=== PATIENT | male | born 1950 | race Caucasian/White ===

== ENCOUNTER 2025-04-13 12:58 | Observation (INO) | payer OTHER, SELFPAY ==
[2025-04-13] VITALS (10 sets, daily range): BP systolic 118–129; BP diastolic 58–69; PULSE 79–99; RESP 16–30; TEMP 36.9–38.7; O2SAT 94–100; BMI 29.9
--- NOTE | ~2025-04-13 | XR_ITS ---
XR chest 1V Ordering provider: Rogers Dubon MD History: 74 years Male with . AMS/fe brile . Comparison: None. FINDINGS: MEDIASTINUM: The cardiac silhouette is mildly enlarged. LUNGS: No infiltrates, effusions or pneumothorax. OTHER: No free air under the diaphragm. Degenerative changes of the spine. IMPRESSION: No acute cardiopulmonary pathology. Reviewed, dictated and finalized at location A.
--- NOTE | ~2025-04-13 | CT_ITS ---
CT cervical spine wo con Ordering provider: Jessie Simmons PA-C History: . fall, hi . Comparison: None. Technique: CT of the cervical spine was performed without contrast. Sagittal and coronal reformatted images were also obtained and reviewed. Automated exposure control and iterative reconstruction flor hnique were employed. The dose-length product was 475.23 mGy-cm. FINDINGS: VERTEBRAE: No subluxation or acute fracture. The occipital condyles are intact. Degenerative changes of the spine. DISC SPACES: Narrowing of the disc C3 C5 C6. Multilevel facet joint disease. Multilevel uncovertebral joint osteoarthritic changes. Bilateral narrowing of the foramina at the lev el of C5-6. Moderate spinal canal stenosis at the same level. PARASPINOUS SOFT TISSUES: Normal. IMPRESSION: No acute osseous abnormality cervical spine. Degenerative disc disease at the level of C5-C6. Reviewed, dictated and finalized at location A.
--- NOTE | ~2025-04-13 | CT_ITS ---
EXAMINATION: CT chest abdomen pelvis w con DATE: 04/13/2025 14:33 INDICATION: Altered mental status TECHNIQUE: Computed tomography (CT) of the chest, abdomen, and pelvis was performed with 100 mL Omnip aque-350 intravenous contrast. Automated exposure control and iterative reconstruction technique were employed. The dose-length product was 1705.25 mGy-cm. COMPARISON: None FINDINGS: CHEST CT: Mild elevation the left hemidiaphragm. Mild dependent atelectasis in the bilateral lower lobes. No pn eumonia, pulmonary edema or pleural effusion. Cardiomegaly. Atherosclerotic coronary artery calcifica tion and aortic valve calcification. No pericardial effusion. Thoracic aorta is normal in caliber wit h no dissection. No pathologically enlarged thoracic lymphadenopathy. Mild thoracic spondylosis with bridging osteophytes at multiple levels consistent with diffuse idiopathic skeletal hyperostosis (DIS H). ABDOMEN/PELVIS CT: Adjustable gastric banding procedure with normal phi angle of 50 degrees and with reservoir in the kohli bcutaneous tissues overlying the right upper quadrant anterior abdominal wall. Cholecystectomy clips at the gallbladder fossa. Liver and pancreas are normal. Small bilateral adrenal nodules the largest on the right measuring 1.4 cm. Splenomegaly measuring 17.5 cm maximal transaxial length. Bilateral re nal cysts the largest on the left measuring 3.2 cm. There is a 2.1 x 1.9 cm lesion within a region of focal cortical scarring at the upper pole of the left kidney. There are couple small hypodense foci on the larger lesion which could represent nonobstructing renal stones, dystrophic parenchymal calcan eus cases or potentially suture material related to a prior partial nephrectomy. Correlate with clini nimo/surgical history. Moderate to large amount of colonic stool which can be seen with constipation. Small bowel and appendix are normal. Multiple small metallic densities at the small prostate which co uld represent therapy seeds, surgical clips related to prior prostatectomy or potentially fiducial ma rkers. Diffuse wall thickening of the bladder likely related to a decompressed state although differe ntial includes sequela of chronic outlet obstruction or cystitis either acute or chronic. No free int raperitoneal gas or fluid. No pathologically enlarged abdominal or pelvic lymphadenopathy. Severe lum bar spondylosis. IMPRESSION: 1. No acute cardiopulmonary disease or acute intra-abdominal/pelvic process. 2. 2.1 x 1.9 cm lesion with heterogeneous attenuation within a region of focal cortical scarring at t he upper pole of the right kidney. This could represent a complex or partially collapsed cyst, renal neoplasm or scarring related to prior surgery or partial nephrectomy. Correlate with clinical/surgica l history and with any prior outside imaging. Depending on clinical history and whether prior imaging is available would also consider further evaluation with pre and postcontrast MRI. 3. Cardiomegaly. 4. Nonspecific splenomegaly. 5. Couple small bilateral adrenal nodules which the absence of known prior malignancy most likely rep resent adenomas. This could be further evaluated at the same time as the renal lesion with MRI. 6. Diffuse bladder wall thickening due to at least in part to nearly decompressed state with differen tial including sequela chronic outlet obstruction or cystitis either acute or chronic. Correlate with urinalysis. Reviewed, dictated and finalized at location B. IMPRESSION: 1. No acute cardiopulmonary disease or acute intra-abdominal/pelvic process. 2. 2.1 x 1.9 cm lesion with heterogeneous attenuation within a region of focal cortical scarring at the upper pole of the right kidney. This could represent a complex or partially collapsed cyst, renal neoplasm or scarring related to penny or surgery or partial nephrectomy. Correlate with clinical/surgical history and with any prior outside imaging. Depending on clinical history and whether prio r imaging is available would also consider further evaluation with pre and post contrast MRI. 3. Cardiomegaly. 4. Nonspecific splenomegaly. 5. Couple small bilateral adrenal nodules which the absence of known prior yue gnancy most likely represent adenomas. This could be further evaluated at the s josh time as the renal lesion with MRI. 6. Diffuse bladder wall thickening due to at least in part to nearly decompress ed state with differential including sequela chronic outlet obstruction or cyst itis either acute or chronic. Correlate with urinalysis.
--- NOTE | ~2025-04-13 | XR_ITS ---
XR hip LT 2V w AP pelvis Ordering provider: Rogers Dubon MD History: . Fall, Left hip bruising . Comparison: None FINDINGS: BONES: No acute fracture or dislocation. HIP JOINT SPACES: Mild osteoarthritis bilaterally. SACROILIAC JOINT SPACES/LUMBAR SPINE: The sacroiliac joint spaces are normal. Mild degenerative fox es of the visualized lower lumbar spine. PUBIC SYMPHYSIS: Pubic symphysitis. SOFT TISSUES: Normal. Residual contrast is seen in the bladder. IMPRESSION: No acute osseous abnormality pelvis and left hip. Reviewed, dictated and finalized at location A.
--- NOTE | ~2025-04-13 | CT_ITS ---
CT brain wo con Ordering provider: Jessie Simmons PA-C History: 74 years Male with . fall, hi, ams . Comparison: None. Technique: CT of the head without contrast. Radiation reduction technique utilized The dose-length pr oduct was 605.33 mGy-cm. FINDINGS: BRAIN PARENCHYMA AND CSF SPACES: Mild leukoaraiosis and diffuse cortical atrophy. Mild atheromatous d isease. No midline shift, mass effect or hemorrhage. The brain parenchyma and CSF spaces are otherwi se normal. VISUALIZED PARANASAL SINUSES: Left maxillary sinus disease. Left ethmoid sinus disease. Left frontal sinus disease. MASTOIDS: Well aerated. BONES: The bones appear intact. SOFT TISSUES: Visualized nasopharynx is normal. Superficial soft tissues are normal. IMPRESSION: No acute intracranial findings. Reviewed, dictated and finalized at location A.
--- NOTE | 2025-04-13 13:01 | ECG_ITS ---
Test Date: 2025-04-13 13:18:18 Measurements Intervals [place] Rate: 89 P: 0 IL: 0 QRS: -20 QRSD: 95 T: 5 QT: 321 QTc: 392 Interpretive Statements ATRIAL FIBRILLATION INCOMPLETE RIGHT BUNDLE BRANCH BLOCK ANTEROSEPTAL INFARCT, AGE INDETERMINATE CONSIDER INFERIOR INFARCT, AGE INDETERMINATE BORDERLINE ST-T WAVE ABNORMALITY- LAT/HIGH LAT LEADS BASELINE ARTIFACT- I, II, III, AVR, AVL, AVF, V1-V3 ABNORMAL ECG No previous ECG available for comparison Electronically Signed On 04-13-2025 13:31:09 CDT by Jared Dupree D.O.
[2025-04-13 13:15] LABS: Glucose Point of Care 253 mg/dl (65-105)
[2025-04-13 13:16] LABS: Basophils Percent Auto 0.2 % (0.2-1.2); Eosinophils Percent Auto 0.1 % (0-4.4); Hematocrit 38.3 % (42.0-52.0); Hemoglobin 11.8 g/dL (14.0-18.0); Immature Granulocyte Absolute 0.07 K/mm3 (0.00-0.031); Immature Granulocyte Percent A 0.8 % (0-0.5); Lymphocytes Absolute Auto 0.26 K/mm3 (0.9-3.2); Lymphocytes Percent Auto 2.8 % (18.3-44.2); Mean Corpuscular HGB Conc 30.8 g/dl (32-36); Mean Corpuscular Hemoglobin 28.4 pg (26-34); Mean Corpuscular Volume 92.3 fl (80-100); Mean Platelet Volume 9.6 fl (7.4-10.4); Monocytes Absolute Auto 0.1 K/mm3 (0.1-0.6); Monocytes Percent Auto 1.4 % (2.6-8.5); Neutrophils Absolute Auto 8.8 K/mm3 (1.3-6.7); Neutrophils Percent Auto 94.7 % (45.5-73.1); Platelet Count Result 203 k/mm3 (150-375); Red Blood Count 4.15 M/mm3 (4.6-6.20); Red Cell Distribution Width 14.8 % (11.5-14.5); White Blood Count 9.3 K/mm3 (4.5-10.0)
[2025-04-13 13:25] LABS: Alanine Aminotransferase 14 U/L (6-50); Albumin Level 3.7 g/dL (3.5-5.1); Alkaline Phosphatase 82 U/L (38-126); Anion Gap 9 mmol/L (4-12); Aspartate Amino Transferase 19 U/L (17-59); Bilirubin,Total 1.1 mg/dL (0.2-1.3); Blood Urea Nitrogen 19 mg/dL (9-20); Calcium 9.4 mg/dL (8.4-10.2); Carbon Dioxide 26 mmol/L (22-30); Chloride 99 mmol/L (98-107); Estimated CRCL calculation 74 ml/min; Estimated Glomerular Filt Rate > 60; Glucose 253 mg/dL (65-110); Potassium 4.7 mmol/L (3.4-5.0); Sodium 134 mmol/L (137-145); Total Protein 6.7 g/dL (6.3-8.2)
[2025-04-13 13:29] LABS: INR 1.6
[2025-04-13 13:30] LABS: Partial Thromboplastin Time 30.1 Seconds (22.3-36.8)
[2025-04-13 14:15] LABS: Fractional Inspired Oxygen 21 %; HCO3 VBG 22.3 mEq/l (24.0-30.0)
[2025-04-13] MEDS: LACTATED RINGERS 1,000 ML 999 ML IV CONT ×3 (14:15→14:39)
[2025-04-13 14:16] LABS: Lipase 33 U/L (23-300); Magnesium 1.4 mg/dL (1.6-2.3); Phosphorus 2.9 mg/dL (2.5-4.5)
[2025-04-13 14:17] LABS: Device ROOM AIR; PCO2 VBG 29.1 mmHg (42.0-48.0); pH VBG 7.503 (7.300-7.400)
[2025-04-13 14:19] LABS: Add Urine Microscopic? YES; Appearance Urine Clear (Clear); Bacteria Urine 2+ /hpf; Bilirubin Urine Negative (Negative); Blood Urine Negative (Negative); Color Urine Dark Yellow (Yellow); Glucose Urine UA 2+ mg/dL (Negative); Ketones Urine Trace mg/dL (Negative); Leukocyte Esterase Ur Trace LEU/UL (Negative); Need Manual Microscopic Reviewed; Nitrate Urine Positive (Negative); Protein Urine 2+ mg/dL (Negative); RBC Urine 0-2 /hpf (0-2); Specific Grav Ur 1.022 (1.001-1.035); Squamous Epithelial Cell Urine None Seen /hpf (Few); WBC Urine 0-5 /hpf (0-3); pH Urine 5.5 (5.0-9.0)
[2025-04-13 14:28] LABS: NT Pro B Type Natriuretic Pept 2540 pg/mL (19.9-100); Troponin I < 0.012 ng/mL (0.000-0.034)
[2025-04-13 14:39] LABS: Lactic Acid Reflex 1.4 mmol/L (0.7-2.0)
[2025-04-13] MEDS: LACTATED RINGERS 100 ML 999 ML IV CONT (14:39)
--- OUTSIDE RECORDS SUMMARY | 2025-04-13 14:52 | XMS_ITS | Encounter Summary ---
Author Organization [facility] Address [address] [place] [address] Care Team Providers Care Health And Safety Inspector Name Role Phone Raymundo Mcmillan MD Primary Care Provider Carlota Benton DO Primary Care Provider [phone] Inés Hickey MD Unavailable Harpal Dave MD Unavailable [phone] Mike Jose MD Unavailable [phone] Encounter Details Date Type Department Care Team (Late st Contact Info) Description 05/11/2014 Orders Only [facility] Information Management [address] [place] [address] Scanning, Provider Social History Tobacco Use Types Packs/Day Years Used Date Smoking Tobacco: Never Assessed Sex and Gender Information Value Date Recorded Sex Assigned at Not on file 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 Gender Identity Male 01/30/2023 6:41 PM CDT Sexual Orientation Straight 01/30/2023 6: 41 PM CDT documented as of this encounter Plan of Treatment Not on file documented as of this encounter Procedures Procedure Name Priority Date/Time Associated Diagnosis Comments CARDIOLOGY DOCUMENT SCAN 05/11/2014 documented in this encounter Results * SCAN - CARDIOLOGY (05/11/2014) Anatomical Region Laterality Modality Other us Provider Scanning CV CARDIAC SERVICES PROCEDURES Final Result documented in this encounter Visit Diagnoses Not on filedocumented in this encounter Care Teams Health And Safety Inspector Relationship Specialty Start Date End Date Raymundo Mcmillan MD [address] [place] [address] PCP - General 02/02/17 03/16/17 Carlota Benton DO [address] [place] [address] PCP - General 03/17/17 Inés Hickey MD [address] [facility] [place] [address] Consulting Physician Neurosurgery 12/05/24 Harpal Dave MD [address] [place] [address] Consulting Physician Urology 12/26/24 Mike Jose MD [address] [address] Consulting Physician Orthopedic Surgery 01/10/25 documented as of this encounter
--- OUTSIDE RECORDS SUMMARY | 2025-04-13 14:53 | XMS_ITS | Encounter Summary ---
Author Organization [facility] Address [address] [place] [address] Care Team Providers Care Cro Name Role Phone Unavailable Primary Care Provider Unavailabl e Encounter Details Date Type Department Care Team (Late st Contact Info) Description 12/30/2019 Lab Requisition [facility] DermPath Lab [address] 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 Gender Identity Not on file Sexual Orientation Not on file documented as of this encounter Plan of Treatment Not on file documented as of this encounter Procedures Procedure Name Priority Date/Time Associated Diagnosis Comments DERMATOPATHOLOGY Routine 12/29/2019 12:0 0 AM PICKING MACHINE OPERATOR documented in this encounter Results * DERMATOPATHOLOGY (12/29/2019 12:00 AM PICKING MACHINE OPERATOR) Case Report Dermatopathology Report Case: [id number] Authorizing Provider: Hazel Day MD Collected: 12/29/2019 12:00 AM Ordering Location: [facility] DermPath Lab Received: 12/30/2019 08:37 AM Pathologist: Hnasa Huang MD Specimen: Skin, post neck 0 5:05 PM CDT DERMATOPATHOLOGY LABORATORY Final Diagnosis Specimen A. SKIN, post neck: EPIDERMOID CYST (L72.0) 0 5:05 PM CDT DERMATOPATHOLOGY LABORATORY at 1705 CDT Clinical History R/O cyst, growing, painful. 0 5:05 PM T DERMATOPATHOLOGY LABORATORY Gross Description Specimen A: Received is one formalin filled container labeled with the patient's name and designated post neck. The specimen consists of a [id number] excision, bisected. Jar 0+. 0 5:05 PM [facility] DERMATOPATHOLOGY LABORATORY Microscopic Description Specimen A. SKIN, post neck: Within the dermis, there is a space lined by epithelium that resembles normal epidermis and the infundibular portion of the hair follicle. 0 5:05 PM T DERMATOPATHOLOGY LABORATORY Disclaimer An external and internal positive and negative controls are appropriate for the histochemical, immunohistochemical and immunofluorescence stain(s) in this case (if any), except where stated explicitly. The performance characteristics of the stain(s) cited in this report were developed and its performance characteristic determined by the Dermatopathology Laboratory at [facility], directed by Dr. Malinda Nguyen. These tests need not be, and therefore are not, approved by the [place] Food and Drug Administration. The tests are used for clinical purposes. Billing Codes Specimen Charges Stain Charges 75043 1 0 5:05 PM CDT DERMATOPATHOLOGY LABORATORY Embedded Images 0 5:05 PM T DERMATOPATHOLOGY LABORATORY Pathology/Cytolog y TISSUE SPECIMEN FROM SKIN / Unknown 12/29/2019 12/30/2019 8:37 AM PICKING MACHINE OPERATOR us Hazel Day MD LAB - PATHOLOGY/CYTOLOGY OR DERABLES Final Result DERMATOPATHOLOGY LABORATORY [facility] - Department of Dermatology [address] [place] [address] [address] [place] [address], [facility] [phone] documented in this encounter Visit Diagnoses Not on filedocumented in this encounter
--- OUTSIDE RECORDS SUMMARY | 2025-04-13 14:53 | XMS_ITS | Encounter Summary ---
Author Organization [facility] Facility Care Team Providers Care Fill Plant Operator Name Role Phone Carlota Benton DO Primary Care Provider [phone] Inés Hickey MD Unavailable Harpal Dave MD Unavailable [phone] Mike Jose MD Unavailable [phone] Encounter Details Date Type Department Care Team (Latest Contact Info) Description 07/01/2017 Orders Only [facility] ProviderMayi MD [address] [place] [address] Social History Tobacco Use Types Packs/Day Years Used Date Smoking Tobacco: Never Assessed Sex and Gender Information Value Date Recorded Sex Assigned at Not on file 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 us Historical Provider Final Res ult documented in this encounter Visit Diagnoses Not on filedocumented in this encounter Care Teams Fill Plant Operator Relationship Specialty Start Date End Date Carlota Benton DO PCP - General 03/17/17 Inés Hickey MD [address] [facility] [place] [place] [address] Consulting Physician Neurosurgery 12/05/24 Harpal Dave MD [address] [place] [address] Consulting Physician Urology 12/26/24 Mike Jose MD [address] [facility] [address] [address] Consulting Physician Orthopedic Surgery 01/10/25 documented as of this encounter
--- OUTSIDE RECORDS SUMMARY | 2025-04-13 14:53 | XMS_ITS ---
Author Organization [facility] Address [address] [place], [place] [id number] Care Team Providers Care Elementary Librarian Name Role Phone RASHID KIM Unavailable [phone] Carlota Benton Unavailable Unavailable REASON FOR VISIT *General care Encounters Encounter Location Date Provider Diagnosis [facility] [address] [place], [place] [phone] 02/14/2025 RASHID KIM Plan Of Treatment No Information Progress Notes * ROSA TURNER DDOB: [birth year] (74 yo M)Acc No.[id number]:02/14/2025 Patient: Pramod SILVA ROSA Shea Provider: Jamal Kim DPM :1950 A ge:74 Y S ex:Male Date:02/14/2025 Address:[address] [place], [place] [id number] Subjective: * Chief Complaints: * 1 . *General care. * Medical History: Objective: * Vitals: Assessment: Plan: * Treatment: * Billing Information: * Visit Code: * Procedure Codes: * Electronic signature of RASHID KIM DPM on 04/13/2025 at 02:52 PM CDT Sign off status: Pending * Provider: Jamal Kim DPM Date: 02/14/2025 Generated for Josei abby/West/eTransmitting on: 04/13/2025 02:52 PM CDT
--- OUTSIDE RECORDS SUMMARY | 2025-04-13 14:53 | XMS_ITS | Encounter Summary ---
Author Organization [facility] Facility Care Team Providers Care Drop Tester Name Role Phone Raymundo Mcmillan MD Primary Care Provider [phone] Carlota Benton DO Primary Care Provider [phone] Inés Hickey MD Unavailable [phone] aHrpal Dave MD Unavailable [phone] Mike Jose MD Unavailable [phone] Encounter Details Date Type Department Care Team (Latest Contact Info) Description 02/26/2017 Orders Only [facility] ProviderMayi MD [address] [place] [address] Social History Tobacco Use Types Packs/Day Years Used Date Smoking Tobacco: Never Assessed Sex and Gender Information Value Date Recorded Sex Assigned at Not on file 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 us Historical Provider Final Res ult documented in this encounter Visit Diagnoses Not on filedocumented in this encounter Care Teams Drop Tester Relationship Specialty Start Date End Date Raymundo Mcmillan MD [address] [facility] [address] [place] [address] PCP - General 02/02/17 03/16/17 Carlota Benton DO [address] [place] [address] PCP - General 03/17/17 Inés Hickey MD [address] [facility] [place] [address] Consulting Physician Neurosurgery 12/05/24 Harpal Dave MD [address] [place] [address] Consulting Physician Urology 12/26/24 Mike Jose MD [address] [place] [address] [place] [address] Consulting Physician Orthopedic Surgery 01/10/25 documented as of this encounter
--- OUTSIDE RECORDS SUMMARY | 2025-04-13 14:53 | XMS_ITS | Patient Health Record ---
Author Organization [facility] Address [address] [place], [place] [phone] Care Team Providers Care Technical Inspector Name Role Phone RASHID NIXON Unavailable [phone] Carlota Benton Unavailable Unavailable Allergies No Known Allergies Results Component Value Reference Range Notes AMY Reviewed date:07/04/2024 12:41:14 PM Interpretation:SEE ARTERIAL DOPPLER REPORT Performing Lab: Notes/Report: SEE ARTERIAL DOPPLER REPORT Reason For Referral Reason Essence Referral ([id number]) Diagnosis 1 Tinea unguium (B35.1 ) Referred Organization [facility] Referred Provider RASHID NIXON Referred Address [address],[place], [phone], Referred Provider Specialty Podiatry Referral Priority Routine Reason ESSENCE REFERRAL REQ UEST ( APPOINTMENT: 02/14/2025 ) Diagnosis 1 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, bilateral legs (I70.203) Diagnosis 2 Pain in left toe(s) (M79.675) Diagnosis 3 Pain in right toe(s) (M79.674) Diagnosis 4 DM (diabetes mellitu s), 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) Diagnosis 5 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) Referral Organization [facility] Referring Provider First Name RASHID Referring Provider Last Name TIFFANI Referring Provider Speciality Podiatry Referred Provider Carlota Benton Referred Provider Specialty General phys ician Referral Priority Routine Medications Medication SIG (Take, Route, Frequency, Duration) Notes Start Date End Date Status Clotrimazole-Betamethasone 1-0.05 % APPLY TO FEET TWICE A DAY for 30 Active Immunizations Vaccine Route Administration Date Status Comme nts Influenza, high dose seasonal Unknown 07/26/2023 Admini stered Influenza, high dose seasonal Unknown 11/17/2023 Refuse d Pneumococcal conjugate PCV 13 Unknown 11/17/2023 Refuse d Vital Signs Height-cm 185.42 cm 11/15/2024 Weight-kg 124.74 kg 11/15/2024 Height 73.00 in 11/15/2024 Weight 275 lbs 11/15/2024 BMI 36.28 kg/m2 11/15/2024 Encounters Encounter Location Date Provider Diagnosis [facility] [address] [place], [place] [id number] 06/21/2024 RASHID NIXON Fungal infection of nail B35.1 ; DM (diabetes mellitus), type 2 with neurological complications E11.49 ; Pain in right toe(s) M79.674 ; Pain in left toe(s) M79.675 and Unspecified atherosclerosis of [place] arteries of extremities, bilateral legs I70.203 [facility] [address] [place], [place] [id number] 08/30/2024 RASHID NIXON Fungal infection of nail B35.1 ; DM (diabetes mellitus), type 2 with neurological complications E11.49 ; Pain in right toe(s) M79.674 ; Pain in left toe(s) M79.675 and Unspecified atherosclerosis of [place] arteries of extremities, bilateral legs I70.203 [facility] [address] [place], [place] [id number] 11/15/2024 RASHID NIXON Fungal infection of nail B35.1 ; DM (diabetes mellitus), type 2 with neurological complications E11.49 ; Pain in right toe(s) M79.674 ; Pain in left toe(s) M79.675 and Unspecified atherosclerosis of [place] arteries of extremities, bilateral legs I70.203 Assessments Encounter Date Diagnosis (ICD Code) Assessment Notes Treatment Notes Treatment Clinical Notes Section Notes 06/21/2024 Fungal infection of nail (ICD-10 - B35.1) 08/30/2024 Fungal infection of nail (ICD-10 - B35.1) 11/15/2024 Fungal infection of nail (ICD-10 - B35.1) 11/15/2024 DM (diabetes mellitus), type 2 with neurological complications (ICD-10 - E11.49) 08/30/2024 DM (diabetes mellitus), type 2 with neurological complications (ICD-10 - E11.49) 06/21/2024 DM (diabetes mellitus), type 2 with neurological complications (ICD-10 - E11.49) 06/21/2024 Pain in right toe(s) (ICD-10 - M79.674) 08/30/2024 Pain in right toe(s) (ICD-10 - M79.674) 11/15/2024 Pain in right toe(s) (ICD-10 - M79.674) 11/15/2024 Pain in left toe(s) (ICD-10 - M79.675) 08/30/2024 Pain in left toe(s) (ICD-10 - M79.675) 06/21/2024 Pain in left toe(s) (ICD-10 - M79.675) 06/21/2024 Unspecified atherosclerosis of [place] arteries of extremities, bilateral legs (ICD-10 - I70.203) Arterial doppler ordered 08/30/2024 Unspecified atherosclerosis of [place] arteries of extremities, bilateral legs (ICD-10 - I70.203) Arterial doppler ordered 11/15/2024 Unspecified atherosclerosis of [place] arteries of extremities, bilateral legs (ICD-10 - I70.203) Arterial doppler ordered 06/21/2024 Other Nails 1-5 Bilateral were debrided extensively with nail nippers and emery board, reducing length and girth to pink healthy tissue with any subungual debris and necrotic tissue removed 08/30/2024 Other Nails 1-5 Bilateral were debrided extensively with nail nippers and emery board, reducing length and girth to pink healthy tissue with any subungual debris and necrotic tissue removed 11/15/2024 Other Nails 1-5 Bilateral were debrided extensively with nail nippers and emery board, reducing length and girth to pink healthy tissue with any subungual debris and necrotic tissue removed Plan Of Treatment No Information Insurance Providers Payer Name Payer Address Payer Phone Subscriber Number Group Number Insured Name Patient Relationship to Insured Coverage Start Date Coverage End Date iClinical. [facility] [address] [place] [id number] ROSA TURNER Self - patient is the insured
--- OUTSIDE RECORDS SUMMARY | 2025-04-13 14:53 | XMS_ITS | Clinical Summary ---
Author Organization [facility] Address [address] [place] [address] Care Team Providers Care Wire Stockkeeper Name Role Phone Carlota Benton DO Primary Care Provider [phone] Inés Hickey MD Unavailable Harpal Dave MD Unavailable Mike Jose MD Unavailable [phone] Allergies No known active allergies Medications buPROPion XL (WELLBUTRIN XL) 300 mg 24 hr tabletIndications: major depressive disorder Take 1 tablet (300 mg total) by mouth nightly Active digoxin (LANOXIN) 125 mcg tablet Take 1 tablet (125 mcg total) by mouth as directed Take 1 tablet every morning Mon-Thu and then 2 tablets on thu and Thursday. Active atorvastatin (LIPITOR) 40 mg tabletIndications: hyperlipidemia Take 1 tablet (40 mg total) by mouth nightly 3 9 Active Myrbetriq 25 mg tablet extended release 24 hr Take 1 tablet (25 mg total) by mouth daily 3 Active solifenacin (VESIcare) 10 mg tablet Take 1 tablet (10 mg total) by mouth daily 5 Active venlafaxine XR (EFFEXOR-XR) 75 mg 24 hr capsule Take 1 capsule (75 mg total) by mouth daily 5 Active cholecalciferol 25 mcg (1,000 unit) tablet Take 1 tablet (1,000 Units total) by mouth daily Active polyethylene glycol (MIRALAX) 17 gram packetIndications: constipation Take 1 packet (17 g total) by mouth daily Active docusate sodium (DOK) 100 mg tabletIndications: constipation Take 1 tablet (100 mg total) by mouth daily Active rivaroxaban (Xarelto) 20 mg tabletIndications: atrial fibrillation MAY RESUME ON 01/15/25 5 Active metoprolol XL (TOPROL-XL) 25 mg extended release tablet Take 0.5 tablets (12.5 mg total) by mouth daily 15 tablet 5 01/15/20 26 Active ferrous sulfate 325 mg (65 mg of elemental iron) tabletIndications: Iron Deficiency Anemia Take 1 tablet (325 mg total) by mouth daily with breakfast 30 tablet 5 01/15/20 26 Active cyanocobalamin (Vitamin B-12) 1,000 mcg tabletIndications: Prevention of Vitamin B12 Deficiency Take 1 tablet (1,000 mcg total) by mouth daily 30 tablet 5 01/18/20 26 Active folic acid (FOLVITE) 1 mg tablet Take 1 tablet (1 mg total) by mouth daily 30 tablet 5 Active carbidopa-levodopa ODT (PARCOPA) 25-100 mg per disintegrating tablet Take 1 tablet by mouth 3 (three) times a day 90 tablet 5 Active acetaminophen (TYLENOL) 325 mg tabletIndications: Pain Take 2 tablets (650 mg total) by mouth 3 (three) times a day 5 Active metFORMIN (GLUCOPHAGE) 1,000 mg tabletIndications: Type 2 diabetes mellitus without complication, without long-term current use of insulin (HCC) Take 1 tablet (1,000 mg total) by mouth 2 (two) times a day with meals 60 tablet 5 Active midodrine (PROAMATINE) 2.5 mg tabletIndications: Symptomatic Orthostatic Hypotension Take 1 tablet (2.5 mg total) by mouth 3 (three) times a day 90 tablet Active senna-docusate (PERICOLACE) 8.6-50 mgIndications:Slow transit constipation Take 2 tablets by mouth 2 (two) times a day Active albuterol HFA (PROVENTIL HFA,VENTOLIN HFA,PROAIR HFA) 90 mcg/actuation inhaler Inhale 2 puffs every 4 hours Active diclofenac sodium (VOLTAREN) 1 % gel 99 Active Epogen 10,000 unit/mL injection Active tolterodine LA (DETROL LA) 4 mg 24 hr capsule 99 Active Active Problems Problem Noted Date Diagnosed Date Benign prostatic hyperplasia (BPH) with urinary urgency 02/08/2025 Deficiency of macronutrients 02/08/2025 Diabetic peripheral angiopathy 02/08/2025 Non-thrombocytopenic purpura 02/08/2025 Overactive bladder 02/08/2025 Pain due to internal prosthetic device Recurrent major depressive episodes, mild 2024 Lumbar radiculopathy 02/08/2025 Cerebral atrophy 02/08/2025 Orthostatic hypotension 01/27/2025 Assessment & Plan (02/01/2025 9:49 PM CDT): Dizziness has improved after initiating midodrine. Continue 2.5 mg t.i.d. Assessment & Plan (01/31/2025 2:19 PM CDT): Patient reports dizziness has significantly improved, continues to have documented orthostasis, however vital signs have not been documented since 01/28/2025.. Continue midodrine 2.5 mg t.i.d. Assessment & Plan (01/27/2025 4:23 PM CDT): Likely related to underlying Parkinson's disease. Symptoms improved with low- dose midodrine, blood pressure still dropping with standing. We will increase midodrine to 2.5 mg t.i.d. (to be even at 0600, 1000, 1400). We will monitor for supine hypertension Slow transit constipation 01/23/2025 Assessment & Plan (02/01/2025 9:52 PM CDT): Much better, continue b.i.d. Medina Colace, scheduled MiraLax Assessment & Plan (01/25/2025 12:45 PM CDT): Patient is still without bowel movement despite Medina Colace 2 tabs b.i.d., MiraLax daily, magnesium citrate x1, bisacodyl suppository. Given milk of magnesia this a.m., we will give fleets enema later this afternoon. Abdominal x-ray reviewed demonstrating moderate stool burden, no specific obstruction Assessment & Plan (01/23/2025 7:40 PM CDT): Half a bottle of magnesium citrate ordered x1, to repeat dose if no bowel movement. We will continue Medina Colace 2 tablets b.i.d., MiraLax daily. Encouraged patient to get up and move with therapy. Anemia due to acute blood loss 01/22/2025 Assessment & Plan (02/01/2025 9:53 PM CDT): Patient did have significant drop in H&H during rehab stay. Did not require transfusion but did receive several doses of Epogen. H&H is stabilized at 8.7. Xarelto will be restarted. Stool occult negative x1. Recommend follow up as an outpatient PCP Assessment & Plan (01/31/2025 2:20 PM CDT): H&H slowly improving after Xarelto on hold and multiple doses of Epogen. H&H 8.7/29.3. Will restart Xarelto, follow-up labs in a.m. Assessment & Plan (01/27/2025 4:25 PM CDT): Stable, H&H 7.8/26.2 which is unchanged from previous. Continue to hold Xarelto, monitor H&H with aspirin. Repeat labs 01/30 Assessment & Plan (01/25/2025 12:41 PM CDT): Hemoglobin lower but stable, H&H currently 7.8/25.5. We will order additional 63236 units of Epogen x1. Xarelto remain on hold. We will start aspirin 81 mg daily due to significant CVA risk. Continue iron supplementation Assessment & Plan (01/23/2025 7:39 PM CDT): Patient with baseline chronic anemia, with expected postoperative decline. Hemoglobin currently 7.5. We will place Xarelto on hold, 2000 units Epogen ordered. Remains on ferrous fumarate. Continue to monitor Leukocytosis 01/20/2025 Assessment & Plan (01/27/2025 4:25 PM CDT): Reactive, has now normalized, current WBC 7.8 Assessment & Plan (01/20/2025 8:28 PM CDT): Etiology unclear although suspect inflammatory/reactive process. Patient afebrile, no dysuria, no diarrhea no, no pulmonary symptoms. In session well approximated with no signs or symptoms of infection. Continue to monitor Aftercare following right knee joint replacement surgery 01/19/2025 Assessment & Plan (02/01/2025 9:54 PM CDT): Incision stable, no drainage. Swelling has significantly improved. Pain is controlled with scheduled Tylenol, p.r.n. Empire. Patient has made good progress in therapy, patient is felt stable for discharge on 02/02/2025 to return home with his and outpatient therapy Assessment & Plan (01/23/2025 7:39 PM CDT): Edema slowly improving, pain is relatively well controlled with p.r.n. Tylenol, p.r.n. Empire. [place] to be removed today. Encouraged ice and elevation. Xarelto be placed on hold due to anemia. Assessment & Plan (01/20/2025 8:15 PM CDT): Overall pain is adequately controlled with p.r.n. Tylenol, p.r.n. Empire. Encouraged patient to utilize ice and elevation especially after therapy. Incision is well approximated, no drainage. Continue Xarelto for DVT prophylaxis. Staple removal orders have been placed for 01/23/2025, can follow-up as planned later in January with Orthopedic surgery. History of right knee joint replacement 01/13/20 Assessment & Plan (01/20/2025 4:35 PM CDT): I endorse admission to longterm care. The patient is at risk of injury, illness and a requirement for a higher level of care without this service. The patient needs assistance from the nurses and care team for all activities of daily living including dressing, hygeine of person and toilet, safe transfer and mobility, dietary needs, medication administration, and grooming. The patient will need physical and occupational therapy to progress to a safer level of care. Continue Empire 5 mg every 8 hours p.r.n. pain. Syncope 01/12/2025 Assessment & Plan (01/25/2025 12:43 PM CDT): Daughter reports a longstanding history of TIAs, concern that patient may actually have been having orthostasis. We will monitor blood pressure with additional midodrine. Discontinue Flomax, patient does not take routinely at home and has been voiding well. Arthritis of right knee 01/09/2025 Primary osteoarthritis of right knee 12/01/2024 Dementia 11/03/2023 Anxiety and depression 09/24/2023 Assessment & Plan (02/01/2025 9:53 PM CDT): Mood stable, continue venlafaxine Assessment & Plan (01/25/2025 12:42 PM CDT): With underlying cognitive decline/probable vascular dementia/Parkinson's dementia - mood overall stable when family at bedside, due to polypharmacy will refrain from adding additional medications. Continue venlafaxine 75 mg daily Parkinson's disease 09/24/2023 Assessment & Plan (02/01/2025 9:55 PM CDT): Stable, continue Sinemet Assessment & Plan (01/20/2025 4:37 PM CDT): This is chronic, currently stable. Continue Sinemet 25-100 t.i.d. as scripted Depression 01/26/2023 Type 2 diabetes mellitus 01/26/2023 Assessment & Plan (02/01/2025 9:50 PM CDT): Blood sugar had been lower, A1c very well controlled at 6.6. Glimepiride has been discontinued. Continue only metformin 1000 mg b.i.d. Assessment & Plan (01/31/2025 2:20 PM CDT): A1c 6.6, Accu-Cheks well controlled ranging from 128-158. Continue metformin 1000 mg b.i.d.. Glimepiride will remain on hold, likely we will DC at discharge Assessment & Plan (01/27/2025 4:26 PM CDT): A1c 6.6, Accu-Cheks ranging from 137-223. Remains generally well controlled with metformin 1000 mg b.i.d.. Glimepiride will remain on hold Assessment & Plan (01/20/2025 8:13 PM CDT): A1c 6.6, patient with hypoglycemia this a.m.. We will place glimepiride on hold, we will continue metformin 1000 mg b.i.d. but add hold parameters for blood sugar less than 100. Continue to monitor t.i.d. a.c. and make adjustments as necessary. Assessment & Plan (01/20/2025 4:40 PM CDT): Monitor point of care glucose, continue glimepiride (this is since been suspended) and metformin. BPH with obstruction/lower urinary tract symptom s 06/10/2022 RBBB 08/22/2019 Atherosclerosis of aorta 08/15/2019 Lumbosacral plexopathy 05/20/2018 Peripheral neuropathy 05/20/2018 Nerve plexus disorder 11/24/2017 Abnormal gait 10/27/2017 Morbid obesity 10/27/2017 Paraparesis 10/27/2017 Osteoarthritis of lumbar spine 10/27/2017 Foraminal stenosis of lumbar region 08/14/2017 Overview (05/05/2019): Added automatically from request for surgery [id number] Renal cell carcinoma 04/14/2017 Overview (02/08/2025): Status post microwave ablation of renal cell carcinoma lesion on his right kidney Postural dizziness 11/26/2016 Overview (02/08/2025): Likely due to lower blood pressure, resolved now that blood pressure is now in the normal range now that he is off clonidine. Peripheral neuropathy 11/26/2016 Hyperlipidemia 11/11/2016 Dyslipidemia 07/16/2016 Overview (08/15/2019): With LDL at goal on atorvastatin 20 mg daily Assessment & Plan (02/01/2025 9:50 PM CDT): Stable, continue atorvastatin Assessment & Plan (01/20/2025 4:36 PM CDT): This is chronic and stable. Continue atorvastatin 40 mg daily HS Essential (primary) hypertension 07/16/2016 Overview (08/15/2019): Blood pressure now in the low normal range Assessment & Plan (01/25/2025 12:40 PM CDT): Patient with significant orthostasis and is symptomatic. We will add midodrine 2.5 mg b.i.d. (to take at 8:00 a.m., 12:00om). Encourage p.o. fluid intake. Patient needs to maintain on metoprolol 12.5mg daily and digoxin for HR control. Continue to monitor Assessment & Plan (01/23/2025 7:37 PM CDT): Blood pressure well controlled, continue metoprolol 12.5 mg daily Assessment & Plan (01/20/2025 4:37 PM CDT): This is chronic and stable. Continue metoprolol succinate 12.5 mg daily and follow serial vital signs for trending. His notes during his inpatient postop care he had syncopal episode that was thought secondary to a high metoprolol dosing. Permanent atrial fibrillation 07/16/2016 Overview (08/15/2019): On rate control and anticoagulation, currently rate is controlled on metoprolol and digoxin on Xarelto anticoagulation, asymptomatic Assessment & Plan (02/01/2025 9:49 PM CDT): Heart rate controlled, continue digoxin, metoprolol. Resume Xarelto for anticoagulation Assessment & Plan (01/31/2025 2:17 PM CDT): Heart rate stable, continue digoxin for rate control. Recent digoxin levels stable, continue metoprolol 12.5 mg daily. We will resume Xarelto as H&H has improved. Assessment & Plan (01/20/2025 8:18 PM CDT): Heart rate well controlled, continue digoxin. Current digoxin level stable at 0.7. Continue Xarelto for anticoagulation. Assessment & Plan (01/20/2025 4:38 PM CDT): Continue to monitor vital signs for trending. Continue digoxin as ordered from hospital. This is stated as 125 mcg daily Thursday through Thursday and 250 mcg daily on each of Thursday and Thursday. Mild concentric left ventricular hypertrophy (LV H) 07/16/2016 DM (diabetes mellitus) 07/16/2016 Overview (02/08/2025): Managed by Dr. Mcmillan False positive stress test 07/16/2016 Overview (02/08/2025): History of false positive stress test with normal cardiac catheterization on 08/09/2010 and a Lexiscan Myoview stress test on 11/27/2014 which was negative for ischemia Low back pain 07/16/2016 Overview (02/08/2025): Chronic, with sciatica ZANE (obstructive sleep apnea) 07/16/2016 Overview (02/08/2025): Noncompliant with CPAP Osteoarthritis 07/16/2016 Malignant neoplasm of prostate 07/16/2016 Overview (02/08/2025): Status post XRT Squamous cell carcinoma of skin of lower extremi ty 11/07/2013 Encounters Date Type Department Care Team Description 04/04/2025 Plan of Care Documentation [facility] OP Occup Therapy [address] [place] [id number] 03/29/2025 9:30 AM CDT Therapy [facility] OP Occup Therapy [address] [place] [address] Velasquez, Mamie, OT Parkinson's disease without dyskinesia, unspecified whether manifestations fluctuate (HCC) (Primary Dx); Dementia without behavioral disturbance, psychotic disturbance, mood disturbance, or anxiety, unspecified dementia severity, unspecified dementia type (HCC) 03/22/2025 10:15 AM CDT Office Visit [facility] Orthopedics and Sports Medicine [address] [place] [address] [address] [place] [address] Mike Jose MD Status post right knee replacement 03/14/2025 11:15 AM CDT Therapy [facility] OP Physical Therapy [address] [place] [phone] Dodie Terrell, PT Aftercare following right knee joint replacement surgery (Primary Dx) 03/10/2025 10:45 AM CDT Therapy [facility] OP Physical Therapy [address] [place] [phone] Pat Matias, NUCLEAR PHYSICS PROFESSOR Aftercare following right knee joint replacement surgery (Primary Dx) 03/06/2025 3:00 PM CDT Therapy [facility] OP Physical Therapy [address] [place] [phone] Pat Matias, NUCLEAR PHYSICS PROFESSOR Aftercare following right knee joint replacement surgery (Primary Dx) 03/03/2025 10:00 AM CDT Therapy [facility] OP Physical Therapy [address] [place] [phone] Pat Matias, NUCLEAR PHYSICS PROFESSOR Aftercare following right knee joint replacement surgery (Primary Dx) 02/28/2025 9:15 AM CDT Therapy [facility] OP Physical Therapy [address] [place] [address] Pat Matias, NUCLEAR PHYSICS PROFESSOR Aftercare following right knee joint replacement surgery (Primary Dx) 02/24/2025 8:30 AM CDT Therapy [facility] OP Physical Therapy [address] [place] [phone] Pat Matias, NUCLEAR PHYSICS PROFESSOR Aftercare following right knee joint replacement surgery (Primary Dx) 02/20/2025 9:15 AM CDT Therapy [facility] OP Physical Therapy [address] [place] [address] Pat Matias, NUCLEAR PHYSICS PROFESSOR Aftercare following right knee joint replacement surgery (Primary Dx) 02/17/2025 1:30 PM CDT Therapy [facility] OP Physical Therapy [address] [place] [address] Pat Matias, NUCLEAR PHYSICS PROFESSOR Aftercare following right knee joint replacement surgery (Primary Dx) 02/14/2025 8:30 AM CDT Therapy [facility] OP Physical Therapy [address] [place] [phone] Debra Mathis, NUCLEAR PHYSICS PROFESSOR Aftercare following right knee joint replacement surgery (Primary Dx) 02/10/2025 8:30 AM CDT Therapy [facility] OP Physical Therapy [address] [place] [phone] Elissa Perkins, NUCLEAR PHYSICS PROFESSOR Aftercare following right knee joint replacement surgery (Primary Dx) 02/08/2025 9:35 AM CDT - 02/08/2025 11:59 PM CDT Hospital Encounter [facility] Diag Imaging [address] [place] [phone] Status post total right knee replacement Discharge Disposition: Discharge to home or self care 02/08/2025 9:30 AM CDT Office Visit [facility] Medicine [address] [place] [address] [address] [place] [address] Mike Jose MD Status post total right knee replacement (Primary Dx) 02/07/2025 4:45 PM CDT Therapy [facility] OP Physical Therapy [address] [place] [address] Dodie Terrell, PT Aftercare following right knee joint replacement surgery; Presence of right artificial knee joint 02/07/2025 Plan of Care Documentation [facility] OP Physical Therapy [address] [place] [phone] 02/03/2025 Telephone [facility] Medical [facility] Post Acute Care [address] [facility] [address] [place] [phone] Sheila Rodriguez MA 02/01/2025 NH/SNF Visit [facility] Post [address] [phone] Shea Baltazar PA Aftercare following right knee joint replacement surgery (Primary Dx); Persistent atrial fibrillation (HCC); Orthostatic hypotension; Dyslipidemia; Type 2 diabetes mellitus without complication, without long-term current use of insulin (HCC); Slow transit constipation; Anemia due to acute blood loss; Anxiety and depression; Parkinson's disease without dyskinesia, unspecified whether manifestations fluctuate (HCC) 02/01/2025 Orders Only [facility] Medical [facility] Hospitalists [address] [place] [phone] Shea Baltazar PA 01/31/2025 NH/SNF Visit [facility] Post [facility] Care [address] [address] Shea Baltazar PA Anemia due to acute blood loss (Primary Dx); Type 2 diabetes mellitus without complication, without long-term current use of insulin (HCC); Persistent atrial fibrillation (HCC); Orthostatic hypotension 01/30/2025 Orders Only [facility] Medical [facility] Hospitalists [address] [place] [phone] Shea Baltazar PA 01/27/2025 NH/SNF Visit [facility] Medical Group Post Acute Care [address] [address] Shea Baltazar PA Orthostatic hypotension (Primary Dx); Anemia due to acute blood loss; Leukocytosis, unspecified type; Type 2 diabetes mellitus without complication, without long-term current use of insulin (HCC) 01/27/2025 Orders Only [facility] Medical Group [facility] Hospitalists [address] [place] [phone] Shea Baltazar PA 01/25/2025 Orders Only [facility] [address] [place] [phone] Shea Baltazar PA 01/25/2025 NH/SNF Visit [facility] Medical [facility] Post Acute Care [address] [phone] Shea Baltazar PA Essential (primary) hypertension (Primary Dx); Anemia due to acute blood loss; Vasovagal syncope; Anxiety and depression; Slow transit constipation 01/24/2025 11:48 AM CDT - 01/24/2025 11:59 PM CDT Hospital Encounter [facility] Diagnostic Imaging [address] [place] [address] Slow transit constipation Discharge Disposition: Discharge to home or self care 01/24/2025 Orders Only [facility] Medical [facility] Post Acute Care [address] [phone] Shea Baltazar PA Slow transit constipation (Primary Dx) 01/23/2025 NH/SNF Visit [facility] Medical [facility] Post Acute Care [address] [phone] Shea Baltazar PA Anemia due to acute blood loss (Primary Dx); Essential (primary) hypertension; Aftercare following right knee joint replacement surgery; Slow transit constipation 01/20/2025 NH/SNF Visit [facility] Medical [facility] Post Acute Care [address] [phone] Shea Baltazar PA Aftercare following right knee joint replacement surgery (Primary Dx); Type 2 diabetes mellitus without complication, without long-term current use of insulin (HCC); Persistent atrial fibrillation (HCC); Leukocytosis, unspecified type 01/18/2025 IN/SNF Visit [facility] Post [facility] [address] [place] [phone] Afshin Edmonds MD Status post total right knee replacement (Primary Dx); Arthralgia, unspecified joint; Dyslipidemia; Essential (primary) hypertension; Parkinson's disease without dyskinesia, unspecified whether manifestations fluctuate (HCC); Peripheral polyneuropathy; Spinal stenosis of lumbar region, unspecified whether neurogenic claudication present; Persistent atrial fibrillation (HCC); Type 2 diabetes mellitus without complication, without long-term current use of insulin (HCC) 01/09/2025 10:56 AM CDT - 01/17/2025 2:26 PM CDT Hospital Encounter [address] [phone] Mike Jose MD Primary osteoarthritis of right knee (Primary Dx) Discharge Disposition: Discharge to SNF from Last 3 Months Immunizations Immunization Administration Dates Next Due Influenza, Quadrivalent, Split, Intramuscular Influenza, Trivalent, High D ose, Split, Preservative Free, Intramuscular 08/03/2018 Influenza, Trivalent, Preservative Free, Intramu scular 07/26/2017 Influenza, Unspecified 11/26/2018 Pneumococcal Conjugate PCV 13 05/01/2017 Pneumococcal Polysaccharide PPV23 09/14/2018 ZOSTER LIVE 09/25/2016 Surgical History Surgery Date Site/Laterality Comments KNEE SURGERY 10/26/2006 - 10/25/2007 Left replacement ROTATOR CUFF REPAIR 05/16/2010 Left CATARACT EXTRACTION Bilateral CHOLECYSTECTOMY LAPAROSCOPIC ABLATION RENAL MASS 10/26/2016 - 10/25/2017 PROSTATECTOMY 10/26/2017 - 10/25/2018 BARIATRIC SURGERY 10/26/2013 - 10/25/2014 LAP BAN COLECTOMY 10/26/2015 - 10/25/2016 polypectomy HERNIA REPAIR 10/26/2009 - 10/25/2010 BLADDER SURGERY 06/10/2022 UROLIFT BACK SURGERY 10/26/2018 - 10/25/2019 L2/3, L3/4 posterior spinal decompression ABDOMINAL SURGERY 03/02/2007 for diverticulities KNEE ARTHROSCOPY 10/26/2005 - 10/25/2006 Left maniscus repair FRACTURE SURGERY 10/26/2007 - 10/25/2008 Left CYSTOSCOPY 10/26/2021 - 10/25/2022 CYSTOSCOPY WITH UROLIFT INSERTION Medical History Medical History Date Comments HTN (hypertension) Skin cancer SCC- left knee- removed Renal cancer (HCC) had surgery- killed tumor but did not remove- did not get chemo or radiation per patient Prostate cancer (HCC) had surger y and radiation Type 2 diabetes mellitus (HCC) TIA (transient ischemic attack) 2023 Atrial fibrillation (HCC) HLD (hyperlipidemia) Colon polyp pre-cancerous Diverticulitis 2007 History of radiation therapy 2017 Pro state cancer Depression Osteoporosis Allergic rhinitis with postnasal drip Anxiety Uses walker Dementia (HCC) mild- can sign f or self Parkinson disease (HCC) LVH (left ventricular hypertrophy) Wears glasses Dental root implant present Swallowing problem with big pill s- sometime has problem Osteoarthritis Foot drop left Neuropathy BLE Family History Medical History Relation Name Comments Stroke Father Cancer Mother Diabetes Other 1 Hypertension Other 3 Heart disease Other 4 Alzheimer's disease Neg Hx Anesthesia problems Neg Hx Dementia Neg Hx Relation Name Status Comments Father Mother Other 1 Other 2 Other 3 Other 4 Other 5 Social History Tobacco Use Types Packs/Day Years Used Date Smoking Tobacco: Former Cigarettes 1 14 1 968 - 1981 Smokeless Tobacco: Former Tobacco Cessation:Counseling Given: Not Answered Alcohol Use Standard Drinks/Week Comments Yes 0 (1 standard drink = 0.6 oz pur e alcohol) rare [place] [employer] Answer Date Recorded In the past 12 months has [employer], gas, oil, or water [employer] threatened to shut off services in your home? No 01/10/2025 Social Connection and Isolat ion Panel [NHANES] Answer Date Recorded In a typical week, how many times do you talk on the phone with family, friends, or neighbors? Once a week 01/10/2025 How often do you get togethe r with friends or relatives? Three times a week 01/10/2025 How often do you attend chur or orthodox services? 1 to 4 times per year 01/10/2025 Do you belong to any clubs o r organizations such as congregation groups, unions, fraternal or athletic groups, or school groups? Yes 01/10/2025 How often do you attend meet ings of the clubs or organizations you belong to? More than 4 times per year 01/10/2025 Are you , , di vorced, , never , or living with a partner? 01/10/2025 AUDIT-C Answer Date Recorded Q1: How often do you have a drink containing alcohol? Never 12/26/2024 Q2: How many drinks containi ng alcohol do you have on a typical day when you are drinking? Patient does not drink Frequency of Binge Drinking Not on file 12/2024 Overall Financial Resource Strain (CARDIA) Answe r Date Recorded How hard is it for you to pa y for the very basics like food, housing, medical care, and heating? Not hard at all 01/10/2025 Hunger Vital Sign Answer Date Recorded Within the past 12 months, y ou worried that your food would run out before you got the money to buy more. Never true 01/11/20 25 Within the past 12 months, t he food you bought just didn't last and you didn't have money to get more. Never true 01/10/2025 PRAPARE - Transportation Answer Date Re corded In the past 12 months, has l ack of transportation kept you from medical appointments or from getting medications? No 12/24 In the past 12 months, has l ack of transportation kept you from meetings, work, or from getting things needed for daily living? No 01/10/2025 Housing Stability Vital Sign Answer Jatin e Recorded In the last 12 months, was t here a time when you were not able to pay the mortgage or rent on time? No 01/10/2025 In the past 12 months, how m any times have you moved where you were living? 0 01/10/2025 At any time in the past 12 m [facility], were you homeless or living in a [facility] (including now)? No 01/10/2025 Personal Safety Answer Date Recorded Have you ever been in or are you currently in a harmful physical or emotional relationship or is someone making you feel afraid or unsafe? 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 Not on file Not on file Obstetrics History Last Filed Vital Signs Vital Sign Reading Time Taken Comments Blood Pressure 129/64 02/01/2025 9:11 PM CDT Pulse 99 02/01/2025 9:11 PM CDT Temperature 36.9 C (98.4 F) 02/01/2025 9:11 PM CDT Respiratory Rate 20 02/01/2025 9:11 PM CDT Oxygen Saturation 100% 02/01/2025 9:11 PM CDT Inhaled Oxygen Concentration - - Weight 101.6 kg (224 lb) 03/22/2025 11:48 AM CDT Height 185.4 cm (6' 1) 03/22/2025 11:48 AM CDT Body Mass Index 29.55 03/22/2025 11:48 AM CDT Plan of Treatment Health Maintenance Due Date Last Done Comments Colon Cancer Screening-Colonoscopy 1950 Depression Screening 1950 Hepatitis C Screening 1950 Dilated Eye Exam 1950 Foot Exam 1950 DTaP/Tdap/Td Vaccine (1 - Tdap) 1961 Hepatitis B Screening 1968 Well Visit 65+ 2015 Zoster Vaccine (2 of 3) 11/20/2016 09/25/2016 Albumin Creatinine Ratio, Urine 07/02/2017 6 Covid-19 Vaccine (3 - 2023-2 5 season) 2024 01/03/2021, 12/06/2020 Hemoglobin A1C 06/28/2025 12/26/2024, 04/26, 07/02/2016 Fall Risk Assessment 01/17/2026 01/17/2025 eGFR 02/01/2026 02/01/2025, 04/0 11/2024, 01/23/2025, Additional history exists Lipid Panel 02/06/2026 02/06/2025, 06/26, 11/03/2023, Additional history exists Abdominal Aortic Aneurysm (A AA) Screen Completed 08/30/2021, 04/11/2020, 03/30/2019, Additional history exists Influenza Vaccine Completed 07/06/2024, , 08/03/2018, Additional history exists Pneumococcal vaccine 65+ Completed 024, 09/14/2018, 05/01/2017 Medical Devices Implanted Type Area Curriculum Specialist Device Identifier Shelf Expiration Date Model / Serial / Lot Lt Total Knee Arthroplasty Left: Knee Lens Bilateral: Eye Lap Ban Abdomen Dental Implant Mouth Description:Upper and lower [employer] Simplex P Radiopaque Full Dose Cement Bone Sterile 6191-1-010 - [id number] Implanted:Qty: 1 on 01/09/2025 by Mike Jose MD at [facility] Right: Knee [employer] 07/25/2027 6191-1-010 / / [id number] [employer] Baylee Ii Legion Spc Posterior Stabilize Knee Right 7 Component [id number] - [id number] Implanted:Qty: 1 on 01/09/2025 by Mike Jose MD at [facility] Right: Knee [employer] [id number] 05/13/2034 [id number] / / [id number] [employer] Baylee Ii Cement Knee Right 7 Baseplate Tibial Titanium [id number] - [id number] Implanted:Qty: 1 on 01/09/2025 by Mike Jose MD at [facility] Right: Knee [employer] [id number] 07/18/2034 [id number] / / [id number] [employer] Legion 9mm Posterior Stabilized High Flexion Knee 7-8 Insert [id number] - [id number] Implanted:Qty: 1 on 01/09/2025 by Mike Jose MD at [facility] Right: Knee [employer] [id number] 05/08/2034 [id number] / / [id number] [employer] Baylee Ii [id number] Biconvex Component Patellar [id number] - [id number] Implanted:Qty: 1 on 01/09/2025 by Mike Jose MD at [facility] Right: Knee [employer] [id number] 01/08/2026 [id number] / [id number] Procedures Procedure Name Priority Date/Time Associated Diagnosis Comments XR KNEE RIGHT 1 OR 2 VIEWS Schedule Routine, Read Routine (OP Routine) 02/08/2025 9:53 AM CDT Status post total right knee replacement EGFR Routine 02/01/2025 6:20 AM CDT BASIC METABOLIC PANEL Routine 02/01/2025 6:20 AM CDT CBC WITHOUT DIFFERENTIAL Routine 02/01/2025 6:20 AM CDT HEMOGLOBIN AND HEMATOCRIT Routine 01/30/2025 6:44 AM CDT CBC WITHOUT DIFFERENTIAL Routine 01/27/2025 6:48 AM CDT EGFR Routine 01/25/2025 7:07 AM CDT BASIC METABOLIC PANEL Routine 01/25/2025 7:07 AM CDT CBC WITHOUT DIFFERENTIAL Routine 01/25/2025 7:07 AM CDT XR ABDOMEN AP 1 VIEW Schedule MAURICIO, Read Routine (Patient lives out of area) 01/24/2025 1:29 PM CDT Slow transit constipation EGFR Routine 01/23/2025 10:20 AM CDT COMPREHENSIVE METABOLIC PANEL Routine 01/23/2025 10:20 AM CDT DIFFERENTIAL AUTO Routine 01/23/2025 4:3 0 AM CDT CBC WITH AUTO DIFFERENTIAL Routine 01/23/2025 4:30 AM CDT CBC WITHOUT DIFFERENTIAL Routine 01/23/2025 4:30 AM CDT EGFR Routine 01/23/2025 4:30 AM CDT BASIC METABOLIC PANEL Routine 01/23/2025 4:30 AM CDT DIGOXIN LEVEL Routine 01/20/2025 7:17 AM CDT EGFR Routine 01/20/2025 7:17 AM CDT COMPREHENSIVE METABOLIC PANEL Routine 01/20/2025 7:17 AM CDT CBC WITHOUT DIFFERENTIAL Routine 01/20/2025 7:17 AM CDT POCT GLUCOSE DEVICE Routine 01/17/2025 12:06 PM CDT EGFR Routine 01/17/2025 8:31 AM CDT DIFFERENTIAL AUTO Routine 01/17/2025 8:3 1 AM CDT BASIC METABOLIC PANEL Routine 01/17/2025 8:31 AM CDT CBC WITH AUTO DIFFERENTIAL Routine 01/17/2025 8:31 AM CDT POCT GLUCOSE DEVICE Routine 01/17/2025 8 :18 AM CDT POCT GLUCOSE DEVICE Routine 01/16/2025 8 :17 PM CDT POCT GLUCOSE DEVICE Routine 01/16/2025 4 :31 PM CDT POCT GLUCOSE DEVICE Routine 01/16/2025 12:11 PM CDT EGFR STAT 01/16/2025 8:16 AM CDT CBC WITHOUT DIFFERENTIAL STAT 01/16/2025 8:16 AM CDT COMPREHENSIVE METABOLIC PANEL STAT 01/16/2025 8:16 AM CDT POCT GLUCOSE DEVICE Routine 01/16/2025 8 :09 AM CDT POCT GLUCOSE DEVICE Routine 01/15/2025 8 :57 PM CDT HEMOGLOBIN AND HEMATOCRIT Timed 01/15/2025 7:46 PM CDT POCT GLUCOSE DEVICE Routine 01/15/2025 4 :24 PM CDT FOLATE Routine 01/15/2025 2:51 PM CDT TSH Routine 01/15/2025 2:51 PM CDT LACTATE DEHYDROGENASE Routine 01/15/2025 2:51 PM CDT HAPTOGLOBIN Routine 01/15/2025 2:51 PM CDT POCT GLUCOSE DEVICE Routine 01/15/2025 12:23 PM CDT ALBUMIN Timed 01/15/2025 12:00 PM CDT HEMOGLOBIN AND HEMATOCRIT Timed 01/15/2025 12:00 PM CDT EGFR Routine 01/15/2025 8:32 AM CDT DIFFERENTIAL AUTO Routine 01/15/2025 8:3 2 AM CDT CBC WITH AUTO DIFFERENTIAL Routine 01/15/2025 8:32 AM CDT BASIC METABOLIC PANEL Routine 01/15/2025 8:32 AM CDT POCT GLUCOSE DEVICE Routine 01/15/2025 8 :11 AM CDT POCT GLUCOSE DEVICE Routine 01/15/2025 3 :48 AM CDT POCT GLUCOSE DEVICE Routine 01/15/2025 12:03 AM CDT POCT GLUCOSE DEVICE Routine 01/14/2025 8 :14 PM CDT POCT GLUCOSE DEVICE Routine 01/14/2025 4 :22 PM CDT TRANSFUSE RED BLOOD CELLS Timed 01/14/2025 3:23 PM CDT PREPARE RBC Timed 01/14/2025 1:16 PM CDT CROSSMATCH Timed 01/14/2025 12:30 PM CDT ANTIBODY SCREEN Timed 01/14/2025 12:30 PM CDT ABO/RH Timed 01/14/2025 12:30 PM CDT TYPE AND SCREEN Timed 01/14/2025 12:30 PM CDT POCT GLUCOSE DEVICE Routine 01/14/2025 12:24 PM CDT POCT GLUCOSE DEVICE Routine 01/14/2025 8 :21 AM CDT EGFR Routine 01/14/2025 6:40 AM CDT DIFFERENTIAL AUTO Routine 01/14/2025 6:4 0 AM CDT CBC WITH AUTO DIFFERENTIAL Routine 01/14/2025 6:40 AM CDT BASIC METABOLIC PANEL Routine 01/14/2025 6:40 AM CDT POCT GLUCOSE DEVICE Routine 01/13/2025 8 :37 PM CDT POCT GLUCOSE DEVICE Routine 01/13/2025 3 :49 PM CDT POCT GLUCOSE DEVICE Routine 01/13/2025 12:09 PM CDT TRANSTHORACIC ECHO (TTE) COMPLETE W DOPPLER/CF WO CONTRAST Routine 01/13/2025 11:03 AM CDT IRON PROFILE W/ IBC Routine 01/13/2025 8 :52 AM CDT FERRITIN Routine 01/13/2025 8:52 AM CDT RETICULOCYTES Routine 01/13/2025 8:52 AM CDT EGFR Routine 01/13/2025 8:52 AM CDT DIFFERENTIAL AUTO Routine 01/13/2025 8:5 2 AM CDT COMPREHENSIVE METABOLIC PANEL Routine 01/13/2025 8:52 AM CDT CBC WITH AUTO DIFFERENTIAL Routine 01/13/2025 8:52 AM CDT POCT GLUCOSE DEVICE Routine 01/13/2025 8 :23 AM CDT POCT GLUCOSE DEVICE Routine 01/12/2025 8 :[address] HEAD WO CONTRAST IP Routine 01/12/2025 6 :47 PM CDT POCT GLUCOSE DEVICE Routine 01/12/2025 4 :49 PM CDT POCT GLUCOSE DEVICE Routine 01/12/2025 11:49 AM CDT ECG 12-LEAD Routine 01/12/2025 10:56 AM CDT EGFR Routine 01/12/2025 9:54 AM CDT DIFFERENTIAL AUTO Routine 01/12/2025 9:5 4 AM CDT DIGOXIN LEVEL Timed 01/12/2025 9:54 AM CDT COMPREHENSIVE METABOLIC PANEL Routine 01/12/2025 9:54 AM CDT CBC WITH AUTO DIFFERENTIAL Routine 01/12/2025 9:54 AM CDT POCT GLUCOSE DEVICE Routine 01/12/2025 8 :13 AM CDT POCT GLUCOSE DEVICE Routine 01/11/2025 8 :09 PM CDT POCT GLUCOSE DEVICE Routine 01/11/2025 4 :30 PM CDT POCT GLUCOSE DEVICE Routine 01/11/2025 12:36 PM CDT POCT GLUCOSE DEVICE Routine 01/11/2025 8 :16 AM CDT DIFFERENTIAL AUTO Routine 01/11/2025 5:0 0 AM CDT CBC WITH AUTO DIFFERENTIAL Routine 01/11/2025 5:00 AM CDT HEMOGLOBIN A1C Routine 12/26/2024 10:31 AM [employer] Primary osteoarthritis of right knee Preop testing Elevated hemoglobin A1c CT ABDOMEN W WO CONTRAST Schedule Routine, Read Routine (OP Routine) 08/30/2021 9:50 AM CDT Renal mass, right LIPID PANEL STAT 07/21/2019 3:38 PM CDT ALBUMIN CREATININE RATIO, URINE Routine 07/02/2016 9:20 AM CDT from Last 3 Months or Most Recently Relevant to Health Maintenance Results * XR Knee Right 1 or 2 Views (02/08/2025 9:53 AM CDT) Anatomical Region Laterality Modality Lower Extremities, Knee Right Computed Radiography 02/08/2025 9:51 AM CDT Narrative 02/08/2025 9:52 AM CDT EXAM DESCRIPTION: XR KNEE RIGHT 1 OR 2 VIEWS REASON FOR STUDY: Postop knee replacement COMPARISON: Right knee x-ray from 01/09/2025 FINDINGS: Two views of the right knee are reviewed. These images reveal a recently done, cemented, 3 compartment total knee arthroplasty. There is no evidence of mechanical loosening or wear no fractures or dislocations are seen. There are scattered vascular calcifications present behind the knee joint. Compared to previous x-rays the skin botson have been removed and soft tissue air has absorbed. Soft tissue swelling is noted today. IMPRESSION: Recent right total knee arthroplasty without evidence of complication. THIS IS AN ELECTRONICALLY VERIFIED FINAL REPORT 02/08/2025 9:52 AM - Electronically signed by Mike Jose T: Report ID: [id number] Reading Location: [place] [address] Procedure Note Mike Jose MD - 02/08/2025 EXAM DESCRIPTION: XR KNEE RIGHT 1 OR 2 VIEWS REASON FOR STUDY: Postop knee replacement COMPARISON: Right knee x-ray from 01/09/2025 FINDINGS: Two views of the right knee are reviewed. These images reveal a recently done, cemented, 3 compartment total knee arthroplasty. There is noevidence of mechanical loosening or wear no fractures or dislocations are seen.There are scattered vascular calcifications present behind the knee joint.Compared to previous x-rays the skin [place] have been removed and soft tissue airhas absorbed. Soft tissue swelling is noted today. IMPRESSION: Recent right total knee arthroplasty without evidence of complication. THIS IS AN ELECTRONICALLY VERIFIED FINAL REPORT 02/08/2025 9:52 AM - Electronically signed by Mike Jose T: Report ID: [id number] Reading Location: [place] [address] us Mike Jose MD IMG XR PROCEDURES Final Resu lt * eGFR (02/01/2025 6:20 AM CDT) eGFR 74 >=60 mL/min/1. 73 m2 CARMENZA LEVINE Comment: Interpretive Data Reference Interval Normal >/= 90 mL/min/1.73m2 Mildly decreased* 60 - 89 mL/min/1.73m2 Mildly to moderately decreased 45 - 59 mL/min/1.73m2 Moderately to severely decreased 30 - 44 mL/min/1.73m2 Severely decreased 15 - 29 mL/min/1.73m2 Kidney Failure < 15 mL/min/1.73m2 *Relative to young adult level Estimated glomerular filtration rate is determined by the 2020 CKD-EPI equation recommended by the National Kidney Foundation (A Unifying Approach to GFR Estimation: Recommendations of the NKF-ASK Task Force on Reassessing the Inclusion of Race in Diagnosing Kidney Disease, JASN 2020). The CKD-EPI equation should not be used for patients with unstable renal function and has not been validated in children and those over 70. Current interpretive data was last reviewed 2021. [facility], [address] [place] [address]., [address] Blood 02/01/2025 6:20 AM CDT 02/01/2025 7:51 AM CDT us Shea COLLIER LAB BLOOD ORDERABLES Final Resu lt CARMENZA LEVINE [address] [place] [address] Department [place] [address] * (ABNORMAL) CBC without differential (02/01/2025 6:20 AM CDT) WBC 7.34 3.80 - 9.90 K/cumm CARMENZA LEVINE Comment:[address] [address] Hgb 8.7(L) 13.0 - 17.5 g/dL CARMENZA LEVINE Comment:[address] [address] Hct 28.5(L) 38.9 - 50.3 % CARMENZA LEVINE Comment:[address] [address] Plt 298 150 - 400 K/cumm CARMENZA LEVINE Comment:[address] [address] MPV 9.0(L) 9.1 - 12.3 fL CARMENZA LEVINE Comment:[address] [address] RBC 2.90(L) 4.30 - 5.80 M/cumm CARMENZA LEVINE Comment:[address] [address] MCV 98.3(H) 81.3 - 96.4 fL CARMENZA LEVINE Comment:[address] [address] MCH 30.0 27.1 - 33.3 pg CARMENZA LEVINE Comment:[address] [address] MCHC 30.5(L) 32.3 - 35.7 g/dL CARMENZA LEVINE Comment:[address] [address] RDW CV 18.9(H) 11.1 - 14.9 % CARMENZA LEVINE Comment:[address] [address] RDW SD 66.4(H) 35.7 - 48.1 fL CAREMNZA LEVINE Comment:[address], [address] NRBC abs 0.00 0.00 - 0.01 K/cumm CARMENZA LEVINE Comment:[address] [address] Blood 02/01/2025 6:20 AM CDT 02/01/2025 7:51 AM CDT us Shea COLLIER LAB BLOOD ORDERABLES Final Resu lt CARMENZA [address] [facility] Department [place] [address] * (ABNORMAL) Basic metabolic panel (02/01/2025 6:20 AM CDT) Sodium 138 135 - 145 mmol/L CARMENZA LEVINE Comment:[address] [address] Potassium, pl 4.3 3.3 - 4.9 mmol/L CARMENZA LEVINE Comment:[address] [address] Chloride 103 97 - 110 mmol/L CARMENZA LEVINE Comment:[address], [address] CO2 25 22 - 32 mmol/L CARMENZA LEVINE Comment:[address], [address] Anion gap 10 2 - 15 mmol/L CARMENZA LEVINE Comment:[address] [address] BUN 29(H) 6 - 25 mg/dL CARMENZA LEVINE Comment:[address] [address] Creatinine 1.05 0.80 - 1.30 mg/dL CARMENZA LEVINE Comment:[address] [address] Glucose 126 70 - 199 mg/dL CARMENZA LEVINE Comment: Interpretive Data Fasting glucose >/= 126 mg/dl is diagnostic for diabetes. Fasting is defined as no caloric intake for at least 8 hours. Fasting glucose between 100 mg/dl to 125 mg/dl is diagnostic of prediabetes. In a patient with classic symptoms of hyperglycemia or hyperglycemic crisis, a random glucose >/= 200 mg/dl is diagnostic for diabetes. In the absence of unequivocal hyperglycemia, results should be confirmed by repeat testing. The classification and Diagnosis of Diabetes Diabetes Care 202; 46: S19-S40. Current interpretive data was last revised 2022. [facility], [address] [place] [address]., [address] Calcium 8.7 8.5 - 10.3 mg/dL CARMENZA LEVINE Comment:[address] [address] Blood 02/01/2025 6:20 AM CDT 02/01/2025 7:51 AM CDT us Shea COLLIER LAB BLOOD ORDERABLES Final Resu lt CARMENZA [address] Department [place] [address] * (ABNORMAL) Hemoglobin and hematocrit (01/30/2025 6:44 AM CDT) Hgb 8.7(L) 13.0 - 17.5 g/dL CARMENZA LEVINE Comment:[address] [address] Hct 29.3(L) 38.9 - 50.3 % CARMENZA LEVINE Comment:[address] [address] Blood 01/30/2025 6:44 AM CDT 01/30/2025 8:44 AM CDT us Shea COLLIER LAB BLOOD ORDERABLES Final Resu lt CARMENZA [address] [facility] Department [place] [address] * (ABNORMAL) CBC without differential (01/27/2025 6:48 AM CDT) WBC 7.84 3.80 - 9.90 K/cumm CARMENZA Comment:[address] [address] Hgb 7.8(L) 13.0 - 17.5 g/dL CARMENZA Comment:[address] [address] Hct 26.2(L) 38.9 - 50.3 % CARMENZA Comment:[address] [address] Plt 306 150 - 400 K/cumm CARMENZA Comment:[address], [address] MPV 9.1 9.1 - 12.3 fL CERTORIN Comment:[address] [address] RBC 2.70(L) 4.30 - 5.80 M/cumm CERTORIN MH Comment:[address] [address] MCV 97.0(H) 81.3 - 96.4 fL CARMENZA Comment:[address] [address] MCH 28.9 27.1 - 33.3 pg CERTORIN MH Comment:[address] [address] MCHC 29.8(L) 32.3 - 35.7 g/dL CERTORIN Comment:[address], [address] RDW CV 18.6(H) 11.1 - 14.9 % CERTORIN Comment:[address], [address] RDW SD 63.6(H) 35.7 - 48.1 fL CERNER MH Comment:[address] [address] NRBC abs 0.00 0.00 - 0.01 K/cumm CARMENZA Comment:[address] [address] Blood 01/27/2025 6:48 AM CDT 01/27/2025 8:10 AM CDT Shea COLLIER LAB BLOOD ORDERABLES Final Resu lt MARYTORIN [address] Department [place] [place] [address] * eGFR (01/25/2025 7:07 AM CDT) eGFR 83 >=60 mL/min/1. 73 m2 CARMENZA LEVINE Comment: Interpretive Data Reference Interval Normal >/= 90 mL/min/1.73m2 Mildly decreased* 60 - 89 mL/min/1.73m2 Mildly to moderately decreased 45 - 59 mL/min/1.73m2 Moderately to severely decreased 30 - 44 mL/min/1.73m2 Severely decreased 15 - 29 mL/min/1.73m2 Kidney Failure < 15 mL/min/1.73m2 *Relative to young adult level Estimated glomerular filtration rate is determined by the 2020 CKD-EPI equation recommended by the National Kidney Foundation (A Unifying Approach to GFR Estimation: Recommendations of the NKF-ASK Task Force on Reassessing the Inclusion of Race in Diagnosing Kidney Disease, JASN 2020). The CKD-EPI equation should not be used for patients with unstable renal function and has not been validated in children and those over 70. Current interpretive data was last reviewed 2021. [facility], [address] [place] [address]., [address] Blood 01/25/2025 7:07 AM CDT 01/25/2025 7:43 AM CDT Shea COLLIER LAB BLOOD ORDERABLES Final Resu lt Performing Organization Address City/[facility]/ZIP Co de Phone Number MARYTORIN [address] Department [place] [address] * (ABNORMAL) CBC without differential (01/25/2025 7:07 AM CDT) WBC 8.65 3.80 - 9.90 K/cumm CERTORIN Comment:[address], [address] Hgb 7.8(L) 13.0 - 17.5 g/dL CERNER Comment:[address], [address] Hct 25.5(L) 38.9 - 50.3 % CERNER Comment:[address], [address] Plt 320 150 - 400 K/cumm CERTORIN MH Comment:[address], [address] MPV 9.0(L) 9.1 - 12.3 fL CERNER MH Comment:[address], [address] RBC 2.65(L) 4.30 - 5.80 M/cumm CERNER MH Comment:[address], [address] MCV 96.2 81.3 - 96.4 fL CERNER Comment:[address], [address] MCH 29.4 27.1 - 33.3 pg CERNER MH Comment:[address], [address] MCHC 30.6(L) 32.3 - 35.7 g/dL CERNER Comment:[address], [address] RDW CV 18.5(H) 11.1 - 14.9 % CERNER Comment:[address], [address] RDW SD 60.9(H) 35.7 - 48.1 fL CERTORIN Comment:[address], [address] NRBC abs 0.00 0.00 - 0.01 K/cumm CERTORIN Comment:[address], [address] Blood 01/25/2025 7:07 AM CDT 01/25/2025 7:43 AM CDT Shea COLLIER LAB BLOOD ORDERABLES Final Resu lt CARMENZA [address] Department [place] [address] * (ABNORMAL) Basic metabolic panel (01/25/2025 7:07 AM CDT) Sodium 136 135 - 145 mmol/L CARMENZA Comment:[address] [address] Potassium, pl 4.4 3.3 - 4.9 mmol/L CARMENZA Comment:[address] [address] Chloride 102 97 - 110 mmol/L CARMENZA Comment:[address] [address] CO2 25 22 - 32 mmol/L CARMENZA Comment:[address] [address] Anion gap 9 2 - 15 mmol/L CARMENZA Comment:[address] [address] BUN 28(H) 6 - 25 mg/dL CARMENZA Comment:[address] [address] Creatinine 0.96 0.80 - 1.30 mg/dL CARMENZA Comment:[address] [address] Glucose 126 70 - 199 mg/dL [facility] Comment: Interpretive Data Fasting glucose >/= 126 mg/dl is diagnostic for diabetes. Fasting is defined as no caloric intake for at least 8 hours. Fasting glucose between 100 mg/dl to 125 mg/dl is diagnostic of prediabetes. In a patient with classic symptoms of hyperglycemia or hyperglycemic crisis, a random glucose >/= 200 mg/dl is diagnostic for diabetes. In the absence of unequivocal hyperglycemia, results should be confirmed by repeat testing. The classification and Diagnosis of Diabetes Diabetes Care 2021; 46: S19-S40. Current interpretive data was last revised 2022. [facility], [address] [place] [address], [place]., [address] Calcium 8.7 8.5 - 10.3 mg/dL CARMENZA LEVINE Comment:[facility], [address] [place]., [address] Blood 01/25/2025 7:07 AM CDT 01/25/2025 7:43 AM CDT us Shea COLLIER LAB BLOOD ORDERABLES Final Resu lt CARMENZA LEVINE [address] [facility] Department [place] [address] * X-ray abdomen 1 view (01/24/2025 1:29 PM CDT) Anatomical Region Laterality Modality Body, Abdomen N/A Computed Radiogr aphy 01/24/2025 5:31 PM CDT Narrative 01/24/2025 5:31 PM CDT EXAM DESCRIPTION: XR ABDOMEN AP 1 VIEW REASON FOR STUDY: constipation Last bowl movement was last TECHNIQUE: Single frontal radiographic view of the abdomen. COMPARISON: 08/30/2021 FINDINGS: There is no definite evidence of a bowel obstruction. There is a [id number] amount of retained fecal debris in the colon, which is most significant proximally. Laparoscopic gastric band is again noted. There is no definite evidence of free air under the diaphragm within the limits of a supine projection. Postsurgical clips are noted in the right upper quadrant of the abdomen. Postsurgical clips are noted overlying the lower midline pelvis. There are degenerative changes of the spine, bilateral sacroiliac joints, and bilateral hips. IMPRESSION: No definite evidence of bowel obstruction. Doms-bc-[id number] amount of retained fecal debris in the colon, which is concerning for constipation. THIS IS AN ELECTRONICALLY VERIFIED FINAL REPORT 01/24/2025 5:31 PM - Electronically signed by Ashanti COX T: Report ID: [id number] Reading Location: [id number] Procedure Note Ashanti Richardson, - 01/24/2025 EXAM DESCRIPTION: XR ABDOMEN AP 1 VIEW REASON FOR STUDY: constipation Last bowl movement was last TECHNIQUE: Single frontal radiographic view of the abdomen. COMPARISON: 08/30/2021 FINDINGS: There is no definite evidence of a bowel obstruction. There dino dcdz-dd-bqoywilt amount of retained fecal debris in the colon, which ismost significant proximally. Laparoscopic gastric band is again noted. Thereis no definite evidence of free air under the diaphragm within the limits ofa supine projection. Postsurgical clips are noted in the right upperquadrant of the abdomen. Postsurgical clips are noted overlying the lower midline pelvis. There are degenerative changes of the spine, bilateral sacroiliac joints, and bilateral hips. IMPRESSION: No definite evidence of bowel obstruction. Zuys-og-veagigfa amount of retained fecal debris in the colon, which is concerning for constipation. THIS IS AN ELECTRONICALLY VERIFIED FINAL REPORT 01/24/2025 5:31 PM - Electronically signed by Ashanti Richardson D.O. PS T: Report ID: [id number] Reading Location: [place] [address] Shea COLLIER IMG XR PROCEDURES Final Result * eGFR (01/23/2025 10:20 AM CDT) eGFR 82 >=60 mL/min/1. 73 m2 [facility] Comment: Interpretive Data Reference Interval Normal >/= 90 mL/min/1.73m2 Mildly decreased* 60 - 89 mL/min/1.73m2 Mildly to moderately decreased 45 - 59 mL/min/1.73m2 Moderately to severely decreased 30 - 44 mL/min/1.73m2 Severely decreased 15 - 29 mL/min/1.73m2 Kidney Failure < 15 mL/min/1.73m2 *Relative to young adult level Estimated glomerular filtration rate is determined by the 2020 CKD-EPI equation recommended by the National Kidney Foundation (A Unifying Approach to GFR Estimation: Recommendations of the NKF-ASK Task Force on Reassessing the Inclusion of Race in Diagnosing Kidney Disease, JASN 2020). The CKD-EPI equation should not be used for patients with unstable renal function and has not been validated in children and those over 70. Current interpretive data was last reviewed 2021. [facility], [facility] [place]., [address] Blood 01/23/2025 10:2 0 AM CDT 01/23/2025 10:31 AM CDT us Afshin Edmonds MD LAB BLOOD ORDERABLES Final R esult [facility] [address] Department [place] [address] * (ABNORMAL) Comprehensive metabolic panel (01/23/2025 10:20 AM CDT) Sodium 134(L) 135 - 145 mmol/L [facility] Comment:[address] [address] Potassium, pl 4.7 3.3 - 4.9 mmol/L [facility] Comment:[address] [address] Chloride 102 97 - 110 mmol/L [facility] Comment:[address] [address] CO2 24 22 - 32 mmol/L [facility] Comment:[address] [address] Anion gap 8 2 - 15 mmol/L [facility] Comment:[address] [address] BUN 27(H) 6 - 25 mg/dL [facility] Comment:[address] [address] Creatinine 0.97 0.80 - 1.30 mg/dL [facility] Comment:[address] [address] Glucose 182 70 - 199 mg/dL [facility] Comment: Interpretive Data Fasting glucose >/= 126 mg/dl is diagnostic for diabetes. Fasting is defined as no caloric intake for at least 8 hours. Fasting glucose between 100 mg/dl to 125 mg/dl is diagnostic of prediabetes. In a patient with classic symptoms of hyperglycemia or hyperglycemic crisis, a random glucose >/= 200 mg/dl is diagnostic for diabetes. In the absence of unequivocal hyperglycemia, results should be confirmed by repeat testing. The classification and Diagnosis of Diabetes Diabetes Care 202; 46: S19-S40. Current interpretive data was last revised 2022. [facility], [address] [place]., [address] Calcium 8.3(L) 8.5 - 10.3 mg/dL [facility] Comment:[facility], [address] [place] [address]., [address] Bilirubin, total 1.1 0.1 - 1.2 mg/dL [facility] Comment:[address] [address] Protein, pl 5.5(L) 6.5 - 8.5 g/dL [facility] Comment:[address] [address] Albumin 3.0(L) 3.5 - 5.0 g/dL [facility] Comment:[address] [address] Alk phos 84 40 - 130 Units/L [facility] Comment:[address] [address] ALT 26 7 - 55 Units/L [facility] Comment:[address] [address] AST 27 10 - 50 Units/L [facility] Comment:[address] [address] Blood 01/23/2025 10:2 0 AM CDT 01/23/2025 10:31 AM CDT Afshin Edmonds MD LAB BLOOD ORDERABLES Final R esult [facility] [address] Department [place] [address] * eGFR (01/23/2025 4:30 AM CDT) eGFR 90 >=60 mL/min/1. 73 m2 [facility] Comment: Interpretive Data Reference Interval Normal >/= 90 mL/min/1.73m2 Mildly decreased* 60 - 89 mL/min/1.73m2 Mildly to moderately decreased 45 - 59 mL/min/1.73m2 Moderately to severely decreased 30 - 44 mL/min/1.73m2 Severely decreased 15 - 29 mL/min/1.73m2 Kidney Failure < 15 mL/min/1.73m2 *Relative to young adult level Estimated glomerular filtration rate is determined by the 2020 CKD-EPI equation recommended by the National Kidney Foundation (A Unifying Approach to GFR Estimation: Recommendations of the NKF-ASK Task Force on Reassessing the Inclusion of Race in Diagnosing Kidney Disease, JASN 2020). The CKD-EPI equation should not be used for patients with unstable renal function and has not been validated in children and those over 70. Current interpretive data was last reviewed 2021. [facility], [address] [place] [address]., [address] Blood 01/23/2025 4:30 AM CDT 01/23/2025 4:54 AM CDT us Shea COLLIER LAB BLOOD ORDERABLES Final Resu lt [facility] [address] Department [place] [address] * (ABNORMAL) Differential, auto (01/23/2025 4:30 AM CDT) Neutrophil abs 7.3(H) 1.5 - 6.5 K/cumm [facility] Comment:[address] [address] Imm gran abs 0.3(H) 0.0 - 0.1 K/cumm [facility] Comment:[address] [address] Lymphocyte abs 1.2 0.8 - 3.3 K/cumm [facility] Comment:[address] [address] Monocyte abs 0.6 0.2 - 0.8 K/cumm [facility] Comment:[address] [address] Eosinophil abs 0.2 0.0 - 0.5 K/cumm [facility] Comment:[address] [address] Basophil abs 0.0 0.0 - 0.1 K/cumm [facility] MH Comment:[facility], [address] [place]., [address] Neutrophil pct 76.6 % [facility] Comment: Interpretive Data Percent cell count reference ranges are not reported, since discordance with absolute values may lead to misinterpretation of CBC data. Current Interpretive Data was last revised on 2018. [facility], [address] [place] [address]., [address] Imm gran pct 3.4 % [facility] Comment: Interpretive Data Percent cell count reference ranges are not reported, since discordance with absolute values may lead to misinterpretation of CBC data. Current Interpretive Data was last revised on 2018. [address] [address] Lymphocyte pct 12.0 % [facility] Comment: Interpretive Data Percent cell count reference ranges are not reported, since discordance with absolute values may lead to misinterpretation of CBC data. Current Interpretive Data was last revised on 2018. [facility], [address] [place] [address]., [address] Monocyte pct 6.0 % [facility] Comment: Interpretive Data Percent cell count reference ranges are not reported, since discordance with absolute values may lead to misinterpretation of CBC data. Current Interpretive Data was last revised on 2018. [facility], [address] [place] [address]., [address] Eosinophil pct 1.7 % [facility] Comment: Interpretive Data Percent cell count reference ranges are not reported, since discordance with absolute values may lead to misinterpretation of CBC data. Current Interpretive Data was last revised on 2018. [address] [address] Basophil pct 0.3 % [facility] Comment: Interpretive Data Percent cell count reference ranges are not reported, since discordance with absolute values may lead to misinterpretation of CBC data. Current Interpretive Data was last revised on 2018. [address] [address] Blood 01/23/2025 4:30 AM CDT 01/23/2025 4:54 AM CDT us Afshin Edmonds MD LAB BLOOD ORDERABLES Final R esult [facility] [address] [facility] Department [place] [address] * (ABNORMAL) CBC with auto differential (01/23/2025 4:30 AM CDT) WBC 9.6 3.8 - 9.9 K/cumm [facility] Comment:[address], [address] Hgb 7.5(L) 13.0 - 17.5 g/dL [facility] Comment:[address], [address] Hct 26.3(L) 38.9 - 50.3 % [facility] Comment:[address], [address] Plt 223 150 - 400 K/cumm [facility] Comment:[address], [address] MPV 10.5 9.1 - 12.3 fL [facility] Comment:[address], [address] RBC 2.58(L) 4.30 - 5.80 M/cumm [facility] Comment:[address], [address] MCV 101.9(H) 81.3 - 96.4 fL [facility] Comment:[address], [address] MCH 29.1 27.1 - 33.3 pg [facility] Comment:[address], [address] MCHC 28.5(L) 32.3 - 35.7 g/dL [facility] Comment:[address], [address] RDW CV 18.0(H) 11.1 - 14.9 % [facility] Comment:[address], [address] RDW SD 61.6(H) 35.7 - 48.1 fL [facility] Comment:[address], [address] NRBC abs 0.00 0.00 - 0.01 K/cumm [facility] MH Comment:[address], [address] Blood 01/23/2025 4:30 AM CDT 01/23/2025 4:54 AM CDT us Afshin Edmonds MD LAB BLOOD ORDERABLES Final R esult [facility] [address] [facility] Department [place] [address] * (ABNORMAL) CBC without differential (01/23/2025 4:30 AM CDT) WBC 9.6 3.8 - 9.9 K/cumm [facility] Comment:[address] [address] Hgb 7.5(L) 13.0 - 17.5 g/dL [facility] Comment:[address], [address] Hct 26.3(L) 38.9 - 50.3 % [facility] Comment:[address], [address] Plt 223 150 - 400 K/cumm [facility] MH Comment:[address], [address] MPV 10.5 9.1 - 12.3 fL [facility] Comment:[address] [address] RBC 2.58(L) 4.30 - 5.80 M/cumm [facility] MH Comment:[address], [address] MCV 101.9(H) 81.3 - 96.4 fL [facility] Comment:[address], [address] MCH 29.1 27.1 - 33.3 pg [facility] MH Comment:[address], [address] MCHC 28.5(L) 32.3 - 35.7 g/dL [facility] Comment:[address], [address] RDW CV 18.0(H) 11.1 - 14.9 % [facility]INE Comment:[address] [address] RDW SD 61.6(H) 35.7 - 48.1 fL [facility]INE Comment:[address] [address] NRBC abs 0.00 0.00 - 0.01 K/cumm [facility]INE Comment:[address] [address] Blood 01/23/2025 4:30 AM CDT 01/23/2025 4:54 AM CDT us Shea COLLIER LAB BLOOD ORDERABLES Final Resu lt [facility] [address] [facility] Department [place] [address] * (ABNORMAL) Basic metabolic panel (01/23/2025 4:30 AM CDT) Sodium 133(L) 135 - 145 mmol/L [facility] Comment:[address] [address] Potassium, pl 4.7 3.3 - 4.9 mmol/L [facility] Comment:[address], [address] Chloride 102 97 - 110 mmol/L [facility] Comment:[address] [address] CO2 20(L) 22 - 32 mmol/L [facility] Comment:[address] [address] Anion gap 11 2 - 15 mmol/L [facility] Comment:[address] [address] BUN 27(H) 6 - 25 mg/dL [facility] Comment:[address] [address] Creatinine 0.89 0.80 - 1.30 mg/dL [facility] Comment:[address] [address] Glucose 117 70 - 199 mg/dL [facility] Comment: Interpretive Data Fasting glucose >/= 126 mg/dl is diagnostic for diabetes. Fasting is defined as no caloric intake for at least 8 hours. Fasting glucose between 100 mg/dl to 125 mg/dl is diagnostic of prediabetes. In a patient with classic symptoms of hyperglycemia or hyperglycemic crisis, a random glucose >/= 200 mg/dl is diagnostic for diabetes. In the absence of unequivocal hyperglycemia, results should be confirmed by repeat testing. The classification and Diagnosis of Diabetes Diabetes Care 202; 46: S19-S40. Current interpretive data was last revised 2022. [facility], [address] [place]., [address] Calcium 8.5 8.5 - 10.3 mg/dL [facility] LEVINE Comment:[facility], [address] [place]., [address] Blood 01/23/2025 4:30 AM CDT 01/23/2025 4:54 AM CDT Shea COLLIER LAB BLOOD ORDERABLES Final Resu lt [facility] [address] Department [place] [address] * eGFR (01/20/2025 7:17 AM CDT) eGFR 80 >=60 mL/min/1. 73 m2 [facility] Comment: Interpretive Data Reference Interval Normal >/= 90 mL/min/1.73m2 Mildly decreased* 60 - 89 mL/min/1.73m2 Mildly to moderately decreased 45 - 59 mL/min/1.73m2 Moderately to severely decreased 30 - 44 mL/min/1.73m2 Severely decreased 15 - 29 mL/min/1.73m2 Kidney Failure < 15 mL/min/1.73m2 *Relative to young adult level Estimated glomerular filtration rate is determined by the 2020 CKD-EPI equation recommended by the National Kidney Foundation (A Unifying Approach to GFR Estimation: Recommendations of the NKF-ASK Task Force on Reassessing the Inclusion of Race in Diagnosing Kidney Disease, JASN 2020). The CKD-EPI equation should not be used for patients with unstable renal function and has not been validated in children and those over 70. Current interpretive data was last reviewed 2021. [facility], [address] [place]., [address] Blood 01/20/2025 7:17 AM CDT 01/20/2025 7:45 AM CDT us Afshin Edmonds MD LAB BLOOD ORDERABLES Final R esult [facility] [address] [facility] Department [place] [address] * (ABNORMAL) CBC without differential (01/20/2025 7:17 AM CDT) WBC 12.1(H) 3.8 - 9.9 K/cumm [facility] Comment:[address] [address] Hgb 7.9(L) 13.0 - 17.5 g/dL [facility] MH Comment:[address], [address] Hct 25.6(L) 38.9 - 50.3 % [facility] MH Comment:[address] [address] Plt 310 150 - 400 K/cumm [facility] MH Comment:[address] [address] MPV 9.1 9.1 - 12.3 fL [facility] MH Comment:[address] [address] RBC 2.73(L) 4.30 - 5.80 M/cumm [facility] MH Comment:[address] [address] MCV 93.8 81.3 - 96.4 fL [facility] MH Comment:[address] [address] MCH 28.9 27.1 - 33.3 pg [facility] MH Comment:[address] [address] MCHC 30.9(L) 32.3 - 35.7 g/dL [facility] MH Comment:[address] [address] RDW CV 16.6(H) 11.1 - 14.9 % [facility]EVINE Comment:[address] [address] RDW SD 53.8(H) 35.7 - 48.1 fL [facility] Comment:[address] [address] NRBC abs 0.00 0.00 - 0.01 K/cumm [facility] Comment:[address] [address] Blood 01/20/2025 7:17 AM CDT 01/20/2025 7:45 AM CDT Afshin Edmonds MD LAB BLOOD ORDERABLES Final R esult Performing Organization Address [facility] Co de Phone Number [address] [place] [place] [address] * Digoxin level (01/20/2025 7:17 AM CDT) Digoxin 0.7 0.5 - 1.2 ng/mL [facility] Comment: Interpretive data The therapeutic range for digoxin varies by indication: Heart failure: 0.5 to 0.8 ng/mL Atrial fibrillation: less than 1.2 ng/mL Toxicity: >2.4. Normal or low digoxin does not rule out toxicity. Current interpretive data was last revised on 2024. [facility], [address] [place] [address]., [address] Blood 01/20/2025 7:17 AM CDT 01/20/2025 7:45 AM CDT Afshin Edmonds MD LAB BLOOD ORDERABLES Final R esult Performing Organization Address City/[facility] Co de Phone Number [address] Department [employer] [place] [address] * (ABNORMAL) Comprehensive metabolic panel (01/20/2025 7:17 AM CDT) Sodium 137 135 - 145 mmol/L [facility] Comment:[address] [address] Potassium, pl 4.1 3.3 - 4.9 mmol/L [facility] Comment:[address] [address] Chloride 103 97 - 110 mmol/L [facility] Comment:[facility], [address] [place] [address]., [address] CO2 25 22 - 32 mmol/L [facility] Comment:[address] [address] Anion gap 9 2 - 15 mmol/L [facility] Comment:[address] [address] BUN 33(H) 6 - 25 mg/dL [facility] Comment:[address] [address] Creatinine 0.99 0.80 - 1.30 mg/dL [facility] Comment:[address] [address] Glucose 44(C) 70 - 199 mg/dL [facility] Comment: Critical Result called to and read back by landen suh, DATE: 2025-01-20 08:17:14 BY: [email or web address] Interpretive Data Fasting glucose >/= 126 mg/dl is diagnostic for diabetes. Fasting is defined as no caloric intake for at least 8 hours. Fasting glucose between 100 mg/dl to 125 mg/dl is diagnostic of prediabetes. In a patient with classic symptoms of hyperglycemia or hyperglycemic crisis, a random glucose >/= 200 mg/dl is diagnostic for diabetes. In the absence of unequivocal hyperglycemia, results should be confirmed by repeat testing. The classification and Diagnosis of Diabetes Diabetes Care 2021; 46: S19-S40. Current interpretive data was last revised 2022. [facility], [address] [place]., [address] Calcium 8.7 8.5 - 10.3 mg/dL [facility] Comment:[address] [address] Bilirubin, total 1.6(H) 0.1 - 1.2 mg/dL [facility] Comment:[address] [address] Protein, pl 6.0(L) 6.5 - 8.5 g/dL [facility] Comment:[address] [address] Albumin 3.1(L) 3.5 - 5.0 g/dL [facility] Comment:[address] [address] Alk phos 80 40 - 130 Units/L [facility] Comment:[address] [address] ALT 17 7 - 55 Units/L [facility] Comment:[address] [address] AST 41 10 - 50 Units/L [facility] Comment:[address] [address] Blood 01/20/2025 7:17 AM CDT 01/20/2025 7:45 AM CDT Afshin Edmonds MD LAB BLOOD ORDERABLES Final R esult Performing Organization Address [facility]/ZIP Co de Phone Number [address] [place] [address] * (ABNORMAL) POCT glucose (01/17/2025 12:06 PM CDT) [facility] Glucose, POC 254(H) 70 - 199 mg/dL Glucose comment 1 RN/MD Notified [facility] Blood 01/17/2025 12:0 6 PM CDT 01/17/2025 12:06 PM CDT us Mike Jose MD LAB POCT ORDERABLES - DEVICE Final Result Performing Organization Address City/[facility]/ZIP Co de Phone Number [address] [place] [place] [address] * eGFR (01/17/2025 8:31 AM CDT) [facility] eGFR 90 >=60 mL/min/1. 73 m2 Comment: Interpretive Data Reference Interval Normal >/= 90 mL/min/1.73m2 Mildly decreased* 60 - 89 mL/min/1.73m2 Mildly to moderately decreased 45 - 59 mL/min/1.73m2 Moderately to severely decreased 30 - 44 mL/min/1.73m2 Severely decreased 15 - 29 mL/min/1.73m2 Kidney Failure < 15 mL/min/1.73m2 *Relative to young adult level Estimated glomerular filtration rate is determined by the 2020 CKD-EPI equation recommended by the National Kidney Foundation (A Unifying Approach to GFR Estimation: Recommendations of the NKF-ASK Task Force on Reassessing the Inclusion of Race in Diagnosing Kidney Disease, JASN 202). The CKD-EPI equation should not be used for patients with unstable renal function and has not been validated in children and those over 70. Current interpretive data was last reviewed 2021. Blood 01/17/2025 8:31 AM CDT 01/17/2025 8:57 AM CDT us Mike Jose MD LAB BLOOD ORDERABLES Final R esult [place] [address] [facility] Department [place] [address] * (ABNORMAL) Differential, auto (01/17/2025 8:31 AM CDT) Neutrophil abs 6.7(H) 1.5 - 6.5 K/cumm Imm gran abs 0.3(H) 0.0 - 0.1 K/cumm [facility] Lymphocyte abs 1.1 0.8 - 3.3 K/cumm [facility] Monocyte abs 0.8 0.2 - 0.8 K/cumm [facility] Eosinophil abs 0.1 0.0 - 0.5 K/cumm [facility] Basophil abs 0.0 0.0 - 0.1 K/cumm [facility] Neutrophil pct 74.0 % [facility] Comment: Interpretive Data Percent cell count reference ranges are not reported, since discordance with absolute values may lead to misinterpretation of CBC data. Current Interpretive Data was last revised on 2018. Imm gran pct 3.5 % [facility] Comment: Interpretive Data Percent cell count reference ranges are not reported, since discordance with absolute values may lead to misinterpretation of CBC data. Current Interpretive Data was last revised on 2018. Lymphocyte pct 11.9 % [facility] Comment: Interpretive Data Percent cell count reference ranges are not reported, since discordance with absolute values may lead to misinterpretation of CBC data. Current Interpretive Data was last revised on 2018. Monocyte pct 9.0 % [facility] Comment: Interpretive Data Percent cell count reference ranges are not reported, since discordance with absolute values may lead to misinterpretation of CBC data. Current Interpretive Data was last revised on 2018. Eosinophil pct 1.3 % [facility] Comment: Interpretive Data Percent cell count reference ranges are not reported, since discordance with absolute values may lead to misinterpretation of CBC data. Current Interpretive Data was last revised on 2018. Basophil pct 0.3 % [facility] Comment: Interpretive Data Percent cell count reference ranges are not reported, since discordance with absolute values may lead to misinterpretation of CBC data. Current Interpretive Data was last revised on 2018. Blood 01/17/2025 8:31 AM CDT 01/17/2025 8:57 AM CDT us Mike Jose MD LAB BLOOD ORDERABLES Final R esult [facility] [address] [facility] Department [place] [address] * (ABNORMAL) CBC with auto differential (01/17/2025 8:31 AM CDT) WBC 9.1 3.8 - 9.9 K/cumm Hgb 8.1(L) 13.0 - 17.5 g/dL [facility] Hct 25.9(L) 38.9 - 50.3 % [facility] Plt 216 150 - 400 K/cumm [facility] MPV 9.3 9.1 - 12.3 fL [facility] RBC 2.81(L) 4.30 - 5.80 M/cumm [facility] MCV 92.2 81.3 - 96.4 fL [facility] MCH 28.8 27.1 - 33.3 pg [facility] MCHC 31.3(L) 32.3 - 35.7 g/dL [facility] RDW CV 15.4(H) 11.1 - 14.9 % [facility] RDW SD 50.4(H) 35.7 - 48.1 fL [facility] NRBC abs 0.00 0.00 - 0.01 K/cumm [facility] Blood 01/17/2025 8:31 AM CDT 01/17/2025 8:57 AM CDT Mike Jose MD LAB BLOOD ORDERABLES Final R esult Performing Organization Address City/[facility] Co de Phone Number [facility] [address] [facility] Department [place] [address] * (ABNORMAL) Basic metabolic panel (01/17/2025 8:31 AM CDT) Sodium 134(L) 135 - 145 mmol/L Potassium, pl 4.7 3.3 - 4.9 mmol/L [facility] Chloride 101 97 - 110 mmol/L [facility] CO2 24 22 - 32 mmol/L [facility] Anion gap 9 2 - 15 mmol/L [facility] BUN 22 6 - 25 mg/dL [facility] Creatinine 0.88 0.80 - 1.30 mg/dL [facility] Glucose 160 70 - 199 mg/dL [facility] Comment: Interpretive Data Fasting glucose >/= 126 mg/dl is diagnostic for diabetes. Fasting is defined as no caloric intake for at least 8 hours. Fasting glucose between 100 mg/dl to 125 mg/dl is diagnostic of prediabetes. In a patient with classic symptoms of hyperglycemia or hyperglycemic crisis, a random glucose >/= 200 mg/dl is diagnostic for diabetes. In the absence of unequivocal hyperglycemia, results should be confirmed by repeat testing. The classification and Diagnosis of Diabetes Diabetes Care 202; 46: S19-S40. Current interpretive data was last revised 2022. Calcium 8.4(L) 8.5 - 10.3 mg/dL [facility] Blood 01/17/2025 8:31 AM CDT 01/17/2025 8:57 AM CDT Mike Jose MD LAB BLOOD ORDERABLES Final R esult Performing Organization Address City/[facility]/ZIP Co de Phone Number M[address] [employer] [place] [place] [address] * POCT glucose (01/17/2025 8:18 AM CDT) Glucose, POC 171 70 - 199 mg/dL Glucose comment 1 RN/MD Notified [facility] Blood 01/17/2025 8:18 AM CDT 01/17/2025 8:18 AM CDT us Mike Jose MD LAB POCT ORDERABLES - DEVICE Final Result Performing Organization Address [facility] Co de Phone Number MARY[address] [place] [address] * POCT glucose (01/16/2025 8:17 PM CDT) Glucose, POC 173 70 - 199 mg/dL Blood 01/16/2025 8:17 PM CDT 01/16/2025 8:17 PM CDT Mike Jose MD LAB POCT ORDERABLES - DEVICE Final Result Performing Organization Address [facility] Co de Phone Number [address] [place] [address] * (ABNORMAL) POCT glucose (01/16/2025 4:31 PM CDT) Glucose, POC 213(H) 70 - 199 mg/dL Blood 01/16/2025 4:31 PM CDT 01/16/2025 4:31 PM CDT Mike Jose MD LAB POCT ORDERABLES - DEVICE Final Result Performing Organization Address [facility] Co de Phone Number [address] [place] [address] * (ABNORMAL) POCT glucose (01/16/2025 12:11 PM CDT) [facility] Glucose, POC 238(H) 70 - 199 mg/dL Blood 01/16/2025 12:1 1 PM CDT 01/16/2025 12:11 PM CDT us Mike Jose MD LAB POCT ORDERABLES - DEVICE Final Result Performing Organization Address [facility] Co de Phone Number CARMEN[facility] [address] [employer] [place] [address] * eGFR (01/16/2025 8:16 AM CDT) [facility] eGFR >90 >=60 mL/min/1. 73 m2 Comment: Interpretive Data Reference Interval Normal >/= 90 mL/min/1.73m2 Mildly decreased* 60 - 89 mL/min/1.73m2 Mildly to moderately decreased 45 - 59 mL/min/1.73m2 Moderately to severely decreased 30 - 44 mL/min/1.73m2 Severely decreased 15 - 29 mL/min/1.73m2 Kidney Failure < 15 mL/min/1.73m2 *Relative to young adult level Estimated glomerular filtration rate is determined by the 2020 CKD-EPI equation recommended by the National Kidney Foundation (A Unifying Approach to GFR Estimation: Recommendations of the NKF-ASK Task Force on Reassessing the Inclusion of Race in Diagnosing Kidney Disease, JASN 2020). The CKD-EPI equation should not be used for patients with unstable renal function and has not been validated in children and those over 70. Current interpretive data was last reviewed 2021. Blood 01/16/2025 8:16 AM CDT 01/16/2025 8:36 AM CDT us Pradeep Blum MD LAB BLOOD ORDERABLES F inal Result Performing Organization Address City/[facility]/ZIP Co de Phone Number MARY[address] [employer] [place] [address] * (ABNORMAL) CBC without differential (01/16/2025 8:16 AM CDT) [facility] WBC 8.8 3.8 - 9.9 K/cumm Hgb 8.7(L) 13.0 - 17.5 g/dL [facility] Hct 27.0(L) 38.9 - 50.3 % [facility] Plt 211 150 - 400 K/cumm [facility] MPV 9.4 9.1 - 12.3 fL [facility] RBC 2.96(L) 4.30 - 5.80 M/cumm [facility] MCV 91.2 81.3 - 96.4 fL [facility] MCH 29.4 27.1 - 33.3 pg [facility] MCHC 32.2(L) 32.3 - 35.7 g/dL [facility] RDW CV 15.3(H) 11.1 - 14.9 % [facility] RDW SD 50.1(H) 35.7 - 48.1 fL [facility] NRBC abs 0.00 0.00 - 0.01 K/cumm [facility] Blood 01/16/2025 8:16 AM CDT 01/16/2025 8:36 AM CDT us Pradeep Blum MD LAB BLOOD ORDERABLES F inal Result [facility] [address] [facility] Department [place] [address] * (ABNORMAL) Comprehensive metabolic panel (01/16/2025 8:16 AM CDT) [facility] Sodium 135 135 - 145 mmol/L Potassium, pl 4.7 3.3 - 4.9 mmol/L [facility] Chloride 102 97 - 110 mmol/L [facility] CO2 23 22 - 32 mmol/L [facility] Anion gap 10 2 - 15 mmol/L [facility] BUN 22 6 - 25 mg/dL [facility] Creatinine 0.82 0.80 - 1.30 mg/dL [facility] Glucose 180 70 - 199 mg/dL [facility] Comment: Interpretive Data Fasting glucose >/= 126 mg/dl is diagnostic for diabetes. Fasting is defined as no caloric intake for at least 8 hours. Fasting glucose between 100 mg/dl to 125 mg/dl is diagnostic of prediabetes. In a patient with classic symptoms of hyperglycemia or hyperglycemic crisis, a random glucose >/= 200 mg/dl is diagnostic for diabetes. In the absence of unequivocal hyperglycemia, results should be confirmed by repeat testing. The classification and Diagnosis of Diabetes Diabetes Care 202; 46: S19-S40. Current interpretive data was last revised 2022. Calcium 8.7 8.5 - 10.3 mg/dL [facility] Bilirubin, total 1.4(H) 0.1 - 1.2 mg/dL [facility] Protein, pl 5.6(L) 6.5 - 8.5 g/dL [facility] Albumin 3.1(L) 3.5 - 5.0 g/dL [facility] Alk phos 70 40 - 130 Units/L [facility] ALT 23 7 - 55 Units/L [facility] AST 30 10 - 50 Units/L [facility] Blood 01/16/2025 8:16 AM CDT 01/16/2025 8:36 AM CDT us Pradeep Blum MD LAB BLOOD ORDERABLES F inal Result Performing Organization Address City/[facility]/ZIP Co de Phone Number [address] [address] * POCT glucose (01/16/2025 8:09 AM CDT) Glucose, POC 195 70 - 199 mg/dL Blood 01/16/2025 8:09 AM CDT 01/16/2025 8:09 AM CDT us Mike Jose MD LAB POCT ORDERABLES - DEVICE Final Result Performing Organization Address City/[facility]/ZIP Co de Phone Number [address] [place] [address] * POCT glucose (01/15/2025 8:57 PM CDT) Glucose, POC 167 70 - 199 mg/dL Glucose comment 1 RN/MD Notified [facility] Blood 01/15/2025 8:57 PM CDT 01/15/2025 8:57 PM CDT Mike Jose MD LAB POCT ORDERABLES - DEVICE Final Result Performing Organization Address [facility] Co de Phone Number [address] [address] * (ABNORMAL) Hemoglobin and hematocrit (01/15/2025 7:46 PM CDT) [facility] Hgb 8.9(L) 13.0 - 17.5 g/dL Hct 28.0(L) 38.9 - 50.3 % [facility] Blood 01/15/2025 7:46 PM CDT 01/15/2025 7:53 PM CDT Pradeep Blum MD LAB BLOOD ORDERABLES F inal Result Performing Organization Address [facility] Co de Phone Number [address] [address] * (ABNORMAL) POCT glucose (01/15/2025 4:24 PM CDT) [facility] Glucose, POC 252(H) 70 - 199 mg/dL Glucose comment 1 RN/MD Notified [facility] Blood 01/15/2025 4:24 PM CDT 01/15/2025 4:24 PM CDT Mike Jose MD LAB POCT ORDERABLES - DEVICE Final Result Performing Organization Address City/[facility] Co de Phone Number [address] [address] * TSH (01/15/2025 2:51 PM CDT) [facility] Thyroid Stimulating Hormone 1.66 0.30 - 4.20 mcIUnit/mL Blood 01/15/2025 2:51 PM CDT 01/15/2025 3:11 PM CDT Pradeep Blum MD LAB BLOOD ORDERABLES F inal Result Performing Organization Address [facility] Co de Phone Number [address] [place] [address] * Lactate dehydrogenase (LD) (01/15/2025 2:51 PM CDT) Lactate dehydrogenase (LDH) 180 100 - 250 Units/L Blood 01/15/2025 2:51 PM CDT 01/15/2025 3:11 PM CDT Pradeep Blum MD LAB BLOOD ORDERABLES F inal Result Performing Organization Address [facility] Phone Number [address] [place] [address] * (ABNORMAL) Haptoglobin (01/15/2025 2:51 PM CDT) Haptoglobin 274(H) 30 - 200 mg/dL Blood 01/15/2025 2:51 PM CDT 01/15/2025 3:11 PM CDT Pradeep Blum MD LAB BLOOD ORDERABLES F inal Result Performing Organization Address [facility] de Phone Number [address] [place] [place] [address] * (ABNORMAL) Folate (01/15/2025 2:51 PM CDT) Folic acid 3.8(L) >=5.0 ng/mL Blood 01/15/2025 2:51 PM CDT 01/15/2025 3:11 PM CDT Pradeep Blum MD LAB BLOOD ORDERABLES F inal Result Performing Organization Address [facility] Co de Phone Number [address] [place] [address] * (ABNORMAL) POCT glucose (01/15/2025 12:23 PM CDT) Glucose, POC 266(H) 70 - 199 mg/dL Glucose comment 1 RN/MD Notified [facility] Blood 01/15/2025 12:2 3 PM CDT 01/15/2025 12:23 PM CDT Mike Jose MD LAB POCT ORDERABLES - DEVICE Final Result Performing Organization Address [facility] Co de Phone Number [address] [address] * (ABNORMAL) Hemoglobin and hematocrit (01/15/2025 12:00 PM CDT) [facility] Hgb 8.6(L) 13.0 - 17.5 g/dL Hct 27.4(L) 38.9 - 50.3 % [facility] Blood 01/15/2025 12:0 0 PM CDT 01/15/2025 12:24 PM CDT Pradeep Blum MD LAB BLOOD ORDERABLES F inal Result Performing Organization Address [facility] Co de Phone Number [address] [address] * (ABNORMAL) Albumin (01/15/2025 12:00 PM CDT) [facility] Albumin 3.0(L) 3.5 - 5.0 g/dL Blood 01/15/2025 12:0 0 PM CDT 01/15/2025 12:24 PM CDT Pradeep Blum MD LAB BLOOD ORDERABLES F inal Result Performing Organization Address [facility] Co de Phone Number [address] [place] [address] * eGFR (01/15/2025 8:32 AM CDT) [facility] eGFR 90 >=60 mL/min/1. 73 m2 Comment: Interpretive Data Reference Interval Normal >/= 90 mL/min/1.73m2 Mildly decreased* 60 - 89 mL/min/1.73m2 Mildly to moderately decreased 45 - 59 mL/min/1.73m2 Moderately to severely decreased 30 - 44 mL/min/1.73m2 Severely decreased 15 - 29 mL/min/1.73m2 Kidney Failure < 15 mL/min/1.73m2 *Relative to young adult level Estimated glomerular filtration rate is determined by the 2020 CKD-EPI equation recommended by the National Kidney Foundation (A Unifying Approach to GFR Estimation: Recommendations of the NKF-ASK Task Force on Reassessing the Inclusion of Race in Diagnosing Kidney Disease, JASN 2020). The CKD-EPI equation should not be used for patients with unstable renal function and has not been validated in children and those over 70. Current interpretive data was last reviewed 2021. Blood 01/15/2025 8:32 AM CDT 01/15/2025 8:46 AM CDT us Pradeep Blum MD LAB BLOOD ORDERABLES F inal Result [facility] [address] [facility] Department [place] [address] * (ABNORMAL) Differential, auto (01/15/2025 8:32 AM CDT) [facility] Neutrophil abs 6.2 1.5 - 6.5 K/cumm Imm gran abs 0.1 0.0 - 0.1 K/cumm [facility] Lymphocyte abs 0.7(L) 0.8 - 3.3 K/cumm [facility] Monocyte abs 0.8 0.2 - 0.8 K/cumm [facility] Eosinophil abs 0.1 0.0 - 0.5 K/cumm [facility] Basophil abs 0.0 0.0 - 0.1 K/cumm [facility] Neutrophil pct 77.3 % [facility] Comment: Interpretive Data Percent cell count reference ranges are not reported, since discordance with absolute values may lead to misinterpretation of CBC data. Current Interpretive Data was last revised on 2018. Imm gran pct 1.6 % [facility] Comment: Interpretive Data Percent cell count reference ranges are not reported, since discordance with absolute values may lead to misinterpretation of CBC data. Current Interpretive Data was last revised on 2018. Lymphocyte pct 8.9 % [facility] Comment: Interpretive Data Percent cell count reference ranges are not reported, since discordance with absolute values may lead to misinterpretation of CBC data. Current Interpretive Data was last revised on 2018. Monocyte pct 10.2 % [facility] Comment: Interpretive Data Percent cell count reference ranges are not reported, since discordance with absolute values may lead to misinterpretation of CBC data. Current Interpretive Data was last revised on 2018. Eosinophil pct 1.6 % [facility] Comment: Interpretive Data Percent cell count reference ranges are not reported, since discordance with absolute values may lead to misinterpretation of CBC data. Current Interpretive Data was last revised on 2018. Basophil pct 0.4 % [facility] Comment: Interpretive Data Percent cell count reference ranges are not reported, since discordance with absolute values may lead to misinterpretation of CBC data. Current Interpretive Data was last revised on 2018. Blood 01/15/2025 8:32 AM CDT 01/15/2025 8:46 AM CDT us Pradeep Blum MD LAB BLOOD ORDERABLES F inal Result [facility] [address] [facility] Department [place] [address] * (ABNORMAL) CBC with auto differential (01/15/2025 8:32 AM CDT) WBC 8.1 3.8 - 9.9 K/cumm Hgb 8.7(L) 13.0 - 17.5 g/dL [facility] Hct 27.6(L) 38.9 - 50.3 % [facility] Plt 184 150 - 400 K/cumm [facility] MPV 9.5 9.1 - 12.3 fL [facility] RBC 3.02(L) 4.30 - 5.80 M/cumm [facility] MCV 91.4 81.3 - 96.4 fL [facility] MCH 28.8 27.1 - 33.3 pg [facility] MCHC 31.5(L) 32.3 - 35.7 g/dL [facility] RDW CV 15.5(H) 11.1 - 14.9 % [facility] RDW SD 50.7(H) 35.7 - 48.1 fL [facility] NRBC abs 0.00 0.00 - 0.01 K/cumm [facility] Blood 01/15/2025 8:32 AM CDT 01/15/2025 8:46 AM CDT us Pradeep Blum MD LAB BLOOD ORDERABLES F inal Result [facility] [address] [facility] Department [place] [address] * (ABNORMAL) Basic metabolic panel (01/15/2025 8:32 AM CDT) Sodium 136 135 - 145 mmol/L Potassium, pl 5.2(H) 3.3 - 4.9 mmol/L [facility] Chloride 102 97 - 110 mmol/L [facility] CO2 26 22 - 32 mmol/L [facility] Anion gap 8 2 - 15 mmol/L [facility] BUN 25 6 - 25 mg/dL [facility] Creatinine 0.89 0.80 - 1.30 mg/dL [facility] Glucose 183 70 - 199 mg/dL [facility] Comment: Interpretive Data Fasting glucose >/= 126 mg/dl is diagnostic for diabetes. Fasting is defined as no caloric intake for at least 8 hours. Fasting glucose between 100 mg/dl to 125 mg/dl is diagnostic of prediabetes. In a patient with classic symptoms of hyperglycemia or hyperglycemic crisis, a random glucose >/= 200 mg/dl is diagnostic for diabetes. In the absence of unequivocal hyperglycemia, results should be confirmed by repeat testing. The classification and Diagnosis of Diabetes Diabetes Care 202; 46: S19-S40. Current interpretive data was last revised 2022. Calcium 8.7 8.5 - 10.3 mg/dL [facility] Blood 01/15/2025 8:32 AM CDT 01/15/2025 8:46 AM CDT Pradeep Blum MD LAB BLOOD ORDERABLES F inal Result Performing Organization Address City/[facility]/ZIP Co de Phone Number [address] [place] [address] * POCT glucose (01/15/2025 8:11 AM CDT) Glucose, POC 197 70 - 199 mg/dL Glucose comment 1 RN/MD Notified [facility] Blood 01/15/2025 8:11 AM CDT 01/15/2025 8:11 AM CDT Mike Jose MD LAB POCT ORDERABLES - DEVICE Final Result Performing Organization Address [facility] Co de Phone Number [address] [place] [place] [address] * POCT glucose (01/15/2025 3:48 AM CDT) Glucose, POC 174 70 - 199 mg/dL Glucose comment 1 RN/MD Notified [facility] Blood 01/15/2025 3:48 AM CDT 01/15/2025 3:48 AM CDT Mike Jose MD LAB POCT ORDERABLES - DEVICE Final Result Performing Organization Address City/[facility] Co de Phone Number [address] [place] [address] * POCT glucose (01/15/2025 12:03 AM CDT) Glucose, POC 173 70 - 199 mg/dL Glucose comment 1 RN/MD Notified [facility] Blood 01/15/2025 12:0 3 AM CDT 01/15/2025 12:03 AM CDT Mike Jose MD LAB POCT ORDERABLES - DEVICE Final Result Performing Organization Address City/[facility] Co de Phone Number [address] [place] [address] * (ABNORMAL) POCT glucose (01/14/2025 8:14 PM CDT) Glucose, POC 215(H) 70 - 199 mg/dL Glucose comment 1 RN/MD Notified [facility] Blood 01/14/2025 8:14 PM CDT 01/14/2025 8:14 PM CDT Mike Jose MD LAB POCT ORDERABLES - DEVICE Final Result Performing Organization Address [facility] Co de Phone Number [address] [place] [address] * Transfuse RBC (01/14/2025 7:32 PM CDT) Blood us Pradeep Blum MD BLOOD [facility] Final Result Performing Organization Address [facility] Co de Phone Number [address] [place] [address] * (ABNORMAL) POCT glucose (01/14/2025 4:22 PM CDT) Glucose, POC 237(H) 70 - 199 mg/dL Glucose comment 1 RN/MD Notified [facility] Blood 01/14/2025 4:22 PM CDT 01/14/2025 4:22 PM CDT Mike Jose MD LAB POCT ORDERABLES - DEVICE Final Result Performing Organization Address City/[facility] Co de Phone Number [address] [place] [address] * Prepare RBC: 1 Units (01/14/2025 1:16 PM CDT) Units requested 1 Units requested Ready [facility] Unit Number [id number] Product code [id number] [facility] Blood Expiration Date [id number] [facility] Product Blood Type (for scanning) 7300 [facility] Product Blood Type BPOS [facility] Dispense Status DISPENSED [facility] Blood 01/14/2025 1:16 PM CDT 01/14/2025 1:16 PM CDT us Pradeep Blum MD BLOOD BANK PRODUCT ORD ERABLES Final Result Performing Organization Address [facility] de Phone Number [address] [place] [place] [address] * ABO/Rh (01/14/2025 12:30 PM CDT) Pathologist [facility] ABO/Rh B Positive Blood 01/14/2025 12:3 0 PM CDT 01/14/2025 12:38 PM CDT Narrative [facility] - 01/14/2025 1:16 PM CDT Has the patient had Daratumumab or Isatuximab in the past 6 months?->Unknown Pradeep Blum MD LAB BLOOD BANK TEST OR DERABLES Final Result Performing Organization Address [facility] de Phone Number [address] [place] [place] [address] * Crossmatch (01/14/2025 12:30 PM CDT) Crossmatch Compatible [facility] Unit number for crossmatch [id number] [facility] Blood 01/14/2025 12:3 0 PM CDT 01/14/2025 12:38 PM CDT Mike Jose MD LAB BLOOD BANK TEST ORDERABL ES Final Result Performing Organization Address [facility] Co de Phone Number [address] [address] * Antibody screen (01/14/2025 12:30 PM CDT) Sarai, indirect, Gel Interpretation Negative ABSC Blood 01/14/2025 12:3 0 PM CDT 01/14/2025 12:38 PM CDT [facility]ative [facility] - 01/14/2025 1:16 PM CDT Has the patient had Daratumumab or Isatuximab in the past 6 months?->Unknown us Pradeep Blum MD LAB BLOOD BANK TEST OR DERABLES Final Result Performing Organization Address [facility] Co de Phone Number [address] [address] * (ABNORMAL) POCT glucose (01/14/2025 12:24 PM CDT) Pathologist [facility] Glucose, POC 323(H) 70 - 199 mg/dL Glucose comment 1 RN/MD Notified [facility] Blood 01/14/2025 12:2 4 PM CDT 01/14/2025 12:24 PM CDT Mike Jose MD LAB POCT ORDERABLES - DEVICE Final Result Performing Organization Address [facility] Co de Phone Number [address] [place] [place] [address] * POCT glucose (01/14/2025 8:21 AM CDT) Pathologist [facility] Glucose, POC 148 70 - 199 mg/dL Glucose comment 1 RN/MD Notified [facility] Blood 01/14/2025 8:21 AM CDT 01/14/2025 8:21 AM CDT Mike Jose MD LAB POCT ORDERABLES - DEVICE Final Result Performing Organization Address [facility] Co de Phone Number [address] [place] [place] [address] * eGFR (01/14/2025 6:40 AM CDT) [facility] eGFR 80 >=60 mL/min/1. 73 m2 Comment: Interpretive Data Reference Interval Normal >/= 90 mL/min/1.73m2 Mildly decreased* 60 - 89 mL/min/1.73m2 Mildly to moderately decreased 45 - 59 mL/min/1.73m2 Moderately to severely decreased 30 - 44 mL/min/1.73m2 Severely decreased 15 - 29 mL/min/1.73m2 Kidney Failure < 15 mL/min/1.73m2 *Relative to young adult level Estimated glomerular filtration rate is determined by the 2020 CKD-EPI equation recommended by the National Kidney Foundation (A Unifying Approach to GFR Estimation: Recommendations of the NKF-ASK Task Force on Reassessing the Inclusion of Race in Diagnosing Kidney Disease, JASN 2020). The CKD-EPI equation should not be used for patients with unstable renal function and has not been validated in children and those over 70. Current interpretive data was last reviewed 2021. Blood 01/14/2025 6:40 AM CDT 01/14/2025 6:54 AM CDT us Pradeep Blum MD LAB BLOOD ORDERABLES F inal Result [facility] [address] Department [place] [address] * (ABNORMAL) Differential, auto (01/14/2025 6:40 AM CDT) [facility] Neutrophil abs 4.9 1.5 - 6.5 K/cumm Imm gran abs 0.1 0.0 - 0.1 K/cumm [facility] Lymphocyte abs 0.6(L) 0.8 - 3.3 K/cumm [facility] Monocyte abs 0.7 0.2 - 0.8 K/cumm [facility] Eosinophil abs 0.1 0.0 - 0.5 K/cumm [facility] Basophil abs 0.0 0.0 - 0.1 K/cumm [facility] Neutrophil pct 75.7 % [facility] Comment: Interpretive Data Percent cell count reference ranges are not reported, since discordance with absolute values may lead to misinterpretation of CBC data. Current Interpretive Data was last revised on 2018. Imm gran pct 1.1 % [facility] Comment: Interpretive Data Percent cell count reference ranges are not reported, since discordance with absolute values may lead to misinterpretation of CBC data. Current Interpretive Data was last revised on 2018. Lymphocyte pct 9.8 % [facility] Comment: Interpretive Data Percent cell count reference ranges are not reported, since discordance with absolute values may lead to misinterpretation of CBC data. Current Interpretive Data was last revised on 2018. Monocyte pct 10.9 % [facility] Comment: Interpretive Data Percent cell count reference ranges are not reported, since discordance with absolute values may lead to misinterpretation of CBC data. Current Interpretive Data was last revised on 2018. Eosinophil pct 2.0 % [facility] Comment: Interpretive Data Percent cell count reference ranges are not reported, since discordance with absolute values may lead to misinterpretation of CBC data. Current Interpretive Data was last revised on 2018. Basophil pct 0.5 % [facility] Comment: Interpretive Data Percent cell count reference ranges are not reported, since discordance with absolute values may lead to misinterpretation of CBC data. Current Interpretive Data was last revised on 2018. Blood 01/14/2025 6:40 AM CDT 01/14/2025 6:54 AM CDT us Pradeep Blum MD LAB BLOOD ORDERABLES F inal Result [facility] [address] [facility] Department [place] [address] * (ABNORMAL) CBC with auto differential (01/14/2025 6:40 AM CDT) Pathologist [facility] WBC 6.4 3.8 - 9.9 K/cumm Hgb 8.5(L) 13.0 - 17.5 g/dL [facility] Hct 27.4(L) 38.9 - 50.3 % [facility] Plt 176 150 - 400 K/cumm [facility] MPV 9.7 9.1 - 12.3 fL [facility] RBC 2.95(L) 4.30 - 5.80 M/cumm [facility] MCV 92.9 81.3 - 96.4 fL [facility] MCH 28.8 27.1 - 33.3 pg [facility] MCHC 31.0(L) 32.3 - 35.7 g/dL [facility] RDW CV 14.9 11.1 - 14.9 % [facility] RDW SD 50.8(H) 35.7 - 48.1 fL [facility] NRBC abs 0.00 0.00 - 0.01 K/cumm [facility] Blood 01/14/2025 6:40 AM CDT 01/14/2025 6:54 AM CDT us Pradeep Blum MD LAB BLOOD ORDERABLES F inal Result [facility] [address] [facility] Department [place] [address] * (ABNORMAL) Basic metabolic panel (01/14/2025 6:40 AM CDT) Sodium 137 135 - 145 mmol/L Potassium, pl 5.2(H) 3.3 - 4.9 mmol/L [facility] Chloride 103 97 - 110 mmol/L [facility] CO2 27 22 - 32 mmol/L [facility] Anion gap 7 2 - 15 mmol/L [facility] BUN 27(H) 6 - 25 mg/dL [facility] Creatinine 0.99 0.80 - 1.30 mg/dL [facility] Glucose 125 70 - 199 mg/dL [facility] Comment: Interpretive Data Fasting glucose >/= 126 mg/dl is diagnostic for diabetes. Fasting is defined as no caloric intake for at least 8 hours. Fasting glucose between 100 mg/dl to 125 mg/dl is diagnostic of prediabetes. In a patient with classic symptoms of hyperglycemia or hyperglycemic crisis, a random glucose >/= 200 mg/dl is diagnostic for diabetes. In the absence of unequivocal hyperglycemia, results should be confirmed by repeat testing. The classification and Diagnosis of Diabetes Diabetes Care 2021; 46: S19-S40. Current interpretive data was last revised 2022. Calcium 8.7 8.5 - 10.3 mg/dL [facility] Blood 01/14/2025 6:40 AM CDT 01/14/2025 6:54 AM CDT us Pradeep Blum MD LAB BLOOD ORDERABLES F inal Result Performing Organization Address City/[facility] Co de Phone Number [address] [place] [address] * POCT glucose (01/13/2025 8:37 PM CDT) Glucose, POC 167 70 - 199 mg/dL Glucose comment 1 RN/MD Notified [facility] Blood 01/13/2025 8:37 PM CDT 01/13/2025 8:37 PM CDT us Mike Jose MD LAB POCT ORDERABLES - DEVICE Final Result Performing Organization Address [facility] Co de Phone Number [address] [place] [place] [address] * POCT glucose (01/13/2025 3:49 PM CDT) Glucose, POC 157 70 - 199 mg/dL Glucose comment 1 RN/MD Notified [facility] Blood 01/13/2025 3:49 PM CDT 01/13/2025 3:49 PM CDT us Mike Jose MD LAB POCT ORDERABLES - DEVICE Final Result Performing Organization Address [facility] Co de Phone Number [address] [place] [address] * POCT glucose (01/13/2025 12:09 PM CDT) Glucose, POC 178 70 - 199 mg/dL Glucose comment 1 RN/ Notified [facility] Blood 01/13/2025 12:0 9 PM CDT 01/13/2025 12:09 PM CDT us Mike Jose MD LAB POCT ORDERABLES - DEVICE Final Result [facility] [address] [facility] Department [place] [address] * TRANSTHORACIC ECHO (TTE) COMPLETE W DOPPLER/CF WO CONTRAST (01/13/2025 11:03 AM CDT) LV EF 65-70 % CONS SCIMAGE Anatomical Region Laterality Modality Ultrasound 01/13/2025 10:3 0 AM CDT Narrative 01/13/2025 6:29 PM CDT Transthoracic Echocardiographic Report Patient Name: FITZ TURNERMonse : 1950 (74y 7m) Gender: M Study Date: 01/13/2025 10:30:33 AM Ht(Inch): 73 Wt(Lb): 242 BSA: 2.38 Glove Examiner: Nikki Rodrigues RDCS Location: [place] [address] Order Provider: PRITI BONILLA Heart Rate: 84 BMI: 31.92 BP: 140/60 Ref Provider: PRITI BONILLA PROCEDURES: Echocardiographic Report: ([id number]) Transthoracic complete echo, 2D, spectral and tissue Doppler, color flow Doppler, M-mode. INDICATIONS: Hypotension. FINDINGS: Left Ventricle: Normal left ventricular cavity size. Moderate concentric left ventricular hypertrophy. Normal left ventricular systolic function. The Ejection Fraction is visually estimated to be 65-70 %. Diastolic Function E to E' ratio is >15 suggesting a high pulminary wedge pressure and LV diastolic dysfunction. Right Ventricle: Normal right ventricular size. Normal right ventricular systolic function. Left Atrium: Mildly dilated left atrium. Right Atrium: The right atrium is normal in size. Atrial Septum: No shunt by color Doppler. Mitral Valve: Normal mitral valve leaflet structure. Moderate mitral annular calcification. There is mild mitral valve regurgitation. No mitral valve stenosis. NO mitral valve prolapse seen. Aortic Valve: Trileaflet aortic valve. The aortic cusps are moderately sclerosed in appearance. Trace aortic valve regurgitation. Mild aortic valve stenosis. The mean transaortic gradient is 11 mmHg. Tricuspid Valve: The tricuspid valve demonstrates normal leaflet structure. There is mild tricuspid regurgitation. The estimated right ventricular systolic pressure is 30 mmHg. Normal estimated pulmonary artery systolic pressure. No tricuspid valve stenosis. Pulmonic Valve: The Pulmonic Valve is grossly normal. There is trace pulmonic regurgitation. Pericardium: No pericardial effusion noted. Aorta: Normal aortic root. The aortic Sinus is normal in size. IVC: IVC is normal in size. The estimated RA pressure is 3 mmHg. CONCLUSIONS: 1. Moderate concentric left ventricular hypertrophy. Normal left ventricular systolic function. The Ejection Fraction is visually estimated to be 65-70 %. Diastolic Function E to E' ratio is >15 suggesting a high pulminary wedge pressure and LV diastolic dysfunction. 2. Moderate mitral annular calcification. There is mild mitral valve regurgitation. 3. The aortic cusps are moderately sclerosed in appearance. Trace aortic valve regurgitation. Mild aortic valve stenosis. 4. There is trace pulmonic regurgitation. 5. There is mild tricuspid regurgitation. Normal estimated pulmonary artery systolic pressure. MEASUREMENTS: 2D/MM Value Range Doppler Value LVIDd 2D 3.14 cm [ 3.50 - 5.70 ] AV Peak Tyrone 2.27 m/s LVIDs 2D 1.85 cm [ 3.10 - 4.60 ] AV Peak PG 20.61 mmHg IVSd 2D 1.55 cm [ 0.60 - 1.20 ] AV Mean PG 11.00 mmHg LVPWd 2D 1.94 cm [ 0.60 - 1.10 ] AV VTI 37.20 cm LV Thickness Ratio 0.80 LVOT Peak Tyrone 1.17 m/s LV Mass 2D 218.31 g LVOT Peak PG 5.48 mmHg LV Mass Index 2D 91.73 g/m2 LVOT Mean PG 3.00 mmHg RWT 1.24 LVOT VTI 20.80 cm Visually Estimated EF 65-70 % LVOT Diam 2.43 cm LA Dimension 2D 4.40 cm [ 1.90 - 4.00 ] ZAK VTI 2.59 cm2 LA Length 2C 5.86 cm ZAK Vmax 2.39 cm2 LA Length 4C 5.28 cm LVOT/AV VTI 0.56 - Dimensionless index (DVI) LA Volume BP 88.20 ml MV E Peak Tyrone 1.37 m/s LA Volume Index 37.06 ml/m2 [ 16.00 - 34.00 ] MV Decel Time 154.00 msec TAPSE 1.98 cm [ 1.71 - 5.00 ] Med E` Tyrone 9.61 cm/sec RA Volume 49.80 ml Lat E` Tyrone 10.60 cm/sec RA Volume Index 20.92 ml/m2 Average E/E` 13.56 ZAK Planim 1.42 cm2 RV S` 10.20 cm/sec AoR Diam 2D 3.50 cm [ 2.00 - 3.70 ] TR Peak Tyrone 2.58 m/s Ao Root Index 1.47 cm/m2 [ 1.00 - 2.00 ] TR Peak PG 26.6 mmHg Asc Ao Diam 2D 3.40 cm RA Pressure 3.00 mmHg Asc Ao Index 1.43 cm/m2 RVSP 29.60 mmHg PV Peak Tyrone 1.20 m/s PV Peak PG 5.76 mmHg PV Mean PG 3.00 mmHg PI ED Tyrone 141.00 cm/sec RVOT VTI 15.70 - ATTESTATION: I have reviewed and interpreted the pertinent images and measurements of this study. I attest to the conclusions in the final report that is provided above. DISCLAIMER: The study images and the final report will be retained in the patient chart by the Echo Laboratory for the legally required time period. This chart constitutes the legal record of any testing performed. Electronically Signed By: Tobias Fabian MD 01/13/2025 6:28:59 PM CDT Procedure Note Tobias Fabian MD - 01/13/2025 Transthoracic Echocardiographic Report Patient Name: FITZ TURNER D : 1950 (74y 7m) Gender: M Study Date: 01/13/2025 10:30:33 AM Ht(Inch): 73 Wt(Lb): 242 BSA: 2.38 Glove Examiner: Nikki Rodrigues [facility] Location: [place] [address] Order Provider:PRITI BONILLA Heart Rate: 84 BMI: 31.92 BP: 140/60 Ref Provider: PRITI BONILLA PROCEDURES: Echocardiographic Report: ([id number]) Transthoracic complete echo, 2D,spectral and tissue Doppler, color flow Doppler, M-mode. INDICATIONS: Hypotension. FINDINGS: Left Ventricle: Normal left ventricular cavity size. Moderate concentricleft ventricular hypertrophy. Normal left ventricular systolic function. The EjectionFraction is visually estimated to be 65-70 %. Diastolic Function E to E' ratio is >15suggesting a high pulminary wedge pressure and LV diastolic dysfunction. Right Ventricle: Normal right ventricular size. Normal right ventricularsystolic function. Left Atrium: Mildly dilated left atrium. Right Atrium: The right atrium is normal in size. Atrial Septum: No shunt by color Doppler. Mitral Valve: Normal mitral valve leaflet structure. Moderate mitralannular calcification. There is mild mitral valve regurgitation. No mitral valvestenosis. NO mitral valve prolapse seen. Aortic Valve: Trileaflet aortic valve. The aortic cusps are moderatelysclerosed in appearance. Trace aortic valve regurgitation. Mild aortic valve stenosis.The mean transaortic gradient is 11 mmHg. Tricuspid Valve: The tricuspid valve demonstrates normal leafletstructure. There is mild tricuspid regurgitation. The estimated right ventricular systolic pressureis 30 mmHg. Normal estimated pulmonary artery systolic pressure. No tricuspid valvestenosis. Pulmonic Valve: The Pulmonic Valve is grossly normal. There is tracepulmonic regurgitation. Pericardium: No pericardial effusion noted. Aorta: Normal aortic root. The aortic Sinus is normal in size. IVC: IVC is normal in size. The estimated RA pressure is 3 mmHg. CONCLUSIONS: 1. Moderate concentric left ventricular hypertrophy. Normal leftventricular systolic function. The Ejection Fraction is visually estimated to be 65-70 %.Diastolic Function E to E' ratio is >15 suggesting a high pulminary wedge pressure and LVdiastolic dysfunction. 2. Moderate mitral annular calcification. There is mild mitral valveregurgitation. 3. The aortic cusps are moderately sclerosed in appearance. Trace aorticvalve regurgitation. Mild aortic valve stenosis. 4. There is trace pulmonic regurgitation. 5. There is mild tricuspid regurgitation. Normal estimated pulmonaryartery systolic pressure. MEASUREMENTS: 2D/MM Value Range DopplerValue LVIDd 2D 3.14 cm [ 3.50 - 5.70 ] AV Peak Vel2.27 m/s LVIDs 2D 1.85 cm [ 3.10 - 4.60 ] AV Peak PG20.61 mmHg IVSd 2D 1.55 cm [ 0.60 - 1.20 ] AV Mean PG11.00 mmHg LVPWd 2D 1.94 cm [ 0.60 - 1.10 ] AV VTI37.20 cm LV Thickness Ratio 0.80 LVOT Peak Vel1.17 m/s LV Mass 2D 218.31 g LVOT Peak PG5.48 mmHg LV Mass Index 2D 91.73 g/m2 LVOT Mean PG3.00 mmHg RWT 1.24 LVOT VTI20.80 cm Visually Estimated EF 65-70 % LVOT Diam2.43 cm LA Dimension 2D 4.40 cm [ 1.90 - 4.00 ] ZAK VTI2.59 cm2 LA Length 2C 5.86 cm ZAK Vmax2.39 cm2 LA Length 4C 5.28 cm LVOT/AV VTI0.56 - Dimensionless index (DVI) LA Volume BP 88.20 ml MV E Peak Vel1.37 m/s LA Volume Index 37.06 ml/m2 [ 16.00 - 34.00 ] MV Decel Qbis989.00 msec TAPSE 1.98 cm [ 1.71 - 5.00 ] Med E` Vel9.61 cm/sec RA Volume 49.80 ml Lat E` Vel10.60 cm/sec RA Volume Index 20.92 ml/m2 Average E/E`13.56 ZAK Planim 1.42 cm2 RV S`10.20 cm/sec AoR Diam 2D 3.50 cm [ 2.00 - 3.70 ] TR Peak Vel2.58 m/s Ao Root Index 1.47 cm/m2 [ 1.00 - 2.00 ] TR Peak PG26.6 mmHg Asc Ao Diam 2D 3.40 cm RA Pressure3.00 mmHg Asc Ao Index 1.43 cm/m2 RVSP29.60 mmHg PV Peak Tyrone 1.20 m/s PV Peak PG 5.76 mmHg PV Mean PG 3.00 mmHg PI ED Tyrone 141.00 cm/sec RVOT VTI 15.70 - ATTESTATION: I have reviewed and interpreted the pertinent images and measurements ofthis study. I attest to the conclusions in the final report that is provided above. DISCLAIMER: The study images and the final report will be retained in the patientchart by the Echo Laboratory for the legally required time period. This chart constitutesthe legal record of any testing performed. Electronically Signed By: Tobias Fabian MD 01/13/2025 6:28:59 PM CDT Priti Bonilla NP CV ECHO PROCEDURES Final Res ult * eGFR (01/13/2025 8:52 AM CDT) eGFR 81 >=60 mL/min/1. 73 m2 Comment: Interpretive Data Reference Interval Normal >/= 90 mL/min/1.73m2 Mildly decreased* 60 - 89 mL/min/1.73m2 Mildly to moderately decreased 45 - 59 mL/min/1.73m2 Moderately to severely decreased 30 - 44 mL/min/1.73m2 Severely decreased 15 - 29 mL/min/1.73m2 Kidney Failure < 15 mL/min/1.73m2 *Relative to young adult level Estimated glomerular filtration rate is determined by the 2020 CKD-EPI equation recommended by the [employer] (A Unifying Approach to GFR Estimation: Recommendations of the NKF-ASK Task Force on Reassessing the Inclusion of Race in Diagnosing Kidney Disease, JASN 2020). The CKD-EPI equation should not be used for patients with unstable renal function and has not been validated in children and those over 70. Current interpretive data was last reviewed 2021. Blood 01/13/2025 8:52 AM CDT 01/13/2025 9:21 AM CDT us Pradeep Blum MD LAB BLOOD ORDERABLES F inal Result [place] [address] [facility] Department [place] [address] * (ABNORMAL) Differential, auto (01/13/2025 8:52 AM CDT) Pathologist [facility] Neutrophil abs 5.6 1.5 - 6.5 K/cumm Imm gran abs 0.1 0.0 - 0.1 K/cumm [facility] Lymphocyte abs 0.5(L) 0.8 - 3.3 K/cumm [facility] Monocyte abs 0.6 0.2 - 0.8 K/cumm [facility] Eosinophil abs 0.1 0.0 - 0.5 K/cumm [facility] Basophil abs 0.0 0.0 - 0.1 K/cumm [facility] Neutrophil pct 81.2 % [facility] Comment: Interpretive Data Percent cell count reference ranges are not reported, since discordance with absolute values may lead to misinterpretation of CBC data. Current Interpretive Data was last revised on 2018. Imm gran pct 0.9 % [facility] Comment: Interpretive Data Percent cell count reference ranges are not reported, since discordance with absolute values may lead to misinterpretation of CBC data. Current Interpretive Data was last revised on 2018. Lymphocyte pct 6.9 % [facility] Comment: Interpretive Data Percent cell count reference ranges are not reported, since discordance with absolute values may lead to misinterpretation of CBC data. Current Interpretive Data was last revised on 2018. Monocyte pct 9.4 % [facility] Comment: Interpretive Data Percent cell count reference ranges are not reported, since discordance with absolute values may lead to misinterpretation of CBC data. Current Interpretive Data was last revised on 2018. Eosinophil pct 1.3 % [facility] Comment: Interpretive Data Percent cell count reference ranges are not reported, since discordance with absolute values may lead to misinterpretation of CBC data. Current Interpretive Data was last revised on 2018. Basophil pct 0.3 % [facility] Comment: Interpretive Data Percent cell count reference ranges are not reported, since discordance with absolute values may lead to misinterpretation of CBC data. Current Interpretive Data was last revised on 2018. Blood 01/13/2025 8:52 AM CDT 01/13/2025 9:21 AM CDT us Pradeep Blum MD LAB BLOOD ORDERABLES F inal Result Performing Organization Address [facility]/ZIP Co de Phone Number [address] [employer] [place], [place] [id number] * (ABNORMAL) Iron profile w/ IBC (01/13/2025 8:52 AM CDT) [facility] Iron 21(L) 50 - 150 mcg/dL TIBC 174(L) 250 - 400 mcg/dL [facility] Transferrin saturation 12(L) 20 - 50 % [facility] Blood 01/13/2025 8:52 AM CDT 01/13/2025 9:21 AM CDT Mike Jose MD LAB BLOOD ORDERABLES Final R esult [address] [place] [place] [address] * (ABNORMAL) CBC with auto differential (01/13/2025 8:52 AM CDT) WBC 6.8 3.8 - 9.9 K/cumm Hgb 8.5(L) 13.0 - 17.5 g/dL [facility] Hct 27.2(L) 38.9 - 50.3 % [facility] Plt 159 150 - 400 K/cumm [facility] MPV 10.2 9.1 - 12.3 fL [facility] RBC 2.96(L) 4.30 - 5.80 M/cumm [facility] MCV 91.9 81.3 - 96.4 fL [facility] MCH 28.7 27.1 - 33.3 pg [facility] MCHC 31.3(L) 32.3 - 35.7 g/dL [facility] RDW CV 15.1(H) 11.1 - 14.9 % [facility] RDW SD 50.2(H) 35.7 - 48.1 fL [facility] NRBC abs 0.00 0.00 - 0.01 K/cumm [facility] Blood 01/13/2025 8:52 AM CDT 01/13/2025 9:21 AM CDT us Pradeep Blum MD LAB BLOOD ORDERABLES F inal Result Performing Organization Address [facility] Co de Phone Number [address] [employer] [place], [place] [id number] * (ABNORMAL) Reticulocyte Count (01/13/2025 8:52 AM CDT) Pathologist [facility] Retics, absolute 0.074 0.020 - 0.087 M/cumm Retics 2.5 0.4 - 2.9 % [facility] Reticulocyte Hgb 28.5(L) 30.5 - 38.0 pg [facility] Blood 01/13/2025 8:52 AM CDT 01/13/2025 9:21 AM CDT us Mike Jose MD LAB BLOOD ORDERABLES Final R esult Performing Organization Address City/[facility] Co de Phone Number [address] [employer] [place], [place] [id number] * Ferritin (01/13/2025 8:52 AM CDT) Pathologist [facility] Ferritin 297 30 - 400 ng/mL Blood 01/13/2025 8:52 AM CDT 01/13/2025 9:21 AM CDT us Mike Jose MD LAB BLOOD ORDERABLES Final R esult [facility] [address] [facility] Department [place] [address] * (ABNORMAL) Comprehensive metabolic panel (01/13/2025 8:52 AM CDT) [facility] Sodium 137 135 - 145 mmol/L Potassium, pl 4.6 3.3 - 4.9 mmol/L [facility] Chloride 104 97 - 110 mmol/L [facility] CO2 24 22 - 32 mmol/L [facility] Anion gap 9 2 - 15 mmol/L [facility] BUN 31(H) 6 - 25 mg/dL [facility] Creatinine 0.98 0.80 - 1.30 mg/dL [facility] Glucose 124 70 - 199 mg/dL [facility] Comment: Interpretive Data Fasting glucose >/= 126 mg/dl is diagnostic for diabetes. Fasting is defined as no caloric intake for at least 8 hours. Fasting glucose between 100 mg/dl to 125 mg/dl is diagnostic of prediabetes. In a patient with classic symptoms of hyperglycemia or hyperglycemic crisis, a random glucose >/= 200 mg/dl is diagnostic for diabetes. In the absence of unequivocal hyperglycemia, results should be confirmed by repeat testing. The classification and Diagnosis of Diabetes Diabetes Care 202; 46: S19-S40. Current interpretive data was last revised 2022. Calcium 8.4(L) 8.5 - 10.3 mg/dL [facility] Bilirubin, total 0.7 0.1 - 1.2 mg/dL [facility] Protein, pl 5.7(L) 6.5 - 8.5 g/dL [facility] Albumin 3.0(L) 3.5 - 5.0 g/dL [facility] Alk phos 65 40 - 130 Units/L [facility] ALT 10 7 - 55 Units/L [facility] AST 21 10 - 50 Units/L [facility] Blood 01/13/2025 8:52 AM CDT 01/13/2025 9:21 AM CDT us Pradeep Blum MD LAB BLOOD ORDERABLES F inal Result Performing Organization Address City/[facility]/ZIP Co de Phone Number [address] [employer] [place] [address] * POCT glucose (01/13/2025 8:23 AM CDT) Glucose, POC 119 70 - 199 mg/dL Glucose comment 1 RN/MD Notified [facility] Blood 01/13/2025 8:23 AM CDT 01/13/2025 8:23 AM CDT us Mike Jose MD LAB POCT ORDERABLES - DEVICE Final Result Performing Organization Address City/[facility] Co de Phone Number [address] [employer] [place] [address] * POCT glucose (01/12/2025 8:06 PM CDT) Glucose, POC 166 70 - 199 mg/dL Glucose comment 1 Will Repeat Test [facility] Glucose comment 2 Follow Protocol [facility] Blood 01/12/2025 8:06 PM CDT 01/12/2025 8:06 PM CDT us Mike Jose MD LAB POCT ORDERABLES - DEVICE Final Result Performing Organization Address City/[facility]/ZIP Co de Phone Number [address] [employer] [place] [address] * CT Head WO Contrast (01/12/2025 6:47 PM CDT) Anatomical Region Laterality Modality Head and Neck N/A Computed Tomogra phy 01/12/2025 7:23 PM CDT Narrative 01/12/2025 7:25 PM CDT EXAM DESCRIPTION: CT HEAD WO CONTRAST REASON FOR STUDY: Mental status change, unknown cause Pt had a syncopal episode yesterday, but is having increased mental status change today. TECHNIQUE: Axial images acquired through the brain without intravenous contrast. Images stored on PACS. Automated exposure control was used as a dose optimization technique for this examination. COMPARISON: 05/22/2022 FINDINGS: BRAIN: No hemorrhage, edema or mass effect. No recent infarct. Mild generalized atrophy and periventricular microvascular white matter ischemic change. EXTRA-AXIAL SPACES: No fluid collections. No masses. CALVARIUM: No fracture. SINUSES/MASTOIDS: There is fluid and/or mucosal thickening in the bilateral ethmoid air cells and the right sphenoid sinus. ORBITS: No significant abnormality. OTHER: No other significant abnormality. IMPRESSION: No acute intracranial findings. THIS IS AN ELECTRONICALLY VERIFIED FINAL REPORT 01/12/2025 7:25 PM - Electronically signed by Aldo Palencia M.D., KT T: Report ID: [id number] Reading Location: [id number] Procedure Note Aldo Palencia MD - 01/12/2025 EXAM DESCRIPTION: CT HEAD WO CONTRAST REASON FOR STUDY: Mental status change, unknown cause Pt had a syncopal episode yesterday, but is having increased mental status change today. TECHNIQUE: Axial images acquired through the brain without intravenous contrast. Images stored on PACS. Automated exposure control was used asa dose optimization technique for this examination. COMPARISON: 05/22/2022 FINDINGS: BRAIN: No hemorrhage, edema or mass effect. No recent infarct. Mild generalized atrophy and periventricular microvascular white matter ischemic change. EXTRA-AXIAL SPACES: No fluid collections. No masses. CALVARIUM: No fracture. SINUSES/MASTOIDS: There is fluid and/or mucosal thickening in thebilateral ethmoid air cells and the right sphenoid sinus. ORBITS: No significant abnormality. OTHER: No other significant abnormality. IMPRESSION: No acute intracranial findings. THIS IS AN ELECTRONICALLY VERIFIED FINAL REPORT 01/12/2025 7:25 PM - Electronically signed by Aldo Palencia M.D. MATILDE T: Report ID: [id number] Reading Location: [id number] Priti Bonilla DIRECTOR OF PROGRAMMING IMG CT PROCEDURES Final Resu lt * POCT glucose (01/12/2025 4:49 PM CDT) Glucose, POC 176 70 - 199 mg/dL Glucose comment 1 RN/MD Notified [facility] Blood 01/12/2025 4:49 PM CDT 01/12/2025 4:49 PM CDT Mike Jose MD LAB POCT ORDERABLES - DEVICE Final Result Performing Organization Address [facility] Co de Phone Number [address] [place] [place] [address] * (ABNORMAL) POCT glucose (01/12/2025 11:49 AM CDT) [facility] Glucose, POC 238(H) 70 - 199 mg/dL Blood 01/12/2025 11:4 9 AM CDT 01/12/2025 11:49 AM CDT Mike Jose MD LAB POCT ORDERABLES - DEVICE Final Result Performing Organization Address City/[facility] Co de Phone Number [address] [employer] [place] [address] * ECG 12 lead (01/12/2025 10:56 AM CDT) [facility] Ventricular Rate EKG/Min 91 BPM [facility] QRS-Interval (MSEC) 100 ms [facility] QT-Interval (MSEC) 334 ms [facility] QTc 410 ms [facility] R [place] -4 degrees [facility] T [place] -52 degrees [facility] Diagnosis Atrial fibrillation with premature ventricular or aberrantly conducted complexes Incomplete right bundle branch block 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 rate has increased BY 41 BPM Nonspecific T wave abnormality now evident in Inferior leads QT has lengthened Confirmed by TOBIAS FABIAN M.D. ([id number]) on 01/12/2025 11:57:22 AM [facility] 01/12/2025 10:5 6 AM CDT 01/12/2025 11:57 AM CDT us Priti Bonilla NP ECG ORDERABLES Final Result [facility] * (ABNORMAL) eGFR (01/12/2025 9:54 AM CDT) eGFR 58(L) >=60 mL/min/1. 73 m2 Comment: Interpretive Data Reference Interval Normal >/= 90 mL/min/1.73m2 Mildly decreased* 60 - 89 mL/min/1.73m2 Mildly to moderately decreased 45 - 59 mL/min/1.73m2 Moderately to severely decreased 30 - 44 mL/min/1.73m2 Severely decreased 15 - 29 mL/min/1.73m2 Kidney Failure < 15 mL/min/1.73m2 *Relative to young adult level Estimated glomerular filtration rate is determined by the 2020 CKD-EPI equation recommended by the National Kidney Foundation (A Unifying Approach to GFR Estimation: Recommendations of the NKF-ASK Task Force on Reassessing the Inclusion of Race in Diagnosing Kidney Disease, JASN 2020). The CKD-EPI equation should not be used for patients with unstable renal function and has not been validated in children and those over 70. Current interpretive data was last reviewed 2021. Blood 01/12/2025 9:54 AM CDT 01/12/2025 10:45 AM CDT us Kait Goel MD LAB BLOOD ORDERABLES Mary l Result [facility] [address] [facility] Department [place] [address] * (ABNORMAL) Differential, auto (01/12/2025 9:54 AM CDT) Neutrophil abs 8.1(H) 1.5 - 6.5 K/cumm Imm gran abs 0.1 0.0 - 0.1 K/cumm [facility] Lymphocyte abs 0.4(L) 0.8 - 3.3 K/cumm [facility] Monocyte abs 0.8 0.2 - 0.8 K/cumm [facility] Eosinophil abs 0.1 0.0 - 0.5 K/cumm [facility] Basophil abs 0.0 0.0 - 0.1 K/cumm [facility] Neutrophil pct 85.7 % [facility] Comment: Interpretive Data Percent cell count reference ranges are not reported, since discordance with absolute values may lead to misinterpretation of CBC data. Current Interpretive Data was last revised on 2018. Imm gran pct 0.6 % [facility] Comment: Interpretive Data Percent cell count reference ranges are not reported, since discordance with absolute values may lead to misinterpretation of CBC data. Current Interpretive Data was last revised on 2018. Lymphocyte pct 4.5 % [facility] Comment: Interpretive Data Percent cell count reference ranges are not reported, since discordance with absolute values may lead to misinterpretation of CBC data. Current Interpretive Data was last revised on 2018. Monocyte pct 8.5 % [facility] Comment: Interpretive Data Percent cell count reference ranges are not reported, since discordance with absolute values may lead to misinterpretation of CBC data. Current Interpretive Data was last revised on 2018. Eosinophil pct 0.5 % [facility] Comment: Interpretive Data Percent cell count reference ranges are not reported, since discordance with absolute values may lead to misinterpretation of CBC data. Current Interpretive Data was last revised on 2018. Basophil pct 0.2 % [facility] Comment: Interpretive Data Percent cell count reference ranges are not reported, since discordance with absolute values may lead to misinterpretation of CBC data. Current Interpretive Data was last revised on 2018. Blood 01/12/2025 9:54 AM CDT 01/12/2025 10:44 AM CDT us Kait Annika Goel MD LAB BLOOD ORDERABLES Mary l Result [address] [address] * (ABNORMAL) CBC with auto differential (01/12/2025 9:54 AM CDT) [facility] WBC 9.4 3.8 - 9.9 K/cumm Hgb 9.1(L) 13.0 - 17.5 g/dL [facility] Hct 28.7(L) 38.9 - 50.3 % [facility] Plt 181 150 - 400 K/cumm [facility] MPV 10.3 9.1 - 12.3 fL [facility] RBC 3.10(L) 4.30 - 5.80 M/cumm [facility] MCV 92.6 81.3 - 96.4 fL [facility] MCH 29.4 27.1 - 33.3 pg [facility] MCHC 31.7(L) 32.3 - 35.7 g/dL [facility] RDW CV 15.1(H) 11.1 - 14.9 % [facility] RDW SD 50.4(H) 35.7 - 48.1 fL [facility] NRBC abs 0.00 0.00 - 0.01 K/cumm [facility] Blood 01/12/2025 9:54 AM CDT 01/12/2025 10:44 AM CDT us Kait Annika Goel MD LAB BLOOD ORDERABLES Mary l Result Performing Organization Address [facility] Co de Phone Number [address] [place] [address] * Digoxin level (01/12/2025 9:54 AM CDT) [facility] Digoxin 0.8 0.5 - 1.2 ng/mL Comment: Interpretive data The therapeutic range for digoxin varies by indication: Heart failure: 0.5 to 0.8 ng/mL Atrial fibrillation: less than 1.2 ng/mL Toxicity: >2.4. Normal or low digoxin does not rule out toxicity. Current interpretive data was last revised on 2024. Blood 01/12/2025 9:54 AM CDT 01/12/2025 10:45 AM CDT us Priti Bonilla DIRECTOR OF PROGRAMMING LAB BLOOD ORDERABLES Final R esult [facility] [address] [facility] Department [place] [address] * (ABNORMAL) Comprehensive metabolic panel (01/12/2025 9:54 AM CDT) Sodium 135 135 - 145 mmol/L Potassium, pl 4.6 3.3 - 4.9 mmol/L [facility] Chloride 101 97 - 110 mmol/L [facility] CO2 22 22 - 32 mmol/L [facility] Anion gap 12 2 - 15 mmol/L [facility] BUN 42(H) 6 - 25 mg/dL [facility] Creatinine 1.30 0.80 - 1.30 mg/dL [facility] Glucose 162 70 - 199 mg/dL [facility] Comment: Interpretive Data Fasting glucose >/= 126 mg/dl is diagnostic for diabetes. Fasting is defined as no caloric intake for at least 8 hours. Fasting glucose between 100 mg/dl to 125 mg/dl is diagnostic of prediabetes. In a patient with classic symptoms of hyperglycemia or hyperglycemic crisis, a random glucose >/= 200 mg/dl is diagnostic for diabetes. In the absence of unequivocal hyperglycemia, results should be confirmed by repeat testing. The classification and Diagnosis of Diabetes Diabetes Care 2021; 46: S19-S40. Current interpretive data was last revised 2022. Calcium 8.4(L) 8.5 - 10.3 mg/dL [facility] Bilirubin, total 0.7 0.1 - 1.2 mg/dL [facility] Protein, pl 5.8(L) 6.5 - 8.5 g/dL [facility] Albumin 3.3(L) 3.5 - 5.0 g/dL [facility] Alk phos 72 40 - 130 Units/L [facility] ALT 12 7 - 55 Units/L [facility] AST 28 10 - 50 Units/L [facility] Blood 01/12/2025 9:54 AM CDT 01/12/2025 10:45 AM CDT Kait Goel MD LAB BLOOD ORDERABLES Mary l Result [address] [place] [address] * POCT glucose (01/12/2025 8:13 AM CDT) Glucose, POC 104 70 - 199 mg/dL Blood 01/12/2025 8:13 AM CDT 01/12/2025 8:13 AM CDT Mike Jose MD LAB POCT ORDERABLES - DEVICE Final Result Performing Organization Address [facility] Co de Phone Number MARY[address] [place] [place] [address] * POCT glucose (01/11/2025 8:09 PM CDT) Glucose, POC 158 70 - 199 mg/dL Blood 01/11/2025 8:09 PM CDT 01/11/2025 8:09 PM CDT Mike Jose MD LAB POCT ORDERABLES - DEVICE Final Result Performing Organization Address [facility] Co de Phone Number MARY[address] [place] [address] * (ABNORMAL) POCT glucose (01/11/2025 4:30 PM CDT) Glucose, POC 201(H) 70 - 199 mg/dL Glucose comment 1 RN/MD Notified [facility] Blood 01/11/2025 4:30 PM CDT 01/11/2025 4:30 PM CDT Mike Jose MD LAB POCT ORDERABLES - DEVICE Final Result [facility] [address] [place] [place] [address] * POCT glucose (01/11/2025 12:36 PM CDT) Glucose, POC 166 70 - 199 mg/dL Glucose comment 1 RN/ Notified [facility] Blood 01/11/2025 12:3 6 PM CDT 01/11/2025 12:36 PM CDT Mike Jose MD LAB POCT ORDERABLES - DEVICE Final Result Performing Organization Address City/State/[facility] Co de Phone Number [facility] [address] [address] * POCT glucose (01/11/2025 8:16 AM CDT) [facility] Glucose, POC 112 70 - 199 mg/dL Glucose comment 1 Will Repeat Test [facility] Glucose comment 2 RN/ Notified [facility] Blood 01/11/2025 8:16 AM CDT 01/11/2025 8:16 AM CDT Mike Jose MD LAB POCT ORDERABLES - DEVICE Final Result Performing Organization Address City/State/[facility] Co de Phone Number [facility] [address] [address] * (ABNORMAL) Differential, auto (01/11/2025 5:00 AM CDT) [facility] Neutrophil abs 7.6(H) 1.5 - 6.5 K/cumm Imm gran abs 0.1 0.0 - 0.1 K/cumm [facility] Lymphocyte abs 1.0 0.8 - 3.3 K/cumm [facility] Monocyte abs 0.9(H) 0.2 - 0.8 K/cumm [facility] Eosinophil abs 0.0 0.0 - 0.5 K/cumm [facility] Basophil abs 0.0 0.0 - 0.1 K/cumm [facility] Neutrophil pct 79.0 % [facility] Comment: Interpretive Data Percent cell count reference ranges are not reported, since discordance with absolute values may lead to misinterpretation of CBC data. Current Interpretive Data was last revised on 2018. Imm gran pct 0.6 % [facility] Comment: Interpretive Data Percent cell count reference ranges are not reported, since discordance with absolute values may lead to misinterpretation of CBC data. Current Interpretive Data was last revised on 2018. Lymphocyte pct 10.4 % [facility] Comment: Interpretive Data Percent cell count reference ranges are not reported, since discordance with absolute values may lead to misinterpretation of CBC data. Current Interpretive Data was last revised on 2018. Monocyte pct 9.4 % [facility] Comment: Interpretive Data Percent cell count reference ranges are not reported, since discordance with absolute values may lead to misinterpretation of CBC data. Current Interpretive Data was last revised on 2018. Eosinophil pct 0.3 % [facility] Comment: Interpretive Data Percent cell count reference ranges are not reported, since discordance with absolute values may lead to misinterpretation of CBC data. Current Interpretive Data was last revised on 2018. Basophil pct 0.3 % [facility] Comment: Interpretive Data Percent cell count reference ranges are not reported, since discordance with absolute values may lead to misinterpretation of CBC data. Current Interpretive Data was last revised on 2018. Blood 01/11/2025 5:00 AM CDT 01/11/2025 5:14 AM CDT Karlos COLLIER LAB BLOOD ORDERABLES Mary collier Result [facility] [address] [facility] Department of Laboratories [place], [place] [id number] * (ABNORMAL) CBC with auto differential (01/11/2025 5:00 AM CDT) Pathologist [facility] WBC 9.6 3.8 - 9.9 K/cumm Hgb 8.8(L) 13.0 - 17.5 g/dL [facility] Hct 27.6(L) 38.9 - 50.3 % [facility] Plt 145(L) 150 - 400 K/cumm [facility] MPV 10.2 9.1 - 12.3 fL [facility] RBC 2.97(L) 4.30 - 5.80 M/cumm [facility] MCV 92.9 81.3 - 96.4 fL [facility] MCH 29.6 27.1 - 33.3 pg [facility] MCHC 31.9(L) 32.3 - 35.7 g/dL [facility] RDW CV 15.1(H) 11.1 - 14.9 % [facility] RDW SD 50.4(H) 35.7 - 48.1 fL [facility] NRBC abs 0.00 0.00 - 0.01 K/cumm [facility] Blood 01/11/2025 5:00 AM CDT 01/11/2025 5:14 AM CDT us Karlos COLLIER LAB BLOOD ORDERABLES Mary l Result Performing Organization Address [facility] de Phone Number [address] [place] [address] * (ABNORMAL) Hemoglobin A1c (12/26/2024 10:31 AM PULLMAN CAR CLERK) Hgb A1C 6.6(H) 4.0 - 5.6 % Estimated Average Glucose 143 mg/dL [facility] Comment: The ADA recommends reporting an estimated Average Glucose (eAG) with all Hemoglobin A1c results using the equation derived from a study of 507 normal and diabetic adults. Minority populations were underrepresented and children were not included. (Diabetes Care 31:1368-3940, 2008). The eAG is not equivalent to a fasting glucose. Blood 12/26/2024 10:3 1 AM PULLMAN CAR CLERK 12/26/2024 10:40 AM PULLMAN CAR CLERK us Mike Jose MD LAB BLOOD ORDERABLES Final R esult Performing Organization Address [facility] Co de Phone Number [address] [place] [address] * CT Abdomen W WO Contrast (08/30/2021 9:50 AM CDT) Anatomical Region Laterality Modality Body N/A Computed Tomogra phy 08/30/2021 10:5 7 PM CDT Narrative 08/30/2021 11:20 PM CDT EXAM DESCRIPTION: CT ABDOMEN W WO CONTRAST REASON FOR STUDY: renal mass Right renal mass status post ablation in 2017. Follow-up. PMHx: renal cancer, prostate cancer, skin cancer, diabetes, HTN, yeyo, kidney surg, bariatric surg 100mL [id number] via 20g RAC TECHNIQUE: CT scan of the abdomen performed without and with intravenous and without oral contrast using helical scanning technique with dynamic intravenous contrast injection. Precontrast, nephro graphic phase and excretory phases were acquired. Reconstructed coronal and sagittal MPR images reviewed. All images stored on PACS. Automated exposure control was used as a dose optimization technique for this examination. CONTRAST TYPE/DOSE: 100mL of IOVERSOL 350 MG IODINE/ML INTRAVENOUS SYRINGE injected via intravenous COMPARISON: 04/11/2020 FINDINGS: Kidneys: Changes of prior percutaneous ablation of a right upper pole renal mass with interval decreased nodular enhancement measuring 2.5 x 1.3 cm, previously 3.0 x 1.8 cm. Unchanged, 1.4 cm exophytic anterior interpolar right kidney is hyperdense on noncontrast images, likely proteinaceous or hemorrhagic cyst. Redemonstrated are bilateral renal cyst. Multiple bilateral renal lesions are too small to characterize by CT likely a simple cyst statistically speaking. No new suspicious renal mass. Kidneys enhance symmetrically. Mild persistent stranding the left renal pelvis. Excretory phase contrast demonstrates no abnormality of the collecting system or visualized portions of the proximal to mid ureters. LOWER CHEST: No significant pulmonary abnormalities. No effusion. LIVER: Normal size. No identified cystic or solid masses. GALLBLADDER: Surgically absent BILE DUCTS: No intrahepatic or extrahepatic ductal dilatation. SPLEEN: Normal size. No focal lesions. PANCREAS: No identified cystic or solid masses. No significant calcifications. No adjacent inflammation or peripancreatic fluid collections. Pancreatic duct not dilated. ADRENALS: Unchanged, 1.6 cm right adrenal nodule. There is thickening of the left adrenal gland. These findings are unchanged compared to prior examination. GI: Visualized portions of the abdomen demonstrate changes of prior lap band surgery. Is colonic diverticulosis without evidence of acute diverticulitis. No small bowel dilation or wall thickening. The appendix is normal. Redemonstrated is a small fat containing periumbilical hernia. Small fat containing ventral hernias are unchanged. Diastasis recti is seen. PERITONEUM: No ascites or free air. RETROPERITONEUM: No adenopathy. VASCULATURE: No abdominal aortic aneurysm. Calcified atherosclerosis of the abdominal aorta. MUSCULOSKELETAL: Multilevel degenerative disc disease, moderate to severe the lower lumbar spine, worse at L4-L5. Is bilateral facet arthropathy. OTHER: No other significant abnormality. IMPRESSION: 1. Post percutaneous renal ablation changes in the upper pole right kidney with interval decreased nodular soft tissue within the ablation zone as described above. 2. Unchanged 1.4 cm exophytic lesion within the anterior mid pole right kidney without enhancement. These findings favor proteinaceous versus hemorrhagic cyst. THIS IS AN ELECTRONICALLY VERIFIED FINAL REPORT 08/30/2021 11:20 PM - Electronically signed by José Luis Barraza M.D. BB T: Report ID: [id number] Reading Location: [id number] Procedure Note José Luis Barraza MD PhD - 08/30/2021 EXAM DESCRIPTION: CT ABDOMEN W WO CONTRAST REASON FOR STUDY: renal mass Right renal mass status post ablation [id number]. Follow-up. PMHx: renal cancer, prostate cancer, skin cancer, diabetes, HTN, yeyo, kidney surg, bariatric surg 100mL [id number] via 20g RAC TECHNIQUE: CT scan of the abdomen performed without and with intravenousand without oral contrast using helical scanning technique with dynamic intravenous contrast injection. Precontrast, nephro graphic phase and excretory phases were acquired. Reconstructed coronal and sagittal MPRimages reviewed. All images stored on PACS. Automated exposure control was usedas a dose optimization technique for this examination. CONTRAST TYPE/DOSE: 100mL of IOVERSOL 350 MG IODINE/ML INTRAVENOUSSYRINGE injected via intravenous COMPARISON: 04/11/2020 FINDINGS: Kidneys: Changes of prior percutaneous ablation of a right upper polerenal mass with interval decreased nodular enhancement measuring 2.5 x 1.3 cm, previously 3.0 x 1.8 cm. Unchanged, 1.4 cm exophytic anterior interpolar right kidney is hyperdense on noncontrast images, likely proteinaceous or hemorrhagic cyst. Redemonstrated are bilateral renal cyst. Multiple bilateral renal lesions are too small to characterize by CT likely asimple cyst statistically speaking. No new suspicious renal mass. Kidneys enhance symmetrically. Mild persistent stranding the left renal pelvis. Excretory phase contrast demonstrates no abnormality of the collecting system or visualized portions of the proximal to mid ureters. LOWER CHEST: No significant pulmonary abnormalities. No effusion. LIVER: Normal size. No identified cystic or solid masses. GALLBLADDER: Surgically absent BILE DUCTS: No intrahepatic or extrahepatic ductal dilatation. SPLEEN: Normal size. No focal lesions. PANCREAS: No identified cystic or solid masses. No significant calcifications. No adjacent inflammation or peripancreatic fluidcollections. Pancreatic duct not dilated. ADRENALS: Unchanged, 1.6 cm right adrenal nodule. There is thickening ofthe left adrenal gland. These findings are unchanged compared to prior examination. GI: Visualized portions of the abdomen demonstrate changes of prior lapband surgery. Is colonic diverticulosis without evidence of acutediverticulitis. No small bowel dilation or wall thickening. The appendix is normal. Redemonstrated is a small fat containing periumbilical hernia. Small fat containing ventral hernias are unchanged. Diastasis recti is seen. PERITONEUM: No ascites or free air. RETROPERITONEUM: No adenopathy. VASCULATURE: No abdominal aortic aneurysm. Calcified atherosclerosis ofthe abdominal aorta. MUSCULOSKELETAL: Multilevel degenerative disc disease, moderate to severethe lower lumbar spine, worse at L4-L5. Is bilateral facet arthropathy. OTHER: No other significant abnormality. IMPRESSION: 1. Post percutaneous renal ablation changes in the upper pole rightkidney with interval decreased nodular soft tissue within the ablation zone as described above. 2. Unchanged 1.4 cm exophytic lesion within the anterior mid pole right kidney without enhancement. These findings favor proteinaceous versus hemorrhagic cyst. THIS IS AN ELECTRONICALLY VERIFIED FINAL REPORT 08/30/2021 11:20 PM - Electronically signed by José Luis Barraaz M.D. BB T: Report ID: [id number] Reading Location: [id number] Harpal Dave MD IMG CT PROCEDURES Final R esult * (ABNORMAL) Lipid panel (07/21/2019 3:38 PM CDT) Cholesterol 99 30 - 199 mg/dL [facility] Comment: Interpretive Data Ages < or = 19 years Acceptable: <170 mg/dL Borderline high: 170-199 mg/dL High: >or= 200 mg/dL Ages > or = 20 years Desirable: <200 mg/dL Borderline high: 200-239 mg/dL High: >or= 240 mg/dL Literature References: 1. Expert Panel on Integrated Guidelines for Cardiovascular Health and Risk Reduction in Children and Adolescents. Pediatrics 2011;128:S213 2. NCEP Expert Panel. Circulation 2004;110:227 Current Interpretive Data was last revised on 2018. Triglycerides 82 <=149 mg/dL [facility] Comment: Interpretive Data Ages < or = 9 years Acceptable: <75 mg/dL Borderline high: 75-99 mg/dL High: >or= 100 mg/dL Ages 10 to 20 years Acceptable: <90 mg/dL Borderline high: 90-129 mg/dL High: >or= 130 mg/dL Ages > or = 20 years Desirable: <150 mg/dL Borderline high: 150-199 mg/dL High: 200-499 mg/dL Very high: >or= 499 mg/dL Literature References: 1. Expert Panel on Integrated Guidelines for Cardiovascular Health and Risk Reduction in Children and Adolescents. Pediatrics 2011;128:S213 2. NCEP Expert Panel. Circulation 2004;110:227 Current Interpretive Data was last revised on 2018. HDL 34(L) >=40 mg/dL [facility] Comment: Interpretive Data Ages < or = 19 years Acceptable: >45 mg/dL Borderline low: 40-45 mg/dL Low: <40 mg/dL Ages > or = 20 years Desirable: >or= 60 mg/dL Low: <40 mg/dL Literature References: 1. Expert Panel on Integrated Guidelines for Cardiovascular Health and Risk Reduction in Children and Adolescents. Pediatrics 2011;128:S213 2. NCEP Expert Panel. Circulation 2004;110:227 Current Interpretive Data was last revised on 2018. LDL, calculated 49 <=129 mg/dL [facility] Comment: Interpretive Data Ages < or = 19 years Acceptable: <110 mg/dL Borderline high: 110-129 mg/dL High: >or= 130 mg/dL Ages > or = 20 years Optimal: <100 mg/dL Near optimal: 100-129 mg/dL Borderline high: 130-159 mg/dL High: >160 mg/dL Literature References: 1. Expert Panel on Integrated Guidelines for Cardiovascular Health and Risk Reduction in Children and Adolescents. Pediatrics 2011;128:S213 2. NCEP Expert Panel. Circulation 2004;110:227 Current Interpretive Data was last revised on 2018. Non-HDL Cholesterol 65 mg/dL [facility] Comment: Interpretive Data Ages < or = 19 years Acceptable: <120 mg/dL Borderline high: 120-144 mg/dL High: >145 mg/dL Ages > or = 20 years When triglycerides are >200 mg/dL, Non-HDL cholesterol is a secondary target of therapy with treatment goals that are 30 mg/dL greater than the LDL cholesterol target. Literature References: 1. Expert Panel on Integrated Guidelines for Cardiovascular Health and Risk Reduction in Children and Adolescents. Pediatrics 2011;128:S213 2. NCEP Expert Panel. Circulation 2004;110:227 Current Interpretive Data was last revised on 2018. Chol/HDL ratio 3 [facility] Blood specimen (specimen) 07/21/2019 3:38 PM CDT 07/21/2019 3:58 PM CDT us Oc Mijares MD LAB BLOOD ORDERABLES Final Resu lt [facility] [address] [place] [address] * (ABNORMAL) Microalbumin / creatinine ratio, urine, random (07/02/2016 9:20 AM CDT) CREATININE, RANDOM URINE 158 20 - 370 mg/dL [facility] HISTORICAL RESULTS MICROALBUMIN 19.9 See Note: mg/dL [facility]OR[facility] RESULTS Comment: Reference Range: Reference Range Not established MICROALBUMIN/CREAT ININE RATIO, RANDOM URINE 126(H) <30 mcg/mg creat [facility]OR[facility] RES[facility] Comment: The ADA defines abnormalities in albumin excretion as follows: Category Result (mcg/mg creatinine) Normal < 30 Microalbuminuria 30-299 Clinical albuminuria > OR = 300 The ADA recommends that at least two of three specimens collected within a 3-6 month period be abnormal before considering a patient to be within a diagnostic category. 07/02/2016 9:20 AM CDT 07/07/2016 8:31 AM CDT Narrative [facility] HISTORICAL RESULTS - 07/05/2016 2:04 AM CDT FASTING:YES PERFORMING LAB: [place], [facility] [id number] [address] [place] [id number] Antonio Myers D.O., MPH Raymundo Mcmillan MD LAB URINE ORDERABLES Final Resul t [facility] HISTORICAL RESULTS from Last 3 Months or Most Recently Relevant to Health Maintenance Insurance [facility] Advance Directives For more information, please contact: [phone] Documents on File Type Date Recorded Patient [place] Expl anation ADVANCE DIRECTIVE 12/26/2024 12:03 PM aneesh valentin * Full Code (Latest Code Status on File) Date Activated Date Inactivated Comments 01/09/2025 3:58 PM 01/17/2025 6:32 PM * Full Code Date Activated Date Inactivated Comments 07/21/2019 2:50 PM 07/23/2019 4:48 PM Care Teams Wire Stockkeeper Relationship Specialty Start Date End Date Carlota Benton DO PCP - General 03/17/17 Inés Hickey MD 1 [facility] [place] [address] Consulting Physician Neurosurgery 12/05/24 Harpal Dave MD [address] [place] [address] Consulting Physician Urology 12/26/24 Mike Jose MD [facility] [address] [address] Consulting Physician Orthopedic Surgery 01/10/25
--- OUTSIDE RECORDS SUMMARY | 2025-04-13 14:53 | XMS_ITS | Encounter Summary ---
Author Organization [facility] Facility Care Team Providers Care Learning Support Aide Name Role Phone Raymundo Mcmillan MD Primary Care Provider [phone] Carlota Benton DO Primary Care Provider [phone] Inés Hickey MD Unavailable [phone] Harpal Dave MD Unavailable [phone] Mike Jose MD Unavailable [phone] Encounter Details Date Type Department Care Team (Latest Contact Info) Description 11/21/2016 Orders Only [facility] CLINCONV ProviderMayi MD [address] [place] [address] Social History Tobacco Use Types Packs/Day Years Used Date Smoking Tobacco: Never Assessed Sex and Gender Information Value Date Recorded Sex Assigned at Not on file Legal Sex Male 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 us Historical Provider Final Res ult documented in this encounter Visit Diagnoses Not on filedocumented in this encounter Care Teams Learning Support Aide Relationship Specialty Start Date End Date Raymundo Mcmillan MD [address] [facility] [address] [place] [address] PCP - General 02/02/17 03/16/17 Carlota Benton DO [address] [facility] [address] [place] [address] PCP - General 03/17/17 Inés Hickey MD 1 [facility] DEPT [place] [address] Consulting Physician Neurosurgery 12/05/24 Harpal Dave MD [address] [place] [address] Consulting Physician Urology 12/26/24 Mike Jose MD [address] [facility] [address] [place] [address] [place] [address] Consulting Physician Orthopedic Surgery 01/10/25 documented as of this encounter
--- OUTSIDE RECORDS SUMMARY | 2025-04-13 14:53 | XMS_ITS | Clinical Summary ---
Author Organization [facility] Address [address] [facility] [place] [address] Care Team Providers Care Macerator Operator Name Role Phone Unavailable Primary Care Provider Unavailabl e Source Comments [facility],non-owned Affiliates and Associated Physician Practices is amultiple site organization consisting of ambulatory clinics and hospital sitesin [place], [place], [place] and [place]. This disclosure is being madepursuant to the Care Everywhere program and may not contain all information available regarding this patient. 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 Gender Identity Not on file Sexual Orientation Not on file Plan of Treatment Health Maintenance Due Date Last Done Comments COLOGUARD (AGES 45-75) - COLON CA SCREENING 1950 COLON MONITORING 1950 COLONOSCOPY - COLON CA SCREENING 1950 CT COLONOGRAPHY - COLON CA SCREENING 1950 Colorectal Cancer Screening 1950 FIT - COLON CA SCREENING 1950 FLEX SIG - COLON CA SCREENING 1950 HEPATITIS C SCREENING 05/26/1968 DTAP/TDAP/TD VACCINES (1 - Tdap) 1969 PNEUMOCOCCAL VACCINE 50+ (1 of 1 - PCV) 2000 ZOSTER VACCINE (1 of 2) 2000 COVID-19 VACCINE (3 - season) 2024 01/03/2021, 12/06/2020 DEPRESSION SCREENING 10/26/2024 Respiratory Syncytial Virus (RSV) Vaccine Pt: or over 60 yrs (1 - 1-dose 75+ series) 2025 INFLUENZA VACCINE (Season Ended) 2025 08/03/2020, 09/02/2019, 08/03/2018, Additional history exists LIPID TESTING 05/27/2026 05/27/2021 HEPATITIS B VACCINE Aged Out No longe r eligible based on patient's age to complete this topic HIB VACCINE Aged Out No longer eligi ble based on patient's age to complete this topic HPV VACCINE Aged Out No longer eligi ble based on patient's age to complete this topic MENINGOCOCCAL (Group B) VACCINE SHARED DECISION-MAKING Aged Out No longer eligible based on patient's age to complete this topic MENINGOCOCCAL GROUPS A/C/Y/W VACCINE Aged Out No longer eligible based on patient's age to complete this topic Insurance [facility] [place] Address: [address] [place] [address] [employer]
--- OUTSIDE RECORDS SUMMARY | 2025-04-13 14:53 | XMS_ITS | Encounter Summary ---
Author Organization [facility] Facility Care Team Providers Care Agricultural Service Technician Name Role Phone Raymundo Mcmillan MD Primary Care Provider [phone] Carlota Benton DO Primary Care Provider [phone]- [phone] Inés Hickey MD Unavailable [phone] Harpal Dave MD Unavailable [phone] Mike Jose MD Unavailable [phone] Encounter Details Date Type Department Care Team (Latest Contact Info) Description 07/02/2016 Orders Only [facility] CLINCONV ProviderMayi MD [address] [place] [address] Social History Tobacco Use Types Packs/Day Years Used Date Smoking Tobacco: Never Assessed Sex and Gender Information Value Date Recorded Sex Assigned at Not on file 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 us Historical Provider Final Res ult documented in this encounter Visit Diagnoses Not on filedocumented in this encounter Care Teams Agricultural Service Technician Relationship Specialty Start Date End Date Raymundo Mcmillan MD [address] [facility] [address] [place] [address] PCP - General 02/02/17 03/16/17 Carlota Benton DO [address] [facility] [address] [place] [address] PCP - General 03/17/17 Inés Hickey MD 1 [facility] DEPT [place] [address] Consulting Physician Neurosurgery 12/05/24 Harpal Dave MD [address] [place] [address] Consulting Physician Urology 12/26/24 Mike Jose MD [address] [facility] [address] [place] [address] [place] [address] Consulting Physician Orthopedic Surgery 01/10/25 documented as of this encounter
--- OUTSIDE RECORDS SUMMARY | 2025-04-13 14:54 | XMS_ITS | Encounter Summary ---
Author Organization [facility] Facility Care Team Providers Care Conditioning Room Worker Name Role Phone Carlota Benton DO Primary Care Provider [phone] Inés Hickey MD Unavailable Harpal Dave MD Unavailable [phone] Mike Jose MD Unavailable [phone] Encounter Details Date Type Department Care Team (Latest Contact Info) Description 09/04/2017 Orders Only [facility] CLINCONV ProviderMayi MD [address] [place] [address] Social History Tobacco Use Types Packs/Day Years Used Date Smoking Tobacco: Never Assessed Sex and Gender Information Value Date Recorded Sex Assigned at Not on file 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 us Historical Provider Final Res ult documented in this encounter Visit Diagnoses Not on filedocumented in this encounter Care Teams Conditioning Room Worker Relationship Specialty Start Date End Date Carlota Benton DO PCP - General 03/17/17 Inés Hickey MD 1 [facility] [place] [address] Consulting Physician Neurosurgery 12/05/24 Harpal Dave MD [address] [place] [address] Consulting Physician Urology 12/26/24 Mike Jose MD [address] [facility] [address] [address] Consulting Physician Orthopedic Surgery 01/10/25 documented as of this encounter
--- OUTSIDE RECORDS SUMMARY | 2025-04-13 14:54 | XMS_ITS | Referral Summary ---
Author Organization [facility] Address [address] [place] [address] Care Team Providers Care Wood Router Name Role Phone Carlota Benton DO Primary Care Provider Inés Hickey MD Unavailable Harpal Dave MD Unavailable [phone] Mike Jose MD Unavailable [phone] Encounters Date Type Department Care Team Description 04/04/2025 Plan of Care Documentation [facility] OP Occup Therapy [address] [place] [phone] 03/29/2025 9:30 AM CDT Therapy [facility] OP Occup Therapy [address] [place] [phone] Ron, Mamie, OT Parkinson's disease without dyskinesia, unspecified whether manifestations fluctuate (HCC) (Primary Dx); Dementia without behavioral disturbance, psychotic disturbance, mood disturbance, or anxiety, unspecified dementia severity, unspecified dementia type (HCC) 03/22/2025 10:15 AM CDT Office Visit [facility] Orthopedics and Sports Medicine [address] [place] [address] [address] [place] [phone] Mike Jose MD Status post right knee replacement 03/14/2025 11:15 AM CDT Therapy [facility] OP Physical Therapy [address] [place] [phone] Dodie Terrell, PT Aftercare following right knee joint replacement surgery (Primary Dx) 03/10/2025 10:45 AM CDT Therapy [facility] OP Physical Therapy [address] [place] [address] [phone] Pat Matias, SALES PLANNING MANAGER Aftercare following right knee joint replacement surgery (Primary Dx) 03/06/2025 3:00 PM CDT Therapy [facility] OP Physical Therapy [address] [place] [address] [phone] Pat Matias, SALES PLANNING MANAGER Aftercare following right knee joint replacement surgery (Primary Dx) 03/03/2025 10:00 AM CDT Therapy [facility] OP Physical Therapy [address] [place] [phone] Pat Matias, SALES PLANNING MANAGER Aftercare following right knee joint replacement surgery (Primary Dx) 02/28/2025 9:15 AM CDT Therapy [facility] OP Physical Therapy [address] [place] [address] [phone] Pat Matias, SALES PLANNING MANAGER Aftercare following right knee joint replacement surgery (Primary Dx) 02/24/2025 8:30 AM CDT Therapy [facility] OP Physical Therapy [address] [place] [phone] Pat Matias, SALES PLANNING MANAGER Aftercare following right knee joint replacement surgery (Primary Dx) 02/20/2025 9:15 AM CDT Therapy [facility] OP Physical Therapy [address] [place] [phone] Pat Matias, SALES PLANNING MANAGER Aftercare following right knee joint replacement surgery (Primary Dx) 02/17/2025 1:30 PM CDT Therapy [facility] OP Physical Therapy [address] [place] [address] [phone] Pat Matias, SALES PLANNING MANAGER Aftercare following right knee joint replacement surgery (Primary Dx) 02/14/2025 8:30 AM CDT Therapy [facility] OP Physical Therapy [address] [place] [phone] Debra Mathis, SALES PLANNING MANAGER Aftercare following right knee joint replacement surgery (Primary Dx) 02/10/2025 8:30 AM CDT Therapy [facility] OP Physical Therapy [address] [place] [phone] Elissa Perkins, SALES PLANNING MANAGER Aftercare following right knee joint replacement surgery (Primary Dx) 02/08/2025 9:35 AM CDT - 02/08/2025 11:59 PM CDT Hospital Encounter [facility] Diag Imaging [address] [place] [phone] Status post total right knee replacement Discharge Disposition: Discharge to home or self care 02/08/2025 9:30 AM CDT Office Visit [facility] Orthopedics and Sports Medicine [address] [place] [phone] Mike Jose MD Status post total right knee replacement (Primary Dx) 02/07/2025 Plan of Care Documentation [facility] OP Physical Therapy [address] [place] [phone] 02/07/2025 4:45 PM CDT Therapy [facility] OP Physical Therapy [address] [place] [phone] Dodie Terrell, PT Aftercare following right knee joint replacement surgery; Presence of right artificial knee joint 02/03/[address] [facility] Post Acute Care [address] [facility] [address] [place] [phone] Sheila Rodriguez MA 02/01/2025 NH/SNF Visit [facility] Post Acute Care [address] [phone] Shea Baltazar PA Aftercare following right knee joint replacement surgery (Primary Dx); Persistent atrial fibrillation (HCC); Orthostatic hypotension; Dyslipidemia; Type 2 diabetes mellitus without complication, without long-term current use of insulin (HCC); Slow transit constipation; Anemia due to acute blood loss; Anxiety and depression; Parkinson's disease without dyskinesia, unspecified whether manifestations fluctuate (HCC) 02/01/2025 Orders Only [facility] Hospitalists [address] [place] [phone] Shea Baltazar PA 01/31/2025 NH/SNF Visit [address] [phone] Shea Baltazar PA Anemia due to acute blood loss (Primary Dx); Type 2 diabetes mellitus without complication, without long-term current use of insulin (HCC); Persistent atrial fibrillation (HCC); Orthostatic hypotension 01/30/2025 Orders Only [facility] Hospitalists [address] [place] [phone] Shea Baltazar PA 01/27/2025 NH/SNF Visit [address] [phone] Shea Baltazar PA Orthostatic hypotension (Primary Dx); Anemia due to acute blood loss; Leukocytosis, unspecified type; Type 2 diabetes mellitus without complication, without long-term current use of insulin (HCC) 01/27/2025 Orders Only [facility] Hospitalists [address] [place] [phone] Shea Baltazar PA 01/25/2025 Orders Only [facility] Hospitalists [address] [place] [phone] Shea Baltazar PA 01/25/2025 NH/SNF Visit [address] [phone] Shea Baltazar PA Essential (primary) hypertension (Primary Dx); Anemia due to acute blood loss; Vasovagal syncope; Anxiety and depression; Slow transit constipation 01/24/2025 11:48 AM CDT - 01/24/2025 11:59 PM CDT Hospital Encounter [facility] Diagnostic Imaging [address] [place] [phone] Slow transit constipation Discharge Disposition: Discharge to home or self care 01/24/[address] [facility] Post [address] [phone] Shea Baltazar PA Slow transit constipation (Primary Dx) 01/23/2025 NH/SNF Visit [facility] Post [address] [phone] Shea Baltazar PA Anemia due to acute blood loss (Primary Dx); Essential (primary) hypertension; Aftercare following right knee joint replacement surgery; Slow transit constipation 01/20/2025 NH/SNF Visit [facility] Post [address] [phone] Shea Baltazar PA Aftercare following right knee joint replacement surgery (Primary Dx); Type 2 diabetes mellitus without complication, without long-term current use of insulin (HCC); Persistent atrial fibrillation (HCC); Leukocytosis, unspecified type 01/18/2025 NH/SNF Visit [facility] Post [address] [phone] Afshin Edmonds MD Status post total right [...] - 01/17/2025 2:26 PM CDT Hospital Encounter [facility] [address] [place] [phone] Mike Jose MD Primary osteoarthritis of right knee (Primary Dx) Discharge Disposition: Discharge to SNF from Last 3 Months Allergies No known active allergies Medications buPROPion XL (WELLBUTRIN XL) 300 mg 24 hr tabletIndications: major depressive disorder Take 1 tablet (300 mg total) by mouth nightly Active digoxin (LANOXIN) 125 mcg tablet Take 1 tablet (125 mcg total) by mouth as directed Take 1 tablet every morning Thu-Thu and then 2 tablets on thu and [...] times a day 90 tablet 5 Active senna-docusate (PERICOLACE) 8.6-50 mgIndications:Slow transit constipation Take 2 tablets by mouth 2 (two) times a day 5 Active albuterol HFA (PROVENTIL HFA,VENTOLIN HFA,PROAIR HFA) 90 mcg/actuation inhaler Inhale 2 puffs every 4 hours Active diclofenac sodium (VOLTAREN) 1 % gel 99 5 Active Epogen 10,000 unit/mL injection 5 Active tolterodine LA (DETROL LA) 4 mg 24 hr capsule 99 5 Active Active Problems Problem Noted Date Diagnosed [...] H&H currently 7.8/25.5. We will order additional 56677 units of Epogen x1. Xarelto remain on [...] Pain is controlled with scheduled Tylenol, p.r.n. [place]. Patient has made good progress in therapy, patient is felt stable for discharge on 02/02/2025 to return home with his and outpatient therapy Assessment & Plan (01/23/2025 7:39 PM CDT): Edema slowly improving, pain is relatively well controlled with p.r.n. Tylenol, p.r.n. [place]. [place] to be removed today. Encouraged ice and elevation. Xarelto be placed on hold due to anemia. Assessment & Plan (01/20/2025 8:15 PM CDT): Overall pain is adequately controlled with p.r.n. Tylenol, p.r.n. [place]. Encouraged patient to utilize ice and elevation especially after therapy. Incision is well approximated, no drainage. Continue Xarelto for DVT prophylaxis. Staple removal orders have been placed for 01/23/2025, can follow-up as planned later in January with Orthopedic surgery. History of right knee joint replacement 01/13/20 Assessment & Plan (01/20/2025 4:35 PM CDT): I endorse admission to [facility] care. The patient is at risk of [...] to a safer level of care. Continue [place] 5 mg every 8 hours p.r.n. pain. [...] (05/05/2019): Added automatically from request for surgery [id number] Renal cell carcinoma 04/14/2017 Overview (02/08/2025): Status [...] of skin of lower extremi ty 11/07/2013 Immunizations Immunization Administration Dates Next Due Influenza, Quadrivalent, Split, Intramuscular Influenza, Trivalent, High D ose, Split, Preservative Free, Intramuscular 08/03/2018 Influenza, Trivalent, Preservative Free, Intramu scular 07/26/2017 Influenza, Unspecified 11/26/2018 Pneumococcal Conjugate PCV 13 05/01/2017 Pneumococcal Polysaccharide PPV23 09/14/2018 ZOSTER LIVE 09/25/2016 Social History Tobacco Use Types Packs/Day Years Used Date Smoking Tobacco: Former Cigarettes 1 14 1 968 - 1982 Smokeless Tobacco: Former Tobacco Cessation:Counseling Given: Not Answered Alcohol Use Standard Drinks/Week Comments Yes 0 (1 standard drink = 0.6 oz pur e alcohol) rare [facility] Utilities Answer Date Recorded In the past 12 months has e [employer] gas, oil, or water [employer] threatened to shut off services in your [...] 01/10/2025 How often do you attend chur ch or catholic services? 1 to 4 times per year 01/10/2025 Do you belong to any clubs o r organizations such as pentecostalism groups, unions, fraternal or athletic groups, or [...] any time in the past 12 m [facility], were you homeless or living in a nursing home (including now)? No 01/10/2025 Personal Safety Answer Date Recorded Have you ever been in or are you currently in a harmful physical or emotional relationship or is someone making you feel afraid or unsafe? 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 Right: Knee [employer] 07/25/2027 6191-1-010 / / [id number] [employer]o Baylee Ii Legion Spc Posterior Stabilize Knee Right 7 Component [id number] - [id number] Implanted:Qty: 1 on 01/09/2025 by Mike Jose MD at [facility] Right: Knee [employer] [id number] 05/13/2034 [id number] / / [id number] [employer] Baylee Ii Cement Knee Right 7 Baseplate Tibial Titanium [id number] - [id number] Implanted:Qty: 1 on 01/09/2025 by Mike Jose MD at [facility] Right: Knee [employer] [id number] 07/18/2034 [id number] / / [id number] [employer] Legion 9mm Posterior Stabilized High Flexion Knee 7-8 Insert [id number] - [id number] Implanted:Qty: 1 on 01/09/2025 by Mike Jose MD at [facility] Right: Knee [employer] [id number] 05/08/2034 [id number] / / [id number] [employer] Baylee Ii [id number] Biconvex Component Patellar [id number] - [id number] Implanted:Qty: 1 on 01/09/2025 by Mike Jose MD at [facility] Right: Knee [employer] [id number] 01/08/2026 [id number] / / [id number] Procedures Procedure Name Priority Date/Time Associated Diagnosis [...] CDT HEMOGLOBIN A1C Routine 12/26/2024 10:31 AM DOCUMENTATION WRITER Primary osteoarthritis of right knee Preop testing [...] joint. Compared to previous x-rays the skin [place] have been removed and soft tissue air has absorbed. Soft tissue swelling is noted today. IMPRESSION: Recent right total knee arthroplasty without evidence of complication. THIS IS AN ELECTRONICALLY VERIFIED FINAL REPORT 02/08/2025 9:52 AM - Electronically signed by Mike Jose T: Report ID: [id number] Reading Location: [place] [address] Procedure Note Mike Jose MD - 02/08/2025 [...] 9:52 AM - Electronically signed by Mike CEE T: Report ID: [id number] Reading Location: [place] [address] us Mike Jose MD IMG XR PROCEDURES [...] Current interpretive data was last reviewed 2021. [facility], [address] [place] [address], [place]., [address] Blood 02/01/2025 6:20 AM CDT 02/01/2025 7:51 AM CDT us Shea COLLIER LAB BLOOD ORDERABLES Final Resu lt CARMENZA LEVINE [address] [place] [address] [place] [address] * (ABNORMAL) CBC without differential (02/01/2025 6:20 AM CDT) WBC 7.34 3.80 - 9.90 K/cumm CARMENZA Comment:[address], [address] Hgb 8.7(L) 13.0 - 17.5 g/dL CARMENZA Comment:[address], [address] Hct 28.5(L) 38.9 - 50.3 % CARMENZA Comment:[address], [address] Plt 298 150 - 400 K/cumm CARMENZA Comment:[address], [address] MPV 9.0(L) 9.1 - 12.3 fL CARMENZA Comment:[address], [address] RBC 2.90(L) 4.30 - 5.80 M/cumm CARMENZA Comment:[address], [address] MCV 98.3(H) 81.3 - 96.4 fL CARMENZA Comment:[address], [address] MCH 30.0 27.1 - 33.3 pg CARMENZA Comment:[address], [address] MCHC 30.5(L) 32.3 - 35.7 g/dL CARMENZA Comment:[address], [address] RDW CV 18.9(H) 11.1 - 14.9 % CARMENZA Comment:[address], [address] RDW SD 66.4(H) 35.7 - 48.1 fL CARMENZA Comment:[address], [address] NRBC abs 0.00 0.00 - 0.01 K/cumm CARMENZA Comment:[address], [address] Blood 02/01/2025 6:20 AM CDT 02/01/2025 7:51 AM CDT us Shea COLLIER LAB BLOOD ORDERABLES Final Resu lt CARMENZA [address] Department [place] [address] * (ABNORMAL) Basic metabolic panel (02/01/2025 6:20 AM CDT) Sodium 138 135 - 145 mmol/L CARMENZA Comment:[address] [address] Potassium, pl 4.3 3.3 - 4.9 mmol/L CARMENZA Comment:[address] [address] Chloride 103 97 - 110 mmol/L CARMENZA Comment:[address] [address] CO2 25 22 - 32 mmol/L CARMENZA Comment:[address] [address] Anion gap 10 2 - 15 mmol/L CARMENZA Comment:[address] [address] BUN 29(H) 6 - 25 mg/dL CARMENZA Comment:[address] [address] Creatinine 1.05 0.80 - 1.30 mg/dL CARMENZA Comment:[address] [address] Glucose 126 70 - 199 mg/dL CARMENZA Comment: Interpretive [...] Current interpretive data was last revised 2022. [facility], [address] [place] [address]., [address] Calcium 8.7 8.5 - 10.3 mg/dL CARMENZA LEVINE Comment:[address] [address] Blood 02/01/2025 6:20 AM CDT 02/01/2025 7:51 AM CDT Shea COLLIER LAB BLOOD ORDERABLES Final Resu lt Performing Organization Address City/[facility] Co de Phone Number CARMENZA [address] [place] [address] * (ABNORMAL) Hemoglobin and hematocrit (01/30/2025 6:44 AM CDT) Hgb 8.7(L) 13.0 - 17.5 g/dL CARMENZA LEVINE Comment:[address] [address] Hct 29.3(L) 38.9 - 50.3 % CARMENZA LEVINE Comment:[address] [address] Blood 01/30/2025 6:44 AM CDT 01/30/2025 8:44 AM CDT Shea COLLIER LAB BLOOD ORDERABLES Final Resu lt Performing Organization Address [facility] Co de Phone Number CARMENZA [address] [place] [address] * (ABNORMAL) CBC without differential (01/27/2025 6:48 AM CDT) WBC 7.84 3.80 - 9.90 K/cumm CARMENZA LEVINE Comment:[address] [address] Hgb 7.8(L) 13.0 - 17.5 g/dL CARMENZA LEVINE Comment:[address] [address] Hct 26.2(L) 38.9 - 50.3 % CARMENZA LEVINE Comment:[address] [address] Plt 306 150 - 400 K/cumm CARMENZA LEVINE Comment:[address], [address] MPV 9.1 9.1 - 12.3 fL [facility] Comment:[address] [address] RBC 2.70(L) 4.30 - 5.80 M/cumm CARMENZA Comment:[address], [address] MCV 97.0(H) 81.3 - 96.4 fL [facility] Comment:[address] [address] MCH 28.9 27.1 - 33.3 pg CERTORIN Comment:[address], [address] MCHC 29.8(L) 32.3 - 35.7 g/dL CARMENZA Comment:[address], [address] RDW CV 18.6(H) 11.1 - 14.9 % CARMENZA Comment:[address], [address] RDW SD 63.6(H) 35.7 - 48.1 fL [facility] Comment:[address], [address] NRBC abs 0.00 0.00 - 0.01 K/cumm [facility] Comment:[address] [address] Blood 01/27/2025 6:48 AM CDT 01/27/2025 8:10 AM CDT Shea COLLIER LAB BLOOD ORDERABLES Final Resu lt CARMENZA [address] [facility] Department [place] [address] * eGFR (01/25/2025 7:07 AM CDT) eGFR 83 >=60 mL/min/1. 73 m2 CARMENZA Comment: Interpretive [...] Current interpretive data was last reviewed 2021. [address] [address] Blood 01/25/2025 7:07 AM CDT 01/25/2025 7:43 AM CDT Shea COLLIER LAB BLOOD ORDERABLES Final Resu lt CARMENZA [address] Department [place] [address] * (ABNORMAL) CBC without differential (01/25/2025 7:07 AM CDT) WBC 8.65 3.80 - 9.90 K/cumm CARMENZA LEVINE Comment:[address] [address] Hgb 7.8(L) 13.0 - 17.5 g/dL CARMENZA LEVINE Comment:[address] [address] Hct 25.5(L) 38.9 - 50.3 % CARMENZA LEVINE Comment:[address] [address] Plt 320 150 - 400 K/cumm CARMENZA LEVINE Comment:[address] [address] MPV 9.0(L) 9.1 - 12.3 fL CARMENZA LEVINE Comment:[address] [address] RBC 2.65(L) 4.30 - 5.80 M/cumm CARMENZA LEVINE Comment:[address], [address] MCV 96.2 81.3 - 96.4 fL CARMENZA Comment:[address], [address] MCH 29.4 27.1 - 33.3 pg CARMENZA LEVINE Comment:[address], [address] MCHC 30.6(L) 32.3 - 35.7 g/dL CARMENZA Comment:[address], [address] RDW CV 18.5(H) 11.1 - 14.9 % CARMENZA Comment:[address], [address] RDW SD 60.9(H) 35.7 - 48.1 fL CARMENZA Comment:[address], [address] NRBC abs 0.00 0.00 - 0.01 K/cumm CARMENZA Comment:[address], [address] Blood 01/25/2025 7:07 AM CDT 01/25/2025 7:43 AM CDT Shea COLLIER LAB BLOOD ORDERABLES Final Resu lt [facility] [address] [facility] Department [place] [address] * (ABNORMAL) Basic metabolic panel (01/25/2025 7:07 AM CDT) Sodium 136 135 - 145 mmol/L CARMENZA Comment:[address], [address] Potassium, pl 4.4 3.3 - 4.9 mmol/L CARMENZA Comment:[address], [address] Chloride 102 97 - 110 mmol/L CARMENZA Comment:[address], [address] CO2 25 22 - 32 mmol/L CARMENZA LEVINE Comment:[address] [place] [address] Anion gap 9 2 - 15 mmol/L CARMENZA Comment:[address] [address] BUN 28(H) 6 - 25 mg/dL CARMENZA Comment:[address] [address] Creatinine 0.96 0.80 - 1.30 mg/dL CARMENZA Comment:[address] [address] Glucose 126 70 - 199 mg/dL CARMENZA Comment: Interpretive [...] Current interpretive data was last revised 2022. [facility], [address] [place] [address]., [address] Calcium 8.7 8.5 - 10.3 mg/dL CARMENZA Comment:[address] [address] Blood 01/25/2025 7:07 AM CDT 01/25/2025 7:43 AM CDT Shea COLLIER LAB BLOOD ORDERABLES Final Resu lt CARMENZA [address] Department [place] [address] * X-ray abdomen 1 view (01/24/2025 1:29 [...] of a bowel obstruction. There is a rbgh-la-yfjxgxte amount of retained fecal debris in the [...] IMPRESSION: No definite evidence of bowel obstruction. Znjh-la-yceacusg amount of retained fecal debris in the colon, which is concerning for constipation. THIS IS AN ELECTRONICALLY VERIFIED FINAL REPORT 01/24/2025 5:31 PM - Electronically signed by Ashanti Richardson D.O. PS T: Report ID: [id number] Reading Location: [id number] Procedure Note Ashanti Richardson, DO - 01/24/2025 EXAM DESCRIPTION: XR ABDOMEN AP 1 VIEW REASON FOR STUDY: constipation Last bowl movement was TECHNIQUE: Single frontal radiographic view of the abdomen. COMPARISON: 08/30/2021 FINDINGS: There is no definite evidence of a bowel obstruction. There dino orpu-dn-wtgeijdb amount of retained fecal debris in the [...] IMPRESSION: No definite evidence of bowel obstruction. Gdco-un-qkdmbzgh amount of retained fecal debris in the colon, which is concerning for constipation. THIS IS AN ELECTRONICALLY VERIFIED FINAL REPORT 01/24/2025 5:31 PM - Electronically signed by Ashanti Richardson D.O. PS T: Report ID: [id number] Reading Location: [id number] us Shea COLLIER IMG XR PROCEDURES Final Result [...] Current interpretive data was last reviewed 2021. [facility], [address] [place] [address]., [address] Blood 01/23/2025 10:2 0 AM CDT 01/23/2025 10:31 AM CDT Afshin Edmonds MD LAB BLOOD ORDERABLES Final R esult CAR[facility] [address] Department [place] [address] * (ABNORMAL) Comprehensive metabolic panel (01/23/2025 10:20 AM CDT) Sodium 134(L) 135 - 145 mmol/L CARMENZA LEVINE Comment:[address] [address] Potassium, pl 4.7 3.3 - 4.9 mmol/L CARMENZA LEVINE Comment:[address] [address] Chloride 102 97 - 110 mmol/L CARMENZA LEVINE Comment:[address] [place] [address] CO2 24 22 - 32 mmol/L [facility] [place] Comment:[address] [address] Anion gap 8 2 - 15 mmol/L [facility] Comment:[address] [address] BUN 27(H) 6 - 25 mg/dL [facility] [facility] [place] Comment:[address] [address] Creatinine 0.97 0.80 - 1.30 mg/dL [facility] [place] Comment:[address] [address] Glucose 182 70 - 199 mg/dL [facility] Comment: Interpretive Data Fasting glucose [...] Current interpretive data was last revised 2022. [facility], [address] [place]., [address] Calcium 8.3(L) 8.5 - 10.3 mg/dL [facility] Comment:[address] [address] Bilirubin, total 1.1 0.1 - 1.2 mg/dL [facility] Comment:[address] [address] Protein, pl 5.5(L) 6.5 - 8.5 g/dL [facility] [place] Comment:[address] [address] Albumin 3.0(L) 3.5 - 5.0 g/dL [facility] Comment:[address] [address] Alk phos 84 40 - 130 Units/L [facility] Comment:[address] [address] ALT 26 7 - 55 Units/L [facility] [place] Comment:[facility], [address] [place] [address]., [address] AST 27 10 - 50 Units/L [facility] Comment:[facility], [address] [place] [address]., [address] Blood 01/23/2025 10:2 0 AM CDT 01/23/2025 10:31 AM CDT Afshin Edmonds MD LAB BLOOD ORDERABLES Final R esult Performing Organization Address [facility] Co de Phone Number CARMENZA [address] Department [place] [employer] [place] [address] * eGFR (01/23/2025 4:30 AM CDT) eGFR [...] Current interpretive data was last reviewed 2021. [facility], [address] [place] [address]., [address] Blood 01/23/2025 4:30 AM CDT 01/23/2025 4:54 AM CDT Shea COLLIER LAB BLOOD ORDERABLES Final Resu lt Performing Organization Address [facility]/ZIP Co de Phone Number MARY[address] Department [place] [address] * (ABNORMAL) Differential, auto (01/23/2025 4:30 AM CDT) Neutrophil abs 7.3(H) 1.5 - 6.5 K/cumm [facility] Comment:[address] [address] Imm gran abs 0.3(H) 0.0 - 0.1 K/cumm [facility] Comment:[address] [address] Lymphocyte abs 1.2 0.8 - 3.3 K/cumm [facility] [place] Comment:[address] [address] Monocyte abs 0.6 0.2 - 0.8 K/cumm [facility] [place] Comment:[address] [address] Eosinophil abs 0.2 0.0 - 0.5 K/cumm [facility] [place] Comment:[address] [address] Basophil abs 0.0 0.0 - 0.1 K/cumm [facility] Comment:[address] [address] Neutrophil pct 76.6 % [facility] Comment: Interpretive Data Percent cell count reference ranges are not reported, since discordance with absolute values may lead to misinterpretation of CBC data. Current Interpretive Data was last revised on 2018. [address] [address] Imm gran pct 3.4 % [facility] Comment: Interpretive Data Percent cell count reference ranges are not reported, since discordance with absolute values may lead to misinterpretation of CBC data. Current Interpretive Data was last revised on 2018. [address] [address] Lymphocyte pct 12.0 % [facility] Comment: Interpretive Data Percent cell count reference ranges are not reported, since discordance with absolute values may lead to misinterpretation of CBC data. Current Interpretive Data was last revised on 2018. [address] [address] Monocyte pct 6.0 % [facility] Comment: Interpretive Data Percent cell count reference ranges are not reported, since discordance with absolute values may lead to misinterpretation of CBC data. Current Interpretive Data was last revised on 2018. [address] [address] Eosinophil pct 1.7 % [facility]INE Comment: Interpretive Data Percent cell count reference ranges are not reported, since discordance with absolute values may lead to misinterpretation of CBC data. Current Interpretive Data was last revised on 2018. [address] [address] Basophil pct 0.3 % [facility]EVINE Comment: Interpretive Data Percent cell count reference ranges are not reported, since discordance with absolute values may lead to misinterpretation of CBC data. Current Interpretive Data was last revised on 2018. [address] [address] Blood 01/23/2025 4:30 AM CDT 01/23/2025 4:54 AM CDT us Afshin Edmonds MD LAB BLOOD ORDERABLES Final R esult [facility] [address] Department [place] [address] * (ABNORMAL) CBC with auto differential (01/23/2025 4:30 AM CDT) WBC 9.6 3.8 - 9.9 K/cumm [facility] Comment:[address] [address] Hgb 7.5(L) 13.0 - 17.5 g/dL [facility]EVINE Comment:[address] [address] Hct 26.3(L) 38.9 - 50.3 % [facility]INE Comment:[address] [address] Plt 223 150 - 400 K/cumm [facility]INE Comment:[address] [address] MPV 10.5 9.1 - 12.3 fL [facility] Comment:[address] [address] RBC 2.58(L) 4.30 - 5.80 M/cumm [facility] Comment:[address] [address] MCV 101.9(H) 81.3 - 96.4 fL [facility] Comment:[address] [address] MCH 29.1 27.1 - 33.3 pg [facility] Comment:[address], [address] MCHC 28.5(L) 32.3 - 35.7 g/dL [facility] Comment:[address], [address] RDW CV 18.0(H) 11.1 - 14.9 % [facility] Comment:[address], [address] RDW SD 61.6(H) 35.7 - 48.1 fL [facility] Comment:[address], [address] NRBC abs 0.00 0.00 - 0.01 K/cumm [facility] Comment:[address], [address] Blood 01/23/2025 4:30 AM CDT 01/23/2025 4:54 AM CDT us Afshin Edmonds MD LAB BLOOD ORDERABLES Final R esult [facility] [address] [facility] Department [place] [address] * (ABNORMAL) CBC without differential (01/23/2025 4:30 AM CDT) WBC 9.6 3.8 - 9.9 K/cumm [facility] LEVINE Comment:[address] [address] Hgb 7.5(L) 13.0 - 17.5 g/dL [facility] Comment:[address], [address] Hct 26.3(L) 38.9 - 50.3 % [facility] LEVINE Comment:[address] [address] Plt 223 150 - 400 K/cumm [facility] Comment:[address], [address] MPV 10.5 9.1 - 12.3 fL [facility] Comment:[address], [address] RBC 2.58(L) 4.30 - 5.80 M/cumm [facility] Comment:[address] [address] MCV 101.9(H) 81.3 - 96.4 fL [facility] Comment:[address], [address] MCH 29.1 27.1 - 33.3 pg [facility] Comment:[address], [address] MCHC 28.5(L) 32.3 - 35.7 g/dL [facility] Comment:[address], [address] RDW CV 18.0(H) 11.1 - 14.9 % [facility] Comment:[address] [address] RDW SD 61.6(H) 35.7 - 48.1 fL [facility] Comment:[address] [address] NRBC abs 0.00 0.00 - 0.01 K/cumm [facility] Comment:[address] [address] Blood 01/23/2025 4:30 AM CDT 01/23/2025 4:54 AM CDT us Shea COLLIER LAB BLOOD ORDERABLES Final Resu lt [facility] LEVINE [address] [facility] Department [place] [address] * (ABNORMAL) Basic metabolic panel (01/23/2025 4:30 AM CDT) Sodium 133(L) 135 - 145 mmol/L [facility] Comment:[facility], [address] [place] [address]., [address] Potassium, pl 4.7 3.3 - 4.9 mmol/L [facility] Comment:[facility], [address] [place] [address]., [address] Chloride 102 97 - 110 mmol/L [facility] Comment:[address] [address] CO2 20(L) 22 - 32 mmol/L [facility] Comment:[address] [address] Anion gap 11 2 - 15 mmol/L [facility] Comment:[address] [address] BUN 27(H) 6 - 25 mg/dL [facility] Comment:[address] [address] Creatinine 0.89 0.80 - 1.30 mg/dL [facility] Comment:[address], [address] Glucose 117 70 - 199 mg/dL CAR[facility] [...] Current interpretive data was last revised 2022. [facility], [address] [place]., [address] Calcium 8.5 8.5 - 10.3 mg/dL [facility] Comment:[address] [address] Blood 01/23/2025 4:30 AM CDT 01/23/2025 4:54 AM CDT us Shea COLLIER LAB BLOOD ORDERABLES Final Resu lt [facility] [address] Department [place] [address] * eGFR (01/20/2025 7:17 AM CDT) eGFR 80 >=60 mL/min/1. 73 m2 [facility] Comment: Interpretive [...] Current interpretive data was last reviewed 2021. [facility], [address] [place] [address]., [address] Blood 01/20/2025 7:17 AM CDT 01/20/2025 7:45 AM CDT us Afshin Edmonds MD LAB BLOOD ORDERABLES Final R esult MARY[address] Department [place] [address] * (ABNORMAL) CBC without differential (01/20/2025 7:17 AM CDT) WBC 12.1(H) 3.8 - 9.9 K/cumm [facility] Comment:[address] [address] Hgb 7.9(L) 13.0 - 17.5 g/dL [facility] Comment:[address] [address] Hct 25.6(L) 38.9 - 50.3 % [facility] Comment:[address], [address] Plt 310 150 - 400 K/cumm [facility] Comment:[address], [address] MPV 9.1 9.1 - 12.3 fL [facility] Comment:[address], [address] RBC 2.73(L) 4.30 - 5.80 M/cumm [facility] Comment:[address], [address] MCV 93.8 81.3 - 96.4 fL [facility] Comment:[address], [address] MCH 28.9 27.1 - 33.3 pg [facility] Comment:[address], [address] MCHC 30.9(L) 32.3 - 35.7 g/dL [facility] Comment:[address], [address] RDW CV 16.6(H) 11.1 - 14.9 % [facility] Comment:[address], [address] RDW SD 53.8(H) 35.7 - 48.1 fL [facility] Comment:[address], [address] NRBC abs 0.00 0.00 - 0.01 K/cumm [facility] Comment:[address] [address] Blood 01/20/2025 7:17 AM CDT 01/20/2025 7:45 AM CDT us Afshin Edmonds MD LAB BLOOD ORDERABLES Final R esult [facility] LEVINE [address] [facility] Department [place] [address] * Digoxin level (01/20/2025 7:17 AM CDT) Digoxin 0.7 0.5 - 1.2 ng/mL [facility] Comment: Interpretive data The therapeutic range for digoxin varies by indication: Heart failure: 0.5 to 0.8 ng/mL Atrial fibrillation: less than 1.2 ng/mL Toxicity: >2.4. Normal or low digoxin does not rule out toxicity. Current interpretive data was last revised on 2024. [facility], [facility] [place]., [address] Blood 01/20/2025 7:17 AM CDT 01/20/2025 7:45 AM CDT us Afshin Edmonds MD LAB BLOOD ORDERABLES Final R esult [facility] [address] Department [place] [address] * (ABNORMAL) Comprehensive metabolic panel (01/20/2025 7:17 AM CDT) Sodium 137 135 - 145 mmol/L [facility] Comment:[address] [address] Potassium, pl 4.1 3.3 - 4.9 mmol/L [facility] Comment:[address] [address] Chloride 103 97 - 110 mmol/L [facility] Comment:[address] [address] CO2 25 22 - 32 mmol/L [facility] Comment:[address] [address] Anion gap 9 2 - 15 mmol/L [facility] Comment:[address] [address] BUN 33(H) 6 - 25 mg/dL [facility] Comment:[address] [address] Creatinine 0.99 0.80 - 1.30 mg/dL [facility] Comment:[address] [address] Glucose 44(C) 70 - 199 mg/dL [facility] Comment: Critical Result called to and read back by landen suh, DATE: 2025-01-20 08:17:14 BY: [email or web address] Interpretive Data Fasting glucose >/= 126 mg/dl [...] Current interpretive data was last revised 2022. [facility], [address] [place]., [address] Calcium 8.7 8.5 - 10.3 mg/dL [facility] Comment:[address] [address] Bilirubin, total 1.6(H) 0.1 - 1.2 mg/dL [facility] Comment:[address] [address] Protein, pl 6.0(L) 6.5 - 8.5 g/dL [facility] Comment:[address] [address] Albumin 3.1(L) 3.5 - 5.0 g/dL [facility] Comment:[address] [address] Alk phos 80 40 - 130 Units/L [facility] Comment:[address] [address] ALT 17 7 - 55 Units/L [facility] Comment:[address] [address] AST 41 10 - 50 Units/L [facility] Comment:[address] [address] Blood 01/20/2025 7:17 AM CDT 01/20/2025 7:45 AM CDT us Afshin Edmonds MD LAB BLOOD ORDERABLES Final R esult [facility] [address] Department [place] [address] * (ABNORMAL) POCT glucose (01/17/2025 12:06 PM CDT) Glucose, POC 254(H) 70 - 199 mg/dL Glucose comment 1 RN/MD Notified [facility] Blood 01/17/2025 12:0 6 PM CDT 01/17/2025 12:06 PM CDT Mike Jose MD LAB POCT ORDERABLES - DEVICE Final Result Performing Organization Address [facility] Co de Phone Number MARY[address] [place] [employer] [place] [address] * eGFR (01/17/2025 8:31 AM CDT) eGFR 90 >=60 mL/min/1. 73 m2 Comment: [...] ORDERABLES Final R esult Performing Organization Address City/[facility]/ZIP Co de Phone Number [address] [place] [address] * (ABNORMAL) Differential, auto (01/17/2025 8:31 AM CDT) Pathologist [facility] Neutrophil abs 6.7(H) 1.5 - 6.5 K/cumm Imm gran abs 0.3(H) 0.0 - 0.1 K/cumm [facility] Lymphocyte abs 1.1 0.8 - 3.3 K/cumm [facility] Monocyte abs 0.8 0.2 - 0.8 K/cumm [facility] Eosinophil abs 0.1 0.0 - 0.5 K/cumm [facility] Basophil abs 0.0 0.0 - 0.1 K/cumm [facility] Neutrophil pct 74.0 % [facility] Comment: Interpretive Data Percent cell count reference ranges are not reported, since discordance with absolute values may lead to misinterpretation of CBC data. Current Interpretive Data was last revised on 2018. Imm gran pct 3.5 % [facility] Comment: Interpretive Data Percent cell count reference ranges are not reported, since discordance with absolute values may lead to misinterpretation of CBC data. Current Interpretive Data was last revised on 2018. Lymphocyte pct 11.9 % [facility] Comment: Interpretive Data Percent cell count reference ranges are not reported, since discordance with absolute values may lead to misinterpretation of CBC data. Current Interpretive Data was last revised on 2018. Monocyte pct 9.0 % [facility] Comment: Interpretive Data Percent cell count reference ranges are not reported, since discordance with absolute values may lead to misinterpretation of CBC data. Current Interpretive Data was last revised on 2018. Eosinophil pct 1.3 % [facility] Comment: Interpretive Data Percent cell count reference ranges are not reported, since discordance with absolute values may lead to misinterpretation of CBC data. Current Interpretive Data was last revised on 2018. Basophil pct 0.3 % [facility] Comment: Interpretive Data Percent cell count reference ranges are not reported, since discordance with absolute values may lead to misinterpretation of CBC data. Current Interpretive Data was last revised on 2018. Blood 01/17/2025 8:31 AM CDT 01/17/2025 8:57 AM CDT Mike Jose MD LAB BLOOD ORDERABLES Final R esult Performing Organization Address City/[facility] Co de Phone Number [facility] [address] [employer] [place] [address] * (ABNORMAL) CBC with auto differential (01/17/2025 8:31 AM CDT) [facility] WBC 9.1 3.8 - 9.9 K/cumm Hgb 8.1(L) 13.0 - 17.5 g/dL [facility] Hct 25.9(L) 38.9 - 50.3 % [facility] Plt 216 150 - 400 K/cumm [facility] MPV 9.3 9.1 - 12.3 fL [facility] RBC 2.81(L) 4.30 - 5.80 M/cumm [facility] MCV 92.2 81.3 - 96.4 fL [facility] MCH 28.8 27.1 - 33.3 pg [facility] MCHC 31.3(L) 32.3 - 35.7 g/dL [facility] RDW CV 15.4(H) 11.1 - 14.9 % [facility] RDW SD 50.4(H) 35.7 - 48.1 fL [facility] NRBC abs 0.00 0.00 - 0.01 K/cumm [facility] Blood 01/17/2025 8:31 AM CDT 01/17/2025 8:57 AM CDT Mike Jose MD LAB BLOOD ORDERABLES Final R esult Performing Organization Address City/[facility]/ZIP Co de Phone Number CARMENZA [address] [place] [address] * (ABNORMAL) Basic metabolic panel (01/17/2025 8:31 AM CDT) [facility] Sodium 134(L) 135 - 145 mmol/L Potassium, pl 4.7 3.3 - 4.9 mmol/L [facility] Chloride 101 97 - 110 mmol/L [facility] CO2 24 22 - 32 mmol/L [facility] Anion gap 9 2 - 15 mmol/L [facility] BUN 22 6 - 25 mg/dL [facility] Creatinine 0.88 0.80 - 1.30 mg/dL [facility] Glucose 160 70 - 199 mg/dL [facility] Comment: Interpretive Data Fasting glucose [...] 2022. Calcium 8.4(L) 8.5 - 10.3 mg/dL [facility] Blood 01/17/2025 8:31 AM CDT 01/17/2025 8:57 AM CDT Mike Jose MD LAB BLOOD ORDERABLES Final R esult [address] [place] [employer] [place] [address] * POCT glucose (01/17/2025 8:18 AM CDT) Glucose, POC 171 70 - 199 mg/dL Glucose comment 1 RN/MD Notified [facility] Blood 01/17/2025 8:18 AM CDT 01/17/2025 8:18 AM CDT Mike Jose MD LAB POCT ORDERABLES - DEVICE Final Result [address] [place] [address] * POCT glucose (01/16/2025 8:17 PM CDT) Glucose, POC 173 70 - 199 mg/dL Blood 01/16/2025 8:17 PM CDT 01/16/2025 8:17 PM CDT Mike Jose MD LAB POCT ORDERABLES - DEVICE Final Result Performing Organization Address [facility] Co de Phone Number CARMENZA [address] [employer] [place] [address] * (ABNORMAL) POCT glucose (01/16/2025 4:31 PM CDT) Glucose, POC 213(H) 70 - 199 mg/dL Blood 01/16/2025 4:31 PM CDT 01/16/2025 4:31 PM CDT Mike Jose MD LAB POCT ORDERABLES - DEVICE Final Result Performing Organization Address [facility] de Phone Number MARY[address] [employer] [place] [address] * (ABNORMAL) POCT glucose (01/16/2025 12:11 PM CDT) [facility] Glucose, POC 238(H) 70 - 199 mg/dL Blood 01/16/2025 12:1 1 PM CDT 01/16/2025 12:11 PM CDT Mike Jose MD LAB POCT ORDERABLES - DEVICE Final Result Performing Organization Address [facility] de Phone Number MARY[address] [employer] [place] [address] * eGFR (01/16/2025 8:16 AM CDT) [facility] eGFR >90 >=60 mL/min/1. 73 m2 Comment: [...] MD LAB BLOOD ORDERABLES F inal Result [facility] [address] [facility] Department of Laboratories [place], [place] [id number] * (ABNORMAL) CBC without differential (01/16/2025 8:16 AM CDT) [facility] WBC 8.8 3.8 - 9.9 K/cumm Hgb 8.7(L) 13.0 - 17.5 g/dL [facility] Hct 27.0(L) 38.9 - 50.3 % [facility] Plt 211 150 - 400 K/cumm [facility] MPV 9.4 9.1 - 12.3 fL [facility] RBC 2.96(L) 4.30 - 5.80 M/cumm [facility] MCV 91.2 81.3 - 96.4 fL [facility] MCH 29.4 27.1 - 33.3 pg [facility] MCHC 32.2(L) 32.3 - 35.7 g/dL [facility] RDW CV 15.3(H) 11.1 - 14.9 % [facility] RDW SD 50.1(H) 35.7 - 48.1 fL [facility] NRBC abs 0.00 0.00 - 0.01 K/cumm [facility] Blood 01/16/2025 8:16 AM CDT 01/16/2025 8:36 AM CDT us Pradeep Blum MD LAB BLOOD ORDERABLES F inal Result [facility] [address] [facility] Department [place] [address] * (ABNORMAL) Comprehensive metabolic panel (01/16/2025 8:16 AM CDT) Sodium 135 135 - 145 mmol/L Potassium, pl 4.7 3.3 - 4.9 mmol/L [facility] Chloride 102 97 - 110 mmol/L [facility] CO2 23 22 - 32 mmol/L [facility] Anion gap 10 2 - 15 mmol/L [facility] BUN 22 6 - 25 mg/dL [facility] Creatinine 0.82 0.80 - 1.30 mg/dL [facility] Glucose 180 70 - 199 mg/dL [facility] Comment: Interpretive Data Fasting glucose [...] 2022. Calcium 8.7 8.5 - 10.3 mg/dL [facility] Bilirubin, total 1.4(H) 0.1 - 1.2 mg/dL [facility] Protein, pl 5.6(L) 6.5 - 8.5 g/dL [facility] Albumin 3.1(L) 3.5 - 5.0 g/dL [facility] Alk phos 70 40 - 130 Units/L [facility] ALT 23 7 - 55 Units/L [facility] AST 30 10 - 50 Units/L [facility] Blood 01/16/2025 8:16 AM CDT 01/16/2025 8:36 AM CDT us Pradeep Blum MD LAB BLOOD ORDERABLES F inal Result Performing Organization Address [facility] Co de Phone Number [address] [employer] [place] [address] * POCT glucose (01/16/2025 8:09 AM CDT) Glucose, POC 195 70 - 199 mg/dL Blood 01/16/2025 8:09 AM CDT 01/16/2025 8:09 AM CDT Mike Jose MD LAB POCT ORDERABLES - DEVICE Final Result Performing Organization Address [facility] de Phone Number [address] [employer] [place] [address] * POCT glucose (01/15/2025 8:57 PM CDT) Glucose, POC 167 70 - 199 mg/dL Glucose comment 1 RN/MD Notified [facility] Blood 01/15/2025 8:57 PM CDT 01/15/2025 8:57 PM CDT Mike Jose MD LAB POCT ORDERABLES - DEVICE Final Result Performing Organization Address [facility] de Phone Number [address] [employer] [place] [address] * (ABNORMAL) Hemoglobin and hematocrit (01/15/2025 7:46 PM CDT) [facility] Hgb 8.9(L) 13.0 - 17.5 g/dL Hct 28.0(L) 38.9 - 50.3 % [facility] [place] Blood 01/15/2025 7:46 PM CDT 01/15/2025 7:53 PM CDT Pradeep Blum MD LAB BLOOD ORDERABLES F inal Result Performing Organization Address [facility]/ZIP Co de Phone Number [facility] [address] [place] [address] * (ABNORMAL) POCT glucose (01/15/2025 4:24 PM CDT) [facility] Glucose, POC 252(H) 70 - 199 mg/dL Glucose comment 1 RN/MD Notified [facility] Blood 01/15/2025 4:24 PM CDT 01/15/2025 4:24 PM CDT Mike Jose MD LAB POCT ORDERABLES - DEVICE Final Result Performing Organization Address [facility] Co de Phone Number [address] [address] * TSH (01/15/2025 2:51 PM CDT) [facility] Thyroid Stimulating Hormone 1.66 0.30 - 4.20 mcIUnit/mL Blood 01/15/2025 2:51 PM CDT 01/15/2025 3:11 PM CDT Pradeep Blum MD LAB BLOOD ORDERABLES F inal Result Performing Organization Address City/[facility] Co de Phone Number [address] [address] * Lactate dehydrogenase (LD) (01/15/2025 2:51 PM CDT) [facility] Lactate dehydrogenase (LDH) 180 100 - 250 Units/L Blood 01/15/2025 2:51 PM CDT 01/15/2025 3:11 PM CDT Pradeep Blum MD LAB BLOOD ORDERABLES F inal Result Performing Organization Address [facility] Co de Phone Number [address] [address] * (ABNORMAL) Haptoglobin (01/15/2025 2:51 PM CDT) [facility] Haptoglobin 274(H) 30 - 200 mg/dL Blood 01/15/2025 2:51 PM CDT 01/15/2025 3:11 PM CDT Pradeep Blum MD LAB BLOOD ORDERABLES F inal Result Performing Organization Address [facility] Co de Phone Number [address] [employer] [place] [address] * (ABNORMAL) Folate (01/15/2025 2:51 PM CDT) [facility] Folic acid 3.8(L) >=5.0 ng/mL Blood 01/15/2025 2:51 PM CDT 01/15/2025 3:11 PM CDT Pradeep Blum MD LAB BLOOD ORDERABLES F inal Result Performing Organization Address [facility] Co de Phone Number [address] [employer] [address] * (ABNORMAL) POCT glucose (01/15/2025 12:23 PM CDT) [facility] Glucose, POC 266(H) 70 - 199 mg/dL Glucose comment 1 RN/MD Notified [facility] Blood 01/15/2025 12:2 3 PM CDT 01/15/2025 12:23 PM CDT Mike Jose MD LAB POCT ORDERABLES - DEVICE Final Result Performing Organization Address City/[facility] Co de Phone Number [address] [employer] [place] [address] * (ABNORMAL) Hemoglobin and hematocrit (01/15/2025 12:00 PM CDT) [facility] Hgb 8.6(L) 13.0 - 17.5 g/dL Hct 27.4(L) 38.9 - 50.3 % [facility] Blood 01/15/2025 12:0 0 PM CDT 01/15/2025 12:24 PM CDT Pradeep Blum MD LAB BLOOD ORDERABLES F inal Result [facility] [address] [employer] [place] [address] * (ABNORMAL) Albumin (01/15/2025 12:00 PM CDT) Albumin 3.0(L) 3.5 - 5.0 g/dL Blood 01/15/2025 12:0 0 PM CDT 01/15/2025 12:24 PM CDT Pradeep Blum MD LAB BLOOD ORDERABLES F inal Result Performing Organization Address [facility] Co de Phone Number [facility] [address] [employer] [place] [address] * eGFR (01/15/2025 8:32 AM CDT) eGFR 90 >=60 mL/min/1. 73 m2 Comment: [...] LAB BLOOD ORDERABLES F inal Result [facility] [address] [facility] Department [place] [address] * (ABNORMAL) Differential, auto (01/15/2025 8:32 AM CDT) Pathologist [facility] Neutrophil abs 6.2 1.5 - 6.5 K/cumm Imm gran abs 0.1 0.0 - 0.1 K/cumm [facility] Lymphocyte abs 0.7(L) 0.8 - 3.3 K/cumm [facility] Monocyte abs 0.8 0.2 - 0.8 K/cumm [facility] Eosinophil abs 0.1 0.0 - 0.5 K/cumm [facility] Basophil abs 0.0 0.0 - 0.1 K/cumm [facility] Neutrophil pct 77.3 % [facility] Comment: Interpretive Data Percent cell count reference ranges are not reported, since discordance with absolute values may lead to misinterpretation of CBC data. Current Interpretive Data was last revised on 2018. Imm gran pct 1.6 % [facility] Comment: Interpretive Data Percent cell count reference ranges are not reported, since discordance with absolute values may lead to misinterpretation of CBC data. Current Interpretive Data was last revised on 2018. Lymphocyte pct 8.9 % [facility] Comment: Interpretive Data Percent cell count reference ranges are not reported, since discordance with absolute values may lead to misinterpretation of CBC data. Current Interpretive Data was last revised on 2018. Monocyte pct 10.2 % [facility] Comment: Interpretive Data Percent cell count reference ranges are not reported, since discordance with absolute values may lead to misinterpretation of CBC data. Current Interpretive Data was last revised on 2018. Eosinophil pct 1.6 % [facility] Comment: Interpretive Data Percent cell count reference ranges are not reported, since discordance with absolute values may lead to misinterpretation of CBC data. Current Interpretive Data was last revised on 2018. Basophil pct 0.4 % [facility] Comment: Interpretive Data Percent cell count reference ranges are not reported, since discordance with absolute values may lead to misinterpretation of CBC data. Current Interpretive Data was last revised on 2018. Blood 01/15/2025 8:32 AM CDT 01/15/2025 8:46 AM CDT Pradeep Blum MD LAB BLOOD ORDERABLES F inal Result Performing Organization Address [facility] Co de Phone Number [address] [place] [employer] [place] [address] * (ABNORMAL) CBC with auto differential (01/15/2025 8:32 AM CDT) [facility] WBC 8.1 3.8 - 9.9 K/cumm Hgb 8.7(L) 13.0 - 17.5 g/dL [facility] Hct 27.6(L) 38.9 - 50.3 % [facility] Plt 184 150 - 400 K/cumm [facility] MPV 9.5 9.1 - 12.3 fL [facility] RBC 3.02(L) 4.30 - 5.80 M/cumm [facility] MCV 91.4 81.3 - 96.4 fL [facility] MCH 28.8 27.1 - 33.3 pg [facility] MCHC 31.5(L) 32.3 - 35.7 g/dL [facility] RDW CV 15.5(H) 11.1 - 14.9 % [facility] RDW SD 50.7(H) 35.7 - 48.1 fL [facility] NRBC abs 0.00 0.00 - 0.01 K/cumm [facility] Blood 01/15/2025 8:32 AM CDT 01/15/2025 8:46 AM CDT Pradeep Blum MD LAB BLOOD ORDERABLES F inal Result Performing Organization Address [facility] Co de Phone Number [address] [place] [place] [employer] [place] [address] * (ABNORMAL) Basic metabolic panel (01/15/2025 8:32 AM CDT) Sodium 136 135 - 145 mmol/L Potassium, pl 5.2(H) 3.3 - 4.9 mmol/L [facility] Chloride 102 97 - 110 mmol/L [facility] CO2 26 22 - 32 mmol/L [facility] Anion gap 8 2 - 15 mmol/L [facility] BUN 25 6 - 25 mg/dL [facility] Creatinine 0.89 0.80 - 1.30 mg/dL [facility] Glucose 183 70 - 199 mg/dL [facility] Comment: Interpretive Data Fasting glucose [...] 2022. Calcium 8.7 8.5 - 10.3 mg/dL [facility] Blood 01/15/2025 8:32 AM CDT 01/15/2025 8:46 AM CDT us Pradeep Blum MD LAB BLOOD ORDERABLES F inal Result Performing Organization Address City/[facility] Co de Phone Number [facility] [address] [facility] Department [place] [address] * POCT glucose (01/15/2025 8:11 AM CDT) Glucose, POC 197 70 - 199 mg/dL Glucose comment 1 RN/MD Notified [facility] Blood 01/15/2025 8:11 AM CDT 01/15/2025 8:11 AM CDT us Mike Jose MD LAB POCT ORDERABLES - DEVICE Final Result Performing Organization Address City/[facility]/ZIP Co de Phone Number [facility] [address] [employer] [place] [address] * POCT glucose (01/15/2025 3:48 AM CDT) Glucose, POC 174 70 - 199 mg/dL Glucose comment 1 RN/MD Notified [facility] Blood 01/15/2025 3:48 AM CDT 01/15/2025 3:48 AM CDT Mike Jose MD LAB POCT ORDERABLES - DEVICE Final Result Performing Organization Address [facility] Co de Phone Number [address]ARY[address] [employer] [place] [address] * POCT glucose (01/15/2025 12:03 AM CDT) Glucose, POC 173 70 - 199 mg/dL Glucose comment 1 RN/MD Notified [facility] Blood 01/15/2025 12:0 3 AM CDT 01/15/2025 12:03 AM CDT Mike Jose MD LAB POCT ORDERABLES - DEVICE Final Result Performing Organization Address [facility] Co de Phone Number [address]ARY[address] [employer] [place] [address] * (ABNORMAL) POCT glucose (01/14/2025 8:14 PM CDT) Glucose, POC 215(H) 70 - 199 mg/dL Glucose comment 1 RN/ Notified [facility] Blood 01/14/2025 8:14 PM CDT 01/14/2025 8:14 PM CDT Mike Jose MD LAB POCT ORDERABLES - DEVICE Final Result Performing Organization Address City/[facility] Co de Phone Number [address] [employer] [place] [address] * Transfuse RBC (01/14/2025 7:32 PM CDT) Blood us Pradeep Blum MD BLOOD TRANSFUSION ORDE RABLES Final Result Performing Organization Address [facility] Co de Phone Number [facility] [address] [address] * (ABNORMAL) POCT glucose (01/14/2025 4:22 PM CDT) Glucose, POC 237(H) 70 - 199 mg/dL Glucose comment 1 RN/MD Notified [facility] Blood 01/14/2025 4:22 PM CDT 01/14/2025 4:22 PM CDT Mike Jose MD LAB POCT ORDERABLES - DEVICE Final Result Performing Organization Address [facility] Co de Phone Number [address] [employer] [place] [address] * Prepare RBC: 1 Units (01/14/2025 1:16 PM CDT) Pathologist [facility] Units requested 1 Units requested Ready [facility] Unit Number [id number] Product code [id number] [facility] Blood Expiration Date [id number] [facility] Product Blood Type (for scanning) 7300 [facility] Product Blood Type BPOS [facility] Dispense Status DISPENSED [facility] Blood 01/14/2025 1:16 PM CDT 01/14/2025 1:16 PM CDT us Pradeep Blum MD BLOOD BANK PRODUCT ORD ERABLES Final Result Performing Organization Address [facility] Co de Phone Number [address] [address] * ABO/Rh (01/14/2025 12:30 PM CDT) ABO/Rh B Positive Blood 01/14/2025 12:3 0 PM CDT 01/14/2025 12:38 PM CDT Narrative [facility] - 01/14/2025 1:16 PM CDT Has the patient had Daratumumab or Isatuximab in the past 6 months?->Unknown Pradeep Blum MD LAB BLOOD BANK TEST OR DERABLES Final Result Performing Organization Address [facility] Co de Phone Number [address] [employer] [place] [address] * Crossmatch (01/14/2025 12:30 PM CDT) Pathologist [facility] Crossmatch Compatible [facility] Unit number for crossmatch [id number] [facility] Blood 01/14/2025 12:3 0 PM CDT 01/14/2025 12:38 PM CDT Mike Jose MD LAB BLOOD BANK TEST ORDERABL ES Final Result Performing Organization Address [facility] de Phone Number [address] [place] [employer] [place] [address] * Antibody screen (01/14/2025 12:30 PM CDT) Pathologist [facility] Sarai, indirect, Gel Interpretation Negative ABSC Blood 01/14/2025 12:3 0 PM CDT 01/14/2025 12:38 PM CDT Narrative [facility] - 01/14/2025 1:16 PM CDT Has the patient had Daratumumab or Isatuximab in the past 6 months?->Unknown Pradeep Blum MD LAB BLOOD BANK TEST OR DERABLES Final Result Performing Organization Address [facility] Co de Phone Number [address] [employer] [place] [address] * (ABNORMAL) POCT glucose (01/14/2025 12:24 PM CDT) Pathologist [facility] Glucose, POC 323(H) 70 - 199 mg/dL Glucose comment 1 RN/ Notified [facility] Blood 01/14/2025 12:2 4 PM CDT 01/14/2025 12:24 PM CDT Mike Jose MD LAB POCT ORDERABLES - DEVICE Final Result Performing Organization Address City/[facility] Co de Phone Number [address] [employer] [place] [address] * POCT glucose (01/14/2025 8:21 AM CDT) Glucose, POC 148 70 - 199 mg/dL Glucose comment 1 RN/ Notified [facility] Blood 01/14/2025 8:21 AM CDT 01/14/2025 8:21 AM CDT Mike Jose MD LAB POCT ORDERABLES - DEVICE Final Result Performing Organization Address [facility] Co de Phone Number [address] [employer] [place] [address] * eGFR (01/14/2025 6:40 AM CDT) eGFR 80 >=60 mL/min/1. 73 m2 Comment: [...] 6:40 AM CDT 01/14/2025 6:54 AM CDT Pradeep Blum MD LAB BLOOD ORDERABLES F inal Result [facility] [address] [facility] Department [place] [address] * (ABNORMAL) Differential, auto (01/14/2025 6:40 AM CDT) Pathologist [facility] Neutrophil abs 4.9 1.5 - 6.5 K/cumm Imm gran abs 0.1 0.0 - 0.1 K/cumm [facility] Lymphocyte abs 0.6(L) 0.8 - 3.3 K/cumm [facility] Monocyte abs 0.7 0.2 - 0.8 K/cumm [facility] Eosinophil abs 0.1 0.0 - 0.5 K/cumm [facility] Basophil abs 0.0 0.0 - 0.1 K/cumm [facility] Neutrophil pct 75.7 % [facility] Comment: Interpretive Data Percent cell count reference ranges are not reported, since discordance with absolute values may lead to misinterpretation of CBC data. Current Interpretive Data was last revised on 2018. Imm gran pct 1.1 % [facility] Comment: Interpretive Data Percent cell count reference ranges are not reported, since discordance with absolute values may lead to misinterpretation of CBC data. Current Interpretive Data was last revised on 2018. Lymphocyte pct 9.8 % [facility] Comment: Interpretive Data Percent cell count reference ranges are not reported, since discordance with absolute values may lead to misinterpretation of CBC data. Current Interpretive Data was last revised on 2018. Monocyte pct 10.9 % [facility] Comment: Interpretive Data Percent cell count reference ranges are not reported, since discordance with absolute values may lead to misinterpretation of CBC data. Current Interpretive Data was last revised on 2018. Eosinophil pct 2.0 % [facility] Comment: Interpretive Data Percent cell count reference ranges are not reported, since discordance with absolute values may lead to misinterpretation of CBC data. Current Interpretive Data was last revised on 2018. Basophil pct 0.5 % [facility] Comment: Interpretive Data Percent cell count reference ranges are not reported, since discordance with absolute values may lead to misinterpretation of CBC data. Current Interpretive Data was last revised on 2018. Blood 01/14/2025 6:40 AM CDT 01/14/2025 6:54 AM CDT Pradeep Blum MD LAB BLOOD ORDERABLES F inal Result Performing Organization Address [facility] Co de Phone Number [address] [place] [address] * (ABNORMAL) CBC with auto differential (01/14/2025 6:40 AM CDT) WBC 6.4 3.8 - 9.9 K/cumm Hgb 8.5(L) 13.0 - 17.5 g/dL [facility] Hct 27.4(L) 38.9 - 50.3 % [facility] Plt 176 150 - 400 K/cumm [facility] MPV 9.7 9.1 - 12.3 fL [facility] RBC 2.95(L) 4.30 - 5.80 M/cumm [facility] MCV 92.9 81.3 - 96.4 fL [facility] MCH 28.8 27.1 - 33.3 pg [facility] MCHC 31.0(L) 32.3 - 35.7 g/dL [facility] RDW CV 14.9 11.1 - 14.9 % [facility] RDW SD 50.8(H) 35.7 - 48.1 fL [facility] NRBC abs 0.00 0.00 - 0.01 K/cumm [facility] Blood 01/14/2025 6:40 AM CDT 01/14/2025 6:54 AM CDT Pradeep Blum MD LAB BLOOD ORDERABLES F inal Result Performing Organization Address [facility] Co de Phone Number [facility] [address] [facility] [place] [address] * (ABNORMAL) Basic metabolic panel (01/14/2025 6:40 AM CDT) Pathologist [facility] Sodium 137 135 - 145 mmol/L Potassium, pl 5.2(H) 3.3 - 4.9 mmol/L [facility] Chloride 103 97 - 110 mmol/L [facility] CO2 27 22 - 32 mmol/L [facility] Anion gap 7 2 - 15 mmol/L [facility] BUN 27(H) 6 - 25 mg/dL [facility] Creatinine 0.99 0.80 - 1.30 mg/dL [facility] Glucose 125 70 - 199 mg/dL [facility] Comment: Interpretive Data Fasting glucose [...] 2022. Calcium 8.7 8.5 - 10.3 mg/dL [facility] Blood 01/14/2025 6:40 AM CDT 01/14/2025 6:54 AM CDT Pradeep Blum MD LAB BLOOD ORDERABLES F inal Result [facility] [address] [facility] Department [place] [address] * POCT glucose (01/13/2025 8:37 PM CDT) [facility] Glucose, POC 167 70 - 199 mg/dL Glucose comment 1 RN/ Notified [facility] Blood 01/13/2025 8:37 PM CDT 01/13/2025 8:37 PM CDT Mike Jose MD LAB POCT ORDERABLES - DEVICE Final Result Performing Organization Address [facility] Co de Phone Number [address] [employer] [place] [address] * POCT glucose (01/13/2025 3:49 PM CDT) Glucose, POC 157 70 - 199 mg/dL Glucose comment 1 RN/MD Notified [facility] Blood 01/13/2025 3:49 PM CDT 01/13/2025 3:49 PM CDT iMke Jose MD LAB POCT ORDERABLES - DEVICE Final Result Performing Organization Address [facility] Co de Phone Number [address] [employer] [place] [address] * POCT glucose (01/13/2025 12:09 PM CDT) Glucose, POC 178 70 - 199 mg/dL Glucose comment 1 RN/MD Notified [facility] Blood 01/13/2025 12:0 9 PM CDT 01/13/2025 12:09 PM CDT Mike Jose MD LAB POCT ORDERABLES - DEVICE Final Result Performing Organization Address City/[facility] Co de Phone Number [address] [employer] [place] [address] * TRANSTHORACIC ECHO (TTE) COMPLETE W DOPPLER/CF WO CONTRAST (01/13/2025 11:03 AM CDT) LV EF 65-70 % CONS SCIMAGE Anatomical Region Laterality Modality Ultrasound 01/13/2025 10:3 0 AM CDT Narrative 01/13/2025 6:29 PM CDT Transthoracic Echocardiographic Report Patient Name: FITZ TURNER D : 1950 (74y 7m) Gender: M Study Date: 01/13/2025 10:30:33 AM Ht(Inch): 73 Wt(Lb): 242 BSA: 2.38 Package Dye Stand Loader: Nikki Rodrigues RDCS Location: [place] [address] Order Provider: PRITI BONILLA Heart Rate: 84 BMI: 31.92 BP: 140/60 Ref Provider: PRITI BONILLA PROCEDURES: Echocardiographic Report: ([id number]) Transthoracic complete echo, 2D, spectral and tissue [...] AM Ht(Inch): 73 Wt(Lb): 242 BSA: 2.38 Package Dye Stand Loader: Nikki Rodrigues RDCS Location: [place] [address] Order Provider:PRITI BONILLA Heart Rate: 84 BMI: 31.92 BP: 140/60 Ref Provider: PRITI BONILLA PROCEDURES: Echocardiographic Report: ([id number]) Transthoracic complete echo, 2D,spectral and tissue Doppler, [...] [ 16.00 - 34.00 ] MV Decel Fsff655.00 msec TAPSE 1.98 cm [ 1.71 - [...] Tobias Fabian MD 01/13/2025 6:28:59 PM CDT us Priti Bonilla NP CV ECHO PROCEDURES Final [...] MD LAB BLOOD ORDERABLES F inal Result [id number] [address] [facility] Department [place] [address] * (ABNORMAL) Differential, auto (01/13/2025 8:52 AM CDT) Pathologist [facility] Neutrophil abs 5.6 1.5 - 6.5 K/cumm Imm gran abs 0.1 0.0 - 0.1 K/cumm [facility] Lymphocyte abs 0.5(L) 0.8 - 3.3 K/cumm [facility] Monocyte abs 0.6 0.2 - 0.8 K/cumm [facility] Eosinophil abs 0.1 0.0 - 0.5 K/cumm [facility] Basophil abs 0.0 0.0 - 0.1 K/cumm [facility] Neutrophil pct 81.2 % [facility] Comment: Interpretive Data Percent cell count reference ranges are not reported, since discordance with absolute values may lead to misinterpretation of CBC data. Current Interpretive Data was last revised on 2018. Imm gran pct 0.9 % [facility] Comment: Interpretive Data Percent cell count reference ranges are not reported, since discordance with absolute values may lead to misinterpretation of CBC data. Current Interpretive Data was last revised on 2018. Lymphocyte pct 6.9 % [facility] Comment: Interpretive Data Percent cell count reference ranges are not reported, since discordance with absolute values may lead to misinterpretation of CBC data. Current Interpretive Data was last revised on 2018. Monocyte pct 9.4 % [facility] Comment: Interpretive Data Percent cell count reference ranges are not reported, since discordance with absolute values may lead to misinterpretation of CBC data. Current Interpretive Data was last revised on 2018. Eosinophil pct 1.3 % [facility] Comment: Interpretive Data Percent cell count reference ranges are not reported, since discordance with absolute values may lead to misinterpretation of CBC data. Current Interpretive Data was last revised on 2018. Basophil pct 0.3 % [facility] Comment: Interpretive Data Percent cell count reference ranges are not reported, since discordance with absolute values may lead to misinterpretation of CBC data. Current Interpretive Data was last revised on 2018. Blood 01/13/2025 8:52 AM CDT 01/13/2025 9:21 AM CDT us Pradeep Blum MD LAB BLOOD ORDERABLES F inal Result Performing Organization Address [facility] Co de Phone Number [address] [employer] [place] [address] * (ABNORMAL) Iron profile w/ IBC (01/13/2025 8:52 AM CDT) [facility] Iron 21(L) 50 - 150 mcg/dL TIBC 174(L) 250 - 400 mcg/dL [facility] Transferrin saturation 12(L) 20 - 50 % [facility] Blood 01/13/2025 8:52 AM CDT 01/13/2025 9:21 AM CDT Mike Jose MD LAB BLOOD ORDERABLES Final R esult Performing Organization Address [facility] Co de Phone Number [address] [place] [employer] [place] [address] * (ABNORMAL) CBC with auto differential (01/13/2025 8:52 AM CDT) [facility] WBC 6.8 3.8 - 9.9 K/cumm Hgb 8.5(L) 13.0 - 17.5 g/dL [facility] Hct 27.2(L) 38.9 - 50.3 % [facility] Plt 159 150 - 400 K/cumm [facility] MPV 10.2 9.1 - 12.3 fL [facility] RBC 2.96(L) 4.30 - 5.80 M/cumm [facility] MCV 91.9 81.3 - 96.4 fL [facility] MCH 28.7 27.1 - 33.3 pg [facility] MCHC 31.3(L) 32.3 - 35.7 g/dL [facility] RDW CV 15.1(H) 11.1 - 14.9 % [facility] RDW SD 50.2(H) 35.7 - 48.1 fL [facility] NRBC abs 0.00 0.00 - 0.01 K/cumm [facility] Blood 01/13/2025 8:52 AM CDT 01/13/2025 9:21 AM CDT Pradeep Blum MD LAB BLOOD ORDERABLES F inal Result Performing Organization Address [facility] de Phone Number [address] [address] * (ABNORMAL) Reticulocyte Count (01/13/2025 8:52 AM CDT) [facility] Retics, absolute 0.074 0.020 - 0.087 M/cumm Retics 2.5 0.4 - 2.9 % [facility] Reticulocyte Hgb 28.5(L) 30.5 - 38.0 pg [facility] Blood 01/13/2025 8:52 AM CDT 01/13/2025 9:21 AM CDT Mike Jose MD LAB BLOOD ORDERABLES Final R esult Performing Organization Address [facility] de Phone Number [address] [address] * Ferritin (01/13/2025 8:52 AM CDT) [facility] Ferritin 297 30 - 400 ng/mL Blood 01/13/2025 8:52 AM CDT 01/13/2025 9:21 AM CDT Mike Jose MD LAB BLOOD ORDERABLES Final R esult Performing Organization Address [facility] de Phone Number [address] [address] * (ABNORMAL) Comprehensive metabolic panel (01/13/2025 8:52 AM CDT) [facility] Sodium 137 135 - 145 mmol/L Potassium, pl 4.6 3.3 - 4.9 mmol/L [facility] Chloride 104 97 - 110 mmol/L [facility] CO2 24 22 - 32 mmol/L [facility] Anion gap 9 2 - 15 mmol/L [facility] BUN 31(H) 6 - 25 mg/dL [facility] Creatinine 0.98 0.80 - 1.30 mg/dL [facility] Glucose 124 70 - 199 mg/dL [facility] Comment: Interpretive Data Fasting glucose [...] 2022. Calcium 8.4(L) 8.5 - 10.3 mg/dL [facility] Bilirubin, total 0.7 0.1 - 1.2 mg/dL [facility] Protein, pl 5.7(L) 6.5 - 8.5 g/dL [facility] Albumin 3.0(L) 3.5 - 5.0 g/dL [facility] Alk phos 65 40 - 130 Units/L [facility] ALT 10 7 - 55 Units/L [facility] AST 21 10 - 50 Units/L [facility] Blood 01/13/2025 8:52 AM CDT 01/13/2025 9:21 AM CDT us Pradeep Blum MD LAB BLOOD ORDERABLES F inal Result Performing Organization Address [facility] de Phone Number [facility] [address] [facility] Department [place] [address] * POCT glucose (01/13/2025 8:23 AM CDT) [facility] Glucose, POC 119 70 - 199 mg/dL Glucose comment 1 RN/MD Notified [facility] Blood 01/13/2025 8:23 AM CDT 01/13/2025 8:23 AM CDT us Mike Jose MD LAB POCT ORDERABLES - DEVICE Final Result Performing Organization Address [facility] Co de Phone Number [facility] [address] [facility] [employer] [address] * POCT glucose (01/12/2025 8:06 PM CDT) Glucose, POC 166 70 - 199 mg/dL Glucose comment 1 [facility] Repeat [facility] Glucose comment 2 Follow Protocol [facility] Blood 01/12/2025 8:06 PM CDT 01/12/2025 8:06 PM CDT us Mike Jose MD LAB POCT ORDERABLES - DEVICE Final Result Performing Organization Address [facility] de Phone Number [facility] [employer] [address] * CT Head WO Contrast (01/12/2025 6:47 [...] - Electronically signed by Aldo Palencia M.D. KT T: Report ID: [id number] Reading Location: [id number] Procedure Note Aldo Palencia MD - 01/12/2025 [...] - Electronically signed by Aldo Palencia M.D. KT T: Report ID: [id number] Reading Location: [id number] Priti Bonilla ELECTRO [employer]ICS ENGINEER IMG CT PROCEDURES Final Resu lt * POCT glucose (01/12/2025 4:49 PM CDT) Glucose, POC 176 70 - 199 mg/dL Glucose comment 1 RN/MD Notified [facility] Blood 01/12/2025 4:49 PM CDT 01/12/2025 4:49 PM CDT Mike Jose MD LAB POCT ORDERABLES - DEVICE Final Result [facility] [address] [facility] Department [place] [address] * (ABNORMAL) POCT glucose (01/12/2025 11:49 AM CDT) Glucose, POC 238(H) 70 - 199 mg/dL Blood 01/12/2025 11:4 9 AM CDT 01/12/2025 11:49 AM CDT Mike Jose MD LAB POCT ORDERABLES - DEVICE Final Result Performing Organization Address [facility] Co de Phone Number [facility] Department [place] [address] * ECG 12 lead (01/12/2025 10:56 AM CDT) Ventricular Rate EKG/Min 91 BPM [facility] QRS-Interval (MSEC) 100 ms [facility] QT-Interval (MSEC) 334 ms [facility] QTc 410 ms [facility] R [place] -4 degrees [facility] T [place] -52 degrees [facility] Diagnosis Atrial fibrillation with premature ventricular or aberrantly conducted complexes Incomplete right bundle branch block 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 rate has increased BY 41 BPM Nonspecific T wave abnormality now evident in Inferior leads QT has lengthened Confirmed by TOBIAS FAIBAN M.D. ([id number]) on 01/12/2025 11:57:22 AM [facility] 01/12/2025 10:5 6 AM CDT 01/12/2025 11:57 AM CDT Priti Bonilla NP ECG ORDERABLES Final Result Performing Organization Address [facility] Co de Phone Number [facility] * (ABNORMAL) eGFR (01/12/2025 9:54 AM CDT) Pathologist [facility] eGFR 58(L) >=60 mL/min/1. 73 m2 Comment: [...] CDT 01/12/2025 10:45 AM CDT us Kait Annika Goel MD LAB BLOOD ORDERABLES Mary collier Result [place] [id number] [facility] Department [place] [address] * (ABNORMAL) Differential, auto (01/12/2025 9:54 AM CDT) Neutrophil abs 8.1(H) 1.5 - 6.5 K/cumm Imm gran abs 0.1 0.0 - 0.1 K/cumm [facility] Lymphocyte abs 0.4(L) 0.8 - 3.3 K/cumm [facility] Monocyte abs 0.8 0.2 - 0.8 K/cumm [facility] Eosinophil abs 0.1 0.0 - 0.5 K/cumm [facility] Basophil abs 0.0 0.0 - 0.1 K/cumm [facility] Neutrophil pct 85.7 % [facility] Comment: Interpretive Data Percent cell count reference ranges are not reported, since discordance with absolute values may lead to misinterpretation of CBC data. Current Interpretive Data was last revised on 2018. Imm gran pct 0.6 % [facility] Comment: Interpretive Data Percent cell count reference ranges are not reported, since discordance with absolute values may lead to misinterpretation of CBC data. Current Interpretive Data was last revised on 2018. Lymphocyte pct 4.5 % [facility] Comment: Interpretive Data Percent cell count reference ranges are not reported, since discordance with absolute values may lead to misinterpretation of CBC data. Current Interpretive Data was last revised on 2018. Monocyte pct 8.5 % [facility] Comment: Interpretive Data Percent cell count reference ranges are not reported, since discordance with absolute values may lead to misinterpretation of CBC data. Current Interpretive Data was last revised on 2018. Eosinophil pct 0.5 % [facility] Comment: Interpretive Data Percent cell count reference ranges are not reported, since discordance with absolute values may lead to misinterpretation of CBC data. Current Interpretive Data was last revised on 2018. Basophil pct 0.2 % [facility] Comment: Interpretive Data Percent cell count reference ranges are not reported, since discordance with absolute values may lead to misinterpretation of CBC data. Current Interpretive Data was last revised on 2018. Blood 01/12/2025 9:54 AM CDT 01/12/2025 10:44 AM CDT [facility] Annika Goel MD LAB BLOOD ORDERABLES Mary l Result [place] [id number] [facility] Department [place] [address] * (ABNORMAL) CBC with auto differential (01/12/2025 9:54 AM CDT) WBC 9.4 3.8 - 9.9 K/cumm Hgb 9.1(L) 13.0 - 17.5 g/dL [facility] Hct 28.7(L) 38.9 - 50.3 % [facility] Plt 181 150 - 400 K/cumm [facility] MPV 10.3 9.1 - 12.3 fL [facility] RBC 3.10(L) 4.30 - 5.80 M/cumm [facility] MCV 92.6 81.3 - 96.4 fL [facility] MCH 29.4 27.1 - 33.3 pg [facility] MCHC 31.7(L) 32.3 - 35.7 g/dL [facility] RDW CV 15.1(H) 11.1 - 14.9 % [facility] RDW SD 50.4(H) 35.7 - 48.1 fL [facility] NRBC abs 0.00 0.00 - 0.01 K/cumm [facility] Blood 01/12/2025 9:54 AM CDT 01/12/2025 10:44 AM CDT Kait Goel MD LAB BLOOD ORDERABLES Mary l Result Performing Organization Address [facility] de Phone Number [address] [address] * Digoxin level (01/12/2025 9:54 AM CDT) Pathologist [facility] Digoxin 0.8 0.5 - 1.2 ng/mL Comment: Interpretive data The therapeutic range for digoxin varies by indication: Heart failure: 0.5 to 0.8 ng/mL Atrial fibrillation: less than 1.2 ng/mL Toxicity: >2.4. Normal or low digoxin does not rule out toxicity. Current interpretive data was last revised on 2024. Blood 01/12/2025 9:54 AM CDT 01/12/2025 10:45 AM CDT Priti Bonilla NP LAB BLOOD ORDERABLES Final R esult Performing Organization Address [facility] de Phone Number [address] [address] * (ABNORMAL) Comprehensive metabolic panel (01/12/2025 9:54 AM CDT) Pathologist [facility] Sodium 135 135 - 145 mmol/L Potassium, pl 4.6 3.3 - 4.9 mmol/L [facility] Chloride 101 97 - 110 mmol/L [facility] CO2 22 22 - 32 mmol/L [facility] Anion gap 12 2 - 15 mmol/L [facility] BUN 42(H) 6 - 25 mg/dL [facility] Creatinine 1.30 0.80 - 1.30 mg/dL [facility] Glucose 162 70 - 199 mg/dL [facility] Comment: Interpretive Data Fasting glucose [...] 2022. Calcium 8.4(L) 8.5 - 10.3 mg/dL [facility] Bilirubin, total 0.7 0.1 - 1.2 mg/dL [facility] Protein, pl 5.8(L) 6.5 - 8.5 g/dL [facility] Albumin 3.3(L) 3.5 - 5.0 g/dL [facility] Alk phos 72 40 - 130 Units/L [facility] ALT 12 7 - 55 Units/L [facility] AST 28 10 - 50 Units/L [facility] Blood 01/12/2025 9:54 AM CDT 01/12/2025 10:45 AM CDT Kait Goel MD LAB BLOOD ORDERABLES Mary l Result Performing Organization Address City/[facility] Co de Phone Number [address] [employer] [place] [address] * POCT glucose (01/12/2025 8:13 AM CDT) [facility] Glucose, POC 104 70 - 199 mg/dL Blood 01/12/2025 8:13 AM CDT 01/12/2025 8:13 AM CDT us Mike Jose MD LAB POCT ORDERABLES - DEVICE Final Result Performing Organization Address [facility] Co de Phone Number [address] [place] [employer] [place] [address] * POCT glucose (01/11/2025 8:09 PM CDT) Glucose, POC 158 70 - 199 mg/dL Blood 01/11/2025 8:09 PM CDT 01/11/2025 8:09 PM CDT Mike Jose MD LAB POCT ORDERABLES - DEVICE Final Result Performing Organization Address City/[facility]/ZIP Co de Phone Number [address] [employer] [place] [address] * (ABNORMAL) POCT glucose (01/11/2025 4:30 PM CDT) Glucose, POC 201(H) 70 - 199 mg/dL Glucose comment 1 RN/MD Notified [facility] Blood 01/11/2025 4:30 PM CDT 01/11/2025 4:30 PM CDT Mike Jose MD LAB POCT ORDERABLES - DEVICE Final Result Performing Organization Address City/[facility]/ZIP Co de Phone Number [address] [employer] [place] [address] * POCT glucose (01/11/2025 12:36 PM CDT) Glucose, POC 166 70 - 199 mg/dL Glucose comment 1 RN/MD Notified [facility] Blood 01/11/2025 12:3 6 PM CDT 01/11/2025 12:36 PM CDT Mike Jose MD LAB POCT ORDERABLES - DEVICE Final Result Performing Organization Address City/[facility]/ZIP Co de Phone Number [address] [employer] [place] [address] * POCT glucose (01/11/2025 8:16 AM CDT) Glucose, POC 112 70 - 199 mg/dL Glucose comment 1 Will Repeat Test [facility] Glucose comment 2 RN/MD Notified [facility] Blood 01/11/2025 8:16 AM CDT 01/11/2025 8:16 AM CDT us Mike Jose MD LAB POCT ORDERABLES - DEVICE Final Result [facility] [address] [facility] Department [place] [address] * (ABNORMAL) Differential, auto (01/11/2025 5:00 AM CDT) Neutrophil abs 7.6(H) 1.5 - 6.5 K/cumm Imm gran abs 0.1 0.0 - 0.1 K/cumm [facility] Lymphocyte abs 1.0 0.8 - 3.3 K/cumm [facility] Monocyte abs 0.9(H) 0.2 - 0.8 K/cumm [facility] Eosinophil abs 0.0 0.0 - 0.5 K/cumm [facility] Basophil abs 0.0 0.0 - 0.1 K/cumm [facility] Neutrophil pct 79.0 % [facility] Comment: Interpretive Data Percent cell count reference ranges are not reported, since discordance with absolute values may lead to misinterpretation of CBC data. Current Interpretive Data was last revised on 2018. Imm gran pct 0.6 % [facility] Comment: Interpretive Data Percent cell count reference ranges are not reported, since discordance with absolute values may lead to misinterpretation of CBC data. Current Interpretive Data was last revised on 2018. Lymphocyte pct 10.4 % [facility] Comment: Interpretive Data Percent cell count reference ranges are not reported, since discordance with absolute values may lead to misinterpretation of CBC data. Current Interpretive Data was last revised on 2018. Monocyte pct 9.4 % [facility] Comment: Interpretive Data Percent cell count reference ranges are not reported, since discordance with absolute values may lead to misinterpretation of CBC data. Current Interpretive Data was last revised on 2018. Eosinophil pct 0.3 % [facility] Comment: Interpretive Data Percent cell count reference ranges are not reported, since discordance with absolute values may lead to misinterpretation of CBC data. Current Interpretive Data was last revised on 2018. Basophil pct 0.3 % [facility] Comment: Interpretive Data Percent cell count reference ranges are not reported, since discordance with absolute values may lead to misinterpretation of CBC data. Current Interpretive Data was last revised on 2018. Blood 01/11/2025 5:00 AM CDT 01/11/2025 5:14 AM CDT Karlos COLLIER LAB BLOOD ORDERABLES Mary l Result Performing Organization Address [facility] Co de Phone Number [facility] [address] [place] [employer] [place] [address] * (ABNORMAL) CBC with auto differential (01/11/2025 5:00 AM CDT) WBC 9.6 3.8 - 9.9 K/cumm Hgb 8.8(L) 13.0 - 17.5 g/dL [facility] Hct 27.6(L) 38.9 - 50.3 % [facility] Plt 145(L) 150 - 400 K/cumm [facility] MPV 10.2 9.1 - 12.3 fL [facility] RBC 2.97(L) 4.30 - 5.80 M/cumm [facility] MCV 92.9 81.3 - 96.4 fL [facility] MCH 29.6 27.1 - 33.3 pg [facility] MCHC 31.9(L) 32.3 - 35.7 g/dL [facility] RDW CV 15.1(H) 11.1 - 14.9 % [facility] RDW SD 50.4(H) 35.7 - 48.1 fL [facility] NRBC abs 0.00 0.00 - 0.01 K/cumm [facility] Blood 01/11/2025 5:00 AM CDT 01/11/2025 5:14 AM CDT Karlos COLLIER LAB BLOOD ORDERABLES Mary l Result Performing Organization Address [facility] Co de Phone Number [address] [place] [employer] [place] [address] * (ABNORMAL) Hemoglobin A1c (12/26/2024 10:31 AM DOCUMENTATION WRITER) Hgb A1C 6.6(H) 4.0 - 5.6 % Estimated Average Glucose 143 mg/dL [facility] Comment: The ADA recommends reporting an estimated Average Glucose (eAG) with all Hemoglobin A1c results using the equation derived from a study of 507 normal and diabetic adults. Minority populations were underrepresented and children were not included. (Diabetes Care 31:3066-8296, 2008). The eAG is not equivalent to a fasting glucose. Blood 12/26/2024 10:3 1 AM DOCUMENTATION WRITER 12/26/2024 10:40 AM DOCUMENTATION WRITER us Mike Jose MD LAB BLOOD ORDERABLES Final R esult [facility] [address] [facility] [place] [address] * CT Abdomen W WO Contrast (08/30/2021 [...] HTN, yeyo, kidney surg, bariatric surg 100mL [id number] via 20g RAC TECHNIQUE: CT scan of [...] Luis Barraza M.D. BB T: Report ID: [id number] Reading Location: [id number] Procedure Note José Luis Barraza MD PhD - 08/30/2021 EXAM DESCRIPTION: CT ABDOMEN W WO CONTRAST REASON FOR STUDY: renal mass Right renal mass status post ablation [id number]. Follow-up. PMHx: renal cancer, prostate cancer, skin cancer, diabetes, HTN, yeyo, kidney surg, bariatric surg 100mL [id number] via 20g RAC TECHNIQUE: CT scan of [...] Luis Barraza M.D. BB T: Report ID: [id number] Reading Location: [place] [address] Harpal Dave MD IMG CT PROCEDURES Final R esult * (ABNORMAL) Lipid panel (07/21/2019 3:38 PM CDT) Cholesterol 99 30 - 199 mg/dL [facility] Comment: Interpretive Data Ages < or = [...] revised on 2018. Triglycerides 82 <=149 mg/dL [facility] Comment: Interpretive Data Ages < or = [...] revised on 2018. HDL 34(L) >=40 mg/dL [facility] Comment: Interpretive Data Ages < or [...] on 2018. LDL, calculated 49 <=129 mg/dL [facility] Comment: Interpretive Data Ages < or [...] revised on 2018. Non-HDL Cholesterol 65 mg/dL [facility] Comment: Interpretive Data Ages < or [...] last revised on 2018. Chol/HDL ratio 3 [facility] Blood specimen (specimen) 07/21/2019 3:38 PM CDT 07/21/2019 3:58 PM CDT Oc Mijares MD LAB BLOOD ORDERABLES Final Resu lt Performing Organization Address [facility] Co de Phone Number [facility] [address] [place] [address] * (ABNORMAL) Microalbumin / creatinine ratio, urine, random (07/02/2016 9:20 AM CDT) Pathologist [facility] CREATININE, RANDOM URINE 158 20 - 370 mg/dL [facility] MICROALBUMIN 19.9 See Note: mg/dL [facility] Comment: Reference Range: Reference Range Not established MICROALBUMIN/CREAT ININE RATIO, RANDOM URINE 126(H) <30 mcg/mg creat [facility] Comment: The ADA defines abnormalities [...] AM CDT 07/07/2016 8:31 AM CDT Narrative [facility] - 07/05/2016 2:04 AM CDT FASTING:YES PERFORMING LAB: [place], [facility] [address] [facility], [place] [address] Antonio Myers D.O., MPH Raymundo Mcmillan MD LAB URINE ORDERABLES Final Resul t Performing Organization Address [facility] Co de Phone Number [facility] RES[facility] from Last 3 Months or Most Recently Relevant to Health Maintenance Insurance [facility] Advance Directives For more information, please contact: [phone] Documents on File Type Date Recorded Patient Growth Media Mixer Mushroom Expl anation ADVANCE DIRECTIVE 12/26/2024 12:03 PM aneesh putnam will * Full Code (Latest Code Status on File) Date Activated Date Inactivated Comments 01/09/2025 3:58 PM 01/17/2025 6:32 PM * Full Code Date Activated Date Inactivated Comments 07/21/2019 2:50 PM 07/23/2019 4:48 PM Care Teams Wood Router Relationship Specialty Start Date End Date Carlota Benton DO PCP - General 03/17/17 Inés Hiceky MD [address] [facility] [place] [address] Consulting Physician Neurosurgery 12/05/24 Harpal Dave MD [address] [address] Consulting Physician Urology 12/26/24 Mike Jose MD [address] [facility] [address] [address] Consulting Physician Orthopedic Surgery 01/10/25
--- OUTSIDE RECORDS SUMMARY | 2025-04-13 14:54 | XMS_ITS ---
Author Organization [facility] Address [address] [place] [address] Care Team Providers Care Foreign Service Teacher Name Role Phone Carlota Benton DO Primary Care Provider Inés Hickey MD Unavailable Harpal Dave MD Unavailable Mike Jose MD Unavailable [phone] Active Problems Problem Noted Date Diagnosed Date [...] H&H currently 7.8/25.5. We will order additional 32358 units of Epogen x1. Xarelto remain on [...] Pain is controlled with scheduled Tylenol, p.r.n. [place]. Patient has made good progress in therapy, patient is felt stable for discharge on 02/02/2025 to return home with his and outpatient therapy Assessment & Plan (01/23/2025 7:39 PM CDT): Edema slowly improving, pain is relatively well controlled with p.r.n. Tylenol, p.r.n. [place]. [place] to be removed today. Encouraged ice and elevation. Xarelto be placed on hold due to anemia. Assessment & Plan (01/20/2025 8:15 PM CDT): Overall pain is adequately controlled with p.r.n. Tylenol, p.r.n. [place]. Encouraged patient to utilize ice and elevation especially after therapy. Incision is well approximated, no drainage. Continue Xarelto for DVT prophylaxis. Staple removal orders have been placed for 01/23/2025, can follow-up as planned later in January with Orthopedic surgery. History of right knee joint replacement 01/13/20 25 Assessment & Plan (01/20/2025 4:35 PM CDT): I endorse admission to intermediate care. The patient is at risk of [...] to a safer level of care. Continue [place] 5 mg every 8 hours p.r.n. pain. [...] (05/05/2019): Added automatically from request for surgery [id number] Renal cell carcinoma 04/14/2017 Overview (02/08/2025): Status [...] of skin of lower extremi ty 11/07/2013 Current Treatment and Therapy Plans No current plan information found. Past Treatment and Therapy Plans No past plan information found. Lifetime Dose Tracking * Chemical Lifetime Dose Automatic Entry Manual Entr y Fluoro Time 0.333 minutes 0.333 minutes 0 minutes DLP 841 mGycm 841 mGycm 0 mGycm
[2025-04-13 15:06] LABS: Influenza A QL RT-PCR Negative (Negative); Influenza B QL RT-PCR Negative (Negative); RSV RNA, RT-PCR Negative (Negative); SARS-CoV-2 RNA PCR Negative (Negative)
[2025-04-13] MEDS: CEFEPIME 2 GM/NS 50 ML 2 GM/50 ML BAG IVPB ×2 (15:15→21:28)
[2025-04-13] MEDS: MAGNESIUM SULF 2 GM/WATER 50ML 2 GM/50 ML BAG IVPB (15:15)
[2025-04-13] MEDS: ACETAMINOPHEN 500 MG TABLET 1000 MG PO (15:15)
--- NOTE | 2025-04-13 15:25 | ED.GENADULT ---
HPI - General Adult General Chief complaint: Altered Mental Status Stated complaint: AMS Time Seen by Provider: 04/13/25 13:21 History of Present Illness HPI narrative: This is a 74-year-old male with history of Parkinson's, dementia, AFib on Xarelto and frequent falls presenting for altered mental status. Patient's daughter is a nurse in our emergency department and provided most of the history. The patient was supposed to go to his daugher's house to watch her children while she went to work. When he arrived he was confused and was A&O x1 where his baseline is typically A&O times 3-4. Patient himself when asked why he is here says he is here for surgery. The patient denies any complaints this time. Per the patient's daughter he has been having frequent UTI since she switched depends. He has also been having a fall almost once a week but always refuses to come to the ED to be evaluated. Last fall was over the weekend. Related Data Allergies Allergy/AdvReac Type Severity Reaction Status Date / Time oxycodone AdvReac Severe Hallucinati Verified 04/13/25 13:52 ng tamsulosin (From Flomax) AdvReac Hypotension Verified 04/13/25 13:52 Exam Narrative: APPEARANCE: A&O x1, Head: atraumatic. EYES: EOMI, NOSE: Atraumatic NECK: Trachea midline RESPIRATORY: No increased rate of breathing clear to auscultation CARDIOVASCULAR: Irregular, no peripheral edema ABDOMINAL: Mild suprapubic tenderness, no guarding or rebound MUSCULOSKELETAl: No obvious deformities NEURO: Alert to self, confused, moving for 4 extremities to command SKIN:: Warm to touch PSYCHIATRIC: Normal affect Course Vital Signs Vital signs: Vital Signs Temperature 101.7 F H 04/13/25 13:05 Pulse Rate 92 04/13/25 13:05 Respiratory Rate 20 04/13/25 13:05 Blood Pressure 128/58 L 04/13/25 13:05 Pulse Oximetry 94 04/13/25 13:05 Temperature 100.4 F H 04/13/25 15:08 Pulse Rate 91 04/13/25 15:08 Respiratory Rate 28 H 04/13/25 15:08 Blood Pressure 129/65 04/13/25 15:08 Pulse Oximetry 95 04/13/25 15:08 Oxygen Delivery Room Air 04/13/25 14:00 Medical Decision Making MDM Narrative Medical decision making narrative: -Course: 74-year-old male presenting with altered mental status. He is febrile to 101.7 on exam. Vital signs otherwise stable. Sepsis workup obtained. Patient given 30 cc/kilogram bolus. Started on cefepime and vancomycin while workup was being completed. CT head unremarkable. CT chest abdomen pelvis did not reveal a cause of his infection. He does have some scarring on his kidney which the family said due to a previous renal cancer that was removed at [facility]. Laboratory studies showed a white count 9.3. Lactic was normal. Magnesium was 1.4 which is repleted. BNP elevated 2500 but no signs of fluid overload on exam. No history of congestive heart failure per family. No echocardiogram in our system system. Urine showed positive nitrites, trace leuk esterase and 2+ bacteria but no white blood cells. Viral swabs are negative. Urine culture and blood cultures are Patient will be admitted to the hospital for further management of his altered mental status and fever. Patient's family has requested a care coordination consult for hospice information although based on his current clinical status he will not need hospice on this admission. -DDX includes but is not limited to: Sepsis, intracranial hemorrhage, UTI pneumonia viral syndrome Independent EKG interpretation: Rhythm atrial fibrillation, Rate [89], [place] -[normal], NV -none], QRS [narrow], QTC [normal], T waves -[negative for concerning inversions], ST Segments - [Negative for concerning elevations] Final interpretations: Atrial fibrillation Vital Signs Vital Signs: Vital Signs Temperature 101.7 F H 04/13/25 13:05 Pulse Rate 92 04/13/25 13:05 Respiratory Rate 20 04/13/25 13:05 Blood Pressure 128/58 L 04/13/25 13:05 Pulse Oximetry 94 04/13/25 13:05 Temperature 100.4 F H 04/13/25 15:08 Pulse Rate 91 04/13/25 15:08 Respiratory Rate 28 H 04/13/25 15:08 Blood Pressure 129/65 04/13/25 15:08 Pulse Oximetry 95 04/13/25 15:08 Oxygen Delivery Room Air 04/13/25 14:00 Lab Data 04/13/25 13:11 04/13/25 13:11 Labs: Lab Results 06/19/25 06/19/25 06/19/25 Range/Units 13:06 13:11 13:58 WBC 9.3 (4.5-10.0) K/mm3 RBC 4.15 L (4.6-6.20) M/mm3 Hgb 11.8 L (14.0-18.0) g/dL Hct 38.3 L (42.0-52.0) % MCV 92.3 (80-100) fl MCH 28.4 (26-34) pg MCHC 30.8 L (32-36) g/dl RDW 14.8 H (11.5-14.5) % Plt Count 203 (150-375) k/mm3 MPV 9.6 (7.4-10.4) fl Immature Gran % (Auto) 0.8 H (0-0.5) % Neut % (Auto) 94.7 H (45.5-73.1) % Lymph % (Auto) 2.8 L (18.3-44.2) % [place] % (Auto) 1.4 L (2.6-8.5) % Eos % (Auto) 0.1 (0-4.4) % Baso % (Auto) 0.2 (0.2-1.2) % Lymph # (Auto) 0.26 L (0.9-3.2) K/mm3 [place] # (Auto) 0.1 (0.1-0.6) K/mm3 Eos # (Auto) 0.0 (0-0.3) K/mm3 Baso # (Auto) 0.0 (0.0-0.1) K/mm3 Abs Immat Gran (auto) 0.07 H (0.00-0.031) K/mm3 Absolute Neuts (auto) 8.8 H (1.3-6.7) K/mm3 Absolute Nucleated RBC 0.000 (0.0-0.012) K/mm3 Nucleated RBC % 0.0 (0.0-0.2) % PT 19.0 H (11.1-14.7) Seconds INR 1.6 APTT 30.1 (22.3-36.8) Seconds Sodium 134 L (137-145) mmol/L Potassium 4.7 (3.4-5.0) mmol/L Chloride 99 (98-107) mmol/L Carbon Dioxide 26 (22-30) mmol/L Anion Gap 9 (4-12) mmol/L BUN 19 (9-20) mg/dL Creatinine 0.87 (0.7-1.3) mg/dL Estim Creat Clear Calc 74 ml/min Estimated GFR > 60 (59 - ) Glucose 253 H (65-110) mg/dL POC Capillary Glucose 253 H (65-105) mg/dl Lactic Acid (0.7-2.0) mmol/L Calcium 9.4 (8.4-10.2) mg/dL Phosphorus 2.9 (2.5-4.5) mg/dL Magnesium 1.4 L (1.6-2.3) mg/dL Total Bilirubin 1.1 (0.2-1.3) mg/dL AST 19 (17-59) U/L ALT 14 (6-50) U/L Alkaline Phosphatase 82 (38-126) U/L Troponin I < 0.012 (0.000-0.034) ng/mL NT-Pro-B Natriuret Pep 2540 H (19.9-100) pg/mL Total Protein 6.7 (6.3-8.2) g/dL Albumin 3.7 (3.5-5.1) g/dL Lipase 33 (23-300) U/L Urine Color Dark yellow (Yellow) Urine Appearance Clear (Clear) Urine pH 5.5 (5.0-9.0) Ur Specific [place] 1.022 (1.001-1.035) Urine Protein 2+ H (Negative) mg/dL Urine Glucose (UA) 2+ H (Negative) mg/dL Urine Ketones Trace H (Negative) mg/dL Ur Blood (Man) Negative (Negative) Urine Nitrate Positive H (Negative) Urine Bilirubin Negative (Negative) Urine Urobilinogen 1.0 (<2.0) mg/dL Add Ur Microanalysis Reviewed Leukocyte Esterase Rfl Trace H (Negative) HERMAN/UL Urine RBC 0-2 (0-2) /hpf Urine WBC 0-5 (0-3) /hpf Ur Squamous Epith Cells None seen (Few) /hpf Urine Bacteria 2+ H /hpf Urine Casts 3-5 Influenza A (RT-PCR) (Negative) Influenza B (RT-PCR) (Negative) RSV (RT-PCR) (Negative) SARS-CoV-2 RNA (RT-PCR) (Negative) 04/13/25 Range/Units 14:17 WBC (4.5-10.0) K/mm3 RBC (4.6-6.20) M/mm3 Hgb (14.0-18.0) g/dL Hct (42.0-52.0) % MCV (80-100) fl MCH (26-34) pg MCHC (32-36) g/dl RDW (11.5-14.5) % Plt Count (150-375) k/mm3 MPV (7.4-10.4) fl Immature Gran % (Auto) (0-0.5) % Neut % (Auto) (45.5-73.1) % Lymph % (Auto) (18.3-44.2) % [place] % (Auto) (2.6-8.5) % Eos % (Auto) (0-4.4) % Baso % (Auto) (0.2-1.2) % Lymph # (Auto) (0.9-3.2) K/mm3 [place] # (Auto) (0.1-0.6) K/mm3 Eos # (Auto) (0-0.3) K/mm3 Baso # (Auto) (0.0-0.1) K/mm3 Abs Immat Gran (auto) (0.00-0.031) K/mm3 Absolute Neuts (auto) (1.3-6.7) K/mm3 Absolute Nucleated RBC (0.0-0.012) K/mm3 Nucleated RBC % (0.0-0.2) % PT (11.1-14.7) Seconds INR APTT (22.3-36.8) Seconds Sodium (137-145) mmol/L Potassium (3.4-5.0) mmol/L Chloride (98-107) mmol/L Carbon Dioxide (22-30) mmol/L Anion Gap (4-12) mmol/L BUN (9-20) mg/dL Creatinine (0.7-1.3) mg/dL Estim Creat Clear Calc ml/min Estimated GFR (59 - ) Glucose (65-110) mg/dL POC Capillary Glucose (65-105) mg/dl Lactic Acid 1.4 (0.7-2.0) mmol/L Calcium (8.4-10.2) mg/dL Phosphorus (2.5-4.5) mg/dL Magnesium (1.6-2.3) mg/dL Total Bilirubin (0.2-1.3) mg/dL AST (17-59) U/L ALT (6-50) U/L Alkaline Phosphatase (38-126) U/L Troponin I (0.000-0.034) ng/mL NT-Pro-B Natriuret Pep (19.9-100) pg/mL Total Protein (6.3-8.2) g/dL Albumin (3.5-5.1) g/dL Lipase (23-300) U/L Urine Color (Yellow) Urine Appearance (Clear) Urine pH (5.0-9.0) Ur Specific [place] (1.001-1.035) Urine Protein (Negative) mg/dL Urine Glucose (UA) (Negative) mg/dL Urine Ketones (Negative) mg/dL Ur Blood (Man) (Negative) Urine Nitrate (Negative) Urine Bilirubin (Negative) Urine Urobilinogen (<2.0) mg/dL Add Ur Microanalysis Leukocyte Esterase Rfl (Negative) HERMAN/UL Urine RBC (0-2) /hpf Urine WBC (0-3) /hpf Ur Squamous Epith Cells (Few) /hpf Urine Bacteria /hpf Urine Casts Influenza A (RT-PCR) Negative (Negative) Influenza B (RT-PCR) Negative (Negative) RSV (RT-PCR) Negative (Negative) SARS-CoV-2 RNA (RT-PCR) Negative (Negative) ABG Data ABG results: 04/13/25 14:12 VBG pH 7.503 H* VBG pCO2 29.1 L* VBG pO2 51.0 H VBG HCO3 22.3 L O2 Delivery Device Room air O2 Liters/Min Not Reportable FiO2 21 Critical Care Time Critical Care Time Critical Care Time: Yes Total Critical Care Time: 35 Discharge Plan Discharge Clinical Impression: Altered mental status, Acute delirium, Fever of unknown origin, Frequent falls Patient Disposition: Still a Patient Condition: Stable Patient Language: Romansh Follow-up/Referrals: PHYSICIAN,AGRICULTURE SALES ACCOUNT MANAGER [Primary Care Provider] -
--- NOTE | 2025-04-13 15:59 | PCCCNOTE ---
Called to the pt's room for a Care Coordination Consult. Spoke with pt, and daughter at bedside. Stated the pt has had a slow decline with his Parkinson and they are needing extra help and wanted to now about Hospice. Did educate the family on hospice benefit and what it would require. Stated a consult can be made for a company to meet the pt to see if he qualifies for outpt hospice. It is their goal to stay at home after this acute issue is addressed. The also wanted to know if acute rehab or assisted living would be an option. Stated he had been attending outpt PT previously. Stated financially private pay is not a viable option for a long period. Called [facility] [employer] [facility] which was agreeable to meet the family after orders received. Verified with the [facility] would come to [place] on 04/14/25 at 1000 to meet the family. Requested forms faxed to [facility] for the Hospice Referral-hanh
[2025-04-13] MEDS: VANCOMYCIN 1,500 MG/NS 500 ML 1,500 MG/500 ML BAG 250 MG IVPB (16:19)
--- NOTE | 2025-04-13 16:45 | ECG_ITS ---
Test Date: 2025-04-13 16:51:23 Measurements Intervals [place] Rate: 99 P: 0 MS: 0 QRS: -11 QRSD: 105 T: 2 QT: 320 QTc: 412 Interpretive Statements ATRIAL FIBRILLATION INCOMPLETE RIGHT BUNDLE BRANCH BLOCK CONSIDER INFERIOR INFARCT, AGE INDETERMINATE ANTEROSEPTAL MYOCARDIAL INFARCTION , OF INDETERMINATE AGE BASELINE ARTIFACT- AVR, AVL, AVF, V1-V3 ABNORMAL ECG Compared to ECG 04/13/2025 13:18:18 No significant changes Electronically Signed On 04-13-2025 20:15:56 CDT by Jared Dupree D.O.
--- NOTE | 2025-04-13 17:01 | P.HP_ITS ---
H&P: HPI History of Present Illness Date/Time: 04/13/25 17:01 Chief Complaint: Altered mental status Narrative: 74-year-old male past medical history of prostate cancer with retention orthostatic hypotension Parkinson's, dementia baseline 3-4, AFib on Xarelto in frequent falls presents the hospital with altered mental status. His daughter is a nurse here in the emergency room. He was going to baby-sit her child while she was at work however she noticed that he had altered mental status and brought him with her the hospital. History is gathered from the daughter. Patient denies all complaints. Patient is a DNR DNI, family is mostly focused on comfort for the patient however there care with antibiotics. They have no desire to send him to rehab or to a alf. She is interested of services of palliative/hospice care. She wants to make most of the life that he has left at home. Lab work in the ED shows white count of 9.3, anemia of 11.8, VBG pH 7.530, CO2 of 29, PO2 of 51, bicarb of 22, sodium 134, glucose 153, magnesium 1.4, 1st troponin negative, proBNP 2540, UA with positive nitrates and trace leukocyte esterase 2+ bacteria, influenza A/B RSV and COVID negative. Head CT pending patient placed on sepsis protocol with unknown source Review of Systems Review of Systems: ROS unobtainable: Yes unobtainable due to mental status [facility] Past Medical History Medical History (Updated 04/13/25 @ 22:44 by Giuliana Land, CANTEEN ATTENDANT) Parkinsons disease Alzheimer's dementia Prostate cancer Status post resection Orthostatic hypotension Renal cyst Social History Social History Smoking packs per day: 1.5 Smoking cigarettes per day: 30.0 Smoking status: Former smoker Tobacco type: cigarettes Alcohol intake: never Substance use: never Do You Feel Safe in your Home?: Yes Lack of Transportation: No Lack of Food: Never True Current Housing: I Have Housing Concerned About Future Housing: No Difficulty Paying Gas/Electric Bills: No Difficulty Paying for Meds: No Currently Unemployed: No Education: Associate Degree Difficulty w/ Childcare or Family Care: No Spiritual care concerns: No Meds Home Medications and Allergies Home Medications ?Medication ?Instructions ?Recorded ?Confirmed ?Type atorvastatin 40 mg tablet 40 mg PO QPM 04/13/25 04/13/25 History bupropion HCl 300 mg 24 hr tablet, 300 mg PO QHS 04/13/25 04/13/25 History extended release carbidopa 25 mg-levodopa 100 mg 1 tablet PO TID 04/13/25 04/13/25 History tablet cholecalciferol (vitamin D3) 25 1,000 unit PO DAILY 04/13/25 04/13/25 History mcg (1,000 unit) capsule cyanocobalamin (vitamin B-12) 1,000 mcg PO DAILY 04/13/25 04/13/25 History 1,000 mcg tablet digoxin 125 mcg (0.125 mg) tablet 0.125 mg PO DAILY 04/13/25 04/13/25 History docusate sodium 100 mg capsule 100 mg PO HS 04/13/25 04/13/25 History (Colace) ferrous sulfate 325 mg (65 mg 325 mg PO DAILY 04/13/25 04/13/25 History iron) tablet folic acid 1 mg tablet 1 mg PO DAILY 04/13/25 04/13/25 History hydrocodone 5 mg-acetaminophen 325 1 tablet PO Q8H PRN pain 04/13/25 04/13/25 History mg tablet melatonin 10 mg capsule 10 mg PO HS 04/13/25 04/13/25 History metformin 1,000 mg tablet 1,000 mg PO BIDAC 04/13/25 04/13/25 History metoprolol succinate 25 mg 12.5 mg PO DAILY 04/13/25 04/13/25 History tablet,extended release 24 hr mirabegron 25 mg tablet,extended 25 mg PO DAILY 04/13/25 04/13/25 History release 24 hr polyethylene glycol 3350 17 17 g PO DAILY PRN constipation 04/13/25 04/13/25 History gram/dose oral powder (ClearLax) rivaroxaban 20 mg tablet (Xarelto) 20 mg PO DAILY 04/13/25 04/13/25 History solifenacin 10 mg tablet 10 mg PO DAILY 04/13/25 04/13/25 History venlafaxine 75 mg capsule,extended 75 mg PO DAILY 04/13/25 04/13/25 History release 24 hr Allergies Allergy/AdvReac Type Severity Reaction Status Date / Time oxycodone AdvReac Severe Hallucinati Verified 04/13/25 13:52 ng tamsulosin (From Flomax) AdvReac Hypotension Verified 04/13/25 13:52 Vital Signs Vital Signs - 24 hr 04/13/25 13:05 04/13/25 13:06 04/13/25 13:53 Temperature 101.7 F H 101.7 F H Pulse Rate 92 95 82 Respiratory Rate 20 18 Blood Pressure 128/58 L 128/58 L Pulse Oximetry 94 97 Oxygen Delivery Room Air 04/13/25 14:00 04/13/25 14:01 04/13/25 15:08 Temperature 100.4 F H Pulse Rate 84 91 Respiratory Rate 30 H 28 H Blood Pressure 122/60 129/65 Pulse Oximetry 100 96 95 Oxygen Delivery Room Air 04/13/25 15:37 04/13/25 15:45 Temperature 99.6 F 99.6 F Pulse Rate 90 Respiratory Rate 21 H Blood Pressure 118/69 Pulse Oximetry 97 Oxygen Delivery Exam Narrative: General: well appearing, appears stated age. HEENT: normocephalic, atraumatic. Mucous membranes moist. EOMI, PERRLA, bilateral sclera anicteric, no conjunctival injection. Neck supple without JVD, lymphadenopathy, or bruit. Respiratory: clear to ascultation bilaterally. No rales/rhonic/wheezes. Cardiovascular: Regular rate and rhythm, normal S1-S2 upon ascultation. No murmurs, rubs, or clicks. PMI is nondisplaced, capillary refill less than 3 second. Abdomen: Soft, round, no pulsatile masses, nondistended and nontender. No rebound, no guarding. No CVA tenderness, no hepatosplenomegaly. Bowel sounds present to all four quadrants. No high pitch or tinkling sounds, resonant to percussion. Extremities: No cyanosis, clubbing, or edema present. Pulses are palpable 2/2. Active ROM to all four extremities. Neuro: Alert and orientated x 2. PERRLA. Cranial nerves 2-12 intact without focal deficit. Skin: Warm, dry, and intact, without rash, erythema, or lesion. Psych: pleasant, cooperative, normal speech, normal affect, no hallucinations, no dysarthia H&P: Results Labs Labs: Short CBC 04/13/25 Range/Units 13:11 WBC 9.3 (4.5-10.0) K/mm3 Hgb 11.8 L (14.0-18.0) g/dL Hct 38.3 L (42.0-52.0) % Plt Count 203 (150-375) k/mm3 BMP 04/13/25 13:11 Sodium 134 L Potassium 4.7 Chloride 99 Carbon Dioxide 26 BUN 19 Creatinine 0.87 Glucose 253 H Calcium 9.4 Cardiac Enzymes 04/13/25 Range/Units 13:11 Troponin I < 0.012 (0.000-0.034) ng/mL Liver Function 04/13/25 Range/Units 13:11 Total Bilirubin 1.1 (0.2-1.3) mg/dL AST 19 (17-59) U/L ALT 14 (6-50) U/L Alkaline Phosphatase 82 (38-126) U/L Albumin 3.7 (3.5-5.1) g/dL Urine 04/13/25 Range/Units 13:58 Urine Color Dark yellow (Yellow) Urine Appearance Clear (Clear) Urine pH 5.5 (5.0-9.0) Ur Specific [place] 1.022 (1.001-1.035) Urine Protein 2+ H (Negative) mg/dL Urine Glucose (UA) 2+ H (Negative) mg/dL Assessment and Plan Assessment and plan (1) UTI (urinary tract infection): Code(s): N39.0 - Urinary tract infection, site not specified Status: Acute Assessment and Plan: IV Rocephin Cultures and sensitivities pending No need for IVF, patient received 3 L fluid bolus in ED (2) Altered mental status: Code(s): R41.82 - Altered mental status, unspecified Status: Acute Assessment and Plan: Likely due to urosepsis, on top of dementia Continue home Alzheimer's meds Sitter if needed (3) Constipation: Code(s): K59.00 - Constipation, unspecified Status: Acute Assessment and Plan: Patient is severely constipated Stool softeners and senna This could be contributing to his altered mental status (4) Frequent falls: Code(s): R29.6 - Repeated falls Status: Acute Assessment and Plan: PT OT evaluation for recommendations for equipment at home Fall precautions (5) Parkinsons disease: Code(s): G20.A1 - Parkinson's disease without dyskinesia, without mention of fluctuations Status: Acute Assessment and Plan: Continue Parkinson's medications (6) Alzheimer's dementia: Code(s): G30.9 - Alzheimer's disease, unspecified; F02.80 - Dementia in other diseases classified elsewhere, unspecified severity, without behavioral disturbance, psychotic disturbance, mood disturbance, and anxiety Status: Acute Assessment and Plan: Continue Alzheimer's medication (7) Orthostatic hypotension: Code(s): I95.1 - Orthostatic hypotension Status: Acute Assessment and Plan: Patient is unable to Flomax because of orthostatic hypotension Fall precautions (8) Renal cyst: Code(s): N28.1 - Cyst of kidney, acquired Status: Inactive Assessment and Plan: Seen on CT here, family is aware of this they have already had taking care of Quality VTE Prophylaxis VTE prophylaxis: mechanical ordered Hospitalist MIPS Advance Care Plan I have confirmed that the patient's Advanced Care Plan is present, code status is documented, or surrogate decision maker is listed in patient medical record.: Yes Medication Reconciliation I have utilized all available resources to obtain, update and review the patients current medications (includes all prescriptions, OTC, herbals, cannabis, and nutritional supplements).: Yes
[2025-04-13 17:16] LABS: Troponin I < 0.012 ng/mL (0.000-0.034)
--- OUTSIDE RECORDS SUMMARY | 2025-04-13 17:28 | XMS_ITS | Encounter Summary ---
Author Organization [facility] Facility Care Team Providers Care Nursing Home Aide Name Role Phone Raymundo Mcmillan MD Primary Care Provider [phone] Carlota Benton DO Primary Care Provider [phone] Inés Hickey MD Unavailable [phone] Harpal Dave MD Unavailable [phone] Mike Jose MD Unavailable [phone] Encounter Details Date Type Department Care Team (Latest Contact Info) Description 11/21/2016 Orders Only [facility] CLINCONV ProviderMayi MD [address] [place] [id number] Social History Tobacco Use Types Packs/Day Years Used Date Smoking Tobacco: Never Assessed Sex and Gender Information Value Date Recorded Sex Assigned at Not on file Legal Sex Male 8:58 PM PYROTECHNICS PRESS TENDER Gender Identity Male 01/30/2023 6:41 PM CDT Sexual Orientation Straight 01/30/2023 6: 41 PM CDT documented as of this encounter Plan of Treatment Not on file documented as of this encounter Procedures Procedure Name Priority Date/Time Associated Diagnosis Comments SCAN - LABS 11/12/2016 12:00 AM PYROTECHNICS PRESS TENDER documented in this encounter Results * SCAN - LABS (11/12/2016 12:00 AM PYROTECHNICS PRESS TENDER) Narrative 11/12/2016 12:00 AM PYROTECHNICS PRESS TENDER Ordered by an unspecified provider. us Historical Provider Final Res ult documented in this encounter Visit Diagnoses Not on filedocumented in this encounter Care Teams Nursing Home Aide Relationship Specialty Start Date End Date Raymundo Mcmillan MD [address] [facility] [address] [place] [address] PCP - General 02/02/17 03/16/17 Carlota Benton DO [address] [facility] [address] [place] [address] PCP - General 03/17/17 Inés Hickey MD [address] [facility] [place] [address] Consulting Physician Neurosurgery 12/05/24 Harpal Dave MD [address] [place] [address] Consulting Physician Urology 12/26/24 Mike Jose MD [address] [facility] [address] [place] [address] [place] [id number] Consulting Physician Orthopedic Surgery 01/10/25 documented as of this encounter
--- OUTSIDE RECORDS SUMMARY | 2025-04-13 17:28 | XMS_ITS | Encounter Summary ---
Author Organization [facility] Facility Care Team Providers Care Seismometer Operator Name Role Phone Raymundo Mcmillan MD Primary Care Provider [phone] Carlota Benton DO Primary Care Provider [phone]- [phone] Inés Hickey MD Unavailable [phone] Harpal Dave MD Unavailable [phone] Mike Jose MD Unavailable [phone] Encounter Details Date Type Department Care Team (Latest Contact Info) Description 02/26/2017 Orders Only [facility] CLINCONV ProviderMayi MD [address] [place] [address] Social History Tobacco Use Types Packs/Day Years Used Date Smoking Tobacco: Never Assessed Sex and Gender Information Value Date Recorded Sex Assigned at Not on file Legal Sex Male 8:58 PM PETROLEUM REFINING EQUIPMENT OPERATOR Gender Identity Male 01/30/2023 6:41 PM [...] on filedocumented in this encounter Care Teams Seismometer Operator Relationship Specialty Start Date End Date Raymundo Mcmillan MD [address] [facility] [address] [place] [address] PCP - General 02/02/17 03/16/17 Carlota Benton DO [address] [place] [address] PCP - General 03/17/17 Inés Hickey MD [address] [facility] [place] [address] Consulting Physician Neurosurgery 12/05/24 Harpal Dave MD [address] [place] [address] Consulting Physician Urology 12/26/24 Mike Jose MD [address] [facility] [address] [place] [address] [place] [id number] Consulting Physician Orthopedic Surgery 01/10/25 documented as of this encounter
--- OUTSIDE RECORDS SUMMARY | 2025-04-13 17:28 | XMS_ITS | Clinical Summary ---
Author Organization [facility] Address [address] [place] [address] Care Team Providers Care Requisition Approver Name Role Phone Unavailable Primary Care Provider Unavailabl e Source Comments [facility],non-owned Affiliates and Associated Physician Practices is amultiple site organization consisting of ambulatory clinics and hospital sitesin [place], [place], [place] and [place]. This disclosure is being madepursuant to the Care Everywhere program and may not contain all information available regarding this patient. Last updated 18.[facility] Social History Tobacco Use Types Packs/Day Years Used Date Smoking Tobacco: Never Assessed Sex and Gender Information Value Date Recorded Sex Assigned at Not on file Legal Sex Male 5:01 AM CITY SOLICITOR Gender Identity Not on file Sexual Orientation [...] patient's age to complete this topic Insurance [facility] [employer] MEDICARE
--- OUTSIDE RECORDS SUMMARY | 2025-04-13 17:28 | XMS_ITS | Encounter Summary ---
Author Organization [facility] Address [address] [place] [address] Care Team Providers Care Cctv Technician Name Role Phone Raymundo Mcmillan MD Primary Care Provider Carlota Benton DO Primary Care Provider [phone] Inés Hickey MD Unavailable Harpal Dave MD Unavailable [phone] Mike Jose MD Unavailable [phone] Encounter Details Date Type Department Care Team (Late st Contact Info) Description 05/11/2014 Orders Only [facility] Health Information Management [address] [place] [address] Scanning, Provider Social History Tobacco Use Types Packs/Day Years Used Date Smoking Tobacco: Never Assessed Sex and Gender Information Value Date Recorded Sex Assigned at Not on file Legal Sex Male 8:58 PM 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 LINGUIST Gender Identity Male 01/30/2023 6:41 PM CDT [...] on filedocumented in this encounter Care Teams Cctv Technician Relationship Specialty Start Date End Date Raymundo Mcmillan MD [address] [place] [address] PCP - General 02/02/17 03/16/17 Carlota Benton DO [address] [place] [address] PCP - General 03/17/17 Inés Hickey MD [address] [facility] [place] [address] Consulting Physician Neurosurgery 12/05/24 Harpal Dave MD [address] [place] [address] Consulting Physician Urology 12/26/24 Mike Jose MD [address] [address] Consulting Physician Orthopedic Surgery 01/10/25 documented as of this encounter
--- OUTSIDE RECORDS SUMMARY | 2025-04-13 17:28 | XMS_ITS | Encounter Summary ---
Author Organization [facility] Address [address] [facility] [place] [address] Care Team Providers Care Building Serviceman Name Role Phone Unavailable Primary Care Provider Unavailabl e Encounter Details Date Type Department Care Team (Late st Contact Info) Description 12/30/2019 Lab Requisition [facility] [address] [facility] [facility] [place] [phone] Hazel Day MD [address] [facility] [address] [place] [address] Social History Tobacco Use Types Packs/Day Years Used Date Smoking Tobacco: Never Assessed Sex and Gender Information Value Date Recorded Sex Assigned at Not on file Legal Sex Male 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 Gender Identity Not on file Sexual Orientation Not on file documented as of this encounter Plan of Treatment Not on file documented as of this encounter Procedures Procedure Name Priority Date/Time Associated Diagnosis Comments DERMATOPATHOLOGY Routine 12/29/2019 12:0 0 AM FINANCIAL INVESTMENT MANAGER documented in this encounter Results * DERMATOPATHOLOGY (12/29/2019 12:00 AM FINANCIAL INVESTMENT MANAGER) Case Report Dermatopathology Report Case: [id number] Authorizing Provider: Hazel Day MD Collected: 12/29/2019 12:00 AM Ordering Location: [facility] Received: 12/30/2019 08:37 AM Pathologist: Hansa Huang MD Specimen: Skin, post neck 0 [...] post neck. The specimen consists of a [id number] excision, bisected. Jar 0+. 0 5:05 PM [facility] DERMAT[facility] Microscopic Description Specimen A. SKIN, [...] characteristic determined by the Dermatopathology Laboratory at [facility], directed by Dr. Malinda Nguyen. These tests need not be, and therefore are not, approved by the [place] Food and Drug Administration. The tests are used for clinical purposes. Billing Codes Specimen Charges Stain Charges 92248 1 0 5:05 PM CDT DERMATOPATHOLOGY LABORATORY Embedded Images 0 5:05 PM T DERMATOPATHOLOGY LABORATORY Pathology/Cytolog y TISSUE SPECIMEN FROM SKIN / Unknown 12/29/2019 12/30/2019 8:37 AM FINANCIAL INVESTMENT MANAGER us Hazel Day MD LAB - PATHOLOGY/CYTOLOGY OR DERABLES Final Result DERMATOPATHOLOGY LABORATORY [facility] - Department of Dermatology [address] [place] [address] 5th [place] [address], [facility] [phone] documented in this encounter Visit Diagnoses Not on filedocumented in this encounter
--- OUTSIDE RECORDS SUMMARY | 2025-04-13 17:28 | XMS_ITS | Clinical Summary ---
Author Organization [facility] Address [facility] [place] [address] Care Team Providers Care Gluing Machine Offbearer Name Role Phone Carlota Benton DO Primary Care Provider [phone] Gemma Trevino MD Unavailable [phone] Allergies No known active allergies Medications hydrocodone-corky taminophen 5-325 MG tablet TAKE 1 TABLET EVERY 4 TO 6 HOURS NEEDED, pain 7 Active buPROPion XL 300 MG 24 hr tablet Take 300 mg by mouth daily. Active digoxin 0.125 MG tablet Take 125 mcg by mouth daily. Active metoprolol tartrate 50 MG tablet Take 50 mg by mouth 2 (two) times daily. Active duloxetine 60 MG capsule Take 60 mg by mouth daily. Takes 30 mg capsule with 60 mg capsule to equal 90 mg daily in the am 3 9 Active glimepiride 4 MG tablet Take 4 mg by mouth 2 (two) times daily. 4 Active rivaroxaban 20 MG Tab tablet Take 20 mg by mouth daily. XARELTO Active multivitamin tablet Take 1 tablet by mouth daily. Active tamsulosin 0.4 MG Cap Take 0.4 mg by mouth 2 (two) times daily. 4 Active docusate sodium 100 MG capsule Take 100 mg by mouth as needed. Active fluticasone propionate 50 MCG/ACT nasal spray SPRAY 1 SPRAY BY INTRANASAL ROUTE EVERY DAY IN EACH NOSTRIL NEEDED 9 Active Glucosamine-Cho ndroitin 250-200 MG Cap 9 Active atorvastatin (LIPITOR) 40 MG tablet Take 40 mg by mouth nightly. 9 Active DULoxetine (CYMBALTA) 30 MG capsule Take 30 mg by mouth daily. Takes 30 mg capsule with 60 mg capsule to equal 90 mg daily in the am Active metFORMIN (GLUCOPHAGE) 1000 MG tablet Take 1,000 mg by mouth 2 (two) times daily with meals. Active linaCLOtide (LINZESS) 72 MCG Cap Take 1 tablet by mouth daily. Active polyethylene glycol (GLYCOLAX) packet Take 17 g by mouth daily. Dissolve powder in 240 mL water Active Inulin (FIBER CHOICE FRUITY BITES OR) Take 1 Dose by mouth as needed. 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 Immunizations Immunization Administration Dates Next Due MODERNA COVID-19 (12+) MRNA, LNP-S, PF, 100 MCG/ 0.5 ML DOSE 01/03/2021,12/06/2020 Family History Medical History Relation Comments Stroke Father Diabetes Maternal Aunt Cancer Mother Pancreatic cancer Mother Diabetes Paternal Aunt Cancer Paternal Grandmother Diabetes Paternal Grandmother Hypertension Paternal Grandmother Stroke Paternal Grandmother Arthritis Paternal Uncle Relation Status Comments Daughter Alive Father (Age 36) aneurysm in br ain, stroke Maternal Aunt Mother (Age 56) of pancre atic cancer Paternal Aunt Paternal Grandmother Paternal Uncle Son Alive Social History Tobacco Use Types Packs/Day Years Used Date Smoking Tobacco: Former Cigarettes 1 10 1 975 - 1984 Smokeless Tobacco: Former Tobacco Cessation:Counseling Given: No Comments:chewed tobacco for 2 years, years ago Alcohol Use Standard Drinks/Week Comments No 0 (1 standard drink = 0.6 oz pur e alcohol) stopped alcohol about 2010 AUDIT-C Answer Date Recorded Frequency of Alcohol Consumption Never 07/08/2019 Average Number of Drinks Not on file 019 Frequency of Binge Drinking Not on file 06/26 Sex and Gender Information Value Date Recorded Sex Assigned at Not on file Legal Sex Male 7:37 PM CDT Gender Identity Not on file Sexual Orientation Not on file Last Filed Vital Signs Vital Sign Reading Time Taken Comments Blood Pressure 138/88 06/10/2022 9:20 AM CDT Pulse 84 06/10/2022 9:20 AM CDT Temperature 36.8 C (98.2 F) 06/10/2022 9:20 AM CDT Respiratory Rate 18 06/10/2022 9:20 AM CDT Oxygen Saturation 94% 06/10/2022 9:20 AM CDT Inhaled Oxygen Concentration - - Weight 119.9 kg (264 lb 5.3 oz) 06/10/2022 6:24 AM CDT Height 185.4 cm (6' 1) 06/10/2022 6:24 AM CDT Body Mass Index 34.87 06/10/2022 6:24 AM CDT Plan of Treatment Health Maintenance Due Date Last Done Comments Colorectal Cancer Screening Colonoscopy (10 Years) 1950 Hepatitis C 1968 RSV Immunization or 60+ Years (1 - Risk 60-74 years 1-dose series) 2010 Annual Medicare Wellness Visit 2015 Zoster Vaccines (2 of 3) 11/20/2016 09/25/2016 COVID-19 Vaccine (4 - 2023-2 5 season) 2024 08/23/2021, 01/03/2021, 12/06/2020 DTaP, Tdap and Td Vaccines ( 2 - Td or Tdap) 09/20/2029 09/20/2019 Pneumococcal Vaccine: 50+ Years Completed 09/14/2018, 05/01/2017 Meningococcal B Vaccine Aged Out No l onger eligible based on patient's age to complete this topic Meningococcal Vaccine Aged Out No michael sadia eligible based on patient's age to complete this topic RSV Immunizations Under 20 Months Aged Out No longer eligible b ased on patient's age to complete this topic Medical Devices Implanted Type Area Fish Checker Device Identifier Shelf Expiration Date Model / Serial / Lot Urolift - [id number] Implanted:Qty : 2 on 06/10/2022 by Harpal Dave MD at [facility] Urology N/A: Prostate TELEFLEX MEDICAL 03/25/2024 [id number] / / [id number] Insurance [employer] Care Teams Gluing Machine Offbearer Relationship Specialty Start Date End Date Carlota Benton DO [address] [place] [phone] PCP - General INTERNAL MEDICINE 06/01/19 Gemma Trevino MD [address] [place] [address] [id number] [place] [address] Referring Physician CARDIOVASCULAR DISEASE 05/30/22
--- OUTSIDE RECORDS SUMMARY | 2025-04-13 17:28 | XMS_ITS | Encounter Summary ---
Author Organization [facility] Facility Care Team Providers Care Airline Customer Service Agent Name Role Phone Carlota Benton DO Primary Care Provider [phone] Inés Hickey MD Unavailable Harpal Dave MD Unavailable [phone] Mike Jose MD Unavailable [phone] Encounter Details Date Type Department Care Team (Latest Contact Info) Description 07/01/2017 Orders Only [facility] ProviderMayi MD [address] [place] [address] Social History Tobacco Use Types Packs/Day Years Used Date Smoking Tobacco: Never Assessed Sex and Gender Information Value Date Recorded Sex Assigned at Not on file Legal Sex Male 8:58 PM VISCOSITY WORKER Gender Identity Male 01/30/2023 6:41 PM CDT [...] on filedocumented in this encounter Care Teams Airline Customer Service Agent Relationship Specialty Start Date End Date Carlota Benton DO PCP - General 03/17/17 Inés Hickey MD 1 [facility] [place] [address] Consulting Physician Neurosurgery 12/05/24 Harpal Dave MD [address] [place] [address] Consulting Physician Urology 12/26/24 Mike Jose MD [address] [facility] [address] [address] Consulting Physician Orthopedic Surgery 01/10/25 documented as of this encounter
--- OUTSIDE RECORDS SUMMARY | 2025-04-13 17:28 | XMS_ITS | Encounter Summary ---
Author Organization [facility] Care Team Providers Care Under Cutting Machine Operator Name Role Phone Raymundo Mcmillan MD Primary Care Provider [phone] Carlota Benton DO Primary Care Provider [phone] Inés Hickey MD Unavailable [phone] Harpal Dave MD Unavailable [phone] Mike Jose MD Unavailable [phone] Encounter Details Date Type Department Care Team (Latest Contact Info) Description 07/02/2016 Orders Only [facility]INCON[facility] ProviderMayi MD [address] [place] [address] Social History Tobacco Use Types Packs/Day Years Used Date Smoking Tobacco: Never Assessed Sex and Gender Information Value Date Recorded Sex Assigned at Not on file Legal Sex Male 8:58 PM DATABASE OPERATOR Gender Identity Male 01/30/2023 6:41 PM [...] on filedocumented in this encounter Care Teams Under Cutting Machine Operator Relationship Specialty Start Date End Date Raymundo Mcmillan MD [address] [facility] [address] [place] [address] PCP - General 02/02/17 03/16/17 Carlota Benton DO [address] [facility] [address] [place] [address] PCP - General 03/17/17 Inés Hickey MD 1 [facility] [place] [address] Consulting Physician Neurosurgery 12/05/24 Harpal Dave MD [address] [place] [address] Consulting Physician Urology 12/26/24 Mike Jose MD [address] [facility] [address] [facility] [address] [place] [address] Consulting Physician Orthopedic Surgery 01/10/25 documented as of this encounter
--- OUTSIDE RECORDS SUMMARY | 2025-04-13 17:28 | XMS_ITS | Encounter Summary ---
Author Organization [facility] Address [address] [place] [address] Care Team Providers Care Cam Maker Name Role Phone Carlota Benton DO Primary Care Provider [phone] Gemma Trevino MD Unavailable [phone] Encounter Details Date Type Department Care Team (Late st Contact Info) Description 07/15/2019 Abstract [facility] at [facility], [address] [address] Nikhil Morales MA Social History Tobacco Use Types Packs/Day Years Used Date Smoking Tobacco: Former Cigarettes Smokeless Tobacco: Never Alcohol Use Standard Drinks/Week Comments No 0 (1 standard drink = 0.6 oz pur e alcohol) AUDIT-C Answer Date Recorded Frequency of Alcohol [...] Procedure Name Priority Date/Time Associated Diagnosis Comments ESR (OUTSIDE LAB) Routine 02/11/2019 CBC (OUTSIDE LAB) Routine 02/11/2019 COMPREHENSIVE METABOLIC PANEL Routine 02/11/2019 LIPID PANEL Routine 02/11/2019 HEMOGLOBIN, GLYCOSYLATED Routine 02/11/2019 THYROID STIM HORMONE TSH Routine 02/11/2019 CK (CPK) Routine 02/11/2019 documented in this encounter Results * CBC (OUTSIDE LAB) (02/11/2019) WBC 9.4 HGB 14.1 HCT 46.5 PLT 197 02/11/2019 us Doc [facility] Abstract LAB-OUTSIDE/ABSTRACTED Final Result * COMPREHENSIVE METABOLIC PANEL (02/11/2019) Pathologist [facility] SODIUM S/P/B 138 POTASSIUM S/P/B 5.2 CO2 25 CHLORIDE S/P/B 106 GLUCOSE 102 mg/dL CALCIUM S/P/B 9.5 BUN 16 CREATININE S/P/B 0.88 0.7 - 1.3 EGFR AFR. AMER. >60 EGFR NON-AFR. AMER. >60 <=90 ALKALINE PHOSPHATASE S/P/B 77 ALT 28 AST 26 BILIRUBIN TOTAL S/P/B 0.7 ALBUMIN S/P/B 3.6 3.5 - 5.0 TOTAL PROTEIN S/P/B 6.5 GLOBULIN 2.9 02/11/2019 us Doc [facility] LABORATORY Final Result * CK (CPK) (02/11/2019) CPK 80 02/11/2019 us Doc [facility] LABORATORY Final Result * HEMOGLOBIN, GLYCOSYLATED (02/11/2019) HGB A1C 6.0 02/11/2019 us Doc [facility] LABORATORY Final Result * LIPID PANEL (02/11/2019) CHOLESTEROL 108 HDL 33 TRIGLYCERIDES 82 LDL (CALCULATED) 59 02/11/2019 us Doc [facility] Final Result * ESR (OUTSIDE LAB) (02/11/2019) SED RATE 3 0 - 20 mm/hr 02/11/2019 us Doc [facility] Abstract LAB-OUTSIDE/ABSTRACTED Final Result * THYROID STIM HORMONE, TSH (02/11/2019) TSH 2.22 0.47 - 4.68 02/11/2019 us Doc [facility] LABORATORY Final Result documented in this encounter Visit Diagnoses Not on filedocumented in this encounter Care Teams Cam Maker Relationship Specialty Start Date End Date Carlota Benton DO [address] [place] [address] PCP - General INTERNAL MEDICINE 06/01/19 Gemma Trevino MD [address] [place] [address] [id number] [place] [address] Referring Physician CARDIOVASCULAR DISEASE 05/30/22 documented as of this encounter
--- OUTSIDE RECORDS SUMMARY | 2025-04-13 17:29 | XMS_ITS ---
Author Organization [facility] Address [address] [place] [address] Care Team Providers Care Public Works Supervisor Name Role Phone Carlota Benton DO Primary Care Provider Inés Hickey MD Unavailable Harpal Dave MD Unavailable Mike Jose MD Unavailable [phone] Active Problems Problem Noted Date Diagnosed Date [...] H&H currently 7.8/25.5. We will order additional 39654 units of Epogen x1. Xarelto remain on [...] Pain is controlled with scheduled Tylenol, p.r.n. [place]. Patient has made good progress in therapy, patient is felt stable for discharge on 02/02/2025 to return home with his and outpatient therapy Assessment & Plan (01/23/2025 7:39 PM CDT): Edema slowly improving, pain is relatively well controlled with p.r.n. Tylenol, p.r.n. [place]. [place] to be removed today. Encouraged ice and elevation. Xarelto be placed on hold due to anemia. Assessment & Plan (01/20/2025 8:15 PM CDT): Overall pain is adequately controlled with p.r.n. Tylenol, p.r.n. [place]. Encouraged patient to utilize ice and elevation [...] to a safer level of care. Continue [place] 5 mg every 8 hours p.r.n. pain. [...] (05/05/2019): Added automatically from request for surgery [id number] Renal cell carcinoma 04/14/2017 Overview (02/08/2025): Status [...]
--- OUTSIDE RECORDS SUMMARY | 2025-04-13 17:29 | XMS_ITS | Encounter Summary ---
Author Organization [facility] Facility Care Team Providers Care Linux Security Administrator Name Role Phone Carlota Benton DO Primary Care Provider [phone] Inés Hickey MD Unavailable Harpal Dave MD Unavailable [phone] Mike Jose MD Unavailable [phone] Encounter Details Date Type Department Care Team (Latest Contact Info) Description 09/04/2017 Orders Only [facility]INCON[facility] ProviderMayi MD [address] [place] [address] Social History Tobacco Use Types Packs/Day Years Used Date Smoking Tobacco: Never Assessed Sex and Gender Information Value Date Recorded Sex Assigned at Not on file Legal Sex Male 8:58 PM HYDROPULPER OPERATOR Gender Identity Male 01/30/2023 6:41 PM [...] on filedocumented in this encounter Care Teams Linux Security Administrator Relationship Specialty Start Date End Date Carlota Benton DO PCP - General 03/17/17 Inés Hickey MD [address] [facility] [place] [address] Consulting Physician Neurosurgery 12/05/24 Harpal Dave MD [address] [place] [address] Consulting Physician Urology 12/26/24 Mike Jose MD [address] [facility] [address] [address] Consulting Physician Orthopedic Surgery 01/10/25 documented as of this encounter
--- OUTSIDE RECORDS SUMMARY | 2025-04-13 17:29 | XMS_ITS | Referral Summary ---
Author Organization [facility] Address [address] [place] [address] Care Team Providers Care Test Developer Name Role Phone Carlota Benton DO Primary Care Provider Inés Hickey MD Unavailable Harpal Dave MD Unavailable [phone] Mike Jose MD Unavailable [phone] Encounters Date Type Department Care Team Description 04/04/2025 Plan of Care Documentation [facility] OP Occup Therapy [address] [place] [phone] 03/29/2025 9:30 AM CDT Therapy [facility] OP Occup Therapy [address] [place] [address] Ron, Mamie, OT Parkinson's disease without dyskinesia, unspecified whether manifestations fluctuate (HCC) (Primary Dx); Dementia without behavioral disturbance, psychotic disturbance, mood disturbance, or anxiety, unspecified dementia severity, unspecified dementia type (HCC) 03/22/2025 10:15 AM CDT Office Visit [facility] Orthopedics and Sports Medicine [address] [place] [address] [address] [place] [phone] Mike Jose MD Status post right knee replacement 03/14/2025 11:15 AM CDT Therapy [facility] OP Physical Therapy [address] [place] [address] Dodie Terrell, PT Aftercare following right knee joint replacement surgery (Primary Dx) 03/10/2025 10:45 AM CDT Therapy [facility] OP Physical Therapy [address] [place] [address]47 Pat Matias, CUSTOMS AND BORDER PROTECTION INSPECTOR Aftercare following right knee joint replacement surgery (Primary Dx) 03/06/2025 3:00 PM CDT Therapy [facility] OP Physical Therapy [address] [place] [address] Pat Matias, CUSTOMS AND BORDER PROTECTION INSPECTOR Aftercare following right knee joint replacement surgery (Primary Dx) 03/03/2025 10:00 AM CDT Therapy [facility] OP Physical Therapy [address] [place] [address] Pat Matias, CUSTOMS AND BORDER PROTECTION INSPECTOR Aftercare following right knee joint replacement surgery (Primary Dx) 02/28/2025 9:15 AM CDT Therapy [facility] OP Physical Therapy [address] [place] [address] Pat Matias, CUSTOMS AND BORDER PROTECTION INSPECTOR Aftercare following right knee joint replacement surgery (Primary Dx) 02/24/2025 8:30 AM CDT Therapy [facility] OP Physical Therapy [address] [place] [address] Pat Matias, CUSTOMS AND BORDER PROTECTION INSPECTOR Aftercare following right knee joint replacement surgery (Primary Dx) 02/20/2025 9:15 AM CDT Therapy [facility] OP Physical Therapy [address] [place] [phone] Pat Matias, CUSTOMS AND BORDER PROTECTION INSPECTOR Aftercare following right knee joint replacement surgery (Primary Dx) 02/17/2025 1:30 PM CDT Therapy [facility] OP Physical Therapy [address] [place] [address] Pat Matias, CUSTOMS AND BORDER PROTECTION INSPECTOR Aftercare following right knee joint replacement surgery (Primary Dx) 02/14/2025 8:30 AM CDT Therapy [facility] OP Physical Therapy [address] [place] [address] Debra Mathis, CUSTOMS AND BORDER PROTECTION INSPECTOR Aftercare following right knee joint replacement surgery (Primary Dx) 02/10/2025 8:30 AM CDT Therapy [facility] OP Physical Therapy [address] [place] [address] Elissa Perkins, CUSTOMS AND BORDER PROTECTION INSPECTOR Aftercare following right knee joint replacement surgery (Primary Dx) 02/08/2025 9:35 AM CDT - 02/08/2025 11:59 PM CDT Hospital Encounter [facility] Di[facility] Imaging [address] [place] [phone] Status post total right knee replacement Discharge Disposition: Discharge to home or self care 02/08/2025 9:30 AM CDT Office Visit [facility] Medicine [address] [place] [phone] Mike Jose MD Status post total right knee replacement (Primary Dx) 02/07/2025 Plan of Care Documentation [facility] OP Physical Therapy [address] [place] [address] 02/07/2025 4:45 PM CDT Therapy [facility] OP Physical Therapy [address] [place] [address] Dodie Terrell, PT Aftercare following right knee joint replacement surgery; Presence of right artificial knee joint 02/03/2025 Telephone [facility] Post Acute Care [address] [facility] [address] [place] [phone] Sheila Rodriguez MA 02/01/2025 NH/SNF Visit [facility] Post Acute Care [address] [phone] Shea Baltazar PA Aftercare following right knee joint replacement surgery (Primary Dx); Persistent atrial fibrillation (HCC); Orthostatic hypotension; Dyslipidemia; Type 2 diabetes mellitus without complication, without long-term current use of insulin (HCC); Slow transit constipation; Anemia due to acute blood loss; Anxiety and depression; Parkinson's disease without dyskinesia, unspecified whether manifestations fluctuate (HCC) 02/01/2025 Orders Only [facility] [address] [place] [phone] Shea Baltazar PA 01/31/2025 NH/SNF Visit [address] [phone] Shea Baltazar PA Anemia due to acute blood loss (Primary Dx); Type 2 diabetes mellitus without complication, without long-term current use of insulin (HCC); Persistent atrial fibrillation (HCC); Orthostatic hypotension 01/30/2025 Orders Only [facility] [address] [place] [phone] Shea Baltazar PA 01/27/2025 NH/SNF Visit [address] [phone] Shea Baltazar PA Orthostatic hypotension (Primary Dx); Anemia due to acute blood loss; Leukocytosis, unspecified type; Type 2 diabetes mellitus without complication, without long-term current use of insulin (HCC) 01/27/2025 Orders Only [facility] [address] [place] [phone] Shea Baltazar PA 01/25/2025 Orders Only [facility] [address] [place] [phone] Shea Baltzaar PA 01/25/2025 NH/SNF Visit [address] [phone] Shea Baltazar PA Essential (primary) hypertension (Primary Dx); Anemia due to acute blood loss; Vasovagal syncope; Anxiety and depression; Slow transit constipation 01/24/2025 11:48 AM CDT - 01/24/2025 11:59 PM CDT Hospital Encounter [facility] [address] [place] [address] Slow transit constipation Discharge Disposition: Discharge to home or self care 01/24/2025 Orders Only [facility] Post [address] [phone] Shea Baltazar PA Slow transit constipation (Primary Dx) 01/23/2025 NH/SNF Visit [facility] Post [address] [phone] Shea Baltazar PA Anemia due to acute blood loss (Primary Dx); Essential (primary) hypertension; Aftercare following right knee joint replacement surgery; Slow transit constipation 01/20/2025 NH/SNF Visit [facility] Post [address] [phone] Shea Baltazar PA Aftercare following right knee joint replacement surgery (Primary Dx); Type 2 diabetes mellitus without complication, without long-term current use of insulin (HCC); Persistent atrial fibrillation (HCC); Leukocytosis, unspecified type 01/18/2025 NH/SNF Visit [facility] Post [address] [phone] Afshin Edmonds MD Status post total right [...] - 01/17/2025 2:26 PM CDT Hospital Encounter [facility] [address] [place] [phone] Mike Jose MD Primary osteoarthritis of right [...] H&H currently 7.8/25.5. We will order additional [id number] units of Epogen x1. Xarelto remain on [...] Pain is controlled with scheduled Tylenol, p.r.n. Mchenry. Patient has made good progress in therapy, patient is felt stable for discharge on 02/02/2025 to return home with his and outpatient therapy Assessment & Plan (01/23/2025 7:39 PM CDT): Edema slowly improving, pain is relatively well controlled with p.r.n. Tylenol, p.r.n. Mchenry. [place] to be removed today. Encouraged ice and elevation. Xarelto be placed on hold due to anemia. Assessment & Plan (01/20/2025 8:15 PM CDT): Overall pain is adequately controlled with p.r.n. Tylenol, p.r.n. Mchenry. Encouraged patient to utilize ice and elevation especially after therapy. Incision is well approximated, no drainage. Continue Xarelto for DVT prophylaxis. Staple removal orders have been placed for 01/23/2025, can follow-up as planned later in January with Orthopedic surgery. History of right knee joint replacement 01/13/20 Assessment & Plan (01/20/2025 4:35 PM CDT): I endorse admission to [facility] care. The patient is at risk of [...] to a safer level of care. Continue Mchenry 5 mg every 8 hours p.r.n. pain. [...] (05/05/2019): Added automatically from request for surgery [id number] Renal cell carcinoma 04/14/2017 Overview (02/08/2025): Status [...] = 0.6 oz pur e alcohol) rare [facility] Utilities Answer Date Recorded In the past 12 months has e [employer], gas, oil, or water [employer] threatened to shut off services in your [...] often do you attend chur ch or quaker services? 1 to 4 times per year 01/10/2025 Do you belong to any clubs o r organizations such as islam groups, unions, fraternal or athletic groups, or [...] any time in the past 12 m [facility], were you homeless or living in a retirement (including now)? No 01/10/2025 Personal Safety Answer Date Recorded Have you ever been in or are you currently in a harmful physical or emotional relationship or is someone making you feel afraid or unsafe? 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 Not on file Not on file Not [...] on file Medical Devices Implanted Type Area Ophthalmologist Device Identifier Shelf Expiration Date Model / Serial / Lot Lt Total Knee Arthroplasty Left: Knee Lens Bilateral: Eye Lap Ban Abdomen Dental Implant Mouth Description:Upper and lower [employer] Simplex P Radiopaque Full Dose Cement Bone Sterile 6191-1-010 - [id number] Implanted:Qty: 1 on 01/09/2025 by Mike Jose MD at [facility] Right: Knee [employer] 07/25/2027 6191-1-010 / / [id number] [employer] Baylee Ii Legion Spc Posterior Stabilize Knee Right 7 Component [id number] - [id number] Implanted:Qty: 1 on 01/09/2025 by Mike Jose MD at [facility] Right: Knee [employer] [id number] 05/13/2034 [id number] / / [id number] [employer] Baylee Ii Cement Knee Right 7 Baseplate Tibial Titanium [id number] - [id number] Implanted:Qty: 1 on 01/09/2025 by Mike Jose MD at [facility] Right: Knee [employer] [id number] 07/18/2034 [id number] / / [id number] [employer] Legion 9mm Posterior Stabilized High Flexion Knee 7-8 Insert [id number] - [id number] Implanted:Qty: 1 on 01/09/2025 by Mike Jose MD at [facility] Right: Knee [employer] [id number] 05/08/2034 [id number] / / [id number] [employer] Baylee Ii [id number] Biconvex Component Patellar [id number] - [id number] Implanted:Qty: 1 on 01/09/2025 by Mike Jose MD at [facility] Right: Knee [employer] [id number] 01/08/2026 [id number] / / [id number] Procedures Procedure Name Priority Date/Time Associated Diagnosis [...] CDT HEMOGLOBIN A1C Routine 12/26/2024 10:31 AM PARACHUTE REPAIRER Primary osteoarthritis of right knee Preop testing [...] signed by Mike Jose T: Report ID: [id number] Reading Location: [place] [address] Procedure Note Mike Jose MD - 02/08/2025 [...] signed by Mike CEE T: Report ID: [id number] Reading Location: [place] [address] us Mike Jose MD IMG XR PROCEDURES [...] Current interpretive data was last reviewed 2021. [facility], [address] [place] [address], [place]., [address] Blood 02/01/2025 6:20 AM CDT 02/01/2025 7:51 AM CDT us Shea COLLIER LAB BLOOD ORDERABLES Final Resu lt CARMENZA LEVINE [address] [place] [address] Department [place] [address] * (ABNORMAL) CBC without differential (02/01/2025 6:20 AM CDT) WBC 7.34 3.80 - 9.90 K/cumm CARMENZA Comment:[address], [address] Hgb 8.7(L) 13.0 - 17.5 g/dL CAR[facility] Comment:[address], [address] Hct 28.5(L) 38.9 - 50.3 % CARMENZA Comment:[address], [address] Plt 298 150 - 400 K/cumm CAR[facility] Comment:[address], [address] MPV 9.0(L) 9.1 - 12.3 fL CAR[facility] Comment:[address], [address] RBC 2.90(L) 4.30 - 5.80 M/cumm CAR[facility] Comment:[address], [address] MCV 98.3(H) 81.3 - 96.4 fL CAR[facility] Comment:[address], [address] MCH 30.0 27.1 - 33.3 pg CAR[facility] Comment:[address], [address] MCHC 30.5(L) 32.3 - 35.7 g/dL CAR[facility] Comment:[address], [address] RDW CV 18.9(H) 11.1 - 14.9 % CAR[facility] Comment:[address], [address] RDW SD 66.4(H) 35.7 - 48.1 fL CAR[facility] Comment:[address], [address] NRBC abs 0.00 0.00 - 0.01 K/cumm CARMENZA Comment:[address], [address] Blood 02/01/2025 6:20 AM CDT 02/01/2025 7:51 AM CDT us Shea COLLIER LAB BLOOD ORDERABLES Final Resu lt CARMENZA [address] Department [place] [address] * (ABNORMAL) Basic metabolic panel (02/01/2025 6:20 AM CDT) Sodium 138 135 - 145 mmol/L CAR[facility] Comment:[address] [address] Potassium, pl 4.3 3.3 - 4.9 mmol/L CAR[facility] Comment:[address] [address] Chloride 103 97 - 110 mmol/L CAR[facility] Comment:[address] [address] CO2 25 22 - 32 mmol/L CAR[facility] Comment:[address] [address] Anion gap 10 2 - 15 mmol/L CAR[facility] Comment:[address] [address] BUN 29(H) 6 - 25 mg/dL [facility] Comment:[address] [address] Creatinine 1.05 0.80 - 1.30 mg/dL [facility] Comment:[address] [address] Glucose 126 70 - 199 mg/dL CARMENZA [...] Current interpretive data was last revised 2022. [facility], [address] [place] [address]., [address] Calcium 8.7 8.5 - 10.3 mg/dL CAR[facility]ZA LEVINE Comment:[address] [address] Blood 02/01/2025 6:20 AM CDT 02/01/2025 7:51 AM CDT Shea COLLIER LAB BLOOD ORDERABLES Final Resu lt Performing Organization Address City/[facility] Co de Phone Number CARMENZA [address] [place] [address] * (ABNORMAL) Hemoglobin and hematocrit (01/30/2025 6:44 AM CDT) Hgb 8.7(L) 13.0 - 17.5 g/dL CAR[facility]ZA LEVINE Comment:[address] [address] Hct 29.3(L) 38.9 - 50.3 % CARMENZA LEVINE Comment:[address] [address] Blood 01/30/2025 6:44 AM CDT 01/30/2025 8:44 AM CDT Shea COLLIER LAB BLOOD ORDERABLES Final Resu lt Performing Organization Address [facility] Co de Phone Number CARMENZA [address] [place] [address] * (ABNORMAL) CBC without differential (01/27/2025 6:48 AM CDT) WBC 7.84 3.80 - 9.90 K/cumm CARMENZA LEVINE Comment:[address] [address] Hgb 7.8(L) 13.0 - 17.5 g/dL CAR[facility]ZA LEVINE Comment:[address] [address] Hct 26.2(L) 38.9 - 50.3 % CARMENZA LEVINE Comment:[address] [address] Plt 306 150 - 400 K/cumm CARMENZA LEVINE Comment:[address], [address] MPV 9.1 9.1 - 12.3 fL [facility] Comment:[address] [address] RBC 2.70(L) 4.30 - 5.80 M/cumm CARMENZA Comment:[address], [address] MCV 97.0(H) 81.3 - 96.4 fL [facility] Comment:[address] [address] MCH 28.9 27.1 - 33.3 pg CERTORIN Comment:[address], [address] MCHC 29.8(L) 32.3 - 35.7 g/dL CARMENZA Comment:[address], [address] RDW CV 18.6(H) 11.1 - 14.9 % CARMENZA Comment:[address], [address] RDW SD 63.6(H) 35.7 - 48.1 fL [facility] Comment:[address], [address] NRBC abs 0.00 0.00 - 0.01 K/cumm [facility] Comment:[address] [address] Blood 01/27/2025 6:48 AM CDT 01/27/2025 8:10 AM CDT Shea COLLIER LAB BLOOD ORDERABLES Final Resu lt CARMENZA [address] [facility] Department [place] [address] * eGFR (01/25/2025 7:07 AM CDT) eGFR [...] Current interpretive data was last reviewed 2021. [address] [address] Blood 01/25/2025 7:07 AM CDT 01/25/2025 7:43 AM CDT Shea COLLIER LAB BLOOD ORDERABLES Final Resu lt CARMEN[facility] [address] Department [place] [address] * (ABNORMAL) CBC without differential (01/25/2025 7:07 AM CDT) WBC 8.65 3.80 - 9.90 K/cumm CARMENZA LEVINE Comment:[address] [address] Hgb 7.8(L) 13.0 - 17.5 g/dL CARMENZA LEVINE Comment:[address] [address] Hct 25.5(L) 38.9 - 50.3 % CARMENZA LEVINE Comment:[address] [address] Plt 320 150 - 400 K/cumm CARMENZA LEVINE Comment:[address] [address] MPV 9.0(L) 9.1 - 12.3 fL CARMENZA LEVINE Comment:[address] [address] RBC 2.65(L) 4.30 - 5.80 M/cumm CARMENZA LEVINE Comment:[address], [address] MCV 96.2 81.3 - 96.4 fL CAMRENZA Comment:[address], [address] MCH 29.4 27.1 - 33.3 pg CARMENZA LEVINE Comment:[address], [address] MCHC 30.6(L) 32.3 - 35.7 g/dL CARMENZA Comment:[address], [address] RDW CV 18.5(H) 11.1 - 14.9 % CAR[facility] Comment:[address], [address] RDW SD 60.9(H) 35.7 - 48.1 fL CAR[facility] Comment:[address], [address] NRBC abs 0.00 0.00 - 0.01 K/cumm CARMENZA Comment:[address], [address] Blood 01/25/2025 7:07 AM CDT 01/25/2025 7:43 AM CDT Shea COLLIER LAB BLOOD ORDERABLES Final Resu lt [facility] [address] [facility] Department [place] [address] * (ABNORMAL) Basic metabolic panel (01/25/2025 7:07 AM CDT) Sodium 136 135 - 145 mmol/L CARMENZA Comment:[address], [address] Potassium, pl 4.4 3.3 - 4.9 mmol/L CAR[facility] Comment:[address], [address] Chloride 102 97 - 110 mmol/L CAR[facility] Comment:[address], [address] CO2 25 22 - 32 mmol/L CARMEN[facility] LEVINE Comment:[address] [place]., [address] Anion gap 9 2 - 15 mmol/L CAR[facility] Comment:[address] [address] BUN 28(H) 6 - 25 mg/dL [facility] Comment:[address] [address] Creatinine 0.96 0.80 - 1.30 mg/dL CAR[facility] Comment:[address] [address] Glucose 126 70 - 199 mg/dL CARMENZA [...] Current interpretive data was last revised 2022. [facility], [address] [place] [address]., [address] Calcium 8.7 8.5 - 10.3 mg/dL CAR[facility] Comment:[address] [address] Blood 01/25/2025 7:07 AM CDT 01/25/2025 7:43 AM CDT Shea COLLIER LAB BLOOD ORDERABLES Final Resu lt CARMEN[facility] [address] Department [place] [address] * X-ray abdomen 1 view (01/24/2025 1:29 [...] of a bowel obstruction. There is a kfqo-df-dxbcktqx amount of retained fecal debris in the [...] IMPRESSION: No definite evidence of bowel obstruction. Ipof-tq-mhedaxff amount of retained fecal debris in the colon, which is concerning for constipation. THIS IS AN ELECTRONICALLY VERIFIED FINAL REPORT 01/24/2025 5:31 PM - Electronically signed by Ashanti Richardson D.O. PS T: Report ID: [id number] Reading Location: [id number] Procedure Note Ashanti Richardson, DO - 01/24/2025 EXAM DESCRIPTION: XR ABDOMEN AP 1 VIEW REASON FOR STUDY: constipation Last bowl movement was TECHNIQUE: Single frontal radiographic view of the abdomen. COMPARISON: 08/30/2021 FINDINGS: There is no definite evidence of a bowel obstruction. There dino cown-qk-bmhwuyum amount of retained fecal debris in the [...] IMPRESSION: No definite evidence of bowel obstruction. Kwav-ny-cqhhgilj amount of retained fecal debris in the colon, which is concerning for constipation. THIS IS AN ELECTRONICALLY VERIFIED FINAL REPORT 01/24/2025 5:31 PM - Electronically signed by Ashanti Richardson D.O. PS T: Report ID: [id number] Reading Location: [id number] us Shea COLLIER IMG XR PROCEDURES Final [...] Current interpretive data was last reviewed 2021. [facility], [address] [place] [address]., [address] Blood 01/23/2025 10:2 0 AM CDT 01/23/2025 10:31 AM CDT Afshin Edmonds MD LAB BLOOD ORDERABLES Final R esult [facility] [address] Department [place] [address] * (ABNORMAL) Comprehensive metabolic panel (01/23/2025 10:20 AM CDT) Sodium 134(L) 135 - 145 mmol/L CARMENZA LEVINE Comment:[address] [address] Potassium, pl 4.7 3.3 - 4.9 mmol/L CARMENZA LEVINE Comment:[address] [address] Chloride 102 97 - 110 mmol/L ACRMENZA LEVINE Comment:[address] [place]., [address] CO2 24 22 - 32 mmol/L [facility] Comment:[address] [address] Anion gap 8 2 - 15 mmol/L [facility] Comment:[address] [address] BUN 27(H) 6 - 25 mg/dL [facility] Comment:[address] [address] Creatinine 0.97 0.80 - 1.30 mg/dL [facility] Comment:[address] [address] Glucose 182 70 - 199 mg/dL [facility] Comment: Interpretive Data Fasting glucose >/= [...] Current interpretive data was last revised 2022. [facility], [address] [place]., [address] Calcium 8.3(L) 8.5 - 10.3 mg/dL [facility] Comment:[address] [address] Bilirubin, total 1.1 0.1 - 1.2 mg/dL [facility] Comment:[address] [address] Protein, pl 5.5(L) 6.5 - 8.5 g/dL [facility] Comment:[address] [address] Albumin 3.0(L) 3.5 - 5.0 g/dL [facility] Comment:[address] [address] Alk phos 84 40 - 130 Units/L [facility] Comment:[address] [address] ALT 26 7 - 55 Units/L [facility] Comment:[facility], [address] [place] [address]., [address] AST 27 10 - 50 Units/L CAR[facility]ZA Comment:[facility], [address] [place] [address]., [address] Blood 01/23/2025 10:2 0 AM CDT 01/23/2025 10:31 AM CDT Afshin Edmonds MD LAB BLOOD ORDERABLES Final R esult Performing Organization Address [facility] Co de Phone Number CARMENZA [address] Department [place] [employer] [place] [address] * eGFR (01/23/2025 4:30 AM CDT) eGFR [...] Current interpretive data was last reviewed 2021. [facility], [address] [place] [address]., [address] Blood 01/23/2025 4:30 AM CDT 01/23/2025 4:54 AM CDT Shea COLLIER LAB BLOOD ORDERABLES Final Resu lt Performing Organization Address [facility]/ZIP Co de Phone Number MARY[address] Department [place] [address] * (ABNORMAL) Differential, auto (01/23/2025 4:30 AM CDT) Neutrophil abs 7.3(H) 1.5 - 6.5 K/cumm CERNER Comment:[address] [address] Imm gran abs 0.3(H) 0.0 - 0.1 K/cumm CERNER Comment:[address] [address] Lymphocyte abs 1.2 0.8 - 3.3 K/cumm [facility] Comment:[address] [address] Monocyte abs 0.6 0.2 - 0.8 K/cumm [facility] Comment:[address] [address] Eosinophil abs 0.2 0.0 - 0.5 K/cumm [facility] Comment:[address] [address] Basophil abs 0.0 0.0 - 0.1 K/cumm [facility] Comment:[address] [address] Neutrophil pct 76.6 % C[facility]ER Comment: Interpretive Data Percent cell count reference ranges are not reported, since discordance with absolute values may lead to misinterpretation of CBC data. Current Interpretive Data was last revised on 2018. [address] [address] Imm gran pct 3.4 % C[facility]ER Comment: Interpretive Data Percent cell count reference ranges are not reported, since discordance with absolute values may lead to misinterpretation of CBC data. Current Interpretive Data was last revised on 2018. [address] [address] Lymphocyte pct 12.0 % CERNER Comment: Interpretive Data Percent cell count reference ranges are not reported, since discordance with absolute values may lead to misinterpretation of CBC data. Current Interpretive Data was last revised on 2018. [address] [address] Monocyte pct 6.0 % CERNER Comment: Interpretive Data Percent cell count reference ranges are not reported, since discordance with absolute values may lead to misinterpretation of CBC data. Current Interpretive Data was last revised on 2018. [address] [address] Eosinophil pct 1.7 % CARMENZA LEVINE Comment: Interpretive Data Percent cell count reference ranges are not reported, since discordance with absolute values may lead to misinterpretation of CBC data. Current Interpretive Data was last revised on 2018. [address] [address] Basophil pct 0.3 % CARMENZA LEVINE Comment: Interpretive Data Percent cell count reference ranges are not reported, since discordance with absolute values may lead to misinterpretation of CBC data. Current Interpretive Data was last revised on 2018. [address] [address] Blood 01/23/2025 4:30 AM CDT 01/23/2025 4:54 AM CDT us Afshin Edmonds MD LAB BLOOD ORDERABLES Final R esult [facility] [address] Department [place] [address] * (ABNORMAL) CBC with auto differential (01/23/2025 4:30 AM CDT) WBC 9.6 3.8 - 9.9 K/cumm CARMENZA Comment:[address] [address] Hgb 7.5(L) 13.0 - 17.5 g/dL CARMENZA LEVINE Comment:[address] [address] Hct 26.3(L) 38.9 - 50.3 % CARMENZA LEVINE Comment:[address] [address] Plt 223 150 - 400 K/cumm CARMENZA LEVINE Comment:[address] [address] MPV 10.5 9.1 - 12.3 fL CARMENZA LEVINE Comment:[address] [address] RBC 2.58(L) 4.30 - 5.80 M/cumm CARMENZA LEVINE Comment:[address] [address] MCV 101.9(H) 81.3 - 96.4 fL CARMENZA Comment:[address] [address] MCH 29.1 27.1 - 33.3 pg CARMENZA LEVINE Comment:[address], [address] MCHC 28.5(L) 32.3 - 35.7 g/dL CARMENZA Comment:[address], [address] RDW CV 18.0(H) 11.1 - 14.9 % CARMENZA Comment:[address], [address] RDW SD 61.6(H) 35.7 - 48.1 fL CARMENZA Comment:[address], [address] NRBC abs 0.00 0.00 - 0.01 K/cumm CARMENZA Comment:[address], [address] Blood 01/23/2025 4:30 AM CDT 01/23/2025 4:54 AM CDT us Afshin Edmonds MD LAB BLOOD ORDERABLES Final R esult [facility] [address] [facility] Department [place] [address] * (ABNORMAL) CBC without differential (01/23/2025 4:30 AM CDT) WBC 9.6 3.8 - 9.9 K/cumm CARMENZA LEVINE Comment:[address] [address] Hgb 7.5(L) 13.0 - 17.5 g/dL CARMENZA Comment:[address], [address] Hct 26.3(L) 38.9 - 50.3 % CARMENZA LEVINE Comment:[address] [address] Plt 223 150 - 400 K/cumm [facility] Comment:[address], [address] MPV 10.5 9.1 - 12.3 fL [facility] Comment:[address], [address] RBC 2.58(L) 4.30 - 5.80 M/cumm [facility] Comment:[address] [address] MCV 101.9(H) 81.3 - 96.4 fL [facility] Comment:[address], [address] MCH 29.1 27.1 - 33.3 pg [facility] Comment:[address], [address] MCHC 28.5(L) 32.3 - 35.7 g/dL [facility] Comment:[address], [address] RDW CV 18.0(H) 11.1 - 14.9 % [facility] Comment:[address] [address] RDW SD 61.6(H) 35.7 - 48.1 fL [facility] Comment:[address] [address] NRBC abs 0.00 0.00 - 0.01 K/cumm [facility] Comment:[address] [address] Blood 01/23/2025 4:30 AM CDT 01/23/2025 4:54 AM CDT us Shea COLLIER LAB BLOOD ORDERABLES Final Resu lt CARMENZA LEVINE [address] [facility] Department [place] [address] * (ABNORMAL) Basic metabolic panel (01/23/2025 4:30 AM CDT) Sodium 133(L) 135 - 145 mmol/L CARMENZA Comment:[facility], [address] [place] [address]., [address] Potassium, pl 4.7 3.3 - 4.9 mmol/L CARMENZA Comment:[facility], [address] [place] [address]., [address] Chloride 102 97 - 110 mmol/L CARMENZA Comment:[address] [address] CO2 20(L) 22 - 32 mmol/L CARMENZA Comment:[address] [address] Anion gap 11 2 - 15 mmol/L CARMENZA Comment:[address] [address] BUN 27(H) 6 - 25 mg/dL CARMENZA Comment:[address] [address] Creatinine 0.89 0.80 - 1.30 mg/dL CARMENZA Comment:[address], [address] Glucose 117 70 - 199 mg/dL CARMENZA [...] Current interpretive data was last revised 2022. [facility], [address] [place]., [address] Calcium 8.5 8.5 - 10.3 mg/dL CARMENZA Comment:[address] [address] Blood 01/23/2025 4:30 AM CDT 01/23/2025 4:54 AM CDT us Shea COLLIER LAB BLOOD ORDERABLES Final Resu lt CARMENZA [address] Department [place] [address] * eGFR (01/20/2025 7:17 AM CDT) eGFR [...] Current interpretive data was last reviewed 2021. [facility], [address] [place] [address]., [address] Blood 01/20/2025 7:17 AM CDT 01/20/2025 7:45 AM CDT us Afshin Edmonds MD LAB BLOOD ORDERABLES Final R esult MARY[address] Department [place] [address] * (ABNORMAL) CBC without differential (01/20/2025 7:17 AM CDT) WBC 12.1(H) 3.8 - 9.9 K/cumm CARMENZA Comment:[address] [address] Hgb 7.9(L) 13.0 - 17.5 g/dL CARMENZA Comment:[address] [address] Hct 25.6(L) 38.9 - 50.3 % CARMENZA Comment:[address], [address] Plt 310 150 - 400 K/cumm CARMENZA Comment:[address], [address] MPV 9.1 9.1 - 12.3 fL [facility] Comment:[address], [address] RBC 2.73(L) 4.30 - 5.80 M/cumm CARMENZA Comment:[address], [address] MCV 93.8 81.3 - 96.4 fL [facility] Comment:[address], [address] MCH 28.9 27.1 - 33.3 pg [facility] Comment:[address], [address] MCHC 30.9(L) 32.3 - 35.7 g/dL [facility] Comment:[address], [address] RDW CV 16.6(H) 11.1 - 14.9 % CARMENZA Comment:[address], [address] RDW SD 53.8(H) 35.7 - 48.1 fL [facility] Comment:[address], [address] NRBC abs 0.00 0.00 - 0.01 K/cumm CARMENZA Comment:[address] [address] Blood 01/20/2025 7:17 AM CDT 01/20/2025 7:45 AM CDT us Afshin Edmonds MD LAB BLOOD ORDERABLES Final R esult CARMEN[facility] LEVINE [address] [facility] Department [place] [address] * Digoxin level (01/20/2025 7:17 AM CDT) Digoxin 0.7 0.5 - 1.2 ng/mL CERNER Comment: Interpretive data The therapeutic range for digoxin varies by indication: Heart failure: 0.5 to 0.8 ng/mL Atrial fibrillation: less than 1.2 ng/mL Toxicity: >2.4. Normal or low digoxin does not rule out toxicity. Current interpretive data was last revised on 2024. [facility], [facility] [place]., [address] Blood 01/20/2025 7:17 AM CDT 01/20/2025 7:45 AM CDT us Afshin Edmonds MD LAB BLOOD ORDERABLES Final R esult CARMENZA [address] Department [place] [address] * (ABNORMAL) Comprehensive metabolic panel (01/20/2025 7:17 AM CDT) Sodium 137 135 - 145 mmol/L CARMENZA Comment:[address] [address] Potassium, pl 4.1 3.3 - 4.9 mmol/L CARMENZA Comment:[address] [address] Chloride 103 97 - 110 mmol/L CARMENZA Comment:[address] [address] CO2 25 22 - 32 mmol/L CARMENZA Comment:[address] [address] Anion gap 9 2 - 15 mmol/L CARMENZA Comment:[address] [address] BUN 33(H) 6 - 25 mg/dL CARMENZA Comment:[address] [address] Creatinine 0.99 0.80 - 1.30 mg/dL CARMENZA Comment:[address] [address] Glucose 44(C) 70 - 199 mg/dL CARMENZA Comment: Critical Result called to and read back by landen suh, DATE: 2025-01-20 08:17:14 BY: [email or web address] Interpretive Data Fasting glucose >/= 126 mg/dl [...] Current interpretive data was last revised 2022. [facility], [address] [place]., [address] Calcium 8.7 8.5 - 10.3 mg/dL CARMENZA Comment:[address] [address] Bilirubin, total 1.6(H) 0.1 - 1.2 mg/dL CARMENZA Comment:[address] [address] Protein, pl 6.0(L) 6.5 - 8.5 g/dL CARMENZA Comment:[address] [address] Albumin 3.1(L) 3.5 - 5.0 g/dL CARMENZA Comment:[address] [address] Alk phos 80 40 - 130 Units/L CARMENZA Comment:[address] [address] ALT 17 7 - 55 Units/L CARMENZA Comment:[address] [address] AST 41 10 - 50 Units/L CARMENZA Comment:[address] [address] Blood 01/20/2025 7:17 AM CDT 01/20/2025 7:45 AM CDT us Afshin Edmonds MD LAB BLOOD ORDERABLES Final R esult CARMENZA [address] Department [place] [address] * (ABNORMAL) POCT glucose (01/17/2025 12:06 PM CDT) Glucose, POC 254(H) 70 - 199 mg/dL Glucose comment 1 RN/MD Notified CARMENZA Blood 01/17/2025 12:0 6 PM CDT 01/17/2025 12:06 PM CDT Mike Jose MD LAB POCT ORDERABLES - DEVICE Final Result Performing Organization Address [facility] Co de Phone Number MARY[address] [place] [address] * eGFR (01/17/2025 8:31 AM CDT) eGFR [...] ORDERABLES Final R esult Performing Organization Address City/[facility]/ZIP Co de Phone Number [address] [place] [address] * (ABNORMAL) Differential, auto (01/17/2025 8:31 AM CDT) Pathologist [facility] Neutrophil abs 6.7(H) 1.5 - 6.5 K/cumm Imm gran abs 0.3(H) 0.0 - 0.1 K/cumm [facility] Lymphocyte abs 1.1 0.8 - 3.3 K/cumm [facility] Monocyte abs 0.8 0.2 - 0.8 K/cumm [facility] Eosinophil abs 0.1 0.0 - 0.5 K/cumm [facility] Basophil abs 0.0 0.0 - 0.1 K/cumm [facility] Neutrophil pct 74.0 % [facility] Comment: Interpretive Data Percent cell count reference ranges are not reported, since discordance with absolute values may lead to misinterpretation of CBC data. Current Interpretive Data was last revised on 2018. Imm gran pct 3.5 % [facility] Comment: Interpretive Data Percent cell count reference ranges are not reported, since discordance with absolute values may lead to misinterpretation of CBC data. Current Interpretive Data was last revised on 2018. Lymphocyte pct 11.9 % [facility] Comment: Interpretive Data Percent cell count reference ranges are not reported, since discordance with absolute values may lead to misinterpretation of CBC data. Current Interpretive Data was last revised on 2018. Monocyte pct 9.0 % [facility] Comment: Interpretive Data Percent cell count reference ranges are not reported, since discordance with absolute values may lead to misinterpretation of CBC data. Current Interpretive Data was last revised on 2018. Eosinophil pct 1.3 % [facility] Comment: Interpretive Data Percent cell count reference ranges are not reported, since discordance with absolute values may lead to misinterpretation of CBC data. Current Interpretive Data was last revised on 2018. Basophil pct 0.3 % [facility] Comment: Interpretive Data Percent cell count reference ranges are not reported, since discordance with absolute values may lead to misinterpretation of CBC data. Current Interpretive Data was last revised on 2018. Blood 01/17/2025 8:31 AM CDT 01/17/2025 8:57 AM CDT Mike Jose MD LAB BLOOD ORDERABLES Final R esult Performing Organization Address City/[facility] Co de Phone Number [facility] [address] [place] [address] * (ABNORMAL) CBC with auto differential (01/17/2025 8:31 AM CDT) [facility] WBC 9.1 3.8 - 9.9 K/cumm Hgb 8.1(L) 13.0 - 17.5 g/dL [facility] Hct 25.9(L) 38.9 - 50.3 % [facility] Plt 216 150 - 400 K/cumm [facility] MPV 9.3 9.1 - 12.3 fL [facility] RBC 2.81(L) 4.30 - 5.80 M/cumm [facility] MCV 92.2 81.3 - 96.4 fL [facility] MCH 28.8 27.1 - 33.3 pg [facility] MCHC 31.3(L) 32.3 - 35.7 g/dL [facility] RDW CV 15.4(H) 11.1 - 14.9 % [facility] RDW SD 50.4(H) 35.7 - 48.1 fL [facility] NRBC abs 0.00 0.00 - 0.01 K/cumm [facility] Blood 01/17/2025 8:31 AM CDT 01/17/2025 8:57 AM CDT Mike Jose MD LAB BLOOD ORDERABLES Final R esult Performing Organization Address City/[facility]/ZIP Co de Phone Number CARMENZA [address] [place] [place] [address] * (ABNORMAL) Basic metabolic panel (01/17/2025 8:31 AM CDT) [facility] Sodium 134(L) 135 - 145 mmol/L Potassium, pl 4.7 3.3 - 4.9 mmol/L [facility] Chloride 101 97 - 110 mmol/L [facility] CO2 24 22 - 32 mmol/L [facility] Anion gap 9 2 - 15 mmol/L [facility] BUN 22 6 - 25 mg/dL [facility] Creatinine 0.88 0.80 - 1.30 mg/dL [facility] Glucose 160 70 - 199 mg/dL [facility] Comment: Interpretive Data Fasting glucose >/= [...] Calcium 8.4(L) 8.5 - 10.3 mg/dL [facility] Blood 01/17/2025 8:31 AM CDT 01/17/2025 8:57 AM CDT Mike Jose MD LAB BLOOD ORDERABLES Final R esult [address] [place] [address] * POCT glucose (01/17/2025 8:18 AM CDT) Glucose, POC 171 70 - 199 mg/dL Glucose comment 1 RN/MD Notified [facility] Blood 01/17/2025 8:18 AM CDT 01/17/2025 8:18 AM CDT Mike Jose MD LAB POCT ORDERABLES - DEVICE Final Result [address] [place] [address] * POCT glucose (01/16/2025 8:17 PM CDT) Glucose, POC 173 70 - 199 mg/dL Blood 01/16/2025 8:17 PM CDT 01/16/2025 8:17 PM CDT Mike Jose MD LAB POCT ORDERABLES - DEVICE Final Result Performing Organization Address [facility] Co de Phone Number CARMENZA [address] [place] [address] * (ABNORMAL) POCT glucose (01/16/2025 4:31 PM CDT) Glucose, POC 213(H) 70 - 199 mg/dL Blood 01/16/2025 4:31 PM CDT 01/16/2025 4:31 PM CDT Mike Jose MD LAB POCT ORDERABLES - DEVICE Final Result Performing Organization Address [facility] de Phone Number MARY[address] [place] [address] * (ABNORMAL) POCT glucose (01/16/2025 12:11 PM CDT) [facility] Glucose, POC 238(H) 70 - 199 mg/dL Blood 01/16/2025 12:1 1 PM CDT 01/16/2025 12:11 PM CDT Mike Jose MD LAB POCT ORDERABLES - DEVICE Final Result Performing Organization Address [facility] de Phone Number MARY[address] [place] [address] * eGFR (01/16/2025 8:16 AM CDT) [facility] eGFR >90 >=60 mL/min/1. 73 m2 Comment: [...] LAB BLOOD ORDERABLES F inal Result [facility] [address] [facility] Department of Laboratories [place], [place] [id number] * (ABNORMAL) CBC without differential (01/16/2025 8:16 AM CDT) [facility] WBC 8.8 3.8 - 9.9 K/cumm Hgb 8.7(L) 13.0 - 17.5 g/dL [facility] Hct 27.0(L) 38.9 - 50.3 % [facility] Plt 211 150 - 400 K/cumm [facility] MPV 9.4 9.1 - 12.3 fL [facility] RBC 2.96(L) 4.30 - 5.80 M/cumm [facility] MCV 91.2 81.3 - 96.4 fL [facility] MCH 29.4 27.1 - 33.3 pg [facility] MCHC 32.2(L) 32.3 - 35.7 g/dL [facility] RDW CV 15.3(H) 11.1 - 14.9 % [facility] RDW SD 50.1(H) 35.7 - 48.1 fL [facility] NRBC abs 0.00 0.00 - 0.01 K/cumm [facility] Blood 01/16/2025 8:16 AM CDT 01/16/2025 8:36 AM CDT us Pradeep Blum MD LAB BLOOD ORDERABLES F inal Result [facility] [address] [facility] Department [place] [address] * (ABNORMAL) Comprehensive metabolic panel (01/16/2025 8:16 AM CDT) Sodium 135 135 - 145 mmol/L Potassium, pl 4.7 3.3 - 4.9 mmol/L [facility] Chloride 102 97 - 110 mmol/L [facility] CO2 23 22 - 32 mmol/L [facility] Anion gap 10 2 - 15 mmol/L [facility] BUN 22 6 - 25 mg/dL [facility] Creatinine 0.82 0.80 - 1.30 mg/dL [facility] Glucose 180 70 - 199 mg/dL [facility] Comment: Interpretive Data Fasting glucose >/= [...] Calcium 8.7 8.5 - 10.3 mg/dL [facility] Bilirubin, total 1.4(H) 0.1 - 1.2 mg/dL [facility] Protein, pl 5.6(L) 6.5 - 8.5 g/dL [facility] Albumin 3.1(L) 3.5 - 5.0 g/dL [facility] Alk phos 70 40 - 130 Units/L [facility] ALT 23 7 - 55 Units/L [facility] AST 30 10 - 50 Units/L [facility] Blood 01/16/2025 8:16 AM CDT 01/16/2025 8:36 AM CDT us Pradeep Blum MD LAB BLOOD ORDERABLES F inal Result Performing Organization Address [facility] Co de Phone Number [address] [place] [address] * POCT glucose (01/16/2025 8:09 AM CDT) Glucose, POC 195 70 - 199 mg/dL Blood 01/16/2025 8:09 AM CDT 01/16/2025 8:09 AM CDT Mike Jose MD LAB POCT ORDERABLES - DEVICE Final Result Performing Organization Address [facility] de Phone Number [address] [place] [address] * POCT glucose (01/15/2025 8:57 PM CDT) Glucose, POC 167 70 - 199 mg/dL Glucose comment 1 RN/MD Notified [facility] Blood 01/15/2025 8:57 PM CDT 01/15/2025 8:57 PM CDT Mike Jose MD LAB POCT ORDERABLES - DEVICE Final Result Performing Organization Address [facility] de Phone Number [address] [place] [address] * (ABNORMAL) Hemoglobin and hematocrit (01/15/2025 7:46 PM CDT) [facility] Hgb 8.9(L) 13.0 - 17.5 g/dL Hct 28.0(L) 38.9 - 50.3 % [facility] Blood 01/15/2025 7:46 PM CDT 01/15/2025 7:53 PM CDT Pradeep Blum MD LAB BLOOD ORDERABLES F inal Result Performing Organization Address [facility]/ZIP Co de Phone Number [facility] [address] [place] [address] * (ABNORMAL) POCT glucose (01/15/2025 4:24 PM CDT) [facility] Glucose, POC 252(H) 70 - 199 mg/dL Glucose comment 1 RN/MD Notified [facility] Blood 01/15/2025 4:24 PM CDT 01/15/2025 4:24 PM CDT Mike Jose MD LAB POCT ORDERABLES - DEVICE Final Result Performing Organization Address [facility] Co de Phone Number [address] [address] * TSH (01/15/2025 2:51 PM CDT) [facility] Thyroid Stimulating Hormone 1.66 0.30 - 4.20 mcIUnit/mL Blood 01/15/2025 2:51 PM CDT 01/15/2025 3:11 PM CDT Pradeep Blum MD LAB BLOOD ORDERABLES F inal Result Performing Organization Address City/[facility] Co de Phone Number [address] [address] * Lactate dehydrogenase (LD) (01/15/2025 2:51 PM CDT) [facility] Lactate dehydrogenase (LDH) 180 100 - 250 Units/L Blood 01/15/2025 2:51 PM CDT 01/15/2025 3:11 PM CDT Pradeep Blum MD LAB BLOOD ORDERABLES F inal Result Performing Organization Address [facility] Co de Phone Number [address] [address] * (ABNORMAL) Haptoglobin (01/15/2025 2:51 PM CDT) [facility] Haptoglobin 274(H) 30 - 200 mg/dL Blood 01/15/2025 2:51 PM CDT 01/15/2025 3:11 PM CDT Pradeep Blum MD LAB BLOOD ORDERABLES F inal Result Performing Organization Address [facility] Co de Phone Number [address] [place] [address] * (ABNORMAL) Folate (01/15/2025 2:51 PM CDT) [facility] Folic acid 3.8(L) >=5.0 ng/mL Blood 01/15/2025 2:51 PM CDT 01/15/2025 3:11 PM CDT Pradeep Blum MD LAB BLOOD ORDERABLES F inal Result Performing Organization Address [facility] Co de Phone Number [address] [place] [address] * (ABNORMAL) POCT glucose (01/15/2025 12:23 PM CDT) [facility] Glucose, POC 266(H) 70 - 199 mg/dL Glucose comment 1 RN/MD Notified [facility] Blood 01/15/2025 12:2 3 PM CDT 01/15/2025 12:23 PM CDT Mike Jose MD LAB POCT ORDERABLES - DEVICE Final Result Performing Organization Address City/[facility] Co de Phone Number [address] [place] [address] * (ABNORMAL) Hemoglobin and hematocrit (01/15/2025 12:00 PM CDT) [facility] Hgb 8.6(L) 13.0 - 17.5 g/dL Hct 27.4(L) 38.9 - 50.3 % [facility] Blood 01/15/2025 12:0 0 PM CDT 01/15/2025 12:24 PM CDT Pradeep Blum MD LAB BLOOD ORDERABLES F inal Result [facility] [address] [place] [address] * (ABNORMAL) Albumin (01/15/2025 12:00 PM CDT) Albumin 3.0(L) 3.5 - 5.0 g/dL Blood 01/15/2025 12:0 0 PM CDT 01/15/2025 12:24 PM CDT Pradeep Blum MD LAB BLOOD ORDERABLES F inal Result Performing Organization Address [facility] Co de Phone Number CARMEN[facility] [address] [place] [address] * eGFR (01/15/2025 8:32 AM CDT) eGFR [...] LAB BLOOD ORDERABLES F inal Result [facility] [address] [facility] Department [place] [address] * (ABNORMAL) Differential, auto (01/15/2025 8:32 AM CDT) Pathologist [facility] Neutrophil abs 6.2 1.5 - 6.5 K/cumm Imm gran abs 0.1 0.0 - 0.1 K/cumm [facility] Lymphocyte abs 0.7(L) 0.8 - 3.3 K/cumm [facility] Monocyte abs 0.8 0.2 - 0.8 K/cumm [facility] Eosinophil abs 0.1 0.0 - 0.5 K/cumm [facility] Basophil abs 0.0 0.0 - 0.1 K/cumm [facility] Neutrophil pct 77.3 % [facility] Comment: Interpretive Data Percent cell count reference ranges are not reported, since discordance with absolute values may lead to misinterpretation of CBC data. Current Interpretive Data was last revised on 2018. Imm gran pct 1.6 % [facility] Comment: Interpretive Data Percent cell count reference ranges are not reported, since discordance with absolute values may lead to misinterpretation of CBC data. Current Interpretive Data was last revised on 2018. Lymphocyte pct 8.9 % [facility] Comment: Interpretive Data Percent cell count reference ranges are not reported, since discordance with absolute values may lead to misinterpretation of CBC data. Current Interpretive Data was last revised on 2018. Monocyte pct 10.2 % [facility] Comment: Interpretive Data Percent cell count reference ranges are not reported, since discordance with absolute values may lead to misinterpretation of CBC data. Current Interpretive Data was last revised on 2018. Eosinophil pct 1.6 % [facility] Comment: Interpretive Data Percent cell count reference ranges are not reported, since discordance with absolute values may lead to misinterpretation of CBC data. Current Interpretive Data was last revised on 2018. Basophil pct 0.4 % [facility] Comment: Interpretive Data Percent cell count reference ranges are not reported, since discordance with absolute values may lead to misinterpretation of CBC data. Current Interpretive Data was last revised on 2018. Blood 01/15/2025 8:32 AM CDT 01/15/2025 8:46 AM CDT Pradeep Blum MD LAB BLOOD ORDERABLES F inal Result Performing Organization Address [facility] Co de Phone Number [address] [place] [address] * (ABNORMAL) CBC with auto differential (01/15/2025 8:32 AM CDT) [facility] WBC 8.1 3.8 - 9.9 K/cumm Hgb 8.7(L) 13.0 - 17.5 g/dL [facility] Hct 27.6(L) 38.9 - 50.3 % [facility] Plt 184 150 - 400 K/cumm [facility] MPV 9.5 9.1 - 12.3 fL [facility] RBC 3.02(L) 4.30 - 5.80 M/cumm [facility] MCV 91.4 81.3 - 96.4 fL [facility] MCH 28.8 27.1 - 33.3 pg [facility] MCHC 31.5(L) 32.3 - 35.7 g/dL [facility] RDW CV 15.5(H) 11.1 - 14.9 % [facility] RDW SD 50.7(H) 35.7 - 48.1 fL [facility] NRBC abs 0.00 0.00 - 0.01 K/cumm [facility] Blood 01/15/2025 8:32 AM CDT 01/15/2025 8:46 AM CDT Pradeep Blum MD LAB BLOOD ORDERABLES F inal Result Performing Organization Address [facility] Co de Phone Number [address] [place] [address] * (ABNORMAL) Basic metabolic panel (01/15/2025 8:32 AM CDT) Sodium 136 135 - 145 mmol/L Potassium, pl 5.2(H) 3.3 - 4.9 mmol/L [facility] Chloride 102 97 - 110 mmol/L [facility] CO2 26 22 - 32 mmol/L [facility] Anion gap 8 2 - 15 mmol/L [facility] BUN 25 6 - 25 mg/dL [facility] Creatinine 0.89 0.80 - 1.30 mg/dL [facility] Glucose 183 70 - 199 mg/dL [facility] Comment: Interpretive Data Fasting glucose >/= [...] Calcium 8.7 8.5 - 10.3 mg/dL [facility] Blood 01/15/2025 8:32 AM CDT 01/15/2025 8:46 AM CDT us Pradeep Blum MD LAB BLOOD ORDERABLES F inal Result Performing Organization Address City/[facility] Co de Phone Number [facility] [address] [facility] Department [place] [address] * POCT glucose (01/15/2025 8:11 AM CDT) Glucose, POC 197 70 - 199 mg/dL Glucose comment 1 RN/MD Notified [facility] Blood 01/15/2025 8:11 AM CDT 01/15/2025 8:11 AM CDT us Mike Jose MD LAB POCT ORDERABLES - DEVICE Final Result Performing Organization Address City/[facility]/ZIP Co de Phone Number CARMEN[facility] [address] [place] [address] * POCT glucose (01/15/2025 3:48 AM CDT) Glucose, POC 174 70 - 199 mg/dL Glucose comment 1 RN/MD Notified [facility] Blood 01/15/2025 3:48 AM CDT 01/15/2025 3:48 AM CDT Mike Jose MD LAB POCT ORDERABLES - DEVICE Final Result Performing Organization Address [facility] Co de Phone Number [address]ARY[address] [place] [address] * POCT glucose (01/15/2025 12:03 AM CDT) Glucose, POC 173 70 - 199 mg/dL Glucose comment 1 RN/MD Notified [facility] Blood 01/15/2025 12:0 3 AM CDT 01/15/2025 12:03 AM CDT Mike Jose MD LAB POCT ORDERABLES - DEVICE Final Result Performing Organization Address [facility] Co de Phone Number [address]ARY[address] [place] [address] * (ABNORMAL) POCT glucose (01/14/2025 8:14 PM CDT) Glucose, POC 215(H) 70 - 199 mg/dL Glucose comment 1 RN/ Notified [facility] Blood 01/14/2025 8:14 PM CDT 01/14/2025 8:14 PM CDT Mike Jose MD LAB POCT ORDERABLES - DEVICE Final Result Performing Organization Address City/[facility] Co de Phone Number [address] [place] [address] * Transfuse RBC (01/14/2025 7:32 PM CDT) Blood us Pradeep Blum MD BLOOD TRANSFUSION ORDE RABLES Final Result Performing Organization Address [facility] Co de Phone Number CAR[facility] [address] [address] * (ABNORMAL) POCT glucose (01/14/2025 4:22 PM CDT) Glucose, POC 237(H) 70 - 199 mg/dL Glucose comment 1 RN/MD Notified [facility] Blood 01/14/2025 4:22 PM CDT 01/14/2025 4:22 PM CDT Mike Jose MD LAB POCT ORDERABLES - DEVICE Final Result Performing Organization Address [facility] Co de Phone Number [address] [place] [address] * Prepare RBC: 1 Units (01/14/2025 1:16 PM CDT) Pathologist [facility] Units requested 1 Units requested Ready [facility] Unit Number [id number] Product code [id number] [facility] Blood Expiration Date [id number] [facility] Product Blood Type (for scanning) 7300 [facility] Product Blood Type BPOS [facility] Dispense Status DISPENSED [facility] Blood 01/14/2025 1:16 PM CDT 01/14/2025 1:16 PM CDT us Pradeep Blum MD BLOOD BANK PRODUCT ORD ERABLES Final Result Performing Organization Address [facility] Co de Phone Number [address] [address] * ABO/Rh (01/14/2025 12:30 PM CDT) ABO/Rh B Positive Blood 01/14/2025 12:3 0 PM CDT 01/14/2025 12:38 PM CDT Narrative [facility] - 01/14/2025 1:16 PM CDT Has the patient had Daratumumab or Isatuximab in the past 6 months?->Unknown Pradeep Blum MD LAB BLOOD BANK TEST OR DERABLES Final Result Performing Organization Address [facility] Co de Phone Number [address] [place] [address] * Crossmatch (01/14/2025 12:30 PM CDT) Pathologist [facility] Crossmatch Compatible [facility] Unit number for crossmatch [id number] [facility] Blood 01/14/2025 12:3 0 PM CDT 01/14/2025 12:38 PM CDT Mike Jose MD LAB BLOOD BANK TEST ORDERABL ES Final Result Performing Organization Address [facility] de Phone Number [address] [place] [address] * Antibody screen (01/14/2025 12:30 PM CDT) Pathologist [facility] Sarai, indirect, Gel Interpretation Negative ABSC Blood 01/14/2025 12:3 0 PM CDT 01/14/2025 12:38 PM CDT Narrative [facility] - 01/14/2025 1:16 PM CDT Has the patient had Daratumumab or Isatuximab in the past 6 months?->Unknown Pradeep Blum MD LAB BLOOD BANK TEST OR DERABLES Final Result Performing Organization Address [facility] Co de Phone Number [address] [place] [address] * (ABNORMAL) POCT glucose (01/14/2025 12:24 PM CDT) Pathologist [facility] Glucose, POC 323(H) 70 - 199 mg/dL Glucose comment 1 RN/ Notified [facility] Blood 01/14/2025 12:2 4 PM CDT 01/14/2025 12:24 PM CDT Mike Jose MD LAB POCT ORDERABLES - DEVICE Final Result Performing Organization Address City/[facility] Co de Phone Number [address] [place] [address] * POCT glucose (01/14/2025 8:21 AM CDT) Glucose, POC 148 70 - 199 mg/dL Glucose comment 1 RN/ Notified [facility] Blood 01/14/2025 8:21 AM CDT 01/14/2025 8:21 AM CDT Mike Jose MD LAB POCT ORDERABLES - DEVICE Final Result Performing Organization Address [facility] Co de Phone Number [address] [place] [address] * eGFR (01/14/2025 6:40 AM CDT) eGFR [...] LAB BLOOD ORDERABLES F inal Result [facility] [address] [facility] Department [place] [address] * (ABNORMAL) Differential, auto (01/14/2025 6:40 AM CDT) Pathologist [facility] Neutrophil abs 4.9 1.5 - 6.5 K/cumm Imm gran abs 0.1 0.0 - 0.1 K/cumm [facility] Lymphocyte abs 0.6(L) 0.8 - 3.3 K/cumm [facility] Monocyte abs 0.7 0.2 - 0.8 K/cumm [facility] Eosinophil abs 0.1 0.0 - 0.5 K/cumm [facility] Basophil abs 0.0 0.0 - 0.1 K/cumm [facility] Neutrophil pct 75.7 % [facility] Comment: Interpretive Data Percent cell count reference ranges are not reported, since discordance with absolute values may lead to misinterpretation of CBC data. Current Interpretive Data was last revised on 2018. Imm gran pct 1.1 % [facility] Comment: Interpretive Data Percent cell count reference ranges are not reported, since discordance with absolute values may lead to misinterpretation of CBC data. Current Interpretive Data was last revised on 2018. Lymphocyte pct 9.8 % [facility] Comment: Interpretive Data Percent cell count reference ranges are not reported, since discordance with absolute values may lead to misinterpretation of CBC data. Current Interpretive Data was last revised on 2018. Monocyte pct 10.9 % [facility] Comment: Interpretive Data Percent cell count reference ranges are not reported, since discordance with absolute values may lead to misinterpretation of CBC data. Current Interpretive Data was last revised on 2018. Eosinophil pct 2.0 % [facility] Comment: Interpretive Data Percent cell count reference ranges are not reported, since discordance with absolute values may lead to misinterpretation of CBC data. Current Interpretive Data was last revised on 2018. Basophil pct 0.5 % [facility] Comment: Interpretive Data Percent cell count reference ranges are not reported, since discordance with absolute values may lead to misinterpretation of CBC data. Current Interpretive Data was last revised on 2018. Blood 01/14/2025 6:40 AM CDT 01/14/2025 6:54 AM CDT Pradeep Blum MD LAB BLOOD ORDERABLES F inal Result Performing Organization Address [facility] Co de Phone Number [address] Department [place] [address] * (ABNORMAL) CBC with auto differential (01/14/2025 6:40 AM CDT) WBC 6.4 3.8 - 9.9 K/cumm Hgb 8.5(L) 13.0 - 17.5 g/dL [facility] Hct 27.4(L) 38.9 - 50.3 % [facility] Plt 176 150 - 400 K/cumm [facility] MPV 9.7 9.1 - 12.3 fL [facility] RBC 2.95(L) 4.30 - 5.80 M/cumm [facility] MCV 92.9 81.3 - 96.4 fL [facility] MCH 28.8 27.1 - 33.3 pg [facility] MCHC 31.0(L) 32.3 - 35.7 g/dL [facility] RDW CV 14.9 11.1 - 14.9 % [facility] RDW SD 50.8(H) 35.7 - 48.1 fL [facility] NRBC abs 0.00 0.00 - 0.01 K/cumm [facility] Blood 01/14/2025 6:40 AM CDT 01/14/2025 6:54 AM CDT Pradeep Blum MD LAB BLOOD ORDERABLES F inal Result Performing Organization Address [facility] Co de Phone Number [facility] [address] [facility] [place] [address] * (ABNORMAL) Basic metabolic panel (01/14/2025 6:40 AM CDT) Pathologist [facility] Sodium 137 135 - 145 mmol/L Potassium, pl 5.2(H) 3.3 - 4.9 mmol/L [facility] Chloride 103 97 - 110 mmol/L [facility] CO2 27 22 - 32 mmol/L [facility] Anion gap 7 2 - 15 mmol/L [facility] BUN 27(H) 6 - 25 mg/dL [facility] Creatinine 0.99 0.80 - 1.30 mg/dL [facility] Glucose 125 70 - 199 mg/dL [facility] Comment: Interpretive Data Fasting glucose >/= [...] Calcium 8.7 8.5 - 10.3 mg/dL [facility] Blood 01/14/2025 6:40 AM CDT 01/14/2025 6:54 AM CDT Pradeep Blum MD LAB BLOOD ORDERABLES F inal Result [facility] [address] [facility] Department [place] [address] * POCT glucose (01/13/2025 8:37 PM CDT) [facility] Glucose, POC 167 70 - 199 mg/dL Glucose comment 1 RN/ Notified [facility] Blood 01/13/2025 8:37 PM CDT 01/13/2025 8:37 PM CDT Mike Jose MD LAB POCT ORDERABLES - DEVICE Final Result Performing Organization Address [facility] Co de Phone Number [address] [place] [address] * POCT glucose (01/13/2025 3:49 PM CDT) Glucose, POC 157 70 - 199 mg/dL Glucose comment 1 RN/MD Notified [facility] Blood 01/13/2025 3:49 PM CDT 01/13/2025 3:49 PM CDT Mike Jose MD LAB POCT ORDERABLES - DEVICE Final Result Performing Organization Address [facility] Co de Phone Number [address] [place] [address] * POCT glucose (01/13/2025 12:09 PM CDT) Glucose, POC 178 70 - 199 mg/dL Glucose comment 1 RN/MD Notified [facility] Blood 01/13/2025 12:0 9 PM CDT 01/13/2025 12:09 PM CDT Mike Jose MD LAB POCT ORDERABLES - DEVICE Final Result Performing Organization Address City/[facility] Co de Phone Number [address] [place] [address] * TRANSTHORACIC ECHO (TTE) COMPLETE W DOPPLER/CF WO CONTRAST (01/13/2025 11:03 AM CDT) LV EF 65-70 % CONS SCIMAGE Anatomical Region Laterality Modality Ultrasound 01/13/2025 10:3 0 AM CDT Narrative 01/13/2025 6:29 PM CDT Transthoracic Echocardiographic Report Patient Name: FITZ TURNER D : 1950 (74y 7m) Gender: M Study Date: 01/13/2025 10:30:33 AM Ht(Inch): 73 Wt(Lb): 242 BSA: 2.38 Steel Tier: Nikki Rodrigues RDCS Location: [place] [address] Order Provider: PRITI BONILLA Heart Rate: 84 BMI: 31.92 BP: 140/60 Ref Provider: PRITI BONILLA PROCEDURES: Echocardiographic Report: ([id number]) Transthoracic complete echo, 2D, spectral and tissue [...] AM Ht(Inch): 73 Wt(Lb): 242 BSA: 2.38 Steel Tier: Nikki Rodrigues RDCS Location: [place] [address] Order Provider:PRITI BONILLA Heart Rate: 84 BMI: 31.92 BP: 140/60 Ref Provider: PRITI BONILLA PROCEDURES: Echocardiographic Report: ([id number]) Transthoracic complete echo, 2D,spectral and tissue Doppler, [...] [ 16.00 - 34.00 ] MV Decel Qesw030.00 msec TAPSE 1.98 cm [ 1.71 - [...] MD LAB BLOOD ORDERABLES F inal Result RTTHGE UN [address] [facility] Department [place] [address] * (ABNORMAL) Differential, auto (01/13/2025 8:52 AM CDT) Pathologist [facility] Neutrophil abs 5.6 1.5 - 6.5 K/cumm Imm gran abs 0.1 0.0 - 0.1 K/cumm [facility] Lymphocyte abs 0.5(L) 0.8 - 3.3 K/cumm [facility] Monocyte abs 0.6 0.2 - 0.8 K/cumm [facility] Eosinophil abs 0.1 0.0 - 0.5 K/cumm [facility] Basophil abs 0.0 0.0 - 0.1 K/cumm [facility] Neutrophil pct 81.2 % [facility] Comment: Interpretive Data Percent cell count reference ranges are not reported, since discordance with absolute values may lead to misinterpretation of CBC data. Current Interpretive Data was last revised on 2018. Imm gran pct 0.9 % [facility] Comment: Interpretive Data Percent cell count reference ranges are not reported, since discordance with absolute values may lead to misinterpretation of CBC data. Current Interpretive Data was last revised on 2018. Lymphocyte pct 6.9 % [facility] Comment: Interpretive Data Percent cell count reference ranges are not reported, since discordance with absolute values may lead to misinterpretation of CBC data. Current Interpretive Data was last revised on 2018. Monocyte pct 9.4 % [facility] Comment: Interpretive Data Percent cell count reference ranges are not reported, since discordance with absolute values may lead to misinterpretation of CBC data. Current Interpretive Data was last revised on 2018. Eosinophil pct 1.3 % [facility] Comment: Interpretive Data Percent cell count reference ranges are not reported, since discordance with absolute values may lead to misinterpretation of CBC data. Current Interpretive Data was last revised on 2018. Basophil pct 0.3 % [facility] Comment: Interpretive Data Percent cell count reference ranges are not reported, since discordance with absolute values may lead to misinterpretation of CBC data. Current Interpretive Data was last revised on 2018. Blood 01/13/2025 8:52 AM CDT 01/13/2025 9:21 AM CDT us Pradeep Blum MD LAB BLOOD ORDERABLES F inal Result Performing Organization Address [facility] Co de Phone Number [address] [employer] [place] [address] * (ABNORMAL) Iron profile w/ IBC (01/13/2025 8:52 AM CDT) [facility] Iron 21(L) 50 - 150 mcg/dL TIBC 174(L) 250 - 400 mcg/dL [facility] Transferrin saturation 12(L) 20 - 50 % [facility] Blood 01/13/2025 8:52 AM CDT 01/13/2025 9:21 AM CDT Mike Jose MD LAB BLOOD ORDERABLES Final R esult Performing Organization Address [facility] Co de Phone Number [address] [place] [address] * (ABNORMAL) CBC with auto differential (01/13/2025 8:52 AM CDT) [facility] WBC 6.8 3.8 - 9.9 K/cumm Hgb 8.5(L) 13.0 - 17.5 g/dL [facility] Hct 27.2(L) 38.9 - 50.3 % [facility] Plt 159 150 - 400 K/cumm [facility] MPV 10.2 9.1 - 12.3 fL [facility] RBC 2.96(L) 4.30 - 5.80 M/cumm [facility] MCV 91.9 81.3 - 96.4 fL [facility] MCH 28.7 27.1 - 33.3 pg [facility] MCHC 31.3(L) 32.3 - 35.7 g/dL [facility] RDW CV 15.1(H) 11.1 - 14.9 % [facility] RDW SD 50.2(H) 35.7 - 48.1 fL [facility] NRBC abs 0.00 0.00 - 0.01 K/cumm [facility] Blood 01/13/2025 8:52 AM CDT 01/13/2025 9:21 AM CDT Pradeep Blum MD LAB BLOOD ORDERABLES F inal Result Performing Organization Address [facility] de Phone Number [address] [address] * (ABNORMAL) Reticulocyte Count (01/13/2025 8:52 AM CDT) [facility] Retics, absolute 0.074 0.020 - 0.087 M/cumm Retics 2.5 0.4 - 2.9 % [facility] Reticulocyte Hgb 28.5(L) 30.5 - 38.0 pg [facility] Blood 01/13/2025 8:52 AM CDT 01/13/2025 9:21 AM CDT Mike Jose MD LAB BLOOD ORDERABLES Final R esult Performing Organization Address [facility] de Phone Number [address] [address] * Ferritin (01/13/2025 8:52 AM CDT) [facility] Ferritin 297 30 - 400 ng/mL Blood 01/13/2025 8:52 AM CDT 01/13/2025 9:21 AM CDT Mike Jose MD LAB BLOOD ORDERABLES Final R esult Performing Organization Address [facility] de Phone Number [address] [address] * (ABNORMAL) Comprehensive metabolic panel (01/13/2025 8:52 AM CDT) [facility] Sodium 137 135 - 145 mmol/L Potassium, pl 4.6 3.3 - 4.9 mmol/L [facility] Chloride 104 97 - 110 mmol/L [facility] CO2 24 22 - 32 mmol/L [facility] Anion gap 9 2 - 15 mmol/L [facility] BUN 31(H) 6 - 25 mg/dL [facility] Creatinine 0.98 0.80 - 1.30 mg/dL [facility] Glucose 124 70 - 199 mg/dL [facility] Comment: Interpretive Data Fasting glucose >/= [...] Calcium 8.4(L) 8.5 - 10.3 mg/dL [facility] Bilirubin, total 0.7 0.1 - 1.2 mg/dL [facility] Protein, pl 5.7(L) 6.5 - 8.5 g/dL [facility] Albumin 3.0(L) 3.5 - 5.0 g/dL [facility] Alk phos 65 40 - 130 Units/L [facility] ALT 10 7 - 55 Units/L [facility] AST 21 10 - 50 Units/L [facility] Blood 01/13/2025 8:52 AM CDT 01/13/2025 9:21 AM CDT us Pradeep Blum MD LAB BLOOD ORDERABLES F inal Result Performing Organization Address [facility] de Phone Number [facility] [address] [facility] Department [place] [address] * POCT glucose (01/13/2025 8:23 AM CDT) [facility] Glucose, POC 119 70 - 199 mg/dL Glucose comment 1 RN/MD Notified [facility] Blood 01/13/2025 8:23 AM CDT 01/13/2025 8:23 AM CDT us Mike Jose MD LAB POCT ORDERABLES - DEVICE Final Result Performing Organization Address [facility] Co de Phone Number [facility] [address] [facility] [place] [address] * POCT glucose (01/12/2025 8:06 PM CDT) Glucose, POC 166 70 - 199 mg/dL Glucose comment 1 Will Repeat Test [facility] Glucose comment 2 Follow Protocol [facility] Blood 01/12/2025 8:06 PM CDT 01/12/2025 8:06 PM CDT us Mike Jose MD LAB POCT ORDERABLES - DEVICE Final Result Performing Organization Address [facility] de Phone Number [facility]PITAL[facility] [place] [address] * CT Head WO Contrast (01/12/2025 6:47 [...] Aldo Palencia M.D. KT T: Report ID: [id number] Reading Location: [id number] Procedure Note Aldo Palencia MD - 01/12/2025 [...] Aldo Palencia M.D. KT T: Report ID: [id number] Reading Location: [id number] Priti Bonilla NUCLEAR STATION OPERATOR IMG CT PROCEDURES Final Resu lt * POCT glucose (01/12/2025 4:49 PM CDT) Glucose, POC 176 70 - 199 mg/dL Glucose comment 1 RN/MD Notified [facility] Blood 01/12/2025 4:49 PM CDT 01/12/2025 4:49 PM CDT Mike Jose MD LAB POCT ORDERABLES - DEVICE Final Result [facility] [address] [facility] Department [place] [address] * (ABNORMAL) POCT glucose (01/12/2025 11:49 AM CDT) Glucose, POC 238(H) 70 - 199 mg/dL Blood 01/12/2025 11:4 9 AM CDT 01/12/2025 11:49 AM CDT Mike Jose MD LAB POCT ORDERABLES - DEVICE Final Result Performing Organization Address [facility] Co de Phone Number [facility] Department [place] [address] * ECG 12 lead (01/12/2025 10:56 AM CDT) Ventricular Rate EKG/Min 91 BPM [facility] QRS-Interval (MSEC) 100 ms [facility] QT-Interval (MSEC) 334 ms [facility] QTc 410 ms [facility] R Frakes -4 degrees [facility] T Frakes -52 degrees [facility] Diagnosis Atrial fibrillation with premature ventricular or aberrantly conducted complexes Incomplete right bundle branch block 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 rate has increased BY 41 BPM Nonspecific T wave abnormality now evident in Inferior leads QT has lengthened Confirmed by TOBIAS FABIAN M.D. ([id number]) on 01/12/2025 11:57:22 AM [facility] 01/12/2025 10:5 6 AM CDT 01/12/2025 11:57 AM CDT Priti Bonilla NP ECG ORDERABLES Final Result Performing Organization Address [facility] Co de Phone Number [facility] * (ABNORMAL) eGFR (01/12/2025 9:54 AM CDT) Pathologist [facility] eGFR 58(L) >=60 mL/min/1. 73 m2 Comment: [...] MD LAB BLOOD ORDERABLES Mary collier Result [place] [id number] [facility] Department [place] [address] * (ABNORMAL) Differential, auto (01/12/2025 9:54 AM CDT) Neutrophil abs 8.1(H) 1.5 - 6.5 K/cumm Imm gran abs 0.1 0.0 - 0.1 K/cumm [facility] Lymphocyte abs 0.4(L) 0.8 - 3.3 K/cumm [facility] Monocyte abs 0.8 0.2 - 0.8 K/cumm [facility] Eosinophil abs 0.1 0.0 - 0.5 K/cumm [facility] Basophil abs 0.0 0.0 - 0.1 K/cumm [facility] Neutrophil pct 85.7 % [facility] Comment: Interpretive Data Percent cell count reference ranges are not reported, since discordance with absolute values may lead to misinterpretation of CBC data. Current Interpretive Data was last revised on 2018. Imm gran pct 0.6 % [facility] Comment: Interpretive Data Percent cell count reference ranges are not reported, since discordance with absolute values may lead to misinterpretation of CBC data. Current Interpretive Data was last revised on 2018. Lymphocyte pct 4.5 % [facility] Comment: Interpretive Data Percent cell count reference ranges are not reported, since discordance with absolute values may lead to misinterpretation of CBC data. Current Interpretive Data was last revised on 2018. Monocyte pct 8.5 % [facility] Comment: Interpretive Data Percent cell count reference ranges are not reported, since discordance with absolute values may lead to misinterpretation of CBC data. Current Interpretive Data was last revised on 2018. Eosinophil pct 0.5 % [facility] Comment: Interpretive Data Percent cell count reference ranges are not reported, since discordance with absolute values may lead to misinterpretation of CBC data. Current Interpretive Data was last revised on 2018. Basophil pct 0.2 % [facility] Comment: Interpretive Data Percent cell count reference ranges are not reported, since discordance with absolute values may lead to misinterpretation of CBC data. Current Interpretive Data was last revised on 2018. Blood 01/12/2025 9:54 AM CDT 01/12/2025 10:44 AM CDT [facility] Annika Goel MD LAB BLOOD ORDERABLES Mary l Result [place] [id number] [facility] Department [place] [address] * (ABNORMAL) CBC with auto differential (01/12/2025 9:54 AM CDT) WBC 9.4 3.8 - 9.9 K/cumm Hgb 9.1(L) 13.0 - 17.5 g/dL [facility] Hct 28.7(L) 38.9 - 50.3 % [facility] Plt 181 150 - 400 K/cumm [facility] MPV 10.3 9.1 - 12.3 fL [facility] RBC 3.10(L) 4.30 - 5.80 M/cumm [facility] MCV 92.6 81.3 - 96.4 fL [facility] MCH 29.4 27.1 - 33.3 pg [facility] MCHC 31.7(L) 32.3 - 35.7 g/dL [facility] RDW CV 15.1(H) 11.1 - 14.9 % [facility] RDW SD 50.4(H) 35.7 - 48.1 fL [facility] NRBC abs 0.00 0.00 - 0.01 K/cumm [facility] Blood 01/12/2025 9:54 AM CDT 01/12/2025 10:44 AM CDT Kait Goel MD LAB BLOOD ORDERABLES Mary l Result Performing Organization Address [facility] de Phone Number [address] [address] * Digoxin level (01/12/2025 9:54 AM CDT) Pathologist [facility] Digoxin 0.8 0.5 - 1.2 ng/mL Comment: [...] ORDERABLES Final R esult Performing Organization Address [facility] de Phone Number [address] [address] * (ABNORMAL) Comprehensive metabolic panel (01/12/2025 9:54 AM CDT) Pathologist [facility] Sodium 135 135 - 145 mmol/L Potassium, pl 4.6 3.3 - 4.9 mmol/L [facility] Chloride 101 97 - 110 mmol/L [facility] CO2 22 22 - 32 mmol/L [facility] Anion gap 12 2 - 15 mmol/L [facility] BUN 42(H) 6 - 25 mg/dL [facility] Creatinine 1.30 0.80 - 1.30 mg/dL [facility] Glucose 162 70 - 199 mg/dL [facility] Comment: Interpretive Data Fasting glucose >/= [...] Calcium 8.4(L) 8.5 - 10.3 mg/dL [facility] Bilirubin, total 0.7 0.1 - 1.2 mg/dL [facility] Protein, pl 5.8(L) 6.5 - 8.5 g/dL [facility] Albumin 3.3(L) 3.5 - 5.0 g/dL [facility] Alk phos 72 40 - 130 Units/L [facility] ALT 12 7 - 55 Units/L [facility] AST 28 10 - 50 Units/L [facility] Blood 01/12/2025 9:54 AM CDT 01/12/2025 10:45 AM CDT Kait Goel MD LAB BLOOD ORDERABLES Mary l Result Performing Organization Address [facility] Co de Phone Number [address] [place] [address] * POCT glucose (01/12/2025 8:13 AM CDT) [facility] Glucose, POC 104 70 - 199 mg/dL Blood 01/12/2025 8:13 AM CDT 01/12/2025 8:13 AM CDT us Mike Jose MD LAB POCT ORDERABLES - DEVICE Final Result Performing Organization Address [facility] Co de Phone Number [address] [place] [employer] [place] [address] * POCT glucose (01/11/2025 8:09 PM CDT) Glucose, POC 158 70 - 199 mg/dL Blood 01/11/2025 8:09 PM CDT 01/11/2025 8:09 PM CDT Mike Jose MD LAB POCT ORDERABLES - DEVICE Final Result Performing Organization Address City/[facility]/ZIP Co de Phone Number [address] [place] [address] * (ABNORMAL) POCT glucose (01/11/2025 4:30 PM CDT) Glucose, POC 201(H) 70 - 199 mg/dL Glucose comment 1 RN/MD Notified [facility] Blood 01/11/2025 4:30 PM CDT 01/11/2025 4:30 PM CDT Mike Jose MD LAB POCT ORDERABLES - DEVICE Final Result Performing Organization Address City/[facility]/ZIP Co de Phone Number [address] [place] [address] * POCT glucose (01/11/2025 12:36 PM CDT) Glucose, POC 166 70 - 199 mg/dL Glucose comment 1 RN/MD Notified [facility] Blood 01/11/2025 12:3 6 PM CDT 01/11/2025 12:36 PM CDT Mike Jose MD LAB POCT ORDERABLES - DEVICE Final Result Performing Organization Address City/[facility]/ZIP Co de Phone Number [address] [place] [address] * POCT glucose (01/11/2025 8:16 AM CDT) Glucose, POC 112 70 - 199 mg/dL Glucose comment 1 Will Repeat Test [facility] Glucose comment 2 RN/MD Notified [facility] Blood 01/11/2025 8:16 AM CDT 01/11/2025 8:16 AM CDT us Mike Jose MD LAB POCT ORDERABLES - DEVICE Final Result [facility] [address] [facility] Department [place] [address] * (ABNORMAL) Differential, auto (01/11/2025 5:00 AM CDT) Neutrophil abs 7.6(H) 1.5 - 6.5 K/cumm Imm gran abs 0.1 0.0 - 0.1 K/cumm [facility] Lymphocyte abs 1.0 0.8 - 3.3 K/cumm [facility] Monocyte abs 0.9(H) 0.2 - 0.8 K/cumm [facility] Eosinophil abs 0.0 0.0 - 0.5 K/cumm [facility] Basophil abs 0.0 0.0 - 0.1 K/cumm [facility] Neutrophil pct 79.0 % [facility] Comment: Interpretive Data Percent cell count reference ranges are not reported, since discordance with absolute values may lead to misinterpretation of CBC data. Current Interpretive Data was last revised on 2018. Imm gran pct 0.6 % [facility] Comment: Interpretive Data Percent cell count reference ranges are not reported, since discordance with absolute values may lead to misinterpretation of CBC data. Current Interpretive Data was last revised on 2018. Lymphocyte pct 10.4 % [facility] Comment: Interpretive Data Percent cell count reference ranges are not reported, since discordance with absolute values may lead to misinterpretation of CBC data. Current Interpretive Data was last revised on 2018. Monocyte pct 9.4 % [facility] Comment: Interpretive Data Percent cell count reference ranges are not reported, since discordance with absolute values may lead to misinterpretation of CBC data. Current Interpretive Data was last revised on 2018. Eosinophil pct 0.3 % [facility] Comment: Interpretive Data Percent cell count reference ranges are not reported, since discordance with absolute values may lead to misinterpretation of CBC data. Current Interpretive Data was last revised on 2018. Basophil pct 0.3 % [facility] Comment: Interpretive Data Percent cell count reference ranges are not reported, since discordance with absolute values may lead to misinterpretation of CBC data. Current Interpretive Data was last revised on 2018. Blood 01/11/2025 5:00 AM CDT 01/11/2025 5:14 AM CDT Karlos COLLIER LAB BLOOD ORDERABLES Mary l Result Performing Organization Address [facility] Co de Phone Number [facility] [address] [place] [address] * (ABNORMAL) CBC with auto differential (01/11/2025 5:00 AM CDT) WBC 9.6 3.8 - 9.9 K/cumm Hgb 8.8(L) 13.0 - 17.5 g/dL [facility] Hct 27.6(L) 38.9 - 50.3 % [facility] Plt 145(L) 150 - 400 K/cumm [facility] MPV 10.2 9.1 - 12.3 fL [facility] RBC 2.97(L) 4.30 - 5.80 M/cumm [facility] MCV 92.9 81.3 - 96.4 fL [facility] MCH 29.6 27.1 - 33.3 pg [facility] MCHC 31.9(L) 32.3 - 35.7 g/dL [facility] RDW CV 15.1(H) 11.1 - 14.9 % [facility] RDW SD 50.4(H) 35.7 - 48.1 fL [facility] NRBC abs 0.00 0.00 - 0.01 K/cumm [facility] Blood 01/11/2025 5:00 AM CDT 01/11/2025 5:14 AM CDT Karlos COLLIER LAB BLOOD ORDERABLES Mary l Result Performing Organization Address [facility] Co de Phone Number [address] [place] [address] * (ABNORMAL) Hemoglobin A1c (12/26/2024 10:31 AM PARACHUTE REPAIRER) Hgb A1C 6.6(H) 4.0 - 5.6 % Estimated Average Glucose 143 mg/dL [facility] Comment: The ADA recommends reporting an estimated Average Glucose (eAG) with all Hemoglobin A1c results using the equation derived from a study of 507 normal and diabetic adults. Minority populations were underrepresented and children were not included. (Diabetes Care 31:2085-5918, 2008). The eAG is not equivalent to a fasting glucose. Blood 12/26/2024 10:3 1 AM PARACHUTE REPAIRER 12/26/2024 10:40 AM PARACHUTE REPAIRER us Mike Jose MD LAB BLOOD ORDERABLES Final R esult [facility] [address] [facility] Department [place] [address] * CT Abdomen W WO Contrast (08/30/2021 [...] HTN, yeyo, kidney surg, bariatric surg 100mL [id number] via 20g RAC TECHNIQUE: CT scan of [...] Luis Barraza M.D. 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 Follow-up. PMHx: renal cancer, prostate cancer, skin cancer, diabetes, HTN, yeyo, kidney surg, bariatric surg 100mL [id number] via 20g RAC TECHNIQUE: CT scan of [...] Luis Barraza M.D. BB T: Report ID: [id number] Reading Location: [place] [address] Harpal Dave MD IMG CT PROCEDURES Final R esult * (ABNORMAL) Lipid panel (07/21/2019 3:38 PM CDT) Cholesterol 99 30 - 199 mg/dL [facility] Comment: Interpretive Data Ages < [...] on 2018. Triglycerides 82 <=149 mg/dL [facility] Comment: Interpretive Data Ages < [...] revised on 2018. HDL 34(L) >=40 mg/dL [facility] Comment: Interpretive Data Ages < or [...] on 2018. LDL, calculated 49 <=129 mg/dL [facility] Comment: Interpretive Data Ages < or [...] revised on 2018. Non-HDL Cholesterol 65 mg/dL [facility] Comment: Interpretive Data Ages < or [...] last revised on 2018. Chol/HDL ratio 3 [facility] Blood specimen (specimen) 07/21/2019 3:38 PM CDT 07/21/2019 3:58 PM CDT Oc Mijares MD LAB BLOOD ORDERABLES Final Resu lt Performing Organization Address [facility] Co de Phone Number [facility] [address] [place] [address] * (ABNORMAL) Microalbumin / creatinine ratio, urine, random (07/02/2016 9:20 AM CDT) Pathologist [facility] CREATININE, RANDOM URINE 158 20 - 370 mg/dL [facility] HISTORICAL RESULTS MICROALBUMIN 19.9 See Note: mg/dL [facility] HISTORICAL RESULTS Comment: Reference Range: Reference Range Not established MICROALBUMIN/CREAT ININE RATIO, RANDOM URINE 126(H) <30 mcg/mg creat [facility] HISTORICAL RESULTS Comment: The ADA defines [...] AM CDT 07/07/2016 8:31 AM CDT Narrative [facility] HISTORICAL RESULTS - 07/05/2016 2:04 AM CDT FASTING:YES PERFORMING LAB: [place], [facility] [address] [facility], [place] [address] Antonio Myers D.O., MPH Raymundo Mcmillan MD LAB URINE ORDERABLES Final Resul t Performing Organization Address [facility] Co de Phone Number [facility] HISTORICAL RESULTS from Last 3 Months or Most Recently Relevant to Health Maintenance Insurance [facility] Advance Directives For more information, please contact: [phone] Documents on File Type Date Recorded Patient Curtain Stretcher Assembler Expl anation ADVANCE DIRECTIVE 12/26/2024 12:03 PM aneesh putnam will * Full Code (Latest Code Status on File) Date Activated Date Inactivated Comments 01/09/2025 3:58 PM 01/17/2025 6:32 PM * Full Code Date Activated Date Inactivated Comments 07/21/2019 2:50 PM 07/23/2019 4:48 PM Care Teams Test Developer Relationship Specialty Start Date End Date Carlota Benton DO PCP - General 03/17/17 Inés Hickey MD [address] [facility] [place] [address] Consulting Physician Neurosurgery 12/05/24 Harpal Dave MD [address] [place] [address] Consulting Physician Urology 12/26/24 Mike Jose MD [address] [facility] [address] [address] Consulting Physician Orthopedic Surgery 01/10/25
--- OUTSIDE RECORDS SUMMARY | 2025-04-13 17:29 | XMS_ITS | Clinical Summary ---
Author Organization [facility] Address [address] [place] [address] Care Team Providers Care Severity Of Illness Coordinator Name Role Phone Carlota Benton DO Primary Care Provider [phone] Inés Hickey MD Unavailable [phone] Harpal Dave MD Unavailable Mike Jose MD Unavailable [phone] Allergies No known active allergies Medications buPROPion [...] H&H currently 7.8/25.5. We will order additional 00805 units of Epogen x1. Xarelto remain on [...] Pain is controlled with scheduled Tylenol, p.r.n. [place]. Patient has made good progress in therapy, patient is felt stable for discharge on 02/02/2025 to return home with his and outpatient therapy Assessment & Plan (01/23/2025 7:39 PM CDT): Edema slowly improving, pain is relatively well controlled with p.r.n. Tylenol, p.r.n. [place]. [place] to be removed today. Encouraged ice and elevation. Xarelto be placed on hold due to anemia. Assessment & Plan (01/20/2025 8:15 PM CDT): Overall pain is adequately controlled with p.r.n. Tylenol, p.r.n. [place]. Encouraged patient to utilize ice and elevation especially after therapy. Incision is well approximated, no drainage. Continue Xarelto for DVT prophylaxis. Staple removal orders have been placed for 01/23/2025, can follow-up as planned later in January with Orthopedic surgery. History of right knee joint replacement 01/13/20 Assessment & Plan (01/20/2025 4:35 PM CDT): I endorse admission to senior care care. The patient is at risk of [...] to a safer level of care. Continue [place] 5 mg every 8 hours p.r.n. pain. [...] (05/05/2019): Added automatically from request for surgery [id number] Renal cell carcinoma 04/14/2017 Overview (02/08/2025): Status [...] Team Description 04/04/2025 Plan of Care Documentation [facility] OP Occup Therapy [address] [place] [address] 03/29/2025 9:30 AM CDT Therapy [facility] OP Occup Therapy [address] [place] [address] Velasquez, Mamie, OT Parkinson's disease without dyskinesia, unspecified whether manifestations fluctuate (HCC) (Primary Dx); Dementia without behavioral disturbance, psychotic disturbance, mood disturbance, or anxiety, unspecified dementia severity, unspecified dementia type (HCC) 03/22/2025 10:15 AM CDT Office Visit [facility] Medical Group Orthopedics and Sports Medicine [address] [place] [address] [address] [place] [address] Mike Jose MD Status post right knee replacement 03/14/2025 11:15 AM CDT Therapy [facility] OP Physical Therapy [address] [place] [address] Dodie Terrell, PT Aftercare following right knee joint replacement surgery (Primary Dx) 03/10/2025 10:45 AM CDT Therapy [facility] OP Physical Therapy [address] [place] [address] Pat Matias, DEPARTMENT CHAIR Aftercare following right knee joint replacement surgery (Primary Dx) 03/06/2025 3:00 PM CDT Therapy [facility] OP Physical Therapy [address] [place] [address] Pat Matias, DEPARTMENT CHAIR Aftercare following right knee joint replacement surgery (Primary Dx) 03/03/2025 10:00 AM CDT Therapy [facility] OP Physical Therapy [address] [place] [address] Pat Matias, DEPARTMENT CHAIR Aftercare following right knee joint replacement surgery (Primary Dx) 02/28/2025 9:15 AM CDT Therapy [facility] OP Physical Therapy [address] [place] [address] Pat Matias, DEPARTMENT CHAIR Aftercare following right knee joint replacement surgery (Primary Dx) 02/24/2025 8:30 AM CDT Therapy [facility] OP Physical Therapy [address] [place] [address] Pat Matias, DEPARTMENT CHAIR Aftercare following right knee joint replacement surgery (Primary Dx) 02/20/2025 9:15 AM CDT Therapy [facility] OP Physical Therapy [address] [place] [address] Pat Matias, DEPARTMENT CHAIR Aftercare following right knee joint replacement surgery (Primary Dx) 02/17/2025 1:30 PM CDT Therapy [facility] OP Physical Therapy [address] [place] [address] Pat Matias, DEPARTMENT CHAIR Aftercare following right knee joint replacement surgery (Primary Dx) 02/14/2025 8:30 AM CDT Therapy [facility] OP Physical Therapy [address] [place] [address] Debra Mathis, DEPARTMENT CHAIR Aftercare following right knee joint replacement surgery (Primary Dx) 02/10/2025 8:30 AM CDT Therapy [facility] OP Physical Therapy [address] [place] [address] Elissa Perkins, DEPARTMENT CHAIR Aftercare following right knee joint replacement surgery (Primary Dx) 02/08/2025 9:35 AM CDT - 02/08/2025 11:59 PM CDT Hospital Encounter [facility] Diag Imaging [address] [place] [address] Status post total right knee replacement Discharge Disposition: Discharge to home or self care 02/08/2025 9:30 AM CDT Office Visit [facility] Medical Group Orthopedics and Sports Medicine [address] [place] [address] [address] [place] [address] Mike Jose MD Status post total right knee replacement (Primary Dx) 02/07/2025 4:45 PM CDT Therapy [facility] OP Physical Therapy [address] [place] [address] Dodie Terrell, PT Aftercare following right knee joint replacement surgery; Presence of right artificial knee joint 02/07/2025 Plan of Care Documentation [facility] OP Physical Therapy [address] [place] [address] 02/03/2025 Telephone [facility] Medical [facility] Post Acute Care [address] [facility] [address] [place] [phone] Sheila Rodriguez MA 02/01/2025 NH/SNF Visit [facility] Post [address] [address] Shea Baltazar PA Aftercare following right knee joint replacement surgery (Primary Dx); Persistent atrial fibrillation (HCC); Orthostatic hypotension; Dyslipidemia; Type 2 diabetes mellitus without complication, without long-term current use of insulin (HCC); Slow transit constipation; Anemia due to acute blood loss; Anxiety and depression; Parkinson's disease without dyskinesia, unspecified whether manifestations fluctuate (HCC) 02/01/2025 Orders Only [facility] Medical [facility] Hospitalists [address] [place] [phone] Shea Baltazar PA 01/31/2025 NH/SNF Visit [facility] Post [facility] Care [address] [address] Shea Baltazar PA Anemia due to acute blood loss (Primary Dx); Type 2 diabetes mellitus without complication, without long-term current use of insulin (HCC); Persistent atrial fibrillation (HCC); Orthostatic hypotension 01/30/2025 Orders Only [facility] Medical [facility] Hospitalists [address] [place] [address] Shea Baltazar PA 01/27/2025 NH/SNF Visit [facility] Medical Group Post Acute Care [address] [address] Shea Baltazar PA Orthostatic hypotension (Primary Dx); Anemia due to acute blood loss; Leukocytosis, unspecified type; Type 2 diabetes mellitus without complication, without long-term current use of insulin (HCC) 01/27/2025 Orders Only [facility] Medical Group [facility] Hospitalists [address] [place] [phone] Shea Baltazar PA 01/25/2025 Orders Only [facility] [address] [place] [address] Shea Baltazar PA 01/25/2025 NH/SNF Visit [facility] Medical [facility] Post Acute Care [address] [address] Shea Baltazar PA Essential (primary) hypertension (Primary Dx); Anemia due to acute blood loss; Vasovagal syncope; Anxiety and depression; Slow transit constipation 01/24/2025 11:48 AM CDT - 01/24/2025 11:59 PM CDT Hospital Encounter [facility] Diagnostic Imaging [address] [place] [address] Slow transit constipation Discharge Disposition: Discharge to home or self care 01/24/2025 Orders Only [facility] Medical [facility] Post Acute Care [address] [address] Shea Baltazar PA Slow transit constipation (Primary Dx) 01/23/2025 NH/SNF Visit [facility] Medical [facility] Post Acute Care [address] [address] Shea Baltazar PA Anemia due to acute blood loss (Primary Dx); Essential (primary) hypertension; Aftercare following right knee joint replacement surgery; Slow transit constipation 01/20/2025 NH/SNF Visit [facility] Medical [facility] Post Acute Care [address] [address] Shea Baltazar PA Aftercare following right knee joint replacement surgery (Primary Dx); Type 2 diabetes mellitus without complication, without long-term current use of insulin (HCC); Persistent atrial fibrillation (HCC); Leukocytosis, unspecified type 01/18/2025 MA/SNF Visit [facility] Medical Group Post [facility] [address] [place] [phone] Afshin Edmonds MD Status post total right [...] - 01/17/2025 2:26 PM CDT Hospital Encounter [address] [address] Mike Jose MD Primary osteoarthritis of right [...] = 0.6 oz pur e alcohol) rare [employer] Utilities Answer Date Recorded In the past 12 months has [email or web address], gas, oil, or water [employer] threatened to shut off services in your [...] How often do you attend chur or mu-ism services? 1 to 4 times per year 01/10/2025 Do you belong to any clubs o r organizations such as taoist groups, unions, fraternal or athletic groups, or [...] any time in the past 12 [facility], were you homeless or living in a nursing home (including now)? No 01/10/2025 Personal Safety Answer Date Recorded Have you ever been in or are you currently in a harmful physical or emotional relationship or is someone making you feel afraid or unsafe? 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 Not on file Not on file Not [...] 09/14/2018, 05/01/2017 Medical Devices Implanted Type Area Environmental Engineering Technician Device Identifier Shelf Expiration Date Model / Serial / Lot Lt Total Knee Arthroplasty Left: Knee Lens Bilateral: Eye Lap Ban Abdomen Dental Implant Mouth Description:Upper and lower [employer] Simplex P Radiopaque Full Dose Cement Bone Sterile 6191-1-010 - [id number] Implanted:Qty: 1 on 01/09/2025 by Mike Jose MD at [facility] Right: Knee [employer] 07/25/2027 6191-1-010 / / [id number] [employer]o Baylee Ii Legion Spc Posterior Stabilize Knee Right 7 Component [id number] - [id number] Implanted:Qty: 1 on 01/09/2025 by Mike Jose MD at [facility] Right: Knee [employer] [id number] 05/13/2034 [id number] / / [id number] [employer]o Baylee Ii Cement Knee Right 7 Baseplate Tibial Titanium [id number] - [id number] Implanted:Qty: 1 on 01/09/2025 by Mike Jose MD at [facility] Right: Knee [employer] [id number] 07/18/2034 [id number] / / [id number] [employer] Legion 9mm Posterior Stabilized High Flexion Knee 7-8 Insert [id number] - [id number] Implanted:Qty: 1 on 01/09/2025 by Mike Jose MD at [facility] Right: Knee [employer] [id number] 05/08/2034 [id number] / / [id number] [employer] Baylee Ii [id number] Biconvex Component Patellar [id number] - [id number] Implanted:Qty: 1 on 01/09/2025 by Mike Jose MD at [facility] Right: Knee [employer] [id number] 01/08/2026 [id number] / [id number] Procedures Procedure Name Priority Date/Time Associated Diagnosis [...] CDT HEMOGLOBIN A1C Routine 12/26/2024 10:31 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 [facility], [address] [place] [address]., [address] Blood 02/01/2025 6:20 AM CDT 02/01/2025 7:51 AM CDT us Shea COLLIER LAB BLOOD ORDERABLES Final Resu lt CARMENZA LEVINE [address] [place] [address] Department [place] [address] * (ABNORMAL) CBC without differential (02/01/2025 6:20 AM CDT) WBC 7.34 3.80 - 9.90 K/cumm CARMENZA LEVINE Comment:[address] [address] Hgb 8.7(L) 13.0 - 17.5 g/dL CARMENZA LEVINE Comment:[address] [address] Hct 28.5(L) 38.9 - 50.3 % CARMENZA LEVINE Comment:[address] [address] Plt 298 150 - 400 K/cumm CARMENZA LEVINE Comment:[address] [address] MPV 9.0(L) 9.1 - 12.3 fL CARMENZA LEVINE Comment:[address] [address] RBC 2.90(L) 4.30 - 5.80 M/cumm CARMENZA LEVINE Comment:[address] [address] MCV 98.3(H) 81.3 - 96.4 fL CARMENZA LEVINE Comment:[address] [address] MCH 30.0 27.1 - 33.3 pg CARMENZA LEVINE Comment:[address] [address]61 MCHC 30.5(L) 32.3 - 35.7 g/dL CARMENZA LEVINE Comment:[address] [address] RDW CV 18.9(H) 11.1 - 14.9 % CARMENZA LEVINE Comment:[address] [address] RDW SD 66.4(H) 35.7 - 48.1 fL CARMENZA LEVINE Comment:[address], [address] NRBC abs 0.00 0.00 - 0.01 K/cumm CARMENZA LEVINE Comment:[address] [address] Blood 02/01/2025 6:20 AM CDT 02/01/2025 7:51 AM CDT us Shea COLLIER LAB BLOOD ORDERABLES Final Resu lt CARMENZA [address] [facility] Department [place] [address] * (ABNORMAL) Basic metabolic panel (02/01/2025 6:20 AM CDT) Sodium 138 135 - 145 mmol/L CARMENZA LEVINE Comment:[address] [address] Potassium, pl 4.3 3.3 - 4.9 mmol/L CARMENZA LEVINE Comment:[address] [address] Chloride 103 97 - 110 mmol/L CARMENZA LEVINE Comment:[address], [address] CO2 25 22 - 32 mmol/L CARMENZA LEVINE Comment:[address], [address] Anion gap 10 2 - 15 mmol/L CARMENZA LEVINE Comment:[address] [address] BUN 29(H) 6 - 25 mg/dL CARMENZA LEVINE Comment:[address] [address] Creatinine 1.05 0.80 - 1.30 mg/dL CARMENZA LEVINE Comment:[address] [address] Glucose 126 70 - 199 mg/dL CARMENZA [...] Current interpretive data was last revised 2022. [facility], [address] [place] [address]., [address] Calcium 8.7 8.5 - 10.3 mg/dL CARMENZA LEVINE Comment:[address] [address] Blood 02/01/2025 6:20 AM CDT 02/01/2025 7:51 AM CDT us Shea COLLIER LAB BLOOD ORDERABLES Final Resu lt CARMENZA [address] Department [place] [address] * (ABNORMAL) Hemoglobin and hematocrit (01/30/2025 6:44 AM CDT) Hgb 8.7(L) 13.0 - 17.5 g/dL CARMENZA LVEINE Comment:[address] [address] Hct 29.3(L) 38.9 - 50.3 % CARMENZA LEVINE Comment:[address] [address] Blood 01/30/2025 6:44 AM CDT 01/30/2025 8:44 AM CDT us Shea COLLIER LAB BLOOD ORDERABLES Final Resu lt CARMENZA [address] [facility] Department [place] [address] * (ABNORMAL) CBC without differential (01/27/2025 6:48 AM CDT) WBC 7.84 3.80 - 9.90 K/cumm CARMENZA Comment:[address] [address] Hgb 7.8(L) 13.0 - 17.5 g/dL CARMENZA Comment:[address] [address] Hct 26.2(L) 38.9 - 50.3 % CARMENZA Comment:[address] [address]20 Plt 306 150 - 400 K/cumm CARMENZA Comment:[address], [address] MPV 9.1 9.1 - 12.3 fL CERTORIN Comment:[address] [address]35[address] RBC 2.70(L) 4.30 - 5.80 M/cumm CERTORIN MH Comment:[address] [address] MCV 97.0(H) 81.3 - 96.4 fL CARMENZA Comment:[address] [address] MCH 28.9 27.1 - 33.3 pg CERTORIN MH Comment:[address] [address] MCHC 29.8(L) 32.3 - 35.7 g/dL CERTORIN Comment:[address], [address] RDW CV 18.6(H) 11.1 - 14.9 % CERTORIN Comment:[address], [address] RDW SD 63.6(H) 35.7 - 48.1 fL CERNER MH Comment:[address] [address] NRBC abs 0.00 0.00 - 0.01 K/cumm CARMENZA Comment:[address] [address] Blood 01/27/2025 6:48 AM CDT 01/27/2025 8:10 AM CDT Shea COLLIER LAB BLOOD ORDERABLES Final Resu lt MARYTORIN [address] [place] [address] * eGFR (01/25/2025 7:07 AM CDT) eGFR [...] Current interpretive data was last reviewed 2021. [facility], [address] [place] [address]., [address] Blood 01/25/2025 7:07 AM CDT 01/25/2025 7:43 AM CDT Shea COLLIER LAB BLOOD ORDERABLES Final Resu lt Performing Organization Address City/[facility]/ZIP Co de Phone Number MARYTORIN [address] Department [place] [address] * (ABNORMAL) CBC without differential (01/25/2025 7:07 AM CDT) WBC 8.65 3.80 - 9.90 K/cumm CERTORIN Comment:[address], [address] Hgb 7.8(L) 13.0 - 17.5 g/dL CERNER Comment:[address], [address] Hct 25.5(L) 38.9 - 50.3 % CERNER Comment:[address], [address] Plt 320 150 - 400 K/cumm CERTORIN MH Comment:[address], [address] MPV 9.0(L) 9.1 - 12.3 fL CERNER MH Comment:[address], [address] RBC 2.65(L) 4.30 - 5.80 M/cumm CERNER MH Comment:[address], [address] MCV 96.2 81.3 - 96.4 fL CERNER Comment:[address], [address] MCH 29.4 27.1 - 33.3 pg CERNER MH Comment:[address], [address] MCHC 30.6(L) 32.3 - 35.7 g/dL CERNER Comment:[address], [address] RDW CV 18.5(H) 11.1 - 14.9 % CERNER Comment:[address], [address] RDW SD 60.9(H) 35.7 - 48.1 fL CERTORIN Comment:[address], [address] NRBC abs 0.00 0.00 - 0.01 K/cumm CERTORIN Comment:[address], [address] Blood 01/25/2025 7:07 AM CDT 01/25/2025 7:43 AM CDT Shea COLLIER LAB BLOOD ORDERABLES Final Resu lt CARMENZA [address] Department [place] [address] * (ABNORMAL) Basic metabolic panel (01/25/2025 7:07 AM CDT) Sodium 136 135 - 145 mmol/L CARMENZA Comment:[address] [address] Potassium, pl 4.4 3.3 - 4.9 mmol/L CARMENZA Comment:[address] [address] Chloride 102 97 - 110 mmol/L CARMENZA Comment:[address] [address] CO2 25 22 - 32 mmol/L CARMENZA Comment:[address] [address] Anion gap 9 2 - 15 mmol/L CARMENZA Comment:[address] [address] BUN 28(H) 6 - 25 mg/dL CARMENZA Comment:[address] [address] Creatinine 0.96 0.80 - 1.30 mg/dL CARMENZA Comment:[address] [address] Glucose 126 70 - 199 mg/dL [facility] Comment: Interpretive Data Fasting glucose >/= 126 [...] Current interpretive data was last revised 2022. [facility], [address] [place] [address], [place]., [address] Calcium 8.7 8.5 - 10.3 mg/dL CARMENZA LEVINE Comment:[facility], [address] [place]., [address] Blood 01/25/2025 7:07 AM CDT 01/25/2025 7:43 AM CDT us Shea COLLIER LAB BLOOD ORDERABLES Final Resu lt CARMENZA LEVINE [address] [facility] Department [place] [address] * X-ray abdomen 1 view (01/24/2025 1:29 [...] of a bowel obstruction. There is a kgaa-xm-ubopdsoi amount of retained fecal debris in the [...] IMPRESSION: No definite evidence of bowel obstruction. Ihsr-mx-nujanqui amount of retained fecal debris in the colon, which is concerning for constipation. THIS IS AN ELECTRONICALLY VERIFIED FINAL REPORT 01/24/2025 5:31 PM - Electronically signed by Ashanti COX T: Report ID: [id number] Reading Location: [id number] Procedure Note Ashanti Richardson, - 01/24/2025 EXAM DESCRIPTION: XR ABDOMEN AP 1 VIEW REASON FOR STUDY: constipation Last bowl movement was last TECHNIQUE: Single frontal radiographic view of the abdomen. COMPARISON: 08/30/2021 FINDINGS: There is no definite evidence of a bowel obstruction. There dino rwba-cb-fhoowdiy amount of retained fecal debris in the [...] IMPRESSION: No definite evidence of bowel obstruction. Redt-yt-pougczzn amount of retained fecal debris in the colon, which is concerning for constipation. THIS IS AN ELECTRONICALLY VERIFIED FINAL REPORT 01/24/2025 5:31 PM - Electronically signed by Ashanti Richardson D.O. PS T: Report ID: [id number] Reading Location: [place] [address] Shea COLLIER IMG XR PROCEDURES Final Result [...] Current interpretive data was last reviewed 2021. [facility], [facility] [place]., [address] Blood 01/23/2025 10:2 0 AM CDT 01/23/2025 10:31 AM CDT us Afshin Edmonds MD LAB BLOOD ORDERABLES Final R esult [facility] [address] Department [place] [address] * (ABNORMAL) Comprehensive metabolic panel (01/23/2025 10:20 AM CDT) Sodium 134(L) 135 - 145 mmol/L CARMENZA Comment:[address] [address] Potassium, pl 4.7 3.3 - 4.9 mmol/L CARMENZA Comment:[address] [address] Chloride 102 97 - 110 mmol/L CARMENZA Comment:[address] [address] CO2 24 22 - 32 mmol/L CARMENZA Comment:[address] [address] Anion gap 8 2 - 15 mmol/L CARMENZA Comment:[address] [address] BUN 27(H) 6 - 25 mg/dL CARMENZA Comment:[address] [address] Creatinine 0.97 0.80 - 1.30 mg/dL CARMENZA Comment:[address] [address] Glucose 182 70 - 199 mg/dL CARMENZA [...] Current interpretive data was last revised 2022. [facility], [address] [place]., [address] Calcium 8.3(L) 8.5 - 10.3 mg/dL CARMENZA Comment:[facility], [address] [place] [address]., [address] Bilirubin, total 1.1 0.1 - 1.2 mg/dL [facility] Comment:[address] [address] Protein, pl 5.5(L) 6.5 - 8.5 g/dL [facility] Comment:[address] [address] Albumin 3.0(L) 3.5 - 5.0 g/dL [facility] Comment:[address] [address] Alk phos 84 40 - 130 Units/L [facility] Comment:[address] [address] ALT 26 7 - 55 Units/L [facility] Comment:[address] [address] AST 27 10 - 50 Units/L [facility] Comment:[address] [address] Blood 01/23/2025 10:2 0 AM CDT 01/23/2025 10:31 AM CDT Afshin Edmonds MD LAB BLOOD ORDERABLES Final R esult CARMENZA [address] Department [place] [address] * eGFR (01/23/2025 4:30 AM CDT) eGFR [...] Current interpretive data was last reviewed 2021. [facility], [address] [place] [address]., [address] Blood 01/23/2025 4:30 AM CDT 01/23/2025 4:54 AM CDT us Shea COLLIER LAB BLOOD ORDERABLES Final Resu lt CARMENZA [address] Department [place] [address] * (ABNORMAL) Differential, auto (01/23/2025 4:30 AM CDT) Neutrophil abs 7.3(H) 1.5 - 6.5 K/cumm CARMENZA Comment:[address] [address] Imm gran abs 0.3(H) 0.0 - 0.1 K/cumm CARMENZA Comment:[address] [address] Lymphocyte abs 1.2 0.8 - 3.3 K/cumm CARMENZA Comment:[address] [address] Monocyte abs 0.6 0.2 - 0.8 K/cumm CARMENZA Comment:[address] [address] Eosinophil abs 0.2 0.0 - 0.5 K/cumm CARMENZA Comment:[address] [address] Basophil abs 0.0 0.0 - 0.1 K/cumm CARMENZA MH Comment:[facility], [address] [place]., [address] Neutrophil pct 76.6 % [facility] Comment: Interpretive Data Percent cell count reference ranges are not reported, since discordance with absolute values may lead to misinterpretation of CBC data. Current Interpretive Data was last revised on 2018. [facility], [address] [place] [address]., [address] Imm gran pct 3.4 % [facility] Comment: Interpretive Data Percent cell count reference ranges are not reported, since discordance with absolute values may lead to misinterpretation of CBC data. Current Interpretive Data was last revised on 2018. [address] [address] Lymphocyte pct 12.0 % [facility] Comment: Interpretive Data Percent cell count reference ranges are not reported, since discordance with absolute values may lead to misinterpretation of CBC data. Current Interpretive Data was last revised on 2018. [facility], [address] [place] [address]., [address] Monocyte pct 6.0 % [facility] Comment: Interpretive Data Percent cell count reference ranges are not reported, since discordance with absolute values may lead to misinterpretation of CBC data. Current Interpretive Data was last revised on 2018. [facility], [address] [place] [address]., [address] Eosinophil pct 1.7 % [facility] Comment: Interpretive Data Percent cell count reference ranges are not reported, since discordance with absolute values may lead to misinterpretation of CBC data. Current Interpretive Data was last revised on 2018. [address] [address] Basophil pct 0.3 % [facility] Comment: Interpretive Data Percent cell count reference ranges are not reported, since discordance with absolute values may lead to misinterpretation of CBC data. Current Interpretive Data was last revised on 2018. [address] [address] Blood 01/23/2025 4:30 AM CDT 01/23/2025 4:54 AM CDT us Afshin Edmonds MD LAB BLOOD ORDERABLES Final R esult [facility] [address] [facility] [facility] Department [place] [address] * (ABNORMAL) CBC with auto differential (01/23/2025 4:30 AM CDT) WBC 9.6 3.8 - 9.9 K/cumm [facility] Comment:[address], [address] Hgb 7.5(L) 13.0 - 17.5 g/dL [facility] Comment:[address], [address] Hct 26.3(L) 38.9 - 50.3 % [facility] Comment:[address], [address] Plt 223 150 - 400 K/cumm CAR[facility] Comment:[address], [address] MPV 10.5 9.1 - 12.3 fL [facility] Comment:[address], [address] RBC 2.58(L) 4.30 - 5.80 M/cumm CERNER Comment:[address], [address] MCV 101.9(H) 81.3 - 96.4 fL [facility] Comment:[address], [address] MCH 29.1 27.1 - 33.3 pg [facility] Comment:[address], [address] MCHC 28.5(L) 32.3 - 35.7 g/dL CERNER Comment:[address], [address] RDW CV 18.0(H) 11.1 - 14.9 % [facility]ERNER Comment:[address], [address] RDW SD 61.6(H) 35.7 - 48.1 fL [facility] Comment:[address], [address] NRBC abs 0.00 0.00 - 0.01 K/cumm [facility] MH Comment:[address], [address] Blood 01/23/2025 4:30 AM CDT 01/23/2025 4:54 AM CDT us Afshin Edmonds MD LAB BLOOD ORDERABLES Final R esult [facility] [address] [facility] Department [place] [address] * (ABNORMAL) CBC without differential (01/23/2025 4:30 AM CDT) WBC 9.6 3.8 - 9.9 K/cumm [facility] Comment:[address] [address] Hgb 7.5(L) 13.0 - 17.5 g/dL [facility] Comment:[address], [address] Hct 26.3(L) 38.9 - 50.3 % [facility] Comment:[address], [address] Plt 223 150 - 400 K/cumm [facility] MH Comment:[address], [address] MPV 10.5 9.1 - 12.3 fL [facility] Comment:[address] [address] RBC 2.58(L) 4.30 - 5.80 M/cumm [facility] MH Comment:[address], [address] MCV 101.9(H) 81.3 - 96.4 fL [facility] Comment:[address], [address] MCH 29.1 27.1 - 33.3 pg [facility] MH Comment:[address], [address] MCHC 28.5(L) 32.3 - 35.7 g/dL [facility] Comment:[address], [address] RDW CV 18.0(H) 11.1 - 14.9 % [facility] LEVINE Comment:[address] [address] RDW SD 61.6(H) 35.7 - 48.1 fL [facility] LEVINE Comment:[address] [address] NRBC abs 0.00 0.00 - 0.01 K/cumm [facility] LEVINE Comment:[address] [address] Blood 01/23/2025 4:30 AM CDT 01/23/2025 4:54 AM CDT us Shea COLLIER LAB BLOOD ORDERABLES Final Resu lt [facility] [address] [facility] Department [place] [address] * (ABNORMAL) Basic metabolic panel (01/23/2025 4:30 AM CDT) Sodium 133(L) 135 - 145 mmol/L [facility] Comment:[address] [address] Potassium, pl 4.7 3.3 - 4.9 mmol/L [facility] Comment:[address], [address] Chloride 102 97 - 110 mmol/L [facility] Comment:[address] [address] CO2 20(L) 22 - 32 mmol/L [facility] Comment:[address] [address] Anion gap 11 2 - 15 mmol/L [facility] Comment:[address] [address] BUN 27(H) 6 - 25 mg/dL [facility] Comment:[address] [address] Creatinine 0.89 0.80 - 1.30 mg/dL [facility] Comment:[address] [address] Glucose 117 70 - 199 mg/dL [facility] [...] Current interpretive data was last revised 2022. [facility], [address] [place]., [address] Calcium 8.5 8.5 - 10.3 mg/dL [facility] LEVINE Comment:[facility], [address] [place]., [address] Blood 01/23/2025 4:30 AM CDT 01/23/2025 4:54 AM CDT Shea COLLIER LAB BLOOD ORDERABLES Final Resu lt [facility] [address] Department [place] [address] * eGFR (01/20/2025 7:17 AM CDT) eGFR [...] Current interpretive data was last reviewed 2021. [facility], [address] [place]., [address] Blood 01/20/2025 7:17 AM CDT 01/20/2025 7:45 AM CDT us Afshin Edmonds MD LAB BLOOD ORDERABLES Final R esult [facility] [address] [facility] Department [place] [address] * (ABNORMAL) CBC without differential (01/20/2025 7:17 AM CDT) WBC 12.1(H) 3.8 - 9.9 K/cumm [facility] Comment:[address] [address] Hgb 7.9(L) 13.0 - 17.5 g/dL [facility] MH Comment:[address], [address] Hct 25.6(L) 38.9 - 50.3 % [facility] MH Comment:[address] [address] Plt 310 150 - 400 K/cumm [facility] MH Comment:[address] [address] MPV 9.1 9.1 - 12.3 fL [facility] MH Comment:[address] [address] RBC 2.73(L) 4.30 - 5.80 M/cumm [facility] MH Comment:[address] [address] MCV 93.8 81.3 - 96.4 fL [facility] MH Comment:[address] [address] MCH 28.9 27.1 - 33.3 pg [facility] MH Comment:[address] [address] MCHC 30.9(L) 32.3 - 35.7 g/dL [facility] MH Comment:[address] [address] RDW CV 16.6(H) 11.1 - 14.9 % [facility] LEVINE Comment:[address] [address] RDW SD 53.8(H) 35.7 - 48.1 fL [facility] Comment:[address] [address] NRBC abs 0.00 0.00 - 0.01 K/cumm [facility] Comment:[address] [address] Blood 01/20/2025 7:17 AM CDT 01/20/2025 7:45 AM CDT Afshin Edmonds MD LAB BLOOD ORDERABLES Final R esult Performing Organization Address [facility] Co de Phone Number [address] [place] [address] * Digoxin level (01/20/2025 7:17 AM CDT) Digoxin 0.7 0.5 - 1.2 ng/mL [facility] Comment: Interpretive data The therapeutic range for digoxin varies by indication: Heart failure: 0.5 to 0.8 ng/mL Atrial fibrillation: less than 1.2 ng/mL Toxicity: >2.4. Normal or low digoxin does not rule out toxicity. Current interpretive data was last revised on 2024. [facility], [address] [place] [address]., [address] Blood 01/20/2025 7:17 AM CDT 01/20/2025 7:45 AM CDT Afshin Edmonds MD LAB BLOOD ORDERABLES Final R esult Performing Organization Address City/[facility] Co de Phone Number [address] [place] [address] * (ABNORMAL) Comprehensive metabolic panel (01/20/2025 7:17 AM CDT) Sodium 137 135 - 145 mmol/L [facility] Comment:[address] [address] Potassium, pl 4.1 3.3 - 4.9 mmol/L [facility] Comment:[address] [address] Chloride 103 97 - 110 mmol/L [facility] Comment:[facility], [address] [place] [address]., [address] CO2 25 22 - 32 mmol/L [facility] Comment:[address] [address] Anion gap 9 2 - 15 mmol/L [facility] Comment:[address] [address] BUN 33(H) 6 - 25 mg/dL [facility] Comment:[address] [address] Creatinine 0.99 0.80 - 1.30 mg/dL [facility] Comment:[address] [address] Glucose 44(C) 70 - 199 mg/dL [facility] Comment: Critical Result called to and read back by landen suh, DATE: 2025-01-20 08:17:14 BY: [id number] Interpretive Data Fasting glucose >/= 126 mg/dl [...] Current interpretive data was last revised 2022. [facility], [address] [place]., [address] Calcium 8.7 8.5 - 10.3 mg/dL [facility] Comment:[address] [address] Bilirubin, total 1.6(H) 0.1 - 1.2 mg/dL [facility] Comment:[address] [address] Protein, pl 6.0(L) 6.5 - 8.5 g/dL [facility] Comment:[address] [address] Albumin 3.1(L) 3.5 - 5.0 g/dL [facility] Comment:[address] [address] Alk phos 80 40 - 130 Units/L [facility] Comment:[address] [address] ALT 17 7 - 55 Units/L [facility] Comment:[address] [address] AST 41 10 - 50 Units/L [facility]:[address] [address] Blood 01/20/2025 7:17 AM CDT 01/20/2025 7:45 AM CDT Afshin Edmonds MD LAB BLOOD ORDERABLES Final R esult Performing Organization Address [facility]/ZIP Co de Phone Number [address] [place] [address] * (ABNORMAL) POCT glucose (01/17/2025 12:06 PM CDT) [facility] Glucose, POC 254(H) 70 - 199 mg/dL Glucose comment 1 RN/MD Notified [facility] Blood 01/17/2025 12:0 6 PM CDT 01/17/2025 12:06 PM CDT us Mike Jose MD LAB POCT ORDERABLES - DEVICE Final Result Performing Organization Address City/[facility]/ZIP Co de Phone Number [address] [place] [address] * eGFR (01/17/2025 8:31 AM CDT) [facility] eGFR 90 >=60 mL/min/1. 73 m2 Comment: [...] MD LAB BLOOD ORDERABLES Final R esult [place] [id number] [facility] Department [place] [address] * (ABNORMAL) Differential, auto (01/17/2025 8:31 AM CDT) Neutrophil abs 6.7(H) 1.5 - 6.5 K/cumm Imm gran abs 0.3(H) 0.0 - 0.1 K/cumm [facility] Lymphocyte abs 1.1 0.8 - 3.3 K/cumm [facility] Monocyte abs 0.8 0.2 - 0.8 K/cumm [facility] Eosinophil abs 0.1 0.0 - 0.5 K/cumm [facility] Basophil abs 0.0 0.0 - 0.1 K/cumm [facility] Neutrophil pct 74.0 % [facility] Comment: Interpretive Data Percent cell count reference ranges are not reported, since discordance with absolute values may lead to misinterpretation of CBC data. Current Interpretive Data was last revised on 2018. Imm gran pct 3.5 % [facility] Comment: Interpretive Data Percent cell count reference ranges are not reported, since discordance with absolute values may lead to misinterpretation of CBC data. Current Interpretive Data was last revised on 2018. Lymphocyte pct 11.9 % [facility] Comment: Interpretive Data Percent cell count reference ranges are not reported, since discordance with absolute values may lead to misinterpretation of CBC data. Current Interpretive Data was last revised on 2018. Monocyte pct 9.0 % [facility] Comment: Interpretive Data Percent cell count reference ranges are not reported, since discordance with absolute values may lead to misinterpretation of CBC data. Current Interpretive Data was last revised on 2018. Eosinophil pct 1.3 % [facility] Comment: Interpretive Data Percent cell count reference ranges are not reported, since discordance with absolute values may lead to misinterpretation of CBC data. Current Interpretive Data was last revised on 2018. Basophil pct 0.3 % [facility] Comment: Interpretive Data Percent cell count reference ranges are not reported, since discordance with absolute values may lead to misinterpretation of CBC data. Current Interpretive Data was last revised on 2018. Blood 01/17/2025 8:31 AM CDT 01/17/2025 8:57 AM CDT us Mike Jose MD LAB BLOOD ORDERABLES Final R esult [facility] [address] Department [place] [address] * (ABNORMAL) CBC with auto differential (01/17/2025 8:31 AM CDT) WBC 9.1 3.8 - 9.9 K/cumm Hgb 8.1(L) 13.0 - 17.5 g/dL [facility] Hct 25.9(L) 38.9 - 50.3 % [facility] Plt 216 150 - 400 K/cumm [facility] MPV 9.3 9.1 - 12.3 fL [facility] RBC 2.81(L) 4.30 - 5.80 M/cumm [facility] MCV 92.2 81.3 - 96.4 fL [facility] MCH 28.8 27.1 - 33.3 pg [facility] MCHC 31.3(L) 32.3 - 35.7 g/dL [facility] RDW CV 15.4(H) 11.1 - 14.9 % [facility] RDW SD 50.4(H) 35.7 - 48.1 fL [facility] NRBC abs 0.00 0.00 - 0.01 K/cumm [facility] Blood 01/17/2025 8:31 AM CDT 01/17/2025 8:57 AM CDT Mike Jose MD LAB BLOOD ORDERABLES Final R esult Performing Organization Address City/[facility] Co de Phone Number [facility] [address] Department [place] [address] * (ABNORMAL) Basic metabolic panel (01/17/2025 8:31 AM CDT) Sodium 134(L) 135 - 145 mmol/L Potassium, pl 4.7 3.3 - 4.9 mmol/L [facility] Chloride 101 97 - 110 mmol/L [facility] CO2 24 22 - 32 mmol/L [facility] Anion gap 9 2 - 15 mmol/L [facility] BUN 22 6 - 25 mg/dL [facility] Creatinine 0.88 0.80 - 1.30 mg/dL [facility] Glucose 160 70 - 199 mg/dL [facility] Comment: Interpretive Data Fasting glucose [...] Calcium 8.4(L) 8.5 - 10.3 mg/dL [facility] Blood 01/17/2025 8:31 AM CDT 01/17/2025 8:57 AM CDT Mike Jose MD LAB BLOOD ORDERABLES Final R esult Performing Organization Address City/[facility]/ZIP Co de Phone Number MARY[address] [place] [address] * POCT glucose (01/17/2025 8:18 AM CDT) Glucose, POC 171 70 - 199 mg/dL Glucose comment 1 RN/MD Notified [facility] Blood 01/17/2025 8:18 AM CDT 01/17/2025 8:18 AM CDT us Mike Jose MD LAB POCT ORDERABLES - DEVICE Final Result Performing Organization Address [facility] Co de Phone Number AMRY[address] [place] [address] * POCT glucose (01/16/2025 8:17 PM CDT) Glucose, POC 173 70 - 199 mg/dL Blood 01/16/2025 8:17 PM CDT 01/16/2025 8:17 PM CDT Mike Jose MD LAB POCT ORDERABLES - DEVICE Final Result Performing Organization Address [facility] Co de Phone Number [address] [place] [address] * (ABNORMAL) POCT glucose (01/16/2025 4:31 PM CDT) Glucose, POC 213(H) 70 - 199 mg/dL Blood 01/16/2025 4:31 PM CDT 01/16/2025 4:31 PM CDT Mike Jose MD LAB POCT ORDERABLES - DEVICE Final Result Performing Organization Address [facility] Co de Phone Number [address] [place] [address] * (ABNORMAL) POCT glucose (01/16/2025 12:11 PM CDT) [facility] Glucose, POC 238(H) 70 - 199 mg/dL Blood 01/16/2025 12:1 1 PM CDT 01/16/2025 12:11 PM CDT us Mike Jose MD LAB POCT ORDERABLES - DEVICE Final Result Performing Organization Address [facility] Co de Phone Number CARMEN[facility] [address] [place] [address] * eGFR (01/16/2025 8:16 AM CDT) [facility] eGFR >90 >=60 mL/min/1. 73 m2 [...] ORDERABLES F inal Result Performing Organization Address City/[facility]/ZIP Co de Phone Number MARY[address] [place] [address] * (ABNORMAL) CBC without differential (01/16/2025 8:16 AM CDT) [facility] WBC 8.8 3.8 - 9.9 K/cumm Hgb 8.7(L) 13.0 - 17.5 g/dL [facility] Hct 27.0(L) 38.9 - 50.3 % [facility] Plt 211 150 - 400 K/cumm [facility] MPV 9.4 9.1 - 12.3 fL [facility] RBC 2.96(L) 4.30 - 5.80 M/cumm [facility] MCV 91.2 81.3 - 96.4 fL [facility] MCH 29.4 27.1 - 33.3 pg [facility] MCHC 32.2(L) 32.3 - 35.7 g/dL [facility] RDW CV 15.3(H) 11.1 - 14.9 % [facility] RDW SD 50.1(H) 35.7 - 48.1 fL [facility] NRBC abs 0.00 0.00 - 0.01 K/cumm [facility] Blood 01/16/2025 8:16 AM CDT 01/16/2025 8:36 AM CDT us Pradeep Blum MD LAB BLOOD ORDERABLES F inal Result [facility] [address] [place] [address] * (ABNORMAL) Comprehensive metabolic panel (01/16/2025 8:16 AM CDT) [facility] Sodium 135 135 - 145 mmol/L Potassium, pl 4.7 3.3 - 4.9 mmol/L [facility] Chloride 102 97 - 110 mmol/L [facility] CO2 23 22 - 32 mmol/L [facility] Anion gap 10 2 - 15 mmol/L [facility] BUN 22 6 - 25 mg/dL [facility] Creatinine 0.82 0.80 - 1.30 mg/dL [facility] Glucose 180 70 - 199 mg/dL [facility] Comment: Interpretive Data Fasting glucose [...] Calcium 8.7 8.5 - 10.3 mg/dL [facility] Bilirubin, total 1.4(H) 0.1 - 1.2 mg/dL [facility] Protein, pl 5.6(L) 6.5 - 8.5 g/dL [facility] Albumin 3.1(L) 3.5 - 5.0 g/dL [facility] Alk phos 70 40 - 130 Units/L [facility] ALT 23 7 - 55 Units/L [facility] AST 30 10 - 50 Units/L [facility] Blood 01/16/2025 8:16 AM CDT 01/16/2025 8:36 AM CDT us Pradeep Blum MD LAB BLOOD ORDERABLES F inal Result Performing Organization Address City/[facility]/ZIP Co de Phone Number [address] [place] [address] * POCT glucose (01/16/2025 8:09 AM CDT) Glucose, POC 195 70 - 199 mg/dL Blood 01/16/2025 8:09 AM CDT 01/16/2025 8:09 AM CDT us Mike Jose MD LAB POCT ORDERABLES - DEVICE Final Result Performing Organization Address City/[facility]/ZIP Co de Phone Number [address] [place] [address] * POCT glucose (01/15/2025 8:57 PM CDT) Glucose, POC 167 70 - 199 mg/dL Glucose comment 1 RN/MD Notified [facility] Blood 01/15/2025 8:57 PM CDT 01/15/2025 8:57 PM CDT Mike Jose MD LAB POCT ORDERABLES - DEVICE Final Result Performing Organization Address [facility] Co de Phone Number [address] [address] * (ABNORMAL) Hemoglobin and hematocrit (01/15/2025 7:46 PM CDT) [facility] Hgb 8.9(L) 13.0 - 17.5 g/dL Hct 28.0(L) 38.9 - 50.3 % [facility] Blood 01/15/2025 7:46 PM CDT 01/15/2025 7:53 PM CDT Pradeep Blum MD LAB BLOOD ORDERABLES F inal Result Performing Organization Address [facility] Co de Phone Number [address] [address] * (ABNORMAL) POCT glucose (01/15/2025 4:24 PM CDT) [facility] Glucose, POC 252(H) 70 - 199 mg/dL Glucose comment 1 RN/MD Notified [facility] Blood 01/15/2025 4:24 PM CDT 01/15/2025 4:24 PM CDT Mike Jose MD LAB POCT ORDERABLES - DEVICE Final Result Performing Organization Address City/[facility] Co de Phone Number [address] [address] * TSH (01/15/2025 2:51 PM CDT) [facility] Thyroid Stimulating Hormone 1.66 0.30 - 4.20 mcIUnit/mL Blood 01/15/2025 2:51 PM CDT 01/15/2025 3:11 PM CDT Pradeep Blum MD LAB BLOOD ORDERABLES F inal Result Performing Organization Address [facility] Co de Phone Number [address] [place] [address] * Lactate dehydrogenase (LD) (01/15/2025 2:51 PM CDT) Lactate dehydrogenase (LDH) 180 100 - 250 Units/L Blood 01/15/2025 2:51 PM CDT 01/15/2025 3:11 PM CDT Pradeep Blum MD LAB BLOOD ORDERABLES F inal Result Performing Organization Address [facility] Phone Number [address] [place] [address] * (ABNORMAL) Haptoglobin (01/15/2025 2:51 PM CDT) Haptoglobin 274(H) 30 - 200 mg/dL Blood 01/15/2025 2:51 PM CDT 01/15/2025 3:11 PM CDT Pradeep Blum MD LAB BLOOD ORDERABLES F inal Result Performing Organization Address [facility] de Phone Number [address] [place] [address] * (ABNORMAL) Folate (01/15/2025 2:51 PM CDT) Folic acid 3.8(L) >=5.0 ng/mL Blood 01/15/2025 2:51 PM CDT 01/15/2025 3:11 PM CDT Pradeep Blum MD LAB BLOOD ORDERABLES F inal Result Performing Organization Address [facility] Co de Phone Number [address] [place] [address] * (ABNORMAL) POCT glucose (01/15/2025 12:23 PM CDT) Glucose, POC 266(H) 70 - 199 mg/dL Glucose comment 1 RN/MD Notified [facility] Blood 01/15/2025 12:2 3 PM CDT 01/15/2025 12:23 PM CDT Mike Jose MD LAB POCT ORDERABLES - DEVICE Final Result Performing Organization Address [facility] Co de Phone Number [address] [address] * (ABNORMAL) Hemoglobin and hematocrit (01/15/2025 12:00 PM CDT) [facility] Hgb 8.6(L) 13.0 - 17.5 g/dL Hct 27.4(L) 38.9 - 50.3 % [facility] Blood 01/15/2025 12:0 0 PM CDT 01/15/2025 12:24 PM CDT Pradeep Blum MD LAB BLOOD ORDERABLES F inal Result Performing Organization Address [facility] Co de Phone Number [address] [address] * (ABNORMAL) Albumin (01/15/2025 12:00 PM CDT) [facility] Albumin 3.0(L) 3.5 - 5.0 g/dL Blood 01/15/2025 12:0 0 PM CDT 01/15/2025 12:24 PM CDT Pradeep Blum MD LAB BLOOD ORDERABLES F inal Result Performing Organization Address [facility] Co de Phone Number [address] [place] [address] * eGFR (01/15/2025 8:32 AM CDT) [facility] eGFR 90 >=60 mL/min/1. 73 m2 Comment: [...] MD LAB BLOOD ORDERABLES F inal Result [facility] [address] [facility] [place] [address] * (ABNORMAL) Differential, auto (01/15/2025 8:32 AM CDT) [facility] Neutrophil abs 6.2 1.5 - 6.5 K/cumm Imm gran abs 0.1 0.0 - 0.1 K/cumm [facility] Lymphocyte abs 0.7(L) 0.8 - 3.3 K/cumm [facility] Monocyte abs 0.8 0.2 - 0.8 K/cumm [facility] Eosinophil abs 0.1 0.0 - 0.5 K/cumm [facility] Basophil abs 0.0 0.0 - 0.1 K/cumm [facility] Neutrophil pct 77.3 % [facility] Comment: Interpretive Data Percent cell count reference ranges are not reported, since discordance with absolute values may lead to misinterpretation of CBC data. Current Interpretive Data was last revised on 2018. Imm gran pct 1.6 % [facility] Comment: Interpretive Data Percent cell count reference ranges are not reported, since discordance with absolute values may lead to misinterpretation of CBC data. Current Interpretive Data was last revised on 2018. Lymphocyte pct 8.9 % [facility] [facility] Comment: Interpretive Data Percent cell count reference ranges are not reported, since discordance with absolute values may lead to misinterpretation of CBC data. Current Interpretive Data was last revised on 2018. Monocyte pct 10.2 % [facility] Comment: Interpretive Data Percent cell count reference ranges are not reported, since discordance with absolute values may lead to misinterpretation of CBC data. Current Interpretive Data was last revised on 2018. Eosinophil pct 1.6 % [facility] Comment: Interpretive Data Percent cell count reference ranges are not reported, since discordance with absolute values may lead to misinterpretation of CBC data. Current Interpretive Data was last revised on 2018. Basophil pct 0.4 % [facility] Comment: Interpretive Data Percent cell count reference ranges are not reported, since discordance with absolute values may lead to misinterpretation of CBC data. Current Interpretive Data was last revised on 2018. Blood 01/15/2025 8:32 AM CDT 01/15/2025 8:46 AM CDT us Pradeep Blum MD LAB BLOOD ORDERABLES F inal Result [facility] [address] [place] [address] * (ABNORMAL) CBC with auto differential (01/15/2025 8:32 AM CDT) WBC 8.1 3.8 - 9.9 K/cumm Hgb 8.7(L) 13.0 - 17.5 g/dL [facility] Hct 27.6(L) 38.9 - 50.3 % [facility] Plt 184 150 - 400 K/cumm [facility] MPV 9.5 9.1 - 12.3 fL [facility] RBC 3.02(L) 4.30 - 5.80 M/cumm [facility] MCV 91.4 81.3 - 96.4 fL [facility] MCH 28.8 27.1 - 33.3 pg [facility] MCHC 31.5(L) 32.3 - 35.7 g/dL [facility] RDW CV 15.5(H) 11.1 - 14.9 % [facility] RDW SD 50.7(H) 35.7 - 48.1 fL [facility] NRBC abs 0.00 0.00 - 0.01 K/cumm [facility] Blood 01/15/2025 8:32 AM CDT 01/15/2025 8:46 AM CDT us Pradeep Blum MD LAB BLOOD ORDERABLES F inal Result [facility] [address] [place] [address] * (ABNORMAL) Basic metabolic panel (01/15/2025 8:32 AM CDT) Sodium 136 135 - 145 mmol/L Potassium, pl 5.2(H) 3.3 - 4.9 mmol/L [facility] Chloride 102 97 - 110 mmol/L [facility] CO2 26 22 - 32 mmol/L [facility] Anion gap 8 2 - 15 mmol/L [facility] BUN 25 6 - 25 mg/dL [facility] Creatinine 0.89 0.80 - 1.30 mg/dL [facility] Glucose 183 70 - 199 mg/dL [facility] Comment: Interpretive Data Fasting glucose [...] Calcium 8.7 8.5 - 10.3 mg/dL [facility] Blood 01/15/2025 8:32 AM CDT 01/15/2025 8:46 AM CDT Pradeep Blum MD LAB BLOOD ORDERABLES F inal Result Performing Organization Address City/[facility]/ZIP Co de Phone Number [address] [place] [address] * POCT glucose (01/15/2025 8:11 AM CDT) Glucose, POC 197 70 - 199 mg/dL Glucose comment 1 RN/MD Notified [facility] Blood 01/15/2025 8:11 AM CDT 01/15/2025 8:11 AM CDT Mike Jose MD LAB POCT ORDERABLES - DEVICE Final Result Performing Organization Address [facility] Co de Phone Number [address] [place] [address] * POCT glucose (01/15/2025 3:48 AM CDT) Glucose, POC 174 70 - 199 mg/dL Glucose comment 1 RN/MD Notified [facility] Blood 01/15/2025 3:48 AM CDT 01/15/2025 3:48 AM CDT Mike Jose MD LAB POCT ORDERABLES - DEVICE Final Result Performing Organization Address City/[facility] Co de Phone Number [address] [place] [address] * POCT glucose (01/15/2025 12:03 AM CDT) Glucose, POC 173 70 - 199 mg/dL Glucose comment 1 RN/MD Notified [facility] Blood 01/15/2025 12:0 3 AM CDT 01/15/2025 12:03 AM CDT Mike Jose MD LAB POCT ORDERABLES - DEVICE Final Result Performing Organization Address City/[facility] Co de Phone Number [address] [place] [address] * (ABNORMAL) POCT glucose (01/14/2025 8:14 PM CDT) Glucose, POC 215(H) 70 - 199 mg/dL Glucose comment 1 RN/MD Notified [facility] Blood 01/14/2025 8:14 PM CDT 01/14/2025 8:14 PM CDT Mike Jose MD LAB POCT ORDERABLES - DEVICE Final Result Performing Organization Address [facility] Co de Phone Number [address] [place] [address] * Transfuse RBC (01/14/2025 7:32 PM CDT) Blood us Pradeep Blum MD BLOOD [facility] Final Result Performing Organization Address [facility] Co de Phone Number [address] [place] [address] * (ABNORMAL) POCT glucose (01/14/2025 4:22 PM CDT) Glucose, POC 237(H) 70 - 199 mg/dL Glucose comment 1 RN/MD Notified [facility] Blood 01/14/2025 4:22 PM CDT 01/14/2025 4:22 PM CDT Mike Jose MD LAB POCT ORDERABLES - DEVICE Final Result Performing Organization Address City/[facility] Co de Phone Number [address] [place] [address] * Prepare RBC: 1 Units (01/14/2025 1:16 PM CDT) Units requested 1 Units requested Ready [facility] Unit Number [id number] Product code [id number] [facility] Blood Expiration Date [id number] [facility] Product Blood Type (for scanning) 7300 [facility] Product Blood Type BPOS [facility] Dispense Status DISPENSED [facility] Blood 01/14/2025 1:16 PM CDT 01/14/2025 1:16 PM CDT us Pradeep Blum MD BLOOD BANK PRODUCT ORD ERABLES Final Result Performing Organization Address [facility] de Phone Number [address] [place] [address] * ABO/Rh (01/14/2025 12:30 PM CDT) Pathologist [facility] ABO/Rh B Positive Blood 01/14/2025 12:3 0 PM CDT 01/14/2025 12:38 PM CDT Narrative [facility] - 01/14/2025 1:16 PM CDT Has the patient had Daratumumab or Isatuximab in the past 6 months?->Unknown Pradeep Blum MD LAB BLOOD BANK TEST OR DERABLES Final Result Performing Organization Address [facility] de Phone Number [address] [place] [address] * Crossmatch (01/14/2025 12:30 PM CDT) Crossmatch Compatible [facility] Unit number for crossmatch [id number] [facility] Blood 01/14/2025 12:3 0 PM CDT 01/14/2025 12:38 PM CDT Mike Jose MD LAB BLOOD BANK TEST ORDERABL ES Final Result Performing Organization Address [facility] Co de Phone Number [address] [address] * Antibody screen (01/14/2025 12:30 PM CDT) Sarai, indirect, Gel Interpretation Negative ABSC Blood 01/14/2025 12:3 0 PM CDT 01/14/2025 12:38 PM CDT [facility] 01[facility]14[facility] 1:16 PM CDT Has the patient had Daratumumab or Isatuximab in the past 6 months?->Unknown us Pradeep Blum MD LAB BLOOD BANK TEST OR DERABLES Final Result Performing Organization Address [facility] Co de Phone Number [address] [address] * (ABNORMAL) POCT glucose (01/14/2025 12:24 PM CDT) Pathologist [facility] Glucose, POC 323(H) 70 - 199 mg/dL Glucose comment 1 RN/MD Notified [facility] Blood 01/14/2025 12:2 4 PM CDT 01/14/2025 12:24 PM CDT Mike Jose MD LAB POCT ORDERABLES - DEVICE Final Result Performing Organization Address [facility] Co de Phone Number [address] [place] [address] * POCT glucose (01/14/2025 8:21 AM CDT) Pathologist [facility] Glucose, POC 148 70 - 199 mg/dL Glucose comment 1 RN/MD Notified [facility] Blood 01/14/2025 8:21 AM CDT 01/14/2025 8:21 AM CDT Mike Jose MD LAB POCT ORDERABLES - DEVICE Final Result Performing Organization Address [facility] Co de Phone Number [address] [place] [address] * eGFR (01/14/2025 6:40 AM CDT) [facility] eGFR 80 >=60 mL/min/1. 73 m2 Comment: [...] LAB BLOOD ORDERABLES F inal Result [facility] [address] [place] [address] * (ABNORMAL) Differential, auto (01/14/2025 6:40 AM CDT) [facility] Neutrophil abs 4.9 1.5 - 6.5 K/cumm Imm gran abs 0.1 0.0 - 0.1 K/cumm [facility] Lymphocyte abs 0.6(L) 0.8 - 3.3 K/cumm [facility] Monocyte abs 0.7 0.2 - 0.8 K/cumm [facility] Eosinophil abs 0.1 0.0 - 0.5 K/cumm [facility] Basophil abs 0.0 0.0 - 0.1 K/cumm [facility] Neutrophil pct 75.7 % [facility] Comment: Interpretive Data Percent cell count reference ranges are not reported, since discordance with absolute values may lead to misinterpretation of CBC data. Current Interpretive Data was last revised on 2018. Imm gran pct 1.1 % [facility] Comment: Interpretive Data Percent cell count reference ranges are not reported, since discordance with absolute values may lead to misinterpretation of CBC data. Current Interpretive Data was last revised on 2018. Lymphocyte pct 9.8 % [facility] Comment: Interpretive Data Percent cell count reference ranges are not reported, since discordance with absolute values may lead to misinterpretation of CBC data. Current Interpretive Data was last revised on 2018. Monocyte pct 10.9 % [facility] Comment: Interpretive Data Percent cell count reference ranges are not reported, since discordance with absolute values may lead to misinterpretation of CBC data. Current Interpretive Data was last revised on 2018. Eosinophil pct 2.0 % [facility] Comment: Interpretive Data Percent cell count reference ranges are not reported, since discordance with absolute values may lead to misinterpretation of CBC data. Current Interpretive Data was last revised on 2018. Basophil pct 0.5 % [facility] Comment: Interpretive Data Percent cell count reference ranges are not reported, since discordance with absolute values may lead to misinterpretation of CBC data. Current Interpretive Data was last revised on 2018. Blood 01/14/2025 6:40 AM CDT 01/14/2025 6:54 AM CDT us Pradeep Blum MD LAB BLOOD ORDERABLES F inal Result [facility] [address] Department [place] [address] * (ABNORMAL) CBC with auto differential (01/14/2025 6:40 AM CDT) Pathologist [facility] WBC 6.4 3.8 - 9.9 K/cumm Hgb 8.5(L) 13.0 - 17.5 g/dL [facility] Hct 27.4(L) 38.9 - 50.3 % [facility] Plt 176 150 - 400 K/cumm [facility] MPV 9.7 9.1 - 12.3 fL [facility] RBC 2.95(L) 4.30 - 5.80 M/cumm [facility] MCV 92.9 81.3 - 96.4 fL [facility] MCH 28.8 27.1 - 33.3 pg [facility] MCHC 31.0(L) 32.3 - 35.7 g/dL [facility] RDW CV 14.9 11.1 - 14.9 % [facility] RDW SD 50.8(H) 35.7 - 48.1 fL [facility] NRBC abs 0.00 0.00 - 0.01 K/cumm [facility] Blood 01/14/2025 6:40 AM CDT 01/14/2025 6:54 AM CDT us Pradeep Blum MD LAB BLOOD ORDERABLES F inal Result [facility] [address] Department [place] [address] * (ABNORMAL) Basic metabolic panel (01/14/2025 6:40 AM CDT) Sodium 137 135 - 145 mmol/L Potassium, pl 5.2(H) 3.3 - 4.9 mmol/L [facility] Chloride 103 97 - 110 mmol/L [facility] CO2 27 22 - 32 mmol/L [facility] Anion gap 7 2 - 15 mmol/L [facility] BUN 27(H) 6 - 25 mg/dL [facility] Creatinine 0.99 0.80 - 1.30 mg/dL [facility] Glucose 125 70 - 199 mg/dL [facility] Comment: Interpretive Data Fasting glucose [...] Calcium 8.7 8.5 - 10.3 mg/dL [facility] Blood 01/14/2025 6:40 AM CDT 01/14/2025 6:54 AM CDT us Pradeep Blum MD LAB BLOOD ORDERABLES F inal Result Performing Organization Address City/[facility] Co de Phone Number [address] [place] [address] * POCT glucose (01/13/2025 8:37 PM CDT) Glucose, POC 167 70 - 199 mg/dL Glucose comment 1 RN/MD Notified [facility] Blood 01/13/2025 8:37 PM CDT 01/13/2025 8:37 PM CDT us Mike Jose MD LAB POCT ORDERABLES - DEVICE Final Result Performing Organization Address [facility] Co de Phone Number [address] [place] [address] * POCT glucose (01/13/2025 3:49 PM CDT) Glucose, POC 157 70 - 199 mg/dL Glucose comment 1 RN/MD Notified [facility] Blood 01/13/2025 3:49 PM CDT 01/13/2025 3:49 PM CDT us Mike Jose MD LAB POCT ORDERABLES - DEVICE Final Result Performing Organization Address [facility] Co de Phone Number [address] [place] [address] * POCT glucose (01/13/2025 12:09 PM CDT) Glucose, POC 178 70 - 199 mg/dL Glucose comment 1 RN/ Notified [facility] Blood 01/13/2025 12:0 9 PM CDT 01/13/2025 12:09 PM CDT us Mike Jose MD LAB POCT ORDERABLES - DEVICE Final Result [facility] [address] [place] [address] * TRANSTHORACIC ECHO (TTE) COMPLETE W DOPPLER/CF WO CONTRAST (01/13/2025 11:03 AM CDT) LV EF 65-70 % CONS SCIMAGE Anatomical Region Laterality Modality Ultrasound 01/13/2025 10:3 0 AM CDT Narrative 01/13/2025 6:29 PM CDT Transthoracic Echocardiographic Report Patient Name: FITZ TURNERMonse : 1950 (74y 7m) Gender: M Study Date: 01/13/2025 10:30:33 AM Ht(Inch): 73 Wt(Lb): 242 BSA: 2.38 Belly Dump Driver: Nikki Rodrigues RDCS Location: [place] [address] Order Provider: PRITI BONILLA Heart Rate: 84 BMI: 31.92 BP: 140/60 Ref Provider: PRITI BONILLA PROCEDURES: Echocardiographic Report: ([id number]) Transthoracic complete echo, 2D, spectral and tissue [...] AM Ht(Inch): 73 Wt(Lb): 242 BSA: 2.38 Belly Dump Driver: Nikki Rodrigues [facility] Location: [place] [address] Order Provider:PRITI BONILLA Heart Rate: 84 BMI: 31.92 BP: 140/60 Ref Provider: PRITI BONILLA PROCEDURES: Echocardiographic Report: ([id number]) Transthoracic complete echo, 2D,spectral and tissue Doppler, [...] [ 16.00 - 34.00 ] MV Decel Uqwd063.00 msec TAPSE 1.98 cm [ 1.71 - [...] MD LAB BLOOD ORDERABLES F inal Result [place] [address] Department [place] [address] * (ABNORMAL) Differential, auto (01/13/2025 8:52 AM CDT) Pathologist [facility] Neutrophil abs 5.6 1.5 - 6.5 K/cumm Imm gran abs 0.1 0.0 - 0.1 K/cumm [facility] Lymphocyte abs 0.5(L) 0.8 - 3.3 K/cumm [facility] Monocyte abs 0.6 0.2 - 0.8 K/cumm [facility] Eosinophil abs 0.1 0.0 - 0.5 K/cumm [facility] Basophil abs 0.0 0.0 - 0.1 K/cumm [facility] Neutrophil pct 81.2 % [facility] Comment: Interpretive Data Percent cell count reference ranges are not reported, since discordance with absolute values may lead to misinterpretation of CBC data. Current Interpretive Data was last revised on 2018. Imm gran pct 0.9 % [facility] Comment: Interpretive Data Percent cell count reference ranges are not reported, since discordance with absolute values may lead to misinterpretation of CBC data. Current Interpretive Data was last revised on 2018. Lymphocyte pct 6.9 % [facility] Comment: Interpretive Data Percent cell count reference ranges are not reported, since discordance with absolute values may lead to misinterpretation of CBC data. Current Interpretive Data was last revised on 2018. Monocyte pct 9.4 % [facility] Comment: Interpretive Data Percent cell count reference ranges are not reported, since discordance with absolute values may lead to misinterpretation of CBC data. Current Interpretive Data was last revised on 2018. Eosinophil pct 1.3 % [facility] Comment: Interpretive Data Percent cell count reference ranges are not reported, since discordance with absolute values may lead to misinterpretation of CBC data. Current Interpretive Data was last revised on 2018. Basophil pct 0.3 % [facility] Comment: Interpretive Data Percent cell count reference ranges are not reported, since discordance with absolute values may lead to misinterpretation of CBC data. Current Interpretive Data was last revised on 2018. Blood 01/13/2025 8:52 AM CDT 01/13/2025 9:21 AM CDT us Pradeep Blum MD LAB BLOOD ORDERABLES F inal Result Performing Organization Address [facility]/ZIP Co de Phone Number [address] [place], [place] [id number] * (ABNORMAL) Iron profile w/ IBC (01/13/2025 8:52 AM CDT) [facility] Iron 21(L) 50 - 150 mcg/dL TIBC 174(L) 250 - 400 mcg/dL [facility] Transferrin saturation 12(L) 20 - 50 % [facility] Blood 01/13/2025 8:52 AM CDT 01/13/2025 9:21 AM CDT Mike Jose MD LAB BLOOD ORDERABLES Final R esult [address] [place] [address] * (ABNORMAL) CBC with auto differential (01/13/2025 8:52 AM CDT) WBC 6.8 3.8 - 9.9 K/cumm Hgb 8.5(L) 13.0 - 17.5 g/dL [facility] Hct 27.2(L) 38.9 - 50.3 % [facility] Plt 159 150 - 400 K/cumm [facility] MPV 10.2 9.1 - 12.3 fL [facility] RBC 2.96(L) 4.30 - 5.80 M/cumm [facility] MCV 91.9 81.3 - 96.4 fL [facility] MCH 28.7 27.1 - 33.3 pg [facility] MCHC 31.3(L) 32.3 - 35.7 g/dL [facility] RDW CV 15.1(H) 11.1 - 14.9 % [facility] RDW SD 50.2(H) 35.7 - 48.1 fL [facility] NRBC abs 0.00 0.00 - 0.01 K/cumm [facility] Blood 01/13/2025 8:52 AM CDT 01/13/2025 9:21 AM CDT us Pradeep Blum MD LAB BLOOD ORDERABLES F inal Result Performing Organization Address [facility] Co de Phone Number [address] [place], [place] [id number] * (ABNORMAL) Reticulocyte Count (01/13/2025 8:52 AM CDT) Pathologist [facility] Retics, absolute 0.074 0.020 - 0.087 M/cumm Retics 2.5 0.4 - 2.9 % [facility] Reticulocyte Hgb 28.5(L) 30.5 - 38.0 pg [facility] Blood 01/13/2025 8:52 AM CDT 01/13/2025 9:21 AM CDT us Mike Jose MD LAB BLOOD ORDERABLES Final R esult Performing Organization Address City/[facility] Co de Phone Number [address] [place], [place] [id number] * Ferritin (01/13/2025 8:52 AM CDT) Pathologist [facility] Ferritin 297 30 - 400 ng/mL Blood 01/13/2025 8:52 AM CDT 01/13/2025 9:21 AM CDT us Mike Jose MD LAB BLOOD ORDERABLES Final R esult [facility] [address] [place] [address] * (ABNORMAL) Comprehensive metabolic panel (01/13/2025 8:52 AM CDT) [facility] Sodium 137 135 - 145 mmol/L Potassium, pl 4.6 3.3 - 4.9 mmol/L [facility] Chloride 104 97 - 110 mmol/L [facility] CO2 24 22 - 32 mmol/L [facility] Anion gap 9 2 - 15 mmol/L [facility] BUN 31(H) 6 - 25 mg/dL [facility] Creatinine 0.98 0.80 - 1.30 mg/dL [facility] Glucose 124 70 - 199 mg/dL [facility] Comment: Interpretive Data Fasting glucose [...] Calcium 8.4(L) 8.5 - 10.3 mg/dL [facility] Bilirubin, total 0.7 0.1 - 1.2 mg/dL [facility] Protein, pl 5.7(L) 6.5 - 8.5 g/dL [facility] Albumin 3.0(L) 3.5 - 5.0 g/dL [facility] Alk phos 65 40 - 130 Units/L [facility] ALT 10 7 - 55 Units/L [facility] AST 21 10 - 50 Units/L [facility] Blood 01/13/2025 8:52 AM CDT 01/13/2025 9:21 AM CDT us Pradeep Blum MD LAB BLOOD ORDERABLES F inal Result Performing Organization Address City/[facility]/ZIP Co de Phone Number [address] [place] [address] * POCT glucose (01/13/2025 8:23 AM CDT) Glucose, POC 119 70 - 199 mg/dL Glucose comment 1 RN/MD Notified [facility] Blood 01/13/2025 8:23 AM CDT 01/13/2025 8:23 AM CDT us Mike Jose MD LAB POCT ORDERABLES - DEVICE Final Result Performing Organization Address City/[facility] Co de Phone Number [address] [place] [address] * POCT glucose (01/12/2025 8:06 PM CDT) Glucose, POC 166 70 - 199 mg/dL Glucose comment 1 Will Repeat Test [facility] Glucose comment 2 Follow Protocol [facility] Blood 01/12/2025 8:06 PM CDT 01/12/2025 8:06 PM CDT us Mike Jose MD LAB POCT ORDERABLES - DEVICE Final Result Performing Organization Address City/[facility]/ZIP Co de Phone Number [address] [place] [address] * CT Head WO Contrast (01/12/2025 6:47 [...] Aldo Palencia M.D., KT T: Report ID: [id number] Reading Location: [id number] Procedure Note Aldo Palencia MD - 01/12/2025 [...] Aldo Palencia M.D. MATILDE T: Report ID: [id number] Reading Location: [id number] Priti Bonilla [employer]ING MACHINE ADJUSTER IMG CT PROCEDURES Final Resu lt * POCT glucose (01/12/2025 4:49 PM CDT) Glucose, POC 176 70 - 199 mg/dL Glucose comment 1 RN/MD Notified [facility] Blood 01/12/2025 4:49 PM CDT 01/12/2025 4:49 PM CDT Mike Jose MD LAB POCT ORDERABLES - DEVICE Final Result Performing Organization Address [facility] Co de Phone Number [address] [place] [address] * (ABNORMAL) POCT glucose (01/12/2025 11:49 AM CDT) [facility] Glucose, POC 238(H) 70 - 199 mg/dL Blood 01/12/2025 11:4 9 AM CDT 01/12/2025 11:49 AM CDT Mike Jose MD LAB POCT ORDERABLES - DEVICE Final Result Performing Organization Address City/[facility] Co de Phone Number [address] [place] [address] * ECG 12 lead (01/12/2025 10:56 AM CDT) 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 rate has increased BY 41 BPM Nonspecific T wave abnormality now evident in Inferior leads QT has lengthened Confirmed by TOBIAS FABIAN M.D. ([id number]) on 01/12/2025 11:57:22 AM [facility] 01/12/2025 10:5 6 AM CDT 01/12/2025 11:57 AM CDT us Priti Bonilla NP ECG ORDERABLES Final Result [facility] Meet You [facility] * (ABNORMAL) eGFR (01/12/2025 9:54 AM CDT) [...] LAB BLOOD ORDERABLES Mary l Result [facility] [address] [place] [address] * (ABNORMAL) Differential, auto (01/12/2025 9:54 AM CDT) Neutrophil abs 8.1(H) 1.5 - 6.5 K/cumm Imm gran abs 0.1 0.0 - 0.1 K/cumm [facility] Lymphocyte abs 0.4(L) 0.8 - 3.3 K/cumm [facility] Monocyte abs 0.8 0.2 - 0.8 K/cumm [facility] Eosinophil abs 0.1 0.0 - 0.5 K/cumm [facility] Basophil abs 0.0 0.0 - 0.1 K/cumm [facility] Neutrophil pct 85.7 % [facility] Comment: Interpretive Data Percent cell count reference ranges are not reported, since discordance with absolute values may lead to misinterpretation of CBC data. Current Interpretive Data was last revised on 2018. Imm gran pct 0.6 % [facility] Comment: Interpretive Data Percent cell count reference ranges are not reported, since discordance with absolute values may lead to misinterpretation of CBC data. Current Interpretive Data was last revised on 2018. Lymphocyte pct 4.5 % [facility] Comment: Interpretive Data Percent cell count reference ranges are not reported, since discordance with absolute values may lead to misinterpretation of CBC data. Current Interpretive Data was last revised on 2018. Monocyte pct 8.5 % [facility] Comment: Interpretive Data Percent cell count reference ranges are not reported, since discordance with absolute values may lead to misinterpretation of CBC data. Current Interpretive Data was last revised on 2018. Eosinophil pct 0.5 % [facility] Comment: Interpretive Data Percent cell count reference ranges are not reported, since discordance with absolute values may lead to misinterpretation of CBC data. Current Interpretive Data was last revised on 2018. Basophil pct 0.2 % [facility] Comment: Interpretive Data Percent cell count reference ranges are not reported, since discordance with absolute values may lead to misinterpretation of CBC data. Current Interpretive Data was last revised on 2018. Blood 01/12/2025 9:54 AM CDT 01/12/2025 10:44 AM CDT us Kait Annika Goel MD LAB BLOOD ORDERABLES Mary l Result [address] [address] * (ABNORMAL) CBC with auto differential (01/12/2025 9:54 AM CDT) [facility] WBC 9.4 3.8 - 9.9 K/cumm Hgb 9.1(L) 13.0 - 17.5 g/dL [facility] Hct 28.7(L) 38.9 - 50.3 % [facility] Plt 181 150 - 400 K/cumm [facility] MPV 10.3 9.1 - 12.3 fL [facility] RBC 3.10(L) 4.30 - 5.80 M/cumm [facility] MCV 92.6 81.3 - 96.4 fL [facility] MCH 29.4 27.1 - 33.3 pg [facility] MCHC 31.7(L) 32.3 - 35.7 g/dL [facility] RDW CV 15.1(H) 11.1 - 14.9 % [facility] RDW SD 50.4(H) 35.7 - 48.1 fL [facility] NRBC abs 0.00 0.00 - 0.01 K/cumm [facility] Blood 01/12/2025 9:54 AM CDT 01/12/2025 10:44 AM CDT us Kait Annika Goel MD LAB BLOOD ORDERABLES Mary l Result Performing Organization Address [facility] Co de Phone Number [address] [place] [address] * Digoxin level (01/12/2025 9:54 AM CDT) [facility] Digoxin 0.8 0.5 - 1.2 ng/mL Comment: Interpretive data The therapeutic range for digoxin varies by indication: Heart failure: 0.5 to 0.8 ng/mL Atrial fibrillation: less than 1.2 ng/mL Toxicity: >2.4. Normal or low digoxin does not rule out toxicity. Current interpretive data was last revised on 2024. Blood 01/12/2025 9:54 AM CDT 01/12/2025 10:45 AM CDT us Priti Bonilla PRIMER INSERTING MACHINE ADJUSTER LAB BLOOD ORDERABLES Final R esult [facility] [address] [place] [address] * (ABNORMAL) Comprehensive metabolic panel (01/12/2025 9:54 AM CDT) Sodium 135 135 - 145 mmol/L Potassium, pl 4.6 3.3 - 4.9 mmol/L [facility] Chloride 101 97 - 110 mmol/L [facility] CO2 22 22 - 32 mmol/L [facility] Anion gap 12 2 - 15 mmol/L [facility] BUN 42(H) 6 - 25 mg/dL [facility] Creatinine 1.30 0.80 - 1.30 mg/dL [facility] Glucose 162 70 - 199 mg/dL [facility] Comment: Interpretive Data Fasting glucose [...] Calcium 8.4(L) 8.5 - 10.3 mg/dL [facility] Bilirubin, total 0.7 0.1 - 1.2 mg/dL [facility] Protein, pl 5.8(L) 6.5 - 8.5 g/dL [facility] Albumin 3.3(L) 3.5 - 5.0 g/dL [facility] Alk phos 72 40 - 130 Units/L [facility] ALT 12 7 - 55 Units/L [facility] AST 28 10 - 50 Units/L [facility] Blood 01/12/2025 9:54 AM CDT 01/12/2025 10:45 AM CDT Kait Goel MD LAB BLOOD ORDERABLES Mary l Result [address] [place] [address] * POCT glucose (01/12/2025 8:13 AM CDT) Glucose, POC 104 70 - 199 mg/dL Blood 01/12/2025 8:13 AM CDT 01/12/2025 8:13 AM CDT Mike Jose MD LAB POCT ORDERABLES - DEVICE Final Result Performing Organization Address [facility] Co de Phone Number [address] [place] [address] * POCT glucose (01/11/2025 8:09 PM CDT) Glucose, POC 158 70 - 199 mg/dL Blood 01/11/2025 8:09 PM CDT 01/11/2025 8:09 PM CDT Mike Jose MD LAB POCT ORDERABLES - DEVICE Final Result Performing Organization Address [facility] Co de Phone Number [address]ARY[address] [place] [address] * (ABNORMAL) POCT glucose (01/11/2025 4:30 PM CDT) Glucose, POC 201(H) 70 - 199 mg/dL Glucose comment 1 RN/MD Notified [facility] Blood 01/11/2025 4:30 PM CDT 01/11/2025 4:30 PM CDT Mike Jose MD LAB POCT ORDERABLES - DEVICE Final Result [facility] [address] [place] [address] * POCT glucose (01/11/2025 12:36 PM CDT) Glucose, POC 166 70 - 199 mg/dL Glucose comment 1 RN/ Notified [facility] Blood 01/11/2025 12:3 6 PM CDT 01/11/2025 12:36 PM CDT Mike Jose MD LAB POCT ORDERABLES - DEVICE Final Result Performing Organization Address City/State/[facility] Co de Phone Number [facility] [address] [address] * POCT glucose (01/11/2025 8:16 AM CDT) [facility] Glucose, POC 112 70 - 199 mg/dL Glucose comment 1 Will Repeat Test [facility] Glucose comment 2 RN/ Notified [facility] Blood 01/11/2025 8:16 AM CDT 01/11/2025 8:16 AM CDT Mike Jose MD LAB POCT ORDERABLES - DEVICE Final Result Performing Organization Address City/State/[facility] Co de Phone Number [facility] [address] [address] * (ABNORMAL) Differential, auto (01/11/2025 5:00 AM CDT) [facility] Neutrophil abs 7.6(H) 1.5 - 6.5 K/cumm Imm gran abs 0.1 0.0 - 0.1 K/cumm [facility] Lymphocyte abs 1.0 0.8 - 3.3 K/cumm [facility] Monocyte abs 0.9(H) 0.2 - 0.8 K/cumm [facility] Eosinophil abs 0.0 0.0 - 0.5 K/cumm [facility] Basophil abs 0.0 0.0 - 0.1 K/cumm [facility] Neutrophil pct 79.0 % [facility] Comment: Interpretive Data Percent cell count reference ranges are not reported, since discordance with absolute values may lead to misinterpretation of CBC data. Current Interpretive Data was last revised on 2018. Imm gran pct 0.6 % [facility] Comment: Interpretive Data Percent cell count reference ranges are not reported, since discordance with absolute values may lead to misinterpretation of CBC data. Current Interpretive Data was last revised on 2018. Lymphocyte pct 10.4 % [facility] Comment: Interpretive Data Percent cell count reference ranges are not reported, since discordance with absolute values may lead to misinterpretation of CBC data. Current Interpretive Data was last revised on 2018. Monocyte pct 9.4 % [facility] Comment: Interpretive Data Percent cell count reference ranges are not reported, since discordance with absolute values may lead to misinterpretation of CBC data. Current Interpretive Data was last revised on 2018. Eosinophil pct 0.3 % [facility] Comment: Interpretive Data Percent cell count reference ranges are not reported, since discordance with absolute values may lead to misinterpretation of CBC data. Current Interpretive Data was last revised on 2018. Basophil pct 0.3 % [facility] Comment: Interpretive Data Percent cell count reference ranges are not reported, since discordance with absolute values may lead to misinterpretation of CBC data. Current Interpretive Data was last revised on 2018. Blood 01/11/2025 5:00 AM CDT 01/11/2025 5:14 AM CDT Karlos COLLIER LAB BLOOD ORDERABLES Mary collier Result [facility] [address] Department of Laboratories [place], [place] [id number] * (ABNORMAL) CBC with auto differential (01/11/2025 5:00 AM CDT) Pathologist [facility] WBC 9.6 3.8 - 9.9 K/cumm Hgb 8.8(L) 13.0 - 17.5 g/dL [facility] Hct 27.6(L) 38.9 - 50.3 % [facility] Plt 145(L) 150 - 400 K/cumm [facility] MPV 10.2 9.1 - 12.3 fL [facility] RBC 2.97(L) 4.30 - 5.80 M/cumm [facility] MCV 92.9 81.3 - 96.4 fL [facility] MCH 29.6 27.1 - 33.3 pg [facility] MCHC 31.9(L) 32.3 - 35.7 g/dL [facility] RDW CV 15.1(H) 11.1 - 14.9 % [facility] RDW SD 50.4(H) 35.7 - 48.1 fL [facility] NRBC abs 0.00 0.00 - 0.01 K/cumm [facility] Blood 01/11/2025 5:00 AM CDT 01/11/2025 5:14 AM CDT us Karlos COLLIER LAB BLOOD ORDERABLES Mary l Result Performing Organization Address [facility] de Phone Number [address] [place] [address] * (ABNORMAL) Hemoglobin A1c (12/26/2024 10:31 AM GUEST SERVICE TEAM LEADER) Hgb A1C 6.6(H) 4.0 - 5.6 % Estimated Average Glucose 143 mg/dL [facility] Comment: The ADA recommends reporting an estimated Average Glucose (eAG) with all Hemoglobin A1c results using the equation derived from a study of 507 normal and diabetic adults. Minority populations were underrepresented and children were not included. (Diabetes Care 31:4055-9937, 2008). The eAG is not equivalent to a fasting glucose. Blood 12/26/2024 10:3 1 AM GUEST SERVICE TEAM LEADER 12/26/2024 10:40 AM GUEST SERVICE TEAM LEADER us Mike Jose MD LAB BLOOD ORDERABLES Final R esult Performing Organization Address [facility] Co de Phone Number [address] [place] [address] * CT Abdomen W WO Contrast (08/30/2021 [...] HTN, yeyo, kidney surg, bariatric surg 100mL [id number] via 20g RAC TECHNIQUE: CT scan of [...] Luis Barraza M.D. BB T: Report ID: [id number] Reading Location: [id number] Procedure Note José Luis Barraza MD PhD - 08/30/2021 EXAM DESCRIPTION: CT ABDOMEN W WO CONTRAST REASON FOR STUDY: renal mass Right renal mass status post ablation [id number]. Follow-up. PMHx: renal cancer, prostate cancer, skin cancer, diabetes, HTN, yeyo, kidney surg, bariatric surg 100mL [id number] via 20g RAC TECHNIQUE: CT scan of [...] Luis Barraza M.D. BB T: Report ID: [id number] Reading Location: [id number] Harpal Dave MD IMG CT PROCEDURES Final R esult * (ABNORMAL) Lipid panel (07/21/2019 3:38 PM CDT) Cholesterol 99 30 - 199 mg/dL [facility] Comment: Interpretive Data Ages < or [...] revised on 2018. Triglycerides 82 <=149 mg/dL [facility] Comment: Interpretive Data Ages < or [...] revised on 2018. HDL 34(L) >=40 mg/dL [facility] Comment: Interpretive Data Ages < or [...] on 2018. LDL, calculated 49 <=129 mg/dL [facility] Comment: Interpretive Data Ages < or [...] on 2018. Non-HDL Cholesterol 65 mg/dL [facility] Comment: Interpretive Data Ages < [...] last revised on 2018. Chol/HDL ratio 3 [facility] Blood specimen (specimen) 07/21/2019 3:38 PM CDT 07/21/2019 3:58 PM CDT us Oc Mijares MD LAB BLOOD ORDERABLES Final Resu lt [facility] [address] [place] [address] * (ABNORMAL) Microalbumin / creatinine ratio, urine, random (07/02/2016 9:20 AM CDT) CREATININE, RANDOM URINE 158 20 - 370 mg/dL [facility] HISTORICAL RESULTS MICROALBUMIN 19.9 See Note: mg/dL [facility]OR[facility] RES[facility] Comment: Reference Range: Reference Range Not established MICROALBUMIN/CREAT ININE RATIO, RANDOM URINE 126(H) <30 mcg/mg creat [facility]OR[facility] Comment: The ADA defines [...] AM CDT 07/07/2016 8:31 AM CDT Narrative [facility] HISTORICAL RESULTS - 07/05/2016 2:04 AM CDT FASTING:YES PERFORMING LAB: [place], [facility] [address] [address] [place] [id number] Antonio Myers D.O., MPH Raymundo Mcmillan MD LAB URINE ORDERABLES Final Resul t [facility] HISTORICAL RESULTS from Last 3 Months or Most Recently Relevant to Health Maintenance Insurance [facility] Advance Directives For more information, please contact: [phone] Documents on File Type Date Recorded Patient Debt And Budget Counselor Expl anation ADVANCE DIRECTIVE 12/26/2024 12:03 PM aneesh valentin * Full Code (Latest Code Status on File) Date Activated Date Inactivated Comments 01/09/2025 3:58 PM 01/17/2025 6:32 PM * Full Code Date Activated Date Inactivated Comments 07/21/2019 2:50 PM 07/23/2019 4:48 PM Care Teams Severity Of Illness Coordinator Relationship Specialty Start Date End Date Carlota Benton DO PCP - General 03/17/17 Inés Hickey MD [address] [facility] [place] [address] Consulting Physician Neurosurgery 12/05/24 Harpal Dave MD [address] [place] [address] Consulting Physician Urology 12/26/24 Mike Jose MD [facility] [address] [address] Consulting Physician Orthopedic Surgery 01/10/25
--- NOTE | 2025-04-13 18:13 | ADMGEN ---
This patient, [place], was admitted to [facility] Surg Room 317-02. Patient/family oriented to hospital policies and general routines including ID bracelet, bed and alarms, visiting hours, pain management, procedures, bathroom and other care routines, personal items, smoking policy, room service/diet, and visiting hours. Information on how to activate the Rapid Response Team has been discussed. Patient/Family are encouraged to report perceived risks to care and to ask questions if they do not understand what they are told or what they should do.
[2025-04-13 19:21] LABS: CRP 8.9 mg/dL (<1.0)
[2025-04-13 19:41] LABS: Lactic Acid Reflex 1.4 mmol/L (0.7-2.0)
[2025-04-13] MEDS: buPROPion HCL XL (24 HR) 150 MG TABCR 300 MG PO (21:33)
[2025-04-13] MEDS: CARBIDOPA/LEVODOPA 25/100 MG TABLET 1 TABLET PO (21:33)
[2025-04-13] MEDS: RIVAROXABAN 20 MG TABLET PO (21:33)
[2025-04-13] MEDS: ATORVASTATIN 40 MG TABLET PO (21:33)
[2025-04-13] MEDS: SENNOSIDES 8.6 MG TABLET PO (21:33)
[2025-04-13] MEDS: SENNA/DOCUSATE SODIUM TABLET 1 TAB PO (21:33)
[2025-04-13] MEDS: HYDROcodone/acetaminophen (*CRX) 5-325 MG TABLET 1 TAB PO (21:47)
[2025-04-14 04:00] VITALS: PULSE 69
[2025-04-14] MEDS: VANCOMYCIN 1,500 MG/NS 500 ML 1,500 MG/500 ML BAG 250 MG IVPB (04:43)
[2025-04-14 06:00] VITALS: PULSE 81; RESP 18; O2SAT 100
[2025-04-14] MEDS: CEFEPIME 2 GM/NS 50 ML 2 GM/50 ML BAG IVPB (06:28)
[2025-04-14 07:18] LABS: Estimated CRCL calculation 82 ml/min; Estimated Glomerular Filt Rate > 60
[2025-04-14 08:00] VITALS: PULSE 72
[2025-04-14] MEDS: VENLAFAXINE HCL XR 75 MG CAP.ER.24H PO (09:27)
[2025-04-14] MEDS: CARBIDOPA/LEVODOPA 25/100 MG TABLET 1 TABLET PO (09:27)
[2025-04-14] MEDS: SOLIFENACIN 5 MG TABLET 10 MG PO (09:27)
[2025-04-14 09:28] VITALS: PULSE 81
[2025-04-14] MEDS: DIGOXIN TAB 125 MCG TABLET PO (09:28)
[2025-04-14] MEDS: polyethylene glycoL 3350 17 GM POWD.PACK PO (09:28)
[2025-04-14] MEDS: METOPROLOL SUCCINATE EXT REL 12.5 MG TABCR PO (09:28)
[2025-04-14] MEDS: MIRABEGRON 25 MG ER TABLET PO (09:28)
--- NOTE | 2025-04-14 10:51 | PC.NURSE ---
Daughter voiced interest in patient going home with Hospice care. Ava, Care Coordination, notified per telephone.
--- NOTE | 2025-04-14 10:57 | P.PNIM_ITS ---
Progress Note: A&P Assessment and Plan (1) UTI (urinary tract infection): Code(s): N39.0 - Urinary tract infection, site not specified Status: Acute Assessment and Plan: IV Rocephin Cultures and sensitivities pending No need for IVF, patient received 3 L fluid bolus in ED (2) Altered mental status: Code(s): R41.82 - Altered mental status, unspecified Status: Acute Assessment and Plan: Likely due to urosepsis, on top of dementia Continue home Alzheimer's meds Sitter if needed (3) Constipation: Code(s): K59.00 - Constipation, unspecified Status: Acute Assessment and Plan: Patient is severely constipated Stool softeners and senna This could be contributing to his altered mental status (4) Frequent falls: Code(s): R29.6 - Repeated falls Status: Acute Assessment and Plan: PT OT evaluation for recommendations for equipment at home Fall precautions (5) Parkinsons disease: Code(s): G20.A1 - Parkinson's disease without dyskinesia, without mention of fluctuations Status: Acute Assessment and Plan: Continue Parkinson's medications (6) Alzheimer's dementia: Code(s): G30.9 - Alzheimer's disease, unspecified; F02.80 - Dementia in other diseases classified elsewhere, unspecified severity, without behavioral disturbance, psychotic disturbance, mood disturbance, and anxiety Status: Acute Assessment and Plan: Continue Alzheimer's medication (7) Orthostatic hypotension: Code(s): I95.1 - Orthostatic hypotension Status: Acute Assessment and Plan: Patient is unable to Flomax because of orthostatic hypotension Fall precautions (8) Renal cyst: Code(s): N28.1 - Cyst of kidney, acquired Status: Inactive Assessment and Plan: Seen on CT here, family is aware of this they have already had taking care of Subjective Date/time seen: 04/14/25 10:57 Interval history: Patient was seen during the morning rounds today. No new overnight complaints. No shortness of breath or chest pain No abdominal pain or nausea. Review of Systems Review of Systems: ROS unobtainable: Yes unobtainable due to mental status Exam Narrative: General: well appearing, appears stated age. HEENT: normocephalic, atraumatic. Mucous membranes moist. EOMI, PERRLA, bilateral sclera anicteric, no conjunctival injection. Neck supple without JVD, lymphadenopathy, or bruit. Respiratory: clear to ascultation bilaterally. No rales/rhonic/wheezes. Cardiovascular: Regular rate and rhythm, normal S1-S2 upon ascultation. No murmurs, rubs, or clicks. PMI is nondisplaced, capillary refill less than 3 second. Abdomen: Soft, round, no pulsatile masses, nondistended and nontender. No rebound, no guarding. No CVA tenderness, no hepatosplenomegaly. Bowel sounds present to all four quadrants. No high pitch or tinkling sounds, resonant to percussion. Extremities: No cyanosis, clubbing, or edema present. Pulses are palpable 2/2. Active ROM to all four extremities. Neuro: Alert and orientated x 2. PERRLA. Cranial nerves 2-12 intact without focal deficit. Skin: Warm, dry, and intact, without rash, erythema, or lesion. Psych: pleasant, cooperative, normal speech, normal affect, no hallucinations, no dysarthia Objective Data Vital Signs Vital Signs: Vital Signs - 24 hr 04/13/25 13:05 04/13/25 13:06 04/13/25 13:53 Temperature 38.7 C H 38.7 C H Pulse Rate 92 95 82 Respiratory Rate 20 18 Blood Pressure 128/58 L 128/58 L Pulse Oximetry 94 97 Oxygen Delivery Room Air 04/13/25 14:00 04/13/25 14:01 04/13/25 15:08 Temperature 38.0 C H Pulse Rate 84 91 Respiratory Rate 30 H 28 H Blood Pressure 122/60 129/65 Pulse Oximetry 100 96 95 Oxygen Delivery Room Air 04/13/25 15:37 04/13/25 15:45 04/13/25 20:00 Temperature 37.6 C 37.6 C Pulse Rate 90 Respiratory Rate 21 H Blood Pressure 118/69 Pulse Oximetry 97 Oxygen Delivery Room Air 04/13/25 20:00 04/13/25 21:41 04/14/25 04:00 Temperature 36.9 C Pulse Rate 79 99 69 Respiratory Rate 16 Blood Pressure 126/60 Pulse Oximetry 98 Oxygen Delivery 04/14/25 06:00 04/14/25 07:24 04/14/25 09:28 Temperature Pulse Rate 81 81 Respiratory Rate 18 Blood Pressure Pulse Oximetry 100 Oxygen Delivery Room Air 04/14/25 09:28 Temperature Pulse Rate 81 Respiratory Rate Blood Pressure Pulse Oximetry Oxygen Delivery Intake/Output Intake/Output: Intake & Output 04/11/25 04/12/25 04/13/25 04/14/25 23:59 23:59 23:59 23:59 Intake Total 3870 850 Output Total 275 200 Balance 3595 650 Meds/Results Medications: Active Medications Generic Name Dose Route Start Last Admin Trade Name Freq PRN Reason Stop Dose Admin Hydrocodone Bitart/Acetaminophen 1 tab 04/13/25 21:14 04/13/25 21:47 Hydrocodone/Acetaminophen (*Crx) 5-325 Mg Tablet PO 1 tab Q8H PRN Administration PAIN RATED 4-6 Atorvastatin Calcium 40 mg 04/13/25 21:15 04/13/25 21:33 Atorvastatin 40 Mg Tablet PO 40 mg QPM RIMMA Administration Bupropion HCl 300 mg 04/13/25 21:15 04/13/25 21:33 Bupropion Hcl Xl (24 Hr) 150 Mg Tabcr PO 300 mg QHS RIMMA Administration Carbidopa/Levodopa 1 tablet 04/13/25 21:15 04/14/25 09:27 Carbidopa/Levodopa 25/100 Mg Tablet PO 1 tablet TID RIMMA Administration Digoxin 125 mcg 04/14/25 09:00 04/14/25 09:28 Digoxin Tab 125 Mcg Tablet PO 125 mcg MoTuWeThFr@0900 RIMMA Administration Digoxin 250 mcg 04/15/25 09:00 Digoxin Tab 125 Mcg Tablet PO SuSa@0900 [facility] Cefepime HCl 2 gm in 50 mls @ 100 mls/hr 04/13/25 22:00 04/14/25 06:58 Maxipime 2 Gm/Ns 50 Ml IVPB Infused Q8HR RIMMA Infusion Vancomycin HCl 1,500 mg in 500 mls @ 250 mls/hr 04/13/25 16:00 04/14/25 06:43 Vancomycin 1,500 Mg/Ns 500 Ml IVPB Infused Q12H RIMMA Infusion Melatonin 10 mg 04/14/25 21:00 Melatonin 5 Mg Tablet PO HS RIMMA Metoprolol Succinate 12.5 mg 04/14/25 09:00 04/14/25 09:28 Metoprolol Succinate Ext Rel 12.5 Mg Tabcr PO 12.5 mg DAILY RIMMA Administration Mirabegron 25 mg 04/14/25 09:00 04/14/25 09:28 Mirabegron 25 Mg Er Tablet PO 25 mg DAILY RIMMA Administration Polyethylene Glycol 17 gm 04/14/25 09:00 04/14/25 09:28 Polyethylene Glycol 3350 17 Gm Powd.Pack PO 17 gm DAILY RIMMA Administration Rivaroxaban 20 mg 04/13/25 21:25 04/13/25 21:33 Rivaroxaban 20 Mg Tablet PO 20 mg DAILY@1700 RIMMA Administration Senna 8.6 mg 04/13/25 21:25 04/13/25 21:33 Sennosides 8.6 Mg Tablet PO 8.6 mg HS RIMMA Administration Senna/Docusate Sodium 1 tab 04/13/25 21:25 04/13/25 21:33 Senna/Docusate Sodium Tablet PO 1 tab HS RIMMA Administration Solifenacin 10 mg 04/14/25 09:00 04/14/25 09:27 Solifenacin 5 Mg Tablet PO 10 mg DAILY RIMMA Administration Venlafaxine HCl 75 mg 04/14/25 09:00 04/14/25 09:27 Venlafaxine Hcl Xr 75 Mg Cap.Er.24h PO 75 mg DAILY RIMMA Administration Radiology Results: ITS Impressions Head CT 04/13/25 13:32 IMPRESSION: No acute intracranial findings. Cervical Spine CT 04/13/25 13:46 IMPRESSION: No acute osseous abnormality cervical spine. Degenerative disc disease at the level of C5-C6. Chest/Abdomen/Pelvis CT 04/13/25 14:51 IMPRESSION: 1. No acute cardiopulmonary disease or acute intra-abdominal/pelvic process. 2. 2.1 x 1.9 cm lesion with heterogeneous attenuation within a region of focal cortical scarring at the upper pole of the right kidney. This could represent a complex or partially collapsed cyst, renal neoplasm or scarring related to prior surgery or partial nephrectomy. Correlate with clinical/surgical history and with any prior outside imaging. Depending on clinical history and whether prior imaging is available would also consider further evaluation with pre and postcontrast MRI. 3. Cardiomegaly. 4. Nonspecific splenomegaly. 5. Couple small bilateral adrenal nodules which the absence of known prior malignancy most likely represent adenomas. This could be further evaluated at the same time as the renal lesion with MRI. 6. Diffuse bladder wall thickening due to at least in part to nearly decompressed state with differential including sequela chronic outlet obstruction or cystitis either acute or chronic. Correlate with urinalysis. Chest X-Ray 04/13/25 14:55 IMPRESSION: No acute cardiopulmonary pathology. Hip/Pelvis X-Ray 04/13/25 14:56 IMPRESSION: No acute osseous abnormality pelvis and left hip. Labs Labs: Laboratory Results - last 24 hr 04/13/25 04/13/25 04/13/25 13:06 13:11 13:58 WBC 9.3 RBC 4.15 L Hgb 11.8 L Hct 38.3 L MCV 92.3 MCH 28.4 MCHC 30.8 L RDW 14.8 H Plt Count 203 MPV 9.6 Immature Gran % (Auto) 0.8 H Neut % (Auto) 94.7 H Lymph % (Auto) 2.8 L [place] % (Auto) 1.4 L Eos % (Auto) 0.1 Baso % (Auto) 0.2 Lymph # (Auto) 0.26 L [place] # (Auto) 0.1 Eos # (Auto) 0.0 Baso # (Auto) 0.0 Abs Immat Gran (auto) 0.07 H Absolute Neuts (auto) 8.8 H Absolute Nucleated RBC 0.000 Nucleated RBC % 0.0 PT 19.0 H INR 1.6 APTT 30.1 VBG pH VBG pCO2 VBG pO2 VBG HCO3 O2 Delivery Device O2 Liters/Min FiO2 Sodium 134 L Potassium 4.7 Chloride 99 Carbon Dioxide 26 Anion Gap 9 BUN 19 Creatinine 0.87 Estim Creat Clear Calc 74 Estimated GFR > 60 Glucose 253 H POC Capillary Glucose 253 H Lactic Acid Calcium 9.4 Phosphorus 2.9 Magnesium 1.4 L Total Bilirubin 1.1 AST 19 ALT 14 Alkaline Phosphatase 82 Troponin I < 0.012 C-Reactive Protein NT-Pro-B Natriuret Pep 2540 H Total Protein 6.7 Albumin 3.7 Lipase 33 Urine Color Dark yellow Urine Appearance Clear Urine pH 5.5 Ur Specific [place] 1.022 Urine Protein 2+ H Urine Glucose (UA) 2+ H Urine Ketones Trace H Ur Blood (Man) Negative Urine Nitrate Positive H Urine Bilirubin Negative Urine Urobilinogen 1.0 Add Ur Microanalysis Reviewed Leukocyte Esterase Rfl Trace H Urine RBC 0-2 Urine WBC 0-5 Ur Squamous Epith Cells None seen Urine Bacteria 2+ H Urine Casts 3-5 Influenza A (RT-PCR) Influenza B (RT-PCR) RSV (RT-PCR) SARS-CoV-2 RNA (RT-PCR) 04/13/25 04/13/25 04/13/25 14:12 14:17 16:41 WBC RBC Hgb Hct MCV MCH MCHC RDW Plt Count MPV Immature Gran % (Auto) Neut % (Auto) Lymph % (Auto) [place] % (Auto) Eos % (Auto) Baso % (Auto) Lymph # (Auto) [place] # (Auto) Eos # (Auto) Baso # (Auto) Abs Immat Gran (auto) Absolute Neuts (auto) Absolute Nucleated RBC Nucleated RBC % PT INR APTT VBG pH 7.503 H* VBG pCO2 29.1 L* VBG pO2 51.0 H VBG HCO3 22.3 L O2 Delivery Device Room air O2 Liters/Min Not Reportable FiO2 21 Sodium Potassium Chloride Carbon Dioxide Anion Gap BUN Creatinine Estim Creat Clear Calc Estimated GFR Glucose POC Capillary Glucose Lactic Acid 1.4 Calcium Phosphorus Magnesium Total Bilirubin AST ALT Alkaline Phosphatase Troponin I < 0.012 C-Reactive Protein NT-Pro-B Natriuret Pep Total Protein Albumin Lipase Urine Color Urine Appearance Urine pH Ur Specific [place] Urine Protein Urine Glucose (UA) Urine Ketones Ur Blood (Man) Urine Nitrate Urine Bilirubin Urine Urobilinogen Add Ur Microanalysis Leukocyte Esterase Rfl Urine RBC Urine WBC Ur Squamous Epith Cells Urine Bacteria Urine Casts Influenza A (RT-PCR) Negative Influenza B (RT-PCR) Negative RSV (RT-PCR) Negative SARS-CoV-2 RNA (RT-PCR) Negative 04/13/25 04/14/25 18:58 06:11 WBC RBC Hgb Hct MCV MCH MCHC RDW Plt Count MPV Immature Gran % (Auto) Neut % (Auto) Lymph % (Auto) [place] % (Auto) Eos % (Auto) Baso % (Auto) Lymph # (Auto) [place] # (Auto) Eos # (Auto) Baso # (Auto) Abs Immat Gran (auto) Absolute Neuts (auto) Absolute Nucleated RBC Nucleated RBC % PT INR APTT VBG pH VBG pCO2 VBG pO2 VBG HCO3 O2 Delivery Device O2 Liters/Min FiO2 Sodium Potassium Chloride Carbon Dioxide Anion Gap BUN Creatinine 0.78 Estim Creat Clear Calc 82 Estimated GFR > 60 Glucose POC Capillary Glucose Lactic Acid 1.4 Calcium Phosphorus Magnesium Total Bilirubin AST ALT Alkaline Phosphatase Troponin I C-Reactive Protein 8.9 H NT-Pro-B Natriuret Pep Total Protein Albumin Lipase Urine Color Urine Appearance Urine pH Ur Specific [place] Urine Protein Urine Glucose (UA) Urine Ketones Ur Blood (Man) Urine Nitrate Urine Bilirubin Urine Urobilinogen Add Ur Microanalysis Leukocyte Esterase Rfl Urine RBC Urine WBC Ur Squamous Epith Cells Urine Bacteria Urine Casts Influenza A (RT-PCR) Influenza B (RT-PCR) RSV (RT-PCR) SARS-CoV-2 RNA (RT-PCR) Quality VTE Prophylaxis VTE prophylaxis: mechanical ordered
--- NOTE | 2025-04-14 11:12 | P.DS_ITS ---
DS: Admitting Diagnosis Discharge Date 04/14/2025 Admitting Diagnosis UTI DS: Discharge Diagnosis Discharge Diagnosis (1) UTI (urinary tract infection): Code(s): N39.0 - Urinary tract infection, site not specified Status: Acute Assessment and Plan: IV Rocephin Cultures and sensitivities pending No need for IVF, patient received 3 L fluid bolus in ED (2) Altered mental status: Code(s): R41.82 - Altered mental status, unspecified Status: Acute Assessment and Plan: Likely due to urosepsis, on top of dementia Continue home Alzheimer's meds Sitter if needed (3) Constipation: Code(s): K59.00 - Constipation, unspecified Status: Acute Assessment and Plan: Patient is severely constipated Stool softeners and senna This could be contributing to his altered mental status (4) Frequent falls: Code(s): R29.6 - Repeated falls Status: Acute Assessment and Plan: PT OT evaluation for recommendations for equipment at home Fall precautions (5) Parkinsons disease: Code(s): G20.A1 - Parkinson's disease without dyskinesia, without mention of fluctuations Status: Acute Assessment and Plan: Continue Parkinson's medications (6) Alzheimer's dementia: Code(s): G30.9 - Alzheimer's disease, unspecified; F02.80 - Dementia in other diseases classified elsewhere, unspecified severity, without behavioral disturbance, psychotic disturbance, mood disturbance, and anxiety Status: Acute Assessment and Plan: Continue Alzheimer's medication (7) Orthostatic hypotension: Code(s): I95.1 - Orthostatic hypotension Status: Acute Assessment and Plan: Patient is unable to Flomax because of orthostatic hypotension Fall precautions (8) Renal cyst: Code(s): N28.1 - Cyst of kidney, acquired Status: Inactive Assessment and Plan: Seen on CT here, family is aware of this they have already had taking care of DS: Summary Hospital Course Reason for hospitalization: uti Hospital Course: Patient with history of multiple medical problems and DNR and was admitted with complaint of having recheck symptoms. Patient was started on antibiotics. Family has decided decided to take him home with home hospice care patient was discharged in stable condition. Hospital will follow patient at home. Status at Discharge Cognitive/behavioral status at discharge: Stable. Time Spent with Patient Time attestation: 30 minutes Total time spent providing and/or coordinating discharge services: Exam Narrative: General: well appearing, appears stated age. HEENT: normocephalic, atraumatic. Mucous membranes moist. EOMI, PERRLA, bilateral sclera anicteric, no conjunctival injection. Neck supple without JVD, lymphadenopathy, or bruit. Respiratory: clear to ascultation bilaterally. No rales/rhonic/wheezes. Cardiovascular: Regular rate and rhythm, normal S1-S2 upon ascultation. No murmurs, rubs, or clicks. PMI is nondisplaced, capillary refill less than 3 second. Abdomen: Soft, round, no pulsatile masses, nondistended and nontender. No rebound, no guarding. No CVA tenderness, no hepatosplenomegaly. Bowel sounds present to all four quadrants. No high pitch or tinkling sounds, resonant to percussion. Extremities: No cyanosis, clubbing, or edema present. Pulses are palpable 2/2. Active ROM to all four extremities. Neuro: Alert and orientated x 2. PERRLA. Cranial nerves 2-12 intact without focal deficit. Skin: Warm, dry, and intact, without rash, erythema, or lesion. Psych: pleasant, cooperative, normal speech, normal affect, no hallucinations, no dysarthia DS: Data Data Completed and Pending Labs on day of discharge: Labs from last 24 hours 04/14/25 04/13/25 04/13/25 06:11 18:58 16:41 WBC RBC Hgb Hct MCV MCH MCHC RDW Plt Count MPV Immature Gran % (Auto) Neut % (Auto) Lymph % (Auto) [place] % (Auto) Eos % (Auto) Baso % (Auto) Lymph # (Auto) [place] # (Auto) Eos # (Auto) Baso # (Auto) Abs Immat Gran (auto) Absolute Neuts (auto) Absolute Nucleated RBC Nucleated RBC % PT INR APTT VBG pH VBG pCO2 VBG pO2 VBG HCO3 O2 Delivery Device O2 Liters/Min FiO2 Sodium Potassium Chloride Carbon Dioxide Anion Gap BUN Creatinine 0.78 Estim Creat Clear Calc 82 Estimated GFR > 60 Glucose POC Capillary Glucose Lactic Acid 1.4 Calcium Phosphorus Magnesium Total Bilirubin AST ALT Alkaline Phosphatase Troponin I < 0.012 C-Reactive Protein 8.9 H NT-Pro-B Natriuret Pep Total Protein Albumin Lipase Urine Color Urine Appearance Urine pH Ur Specific [place] Urine Protein Urine Glucose (UA) Urine Ketones Ur Blood (Man) Urine Nitrate Urine Bilirubin Urine Urobilinogen Add Ur Microanalysis Leukocyte Esterase Rfl Urine RBC Urine WBC Ur Squamous Epith Cells Urine Bacteria Urine Casts Influenza A (RT-PCR) Influenza B (RT-PCR) RSV (RT-PCR) SARS-CoV-2 RNA (RT-PCR) 04/13/25 04/13/25 04/13/25 14:17 14:12 13:58 WBC RBC Hgb Hct MCV MCH MCHC RDW Plt Count MPV Immature Gran % (Auto) Neut % (Auto) Lymph % (Auto) [place] % (Auto) Eos % (Auto) Baso % (Auto) Lymph # (Auto) [place] # (Auto) Eos # (Auto) Baso # (Auto) Abs Immat Gran (auto) Absolute Neuts (auto) Absolute Nucleated RBC Nucleated RBC % PT INR APTT VBG pH 7.503 H* VBG pCO2 29.1 L* VBG pO2 51.0 H VBG HCO3 22.3 L O2 Delivery Device Room air O2 Liters/Min Not Reportable FiO2 21 Sodium Potassium Chloride Carbon Dioxide Anion Gap BUN Creatinine Estim Creat Clear Calc Estimated GFR Glucose POC Capillary Glucose Lactic Acid 1.4 Calcium Phosphorus Magnesium Total Bilirubin AST ALT Alkaline Phosphatase Troponin I C-Reactive Protein NT-Pro-B Natriuret Pep Total Protein Albumin Lipase Urine Color Dark yellow Urine Appearance Clear Urine pH 5.5 Ur Specific [place] 1.022 Urine Protein 2+ H Urine Glucose (UA) 2+ H Urine Ketones Trace H Ur Blood (Man) Negative Urine Nitrate Positive H Urine Bilirubin Negative Urine Urobilinogen 1.0 Add Ur Microanalysis Reviewed Leukocyte Esterase Rfl Trace H Urine RBC 0-2 Urine WBC 0-5 Ur Squamous Epith Cells None seen Urine Bacteria 2+ H Urine Casts 3-5 Influenza A (RT-PCR) Negative Influenza B (RT-PCR) Negative RSV (RT-PCR) Negative SARS-CoV-2 RNA (RT-PCR) Negative 04/13/25 04/13/25 13:11 13:06 WBC 9.3 RBC 4.15 L Hgb 11.8 L Hct 38.3 L MCV 92.3 MCH 28.4 MCHC 30.8 L RDW 14.8 H Plt Count 203 MPV 9.6 Immature Gran % (Auto) 0.8 H Neut % (Auto) 94.7 H Lymph % (Auto) 2.8 L [place] % (Auto) 1.4 L Eos % (Auto) 0.1 Baso % (Auto) 0.2 Lymph # (Auto) 0.26 L [place] # (Auto) 0.1 Eos # (Auto) 0.0 Baso # (Auto) 0.0 Abs Immat Gran (auto) 0.07 H Absolute Neuts (auto) 8.8 H Absolute Nucleated RBC 0.000 Nucleated RBC % 0.0 PT 19.0 H INR 1.6 APTT 30.1 VBG pH VBG pCO2 VBG pO2 VBG HCO3 O2 Delivery Device O2 Liters/Min FiO2 Sodium 134 L Potassium 4.7 Chloride 99 Carbon Dioxide 26 Anion Gap 9 BUN 19 Creatinine 0.87 Estim Creat Clear Calc 74 Estimated GFR > 60 Glucose 253 H POC Capillary Glucose 253 H Lactic Acid Calcium 9.4 Phosphorus 2.9 Magnesium 1.4 L Total Bilirubin 1.1 AST 19 ALT 14 Alkaline Phosphatase 82 Troponin I < 0.012 C-Reactive Protein NT-Pro-B Natriuret Pep 2540 H Total Protein 6.7 Albumin 3.7 Lipase 33 Urine Color Urine Appearance Urine pH Ur Specific [place] Urine Protein Urine Glucose (UA) Urine Ketones Ur Blood (Man) Urine Nitrate Urine Bilirubin Urine Urobilinogen Add Ur Microanalysis Leukocyte Esterase Rfl Urine RBC Urine WBC Ur Squamous Epith Cells Urine Bacteria Urine Casts Influenza A (RT-PCR) Influenza B (RT-PCR) RSV (RT-PCR) SARS-CoV-2 RNA (RT-PCR) Discharge Plan Discharge Attending physician on discharge: Rasheed Treviño Consulting providers: Arnel Bangura Discharging Clinician: Rasheed Treviño Patient Disposition: Hospice - Home Activity: as tolerated Diet: as tolerated Patient Language: Georgian Stand Alone Forms: General Discharge Information Discharge Medications: New sennosides-docusate sodium [Senokot-S] 8.6-50 mg Tablet 1 tab PO HS Qty: 30 0RF ciprofloxacin HCl [Cipro] 250 mg tablet 250 mg PO Q12H Qty: 14 0RF Continued atorvastatin 40 mg tablet 40 mg PO QPM bupropion HCl 300 mg tablet extended release 24 hr 300 mg PO QHS carbidopa-levodopa 25-100 mg tablet 1 tablet PO TID cyanocobalamin (vitamin B-12) 1,000 mcg tablet 1,000 mcg PO DAILY digoxin 125 mcg (0.125 mg) tablet 0.125 mg PO DAILY Rx Instructions: 0.125 mg orally; take 1 tablet daily Mon-Thu, take 2 tablets daily on Sat and Sun to total 250 mcg ferrous sulfate 325 mg (65 mg iron) tablet 325 mg PO DAILY folic acid 1 mg tablet 1 mg PO DAILY hydrocodone-acetaminophen 5-325 mg tablet 1 tablet PO Q8H PRN (Reason: pain) metformin 1,000 mg tablet 1,000 mg PO BIDAC metoprolol succinate 25 mg tablet extended release 24 hr 12.5 mg PO DAILY mirabegron 25 mg tablet extended release 24 hr 25 mg PO DAILY Xarelto 20 mg tablet 20 mg PO DAILY solifenacin 10 mg tablet 10 mg PO DAILY venlafaxine 75 mg capsule,extended release 24hr 75 mg PO DAILY cholecalciferol (vitamin D3) 25 mcg (1,000 unit) capsule 1,000 unit PO DAILY docusate sodium [Colace] 100 mg capsule 100 mg PO HS melatonin 10 mg capsule 10 mg PO HS polyethylene glycol 3350 [ClearLax] 17 gram/dose powder 17 g PO DAILY PRN (Reason: constipation) Date of admission: 04/13/25 16:29 Primary Care Provider: PHYSICIAN,HEALTHCARE NETWORK CONSULTANT Admitting Provider: Joe Faulkner Attending physician on admission: Joe Faulkner Condition: Stable Quality VTE Prophylaxis VTE prophylaxis: mechanical ordered
== END 2025-04-14 11:40 | disposition hospice, home (50) ==
LOC: ANHED 15:38 → ANH3MEDSUR 04-14 06:57
PROVIDERS: Emergency Medicine; Nurse Practitioner Gerontology; Admitting Provider General Practice; Emergency Provider Emergency Medicine; Visit Provider Internal Medicine
DX: N39.0 Urinary tract infection, site not specified (principal); R41.82 Altered mental status, unspecified; K59.00 Constipation, unspecified; R29.6 Repeated falls; G20.A1 Parkinson's disease without dyskinesia, without mention of fluctuations; G30.9 Alzheimer's disease, unspecified; F02.80 Dementia in other diseases classified elsewhere, unspecified severity, without behavioral disturbance, psychotic disturbance, mood disturbance, and anxiety; I95.1 Orthostatic hypotension; I48.91 Unspecified atrial fibrillation; N28.1 Cyst of kidney, acquired; Z20.822 Contact with and (suspected) exposure to COVID-19; Z66 Do not resuscitate; Z79.01 Long term (current) use of anticoagulants; Z79.84 Long term (current) use of oral hypoglycemic drugs; Z79.899 Other long term (current) drug therapy; Z85.46 Personal history of malignant neoplasm of prostate; Z87.891 Personal history of nicotine dependence; Z87.440 Personal history of urinary (tract) infections
CPT/HCPCS: 36415; 70450; 71045; 71260; 72125; 73502; 74177; 80053; 81001; 82565; 82803; 82948; 83605; 83690; 83735; 83880; 84100; 84484; 85025; 85610; 85730; 86140; 87040; 87077; 87086; 87186; 87637; 93005; 96361; 96365; 96366; 96367; 99285; A9270; G0378; J0692; J3370; J3475; J7120; Q9967